=== PATIENT | female | born 1940 | race Caucasian/White ===

== ENCOUNTER → 2017-11-18 10:16 | Outpatient (CLI) | payer MEDICARE, SELFPAY | PROVIDERS: Family Provider Internal Medicine; PCP Internal Medicine; Visit Provider Internal Medicine | DX: M25.552 Pain in left hip (principal) | CPT/HCPCS: 73502 ==

== ENCOUNTER → 2017-11-27 09:12 | Outpatient (CLI) | payer MEDICARE, SELFPAY | PROVIDERS: Family Provider Internal Medicine; PCP Internal Medicine; Visit Provider Internal Medicine | DX: R92.8 Other abnormal and inconclusive findings on diagnostic imaging of breast (principal); N63.24 Unspecified lump in the left breast, lower inner quadrant | CPT/HCPCS: 76642; 77062; 77066; G0279 ==

== ENCOUNTER 2017-12-06 08:30 | Outpatient (RCR) | payer MEDICARE, SELFPAY ==
--- NOTE | 2017-11-22 10:04 | HP.PTEVAL_ITS ---
Patient's Visit Information MOLLY BOURGEOIS is a 77 year old F referred to Physical Therapy by Sandra Narvaez with a diagnosis of L ITB itis , L hip pain. Date of Evaluation: 11/22/17 Physical Therapist: LIVAN ColindresT, OC - Visit Plan Frequency: Every Other Week Duration: 4-6 Weeks Plan: Pt cannot affor d frequent therapy so decided on HEP stretching for 2 weeks while anti inflammatory kicks in then teach strength hip stabs.. Consider STM, ITB stretch and US in therapy if patient agreeable and improvements not noted. - Subjective Subjective: 3 years ago fell on the ice int he winter and landed on hip, was OK at the time but now hip is gradually getting worse. Has 1/8 mile trip to [employer] and it hurts. stopped walking to the mailbox last year. In fact she stopped doing alot according to daughter. L hip pain is OK at rest, worse with crossing legs. Walking any distance is worse adn standing to do dishes hurts.( 10 minutes is hard to stand). Pain is lateral at L hip. Denies numbness and tingling but does sometimes go down lateral leg toward knee. Below knee is numb laterally froma previous accident. LB has OA but is OK and no wrse than normal. Sleep is OK. Not employed. Not doing any housework or dishes due to hip, daughter helps her. Wants to hollis and garden but hasn't been able to. Squatting and getting up from gorund are not happening, can't get up out of tub. Uses cane for balance, needs to use R leg on steps. - Pain L lateral hip Pain Intensity (Out of 10): 0 Pain Intensity Range: 0, 8 - Objective Walks with cane mod I, trasnfers I, mild evidence of pain. Max tender over L GT bursa area and down into ITB. - hip scour. Hip AROM WFL and symmetrical, no pain at end range. Strength in hips 4-/5 ext adn abd, 4/5 flexion and 4- rotations with slight pain with IR and flexion. reflexes 2/3 patella and achilles B. Sensation WNL to gross ligth touch. ITB mod tight B. HS 90/90 test -40 B. hip flexors tight to neutral B. - Goals Goal 1:: Patient feel 75% better and pain no greater tahn 1/10 Goal Time Frame: 2-4 Weeks Goal 2:: Walk to mailbox and back without pain Goal Time Frame: 2-4 Weeks Goal 3:: I approp HEP to minimize future problems. Goal Time Frame: 4-6 Weeks - Rehabilitation Potential Physical Therapy Diagnosis: L ITB syndrome. Rehabilitation Potential: Fair - Anticipated Interventions Patient/Client Instruction: Educate patient on: Condition, Plan of Care For the Purpose of:: To decrease pain, To increase ROM, To improve nutrient delivery to tissue Therapeutic Exercise to Include: Strength training, Flexibilty training For the Purpose of:: To decrease pain Thank you for the opportunity to evaluate your patient. For Medicare and Medicare HMO plans, please review the plan of care and approve it. It will need to be FAXED BACK to us at [phone] for Medicare purposes. Please let me know if there are questions or concerns regarding this plan of care. Physician Signature: Date:
--- NOTE | 2018-02-25 11:51 | HP.PTDCSUM ---
HP - PT D/C Summary It has been my pleasure to treat MOLLY BOURGEOIS under orders from Sandra Narvaez, for the diagnosis of L ITB itis , L hip pain for a total of 2 visit(s). Discharge Date: 12/06/17 Please see the following information for a summary of their discharge status. - Subjective Subjective: 90% better. Ex really helps. Saw doctor and will see again 12/24/17. Wants to be done with PT. 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 - Pain L lateral hip Pain Intensity (Out of 10): 0 - Overall Improvement % Improvement: 90 - Objective Objective/Function: Walking very well without pain today. No cane needed but she is using it. - Goals Goal 1:: Patient feel 75% better and pain no greater tahn 04/10 Goal Progress: Goal Met Goal 2:: Walk to mailbox and back without pain Goal Progress: Progressing Goal 3:: I approp HEP to minimize future problems. Goal Progress: Goal Met - Plan Plan: D/C patients request. - D/C Information Discharge Comments: Patient wants to continue ex at home vs continued PT and should be able to do so. Will see doctor end of month. If there are questions or concerns regarding this patient's physical therapy, please feel free to call me at [phone]. Thank you for the referral of this patient. Sincerely, Duy Bedoya, DPT, OC
== END 2017-12-06 19:00 | disposition home or self-care (01) ==
LOC: PT 08:30
PROVIDERS: Family Provider Internal Medicine; PCP Internal Medicine; Visit Provider Internal Medicine
DX: M25.552 Pain in left hip (principal); M76.32 Iliotibial band syndrome, left leg
CPT/HCPCS: 97110; 97164

== ENCOUNTER → 2019-12-25 06:35 | Outpatient (CLI) | payer MEDICARE, SELFPAY ==
--- NOTE | 2019-12-25 06:40 | ECHOD_ITS ---
Reason For Study: Abn EKG Procedure This was a 2D Doppler, Color Flow transthoracic echocardiogram. Exam performed in department. Left Ventricle Normal LV size. The estimated ejection fraction is 55 %. No evidence for diastolic dysfunction. No regional wall motion abnormalities noted. Right Ventricle Normal RV size. Normal systolic function. Atria Normal left atrium. Normal right atrium. No doppler evidence for ASD. Mitral Valve There is no mitral valve stenosis. Trivial mitral valve insufficiency. Tricuspid Valve There is no tricuspid stenosis. Unable to estimate RV systolic pressure due to inadequate jet, pulmonary artery pressure probably normal. Aortic Valve There is no aortic stenosis. Trivial aortic valve insufficiency. Pulmonic Valve There is no pulmonic valvular stenosis. No pulmonic valve insufficiency. Great Vessels Normal aortic root. Pericardium/Pleural Thickened pericardium. MMode/2D Measurements & Calculations LVIDd: 3.1 cm IVSd: 1.3 cm Ao root diam: 3.9 cm LVIDs: 2.2 cm LVPWd: 1.1 cm RVDd: 3.0 cm FS: 29.8 % LAV(MOD-bp): 25.3 ml LVAd ap4: 22.2 cm2 SV(MOD-sp4): 26.5 ml LAV(MOD-bp) Indexed: 12.7 ml/m2 EDV(MOD-sp4): 53.2 ml LAV(MOD-sp2): 32.8 ml EDV(sp4-el): 53.2 ml LAV(MOD-sp4): 19.7 ml LVAs ap4: 14.0 cm2 ESV(MOD-sp4): 26.7 ml ESV(sp4-el): 24.6 ml EF(MOD-sp4): 49.8 % EF(sp4-el): 53.8 % SV(sp4-el): 28.6 ml LA A4 area: 9.8 cm2 LA dimension(2D): 2.7 cm RA A4 area: 8.7 cm2 Doppler Measurements & Calculations Ao V2 max: 132.1 cm/sec LV V1 max: 87.1 cm/sec PA V2 max: 108.9 cm/sec Ao max P.0 mmHg LV V1 max P.0 mmHg Ao V2 mean: 94.0 cm/sec Ao mean P.9 mmHg Ao V2 VTI: 23.5 cm Interpretation Summary The estimated ejection fraction is 55 %. No evidence for diastolic dysfunction. Trivial mitral valve insufficiency. Trivial aortic valve insufficiency. Ordering Physician: Sandra Narvaez Referring Physician: Sandra Narvaez Performed By: Neha Claros, BRE, RVT
--- NOTE | 2019-12-30 17:24 | STRESSREP ---
Stress Test Report Date: 12/25/2019 Procedure: Pharmacologic stress nuclear imaging study Indications: Abnormal EKG Consent: Per the patient Procedure: The patient underwent pharmacologic (Regadenoson) evaluation with a peak heart rate of 117 beats per minute (82%predicted maximal heart rate) and a peak blood pressure of 172/88 mmHg. The baseline ECG demonstrated normal sinus rhythm, nonspecific intraventricular conduction delay, nonspecific ST-T changes. EKG during lexiscan infusion revealed no significant ST T changes. EKG post infusion revealed no significant ischemic changes [There were no cardiac dysrhythmias pretest, during pharmacologic infusion, or recovery]. [There was no complaint of chest discomfort during pharmacologic infusion or recovery]. The examination was discontinued secondary to completion of protocol. Impression: 1. Lexiscan stress test test is negative for Lexiscan infusion induced EKG changes of ischemia. 2. Lexiscan stress test test is negative for Lexiscan infusion induced chest pain. 3. Results of the nuclear portion of the test is as below Myocardial perfusion imaging study: Technique: The patient was injected with 11 millicuries of technetium 99m Cardiolite and subsequently rest SPECT Cardiolite nuclear imaging was obtained in the horizontal long, vertical long, and short axis views. The patient underwent pharmacologic (Regadenoson) evaluation. Please see above for details. The patient was injected with 33.3 millicuries of technetium 99m Cardiolite and subsequently stress SPECT Cardiolite nuclear imaging was obtained in the horizontal long, vertical long, and short axis views. A gated Cardiolite study at peak stress was obtained. Interpretation: Rest and stress SPECT Cardiolite nuclear imaging status post realignment, normalization, and attenuation correction demonstrate overall normal myocardial radioisotope uptake. Gated images reveal no significant regional wall motion abnormalities. The reported LVEF is 66%. Impression: 1. There is no evidence of significant ischemia or infarction. 2. Estimated ejection fraction is 66%. This note was generated with [employer] software. It may contain incorrect words, spelling, and punctuation that were not noted in checking the note before signing.
== END ==
PROVIDERS: PCP Internal Medicine; Referring Provider Internal Medicine; Visit Provider Internal Medicine
DX: R94.31 Abnormal electrocardiogram [ECG] [EKG] (principal); R55 Syncope and collapse; I44.7 Left bundle-branch block, unspecified; R11.0 Nausea; Z79.4 Long term (current) use of insulin; Z79.82 Long term (current) use of aspirin; Z79.899 Other long term (current) drug therapy
CPT/HCPCS: 71045; 78452; 80048; 81001; 84484; 85025; 87086; 87088; 93005; 93017; 93306; 99284; A9500; A4216; J2785

== ENCOUNTER 2019-12-25 10:17 | Emergency (ER) | payer MEDICARE, SELFPAY ==
[2019-12-25 10:18] VITALS: BP 169/94; PULSE 99; RESP 17; TEMP 36.2; O2SAT 99; BMI 30.7
--- NOTE | 2019-12-25 10:30 | EKG12_ITS ---
Test Reason : DIZZINESS Blood Pressure : / mmHG Vent. Rate : 092 BPM Atrial Rate : 092 BPM P-R Int : 200 ms QRS Dur : 128 ms QT Int : 392 ms P-R-T Axes : 048 -33 129 degrees QTc Int : 484 ms Normal sinus rhythm Left axis deviation Left bundle branch block Abnormal ECG Confirmed by JUAN LUIS WILSON, IGOR ([id number]), newspaper or periodical editor FABIAN GOEL ([id number]) on 12/30/2019 8:44:33 AM Referred By: MESSI Confirmed By:IGOR MCKNIGHT MD
--- NOTE | 2019-12-25 10:36 | ED.VIS.GEN ---
History of Present Illness Informant: Patient, Family Onset: Today Context: Sudden Onset Timing: Intermittent, Lasts - About a minute Quality: Lightheaded, near syncope Location: Head Current Severity: Mild Maximum Severity: Severe Worsened by: Standing and walking Relieved by: Rest Associated Symptoms: Nausea Narrative: 79-year-old female presents to the emergency department with lightheadedness and near syncope. The patient was in the hospital getting an outpatient stress test and echocardiogram. She had completed the test and was returning to the car with her daughter when she started to feel nauseated and felt lightheaded and near syncopal so she sat down on the ground. She did not lose consciousness. She did not have chest pain or shortness of breath. She was not diaphoretic or pale. She currently feels well at this time. She thinks it is because she has not eaten since yesterday at 1800 because she had to be n.p.o. for her testing today. She was getting these tests done because she had appointment with her new primary care physician Dr. Narvaez and had an abnormal EKG Prior similar symptoms: No Recent Illness/Hospitalization: No <Aris Alves - Last Filed: 12/25/19 13:17> <Marcelino Reed - Last Filed: 12/25/19 13:26> Chief Complaint: Dizziness Past Medical History Prior records reviewed: Yes Past Medical History: None Surgical History: no surgical history Lives: With Family Smoking Status: Never smoker Alcohol: None Drugs: None <Aris Alves - Last Filed: 12/25/19 13:17> <Marcelino Reed - Last Filed: 12/25/19 13:26> - Allergies and Home Meds Allergies/Adverse Reactions: Allergies No Known Allergies Allergy (Unverified 12/25/19 10:17) Primary Care Physician: Sandra Narvaez DO [Primary Care Provider] - Review of Systems All systems negative except as indicated General: Denies: Chills, Fever, Malaise, Subjective, Sweats Eyes: Denies: Visual changes - bilaterally, Diplopia ENT: Denies: Rhinorrhea, Sore throat Cardiovascular: Denies: Chest pain, Palpitations Respiratory: Denies: Dyspnea, Cough, Dyspnea on exertion Gastrointestinal: Reports: Nausea. Denies: Abdominal pain, Vomiting, Diarrhea, Constipation, Melena, Hematochezia Genitourinary: Denies: Dysuria, Hematuria, Frequency Musculoskeletal: Denies: Back pain, Swelling, Extremity Pain Skin: Denies: Rash, Abscess, Abrasions, Wounds Neurological: Denies: Headache, Weakness, Numbness <Aris Alves - Last Filed: 12/25/19 13:17> Physical Exam Vital Signs/Narrative: Vital Signs Temp Pulse Resp BP Pulse Ox 12/25/19 10:18 97.1 F L 99 17 169/94 H 99 Inital Vital Signs reviewed: Yes General: Well nourished, Well developed, No Acute Distress Head: Normocephalic, Atraumatic Eyes: Perrl, EOMI ENT: Moist mucous membranes, No rhinorrhea Neck: Supple, Nontender Cardiovascular: Regular rate, Regular rhythm, No murmurs Respiratory: No distress, CTA bilaterally, Chest nontender Abdomen: Soft, Nontender, Nondistended, Normal bowel sounds Back: Nontender, Normal Inspection Extremities: Nontender, No edema Skin: Normal color, No rash Neurological: Alert, Oriented x3, Cranial nerves II-XII grossly intact, Normal Strength, Normal Sensation Psychological: Normal affect, Normal Mood <Aris Alves - Last Filed: 12/25/19 13:17> Vital Signs/Narrative: Vital Signs Temp Pulse Resp BP Pulse Ox 12/25/19 12:17 95 18 160/101 H 97 12/25/19 10:18 97.1 F L 99 17 169/94 H 99 <Marcelino Reed - Last Filed: 12/25/19 13:26> Diagnostic/Tx/Re-eval Chest X-Ray - ED: 1 View, Read by ED Physician, Read by Radiologist, No Acute Disease - Rhythm Strip Rhythm Strip: Sinus Rhythm Rate: 92 Ectopy: None - EKG Initial EKG Interpretation: Sinus Rhythm, LBBB Prior: Unchanged - Medical Decision Making EKG on arrival was sinus rhythm with a left bundle branch block which is unchanged from her previous EKG done at her primary care physician's office, last week. CBC BMP and troponin unremarkable. Urinalysis shows 5-10 white blood cells but no nitrites. She is not having urinary symptoms. Her chest x-ray is unremarkable as well. Repeat exam patient feels well. She ambulates without difficulty. Vital signs stable. At this time feel the patient likely was lightheaded from her being n.p.o. since last evening. She will be discharged home with her daughter who is agreeable with plan and they will follow-up with her primary as scheduled. <Aris Alves - Last Filed: 12/25/19 13:17> - Medical Decision Making I supervised the PA and have performed my own pertinent history and physical. Results and treatment plan were discussed. HPI: Patient reports that she had just had a stress test as she has been having weakness for quite some time now. She was in the elevator leaving this will be she became nauseated and lightheaded. She denies any vertigo. No numbness or weakness. She denies any chest pain or palpitations. She denies abdominal pain. No vomiting or diarrhea. PE: Vitals: Stable. Afebrile. General: Well-nourished and well-developed. Head: Normocephalic atraumatic. Neck: Supple, no lymphadenopathy. No JVD. Nontender. Cardiovascular: Regular rate and rhythm. No murmurs. Respiratory: No respiratory distress. Clear to auscultation bilaterally. Abdominal: Soft, nontender, nondistended, normal bowel sounds. No guarding, rebound, or peritoneal signs. Back: Nontender. Extremities: Nontender, no edema. Skin: Normal color, no rash. Neurologic: Alert and oriented ?3. Cranial nerves II through XII are intact. Normal strength and sensation. Psych: Normal affect. Emergency Department course: EKG and labs are unremarkable. Urinalysis is sent for culture, but does not appear to be the source of her symptoms today. Treatment Plan: Patient feels well and would like to go home. She will be discharged instructed to follow-up her primary care physician in 3 to 5 days for another exam. Return to the emergency department for any worsening symptoms. This note was generated with [employer] dictation software. It may contain incorrect words, spelling, and punctuation that were not noted in review of the chart prior to signing. <Marcelino Reed - Last Filed: 12/25/19 13:26> ED Disposition <Aris Alves - Last Filed: 12/25/19 13:17> <Marcelino Reed - Last Filed: 12/25/19 13:26> - Plan for ED Patient: Disposition: Home or Assisted Living Diagnosis: Near syncope, LBBB (left bundle branch block) Instructions: ED Near Syncope Vasovagal Referrals: Sandra Narvaez DO [Primary Care Provider] -
--- NOTE | 2019-12-25 10:45 | RAD_ITS ---
STUDY: X-RAY CHEST REASON FOR EXAM: Female, 79 years old. CHEMICAL STRESS TODAY- BECAME DIZZY AFTERWARDS AND LOWERED HERSELF TO THE FLOOR- NO LOC -- PT IS DIABETIC TECHNIQUE: Single AP portable view of the chest. COMPARISON: None. FINDINGS: The lungs are clear and expanded. There is no demonstrated pleural abnormality. Normal size heart. Normal mediastinum and joseph. Normal visualized pulmonary arteries. There is atherosclerotic calcification of the aortic arch with tortuosity. There are diffuse degenerative changes of the visualized thoracic spine. Dextroscoliosis. There is degenerative osteoarthritis of the bilateral shoulders. There is no demonstrated abnormality of the visualized soft tissue structures of the upper abdomen. RAD/Chest 1 View (Portable) IMPRESSION: No acute abnormality is seen. Electronically Signed: Jairo Cortes, at 11:01 EDT , Service support ,
[2019-12-25 11:09] LABS: Absolute Lymphocyte Count 1.11 X10^3/uL (0.83-4.51); Absolute Neutrophil Count 7.4 X10^3/uL (2.0-7.7); Basophil# 0.03 X10^3/uL; Basophil% 0.3 % (0-1); Eosinophil# 0.01 X10^3/uL; Eosinophils% 0.1 % (0-5); Hematocrit 40.8 % (37-47); Hemoglobin 13.6 g/dL (12.0-15.0); Lymphocyte # 1.11 X10^3/ul (4.0); Lymphocyte % 12.4 % (19-41); Mean Corp Hgb Conc 33.3 g/dL (32-36); Mean Platelet Vol. 10.8 fl (6.2-12.0); Monocyte# 0.39 X10^3/uL; Monocyte% 4.4 % (0-10); NRBC Flagged by Analyzer 0 % (0-5); Neutrophil # 7.35 X10^3/uL (2.7-7.7); Neutrophil % 82.1 % (47-70); Platelet Count 264 K/mm3 (150-450); RBC Distribution Width CV 12.9 % (11.6-14.6); Red Blood Count 4.25 M/mm3 (4.2-5.4)
[2019-12-25 11:26] LABS: Anion Gap 8 (5-15); BUN 21 mg/dL (7-18); BUN/Creat Ratio 14.2 RATIO (10-20); Calcium,Total 9.4 mg/dL (8.5-10.1); Chloride 103 mmol/L (98-107); Creatinine, Serum 1.48 mg/dL (0.55-1.02); EST Glomerular Filtration Rate 36 mL/min (>60); Est Glom Filt Rate - Afr Amer 44 mL/min (>60); Estimated Creatinine Clearance 28.85 ml/min; Glucose 175 mg/dL (74-106); Potassium 4.1 mmol/L (3.5-5.1); Sodium Level 135 mmol/L (136-145)
[2019-12-25 12:17] VITALS: BP 160/101; PULSE 95; RESP 18; O2SAT 97
[2019-12-25 12:35] LABS: Bacteria 0 SEEN /hpf (None Seen); Mucous, Urine 0 SEEN /hpf (<or=2+); Red Blood Cells-Urine 0 SEEN /hpf (0-5)
[2019-12-25 12:47] LABS: Color, Urine Yellow (Yellow); Glucose, Dipstick Normal (Normal); Ketone-Dipstick Negative (Negative); Leukocyte Esterase-Dipstick 500 /ul (Negative); Nitrite-Dipstick Negative (Negative); Occult Blood-Urine Negative /ul (Negative); Protein-Dipstick 30 mg/dl (Negative); Specific Gravity, Urine 1.015 (1.002-1.030); Urine Bilirubin Dipstick Negative (Negative); Urine Clarity Sl. Cloudy (Clear); Urine Urobilinogen Normal (Normal)
[2019-12-25 13:00] LABS: Squamous Epithelial Cells - UA 0-5 SEEN /hpf (5-10); White Blood Cells 5-10 SEEN /hpf (0-5)
[2019-12-25 13:33] VITALS: BP 146/86; PULSE 71; O2SAT 98
== END 2019-12-25 13:34 | disposition home or self-care (01) ==
PROVIDERS: Emergency Provider Physician Assistant Medical; PCP Internal Medicine
DX: R55 Syncope and collapse (principal); I44.7 Left bundle-branch block, unspecified; R11.0 Nausea; Z79.84 Long term (current) use of oral hypoglycemic drugs; Z79.82 Long term (current) use of aspirin; Z79.899 Other long term (current) drug therapy
CPT/HCPCS: 71045; 80048; 81001; 84484; 85025; 87086; 87088; 93005; 99284; A4216

== ENCOUNTER → 2020-03-16 09:55 | Outpatient (CLI) | payer MEDICARE, SELFPAY ==
--- NOTE | 2020-03-16 09:57 | BI_ITS ---
MAMMOGRAPHY - BILATERAL SCREENING REASON FOR EXAM: Female, 79 years old. Routine annual screening examination. PERTINENT HISTORY: Non-contributory. TECHNIQUE: Digital bilateral breast harper (3D mammographic acquisition) in the CC and MLO projections. 2-D mediolateral oblique (MLO) and craniocaudad (CC) views of both breasts were obtained. CAD: Full Field Digital Mammography with Computer Added Detection was performed. COMPARISON: Comparison is made with prior study dated 11/27/2017. FINDINGS: Breast Composition: The breasts are almost entirely fatty. There are no dominant masses or suspicious calcifications. Stable scattered bilateral calcifications. No other significant abnormalities are identified. There has been no significant change since the prior study. BI/SCREEN MAMM (CAD) W/HARPER BILAT IMPRESSION: Stable bilateral screening mammogram. Yearly follow-up mammogram recommended. (A) ASSESSMENT CATEGORY: BIRADS Category 2: Benign. A letter regarding these results will be sent to the patient by the facility within 30 days. Approximately 10% of breast cancers are not detected by mammography. A normal mammogram should not delay biopsy of a clinically suspicious abnormality. [id number] Electronically Signed: Jairo Cortes, at 12:23 EST , Service support ,
--- NOTE | 2020-03-16 10:09 | BD_ITS ---
STUDY: DUAL ENERGY X-RAY ABSORPTIOMETRY / DXA REASON FOR EXAM: Female, 79 years old. 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 COMPARISON: None. FINDINGS: Lumbar Spine (L1-L4): g/cm2 (1.140) / T-score (-0.3) / Z-score (1.5) Findings are suggestive of normal bone density with a low fracture risk. Left Femur Total: g/cm2 (0.943) / T-score (-0.5) / Z-score (1.5) Left Femoral Neck: g/cm2 (0.953) / T-score (-0.6) / Z-score (1.5) Right Femur Total: g/cm2 (0.952) / T-score (-0.4) / Z-score (1.5) Right Femoral Neck: g/cm2 (0.954) / T-score (-0.6) / Z-score (1.5) BD/Dexa Bone Density Study IMPRESSION: The patient is considered normal as outlined below according to World Stevenson Organization (WHO) criteria with a low fracture risk. Reference Information: The T-score is the number of standard deviations above or below the standard which is normal for young adults at their peak bone mineral density. The World Health Organization (WHO) interprets the T-scores as follows: Above -1 Normal bone density Between -1 and -2.5 Osteopenia Equal to / or below -2.5 Osteoporosis As a practical clinical guideline, osteopenia may be graded as follows: Mild -1 through -1.5 Moderate -1.6 through -2.0 Severe -2.1 through -2.4 The Z-score is the number of standard deviations above or below age-matched controls. A Z-score of less than -1.5 would be considered abnormal. References: 1. NIH Osteoporosis and Related Bone Diseases www osteo.org 2. International Society for Clinical Densitometry www iscd.org 3. National Osteoporosis Foundation www nof.org Electronically Signed: Jairo Cortes, at 15:17 EST , Service support ,
== END ==
PROVIDERS: PCP Internal Medicine; Referring Provider Internal Medicine; Visit Provider Internal Medicine
DX: Z12.31 Encounter for screening mammogram for malignant neoplasm of breast (principal); Z78.0 Asymptomatic menopausal state
CPT/HCPCS: 77063; 77067; 77080

== ENCOUNTER 2020-04-12 19:19 | Observation (INO) | payer MEDICARE, SELFPAY ==
[2020-04-12] VITALS (11 sets, daily range): BP systolic 148–180; BP diastolic 78–103; PULSE 97–111; RESP 12–20; TEMP 36–37.2; O2SAT 97–100; BMI 28.1; BMI 29.2; BMI 29.3
--- NOTE | 2020-04-12 19:35 | EKG12_ITS ---
Test Reason : DYSRHYTHMIA Blood Pressure : / mmHG Vent. Rate : 099 BPM Atrial Rate : 099 BPM P-R Int : 194 ms QRS Dur : 126 ms QT Int : 382 ms P-R-T Axes : 052 -37 126 degrees QTc Int : 490 ms Normal sinus rhythm Left axis deviation Left bundle branch block Abnormal ECG Confirmed by KIRK WILSON, CHASITY ([id number]), content editor ESTEE AKERS ([id number]) on 04/18/2020 10:54:44 AM Referred By: REGLA Confirmed By:JIMI BRADLEY MD
--- NOTE | 2020-04-12 19:39 | ED.DCSUM_ITS ---
History of Present Illness Chief Complaint: Numb/Ting Informant: Patient, Family Onset: Today - At 1600 Context: Sudden Onset Quality and Location: Slurred Speech Onset: 1599 on April 12 Current Severity: Mild Maximum Severity: Mild Worsened by: Nothing Relieved by: Nothing Associated Symptoms: Negative for: Headache, Nausea, Vomiting, Chest Pain Narrative: Patient elderly woman who presents because of concern for stroke. She had a mini stroke in the past. She is on aspirin a day. She also has history of diabetes. She did not have symptoms of hypoglycemia. She denies headache. She denies double vision, blurred vision loss of vision. She states her speech is slurred. She also complains of numbness in her right long and ring finger. She denies neck pain. She denies headache. She denies nausea or vomiting. She has trouble with balance. She denies weakness in her arms or legs. She denies chest pain or back pain. She denies shortness of breath. Prior similar symptoms: Yes Recent Illness/Hospitalization: No - Past Medical History (1) History of type 2 diabetes mellitus Status: Acute (2) History of TIA (transient ischemic attack) Status: Acute (3) History of gout Status: Acute (4) History of hypertension Status: Acute Past Medical History - Allergies and Home Meds Allergies/Adverse Reactions: Allergies No Known Allergies Allergy (Unverified 04/12/20 19:23) Primary Care Physician: Sandra Narvaez DO [Primary Care Provider] - Prior records reviewed: Yes Surgical History: noncontributory, - - Thyroid, tonsils Lives: With Family Smoking Status: Never smoker Alcohol: None Drugs: None Review of Systems General: Denies: Chills, Fever, Malaise, Subjective, Sweats Eyes: Denies: Visual changes - bilaterally, Blurred Vision - bilaterally ENT: Denies: Rhinorrhea, Sore throat Cardiovascular: Denies: Chest pain, Palpitations Respiratory: Denies: Dyspnea, Cough, Dyspnea on exertion Gastrointestinal: Denies: Abdominal pain, Nausea, Vomiting, Diarrhea, Melena, Hematochezia Genitourinary: Denies: Dysuria, Hematuria, Frequency Musculoskeletal: Denies: Myalgias, Arthralgias, Swelling, Extremity Pain Skin: Denies: Rash, Wounds Neurological: Reports: Parasthesia, Numbness. Denies: Headache, Weakness Psych: Denies: Depression Hematologic: Denies: Easy bruising, Easy bleeding Allergy: Denies: Uticaria STROKE Vital Signs/Narrative: Vital Signs Temp Pulse Resp BP Pulse Ox 04/12/20 19:20 96.8 F L 111 H 17 163/96 H 100 Inital Vital Signs reviewed: Yes - NIHSS Initial 1a Level of Consciousness: 1 1b LOC Questions (Score 2 if aphasic/stupor): 0 1c LOC Commands (Only score 1st attempt): 0 2 Best Gaze (If aphasic, use reflexive mvmts.): 0 3 Visual: 0 4 Facial Palsy: 0 5 Motor Arm Right (UN = amputation/fusion): 0 5 Motor Arm Left: 0 6 Motor Leg Right: 0 6 Motor Leg Left: 0 7 Limb ataxia (Only + if out of proportion): 0 8 Sensory (Aphasia/stupor=0 or 1, coma=2): 0 9 Best Language: 1 10 Dysarthria (mute, coma=2, intubated=UN): 1 11 Extinction and Inattention (only scored if +): 0 Total Score: 3 General: Well nourished, Well developed Head: Normocephalic, Atraumatic Eyes: Perrl, EOMI ENT: Moist mucous membranes, No rhinorrhea Neck: Supple, Nontender, No lymphadenopathy, No JVD Cardiovascular: Regular rate, Regular rhythm, No murmurs, Normal S1, Normal S2 Respiratory: No distress, CTA bilaterally, Chest nontender Abdomen: Soft, Nontender, Nondistended, Normal bowel sounds Rectal: Deferred Back: Nontender, Normal Inspection Extremities: Nontender, No edema Skin: Normal color, No rash Neurological: Alert, Cranial nerves II-XII grossly intact, Normal Strength, Normal Sensation, Normal DTR, Normal Gait - Not tested. Negative for: Oriented x3 Psychological: - - Affect is flat Diagnostic/Tx/Re-eval Impressions Brain CT 04/12/20 19:40 IMPRESSION: No acute intracranial abnormality. Chronic ischemic and atrophic changes. N.B. : The above information has been verbally conveyed by Cleve Guan MD to [facility] on 04/12/2020 19:52:42 (ET). Electronically Signed: Cleve Guan MD at 19:53 EST Tel , Service support , ADDENDUM: 04/12/201999 IMPRESSION: No acute intracranial abnormality. Chronic ischemic and atrophic changes. N.B. : The above information has been verbally conveyed by Cleve Guan MD to Yunior Dorsey on 04/12/2020 19:52:42 (ET). Electronically Signed: Cleve Guan MD at 19:53 EST Tel , Service support , Head/Neck CTA 04/12/20 19:49 IMPRESSION: Mild atherosclerotic disease. No evidence for significant stenosis or occlusion within the head or the neck Electronically Signed: Jorge Jensen MD at 20:07 EST , Service support , ADDENDUM: 04/12/202016 IMPRESSION: Mild atherosclerotic disease. No evidence for significant stenosis or occlusion within the head or the neck N.B. : The above information has been verbally conveyed by Jorge Jensen MD to dr luly MD, on 04/12/2020 20:10:57 (ET). Electronically Signed: Jorge Jensen MD at 20:07 EST , Service support , 04/12/20 19:35 Chest 1 View [RAD] Stat 04/12/20 19:40 STROKE Brain/Head without Cont [CT] Stat 04/12/20 19:49 CTA Head AND Neck W/ Contrast [CT] Stat Laboratory Results 04/12/20 19:34 POC Glucose 193 H Patient's case was discussed with the radiologist and the neurologist at [facility], Dr. Toure patient's speech is no longer slurred. She still has slight problem with fluency. Suspect there is also chronic memory impairment which may be reason for her not knowing her age. After lengthy discussion with patient and daughter it was decided that there was greater risk of harm versus benefit with the administration of TPA. She is to be admitted to this facility. - Medical Decision Making Stroke Team Activated: Yes Reviewed Inclusion/Exclusion criteria: Yes Was Patient considered for Endovascular Intervention?: No IV Alteplase (t-PA) Administered: No No contraindications for IV Alteplase (t-PA) administration.: Yes Alteplase (t-PA) risks, benefits, alternative discussed: Yes ED Disposition - Plan for ED Patient: Disposition: [facility] Care [facility] Diagnosis: CVA (cerebral vascular accident) Referrals: Sandra Narvaez DO [Primary Care Provider] -
--- NOTE | 2020-04-12 19:40 | CT_ITS ---
STUDY: CT BRAIN WITHOUT CONTRAST REASON FOR EXAM: Female, 79 years old. Altered mental status. Stroke alert. RADIATION DOSAGE (If Supplied By Facility): CTDIvol = ( 45 ) mGy, DLP = ( 762 ) mGycm TECHNIQUE: Transaxial CT imaging of the brain was performed without administration of intravenous contrast material. Individualized dose optimization techniques were used for this CT. COMPARISON: None. FINDINGS: There is no acute bleed or infarct. There are chronic ischemic and atrophic changes. The ventricles are normal in configuration. There is no hydrocephalus. The visualized paranasal sinuses are clear. The mastoid air cells are well aerated. There is no skull fracture. CT/STROKE Brain/Head without Cont IMPRESSION: No acute intracranial abnormality. Chronic ischemic and atrophic changes. N.B. : The above information has been verbally conveyed by Cleve Guan MD to [facility] on 04/12/2020 19:52:42 (ET). Electronically Signed: Cleve Guan MD at 19:53 EST Tel , Service support ,
[2020-04-12 19:46] LABS: Bedside Glucose 193 mg/dL (70-110)
--- NOTE | 2020-04-12 19:49 | CT_ITS ---
We are attempting to reach an attending provider to discuss findings. An addendum with communication details will be sent when the communication is complete. STUDY: CTA HEAD AND NECK WITH CONTRAST REASON FOR EXAM: Female, 79 years old. SLURRED SPEECH. STOKE RADIATION DOSAGE (If Supplied By Facility): CTDIvol = ( 18.13 ) mGy, DLP = ( 759.69 ) mGycm TECHNIQUE: CT angiography was performed with a multi-detector CT scanner. Data acquisition was obtained from the skull base through the vertex following intravenous administration of IV 100mL [id number]-370. MIP images were reconstructed from the axial data set. Post-processing of the angiographic images was performed, with multiplanar reformation and 3D reconstruction. Individualized dose optimization techniques were used for this CT. COMPARISON: No relevant priors. FINDINGS: Normal bilateral petrous carotid arteries. Mild calcific plaquing of the right cavernous carotid artery with a normal supraclinoid bifurcation. Mild calcific plaquing of the left cavernous carotid artery with a normal supraclinoid bifurcation. Normal right A1 segments of the anterior cerebral artery. Normal left A1 segments of the anterior cerebral artery. Anterior communicating artery not visualized consistent with normal variant.). Normal bilateral A2 segments of the anterior cerebral arteries. Normal right M1 and M2 segments of the middle cerebral arteries, with a normal M1 bifurcation. Normal left M1 and M2 segments of the middle cerebral arteries, with a normal M1 bifurcation. Posterior communicating arteries are not visualized consistent with normal variant Normal bilateral vertebral arteries. Normal basilar artery with a normal basilar bifurcation. The visualized bilateral superior cerebellar (SCA) arteries are normal. Normal bilateral P1, P2 and visualized P3 segments of the posterior cerebral arteries. There is no demonstrated aneurysm of the [place] of [place]. There is no demonstrated abnormality of the visualized brain. AORTIC ARCH: Normal visualized aortic arch. Normal origins of the brachiocephalic, left common carotid, and left subclavian arteries. RIGHT CAROTID ARTERIES: Normal right common carotid artery (CCA). Normal right common carotid bulb. Normal origin of the right internal carotid (ICA) artery without a hemodynamically significant stenosis. Normal visualized cervical portion of the right internal carotid artery. Normal origin of the right external carotid artery (ECA). LEFT CAROTID ARTERIES: Normal left common carotid artery (CCA). Normal left common carotid bulb. Normal origin of the left internal carotid (ICA) artery without a hemodynamically significant stenosis. Normal visualized cervical portion of the left internal carotid artery. Normal origin of the left external carotid artery (ECA). VERTEBRAL ARTERIES: Normal bilateral vertebral arteries. CT/CTA Head AND Neck W/ Contrast IMPRESSION: Mild atherosclerotic disease. No evidence for significant stenosis or occlusion within the head or the neck Electronically Signed: Jorge Jensen MD at 20:07 EST , Service support ,
--- NOTE | 2020-04-12 20:20 | RAD_ITS ---
STUDY: X-RAY CHEST REASON FOR EXAM: Female, 79 years old. Altered mental status TECHNIQUE: Frontal view of the chest COMPARISON: 12/25/19 FINDINGS: The lungs are clear. There are no pleural effusions. There is no pneumothorax. The heart is normal in size. The visualized osseous structures are within normal limits. RAD/Chest 1 View IMPRESSION: No acute thoracic pathology. Electronically Signed: Cleve Guan MD at 20:40 EST Tel , Service support ,
[2020-04-12 20:21] LABS: Absolute Lymphocyte Count 1.23 X10^3/uL (0.83-4.51); Absolute Neutrophil Count 6.4 X10^3/uL (2.0-7.7); Basophil# 0.04 X10^3/uL; Basophil% 0.5 % (0-1); Eosinophil# 0.03 X10^3/uL; Eosinophils% 0.4 % (0-5); Hematocrit 36.4 % (37-47); Hemoglobin 12.1 g/dL (12.0-15.0); Lymphocyte # 1.23 X10^3/ul (4.0); Lymphocyte % 14.9 % (19-41); Mean Corp Hgb Conc 33.2 g/dL (32-36); Mean Corpuscular Hgb 31.3 pg (27.0-32.0); Mean Corpuscular Volume 94.3 fL (81-99); Mean Platelet Vol. 10.8 fl (6.2-12.0); Monocyte# 0.52 X10^3/uL; Monocyte% 6.3 % (0-10); NRBC Flagged by Analyzer 0 % (0-5); Neutrophil % 77.5 % (47-70); Platelet Count 258 K/mm3 (150-450); RBC Distribution Width CV 13.1 % (11.6-14.6); RBC Distribution Width SD 45.1 fl (35.1-43.9); Red Blood Count 3.86 M/mm3 (4.2-5.4); White Blood Count 8.3 K/mm3 (4.4-11.0)
[2020-04-12 20:42] LABS: Anion Gap 6 (5-15); BUN 14 mg/dL (7-18); BUN/Creat Ratio 10.8 RATIO (10-20); Calcium,Total 8.6 mg/dL (8.5-10.1); Chloride 99 mmol/L (98-107); EST Glomerular Filtration Rate 42 mL/min (>60); Est Glom Filt Rate - Afr Amer 51 mL/min (>60); Estimated Creatinine Clearance 34.12 ml/min; Glucose 166 mg/dL (74-106); International Normalized Ratio 0.9; Potassium 3.9 mmol/L (3.5-5.1); Prothrombin Time (Protime)PT. 12.1 SECONDS (11.7-14.9); Sodium Level 131 mmol/L (136-145)
[2020-04-12 20:44] LABS: Partial Thromboplast Time 28.8 Seconds (24.1-36.2)
[2020-04-12] MEDS: Acetaminophen 325 MG Tablet 650 MG PO (21:13)
--- NOTE | 2020-04-12 21:13 | HP.PCM_ITS ---
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 Associated with his for symptoms as numbness of 2 fingers of her right hand and apraxia. Her symptoms started about 1/2-hour prior to presentation. While at the emergency department she complained of headache. Emergency department doctor discussed his case with telemetry neurologist who stated gerhard because patient symptoms has considerably improved patient was not a candidate for tpa. Past Medical History Past Medical History (Chronic Problems): Chronic Problems (Last Reviewed 02/06/18 @ 09:08 by Jackie Mathias) History of gout (Chronic) History of hypertension (Chronic) Mastalgia in female (Chronic) Medical History: Medical History (Last Reviewed 04/13/20 @ 02:[address] Shiv Booker MD) Mastalgia in female (Chronic) N64.4 Diabetes E11.9 Gout M10.9 Left breast lump N63.20 Hypertension I10 Allergies No Known Allergies Allergy (Unverified 04/12/20 19:23) Home Medications: Ambulatory Orders Medication Instructions Recorded allopurinol 100 mg tablet 100 mg PO DAILY 02/06/18 amlodipine 2.5 mg tablet 2.5 mg PO DAILY 02/06/18 Aspirin E.C. [Ecotrin] 325 mg PO DAILY@1700 04/12/20 Cyanocobalamin (Vitamin B-12) 1,000 mcg PO DAILY 04/12/20 [Vitamin B-12] Levothyroxine Sodium [Synthroid] 50 mcg PO DAILY 04/12/20 Losartan Potassium 100 mg PO DAILY 04/12/20 Pravastatin Sodium 80 mg PO DAILY 04/12/20 Semaglutide [Ozempic] 1 mg SQ TU 04/12/20 Surgical History: Surgical History (Last Updated 02/06/18 @ 09:09 by Jackie Mathias) History of thyroid surgery Z98.890 History of tonsillectomy Z90.89 History of tubal ligation Z98.51 history right eye surgery Surgical History: noncontributory, - - Thyroid surgery, tonsils surgery Lives: With Family Smoking Status: Never smoker Alcohol: None Drugs: None - *Family History Maternal Family History: Family History (Last Reviewed 04/13/20 @ 02:[address] Shiv Booker MD) Mother Diabetes Father Heart disease Brother Heart disease Review of Systems Constitutional: Denies: Chills, Fever, Weight Change HEENT: Denies: Head Aches, Sinus Congestion, Sinus Drainage Cardiovascular: Denies: Chest Pain, Palpitations Respiratory: Denies: Cough, Shortness of breath at rest, Sputum production Gastrointestinal: Denies: Abdominal Pain, Nausea, Vomiting Genitourinary: Denies: Dysuria Musculoskeletal: Denies: Joint Pain, Joint Tenderness Skin: Denies: Rash, Wounds Neurological: Reports: Change in Speech, Numbness, Tingling. Denies: Focal weakness Psychiatric: Denies: Anxiety, Depression, Homicidal Ideations, Suicidal Ideations Hematologic/ Lymphatic: Denies: Easy Bruising, Easy Bleeding VTE Information - Inpt Only VTE Present on Admission: No VTE Mechan Device Prophylaxis: None VTE Pharm Prophylaxis ordered?: Yes Patient Problems: Active and Suspected Problems (Last Reviewed 02/06/18 @ 09:08 by Jackie Mathias) History of type 2 diabetes mellitus (Acute) History of TIA (transient ischemic attack) (Acute) CVA (cerebral vascular accident) (Acute) Stroke-like symptoms (Acute) - Physical Exam Vitals/I&O's: Vital Signs Temp Pulse Resp BP Pulse Ox 97.3 F L 104 H 18 161/92 H 98 04/12/20 20:38 04/12/20 21:00 04/12/20 21:00 04/12/20 21:00 04/12/20 21:00 Oxygen Delivery Method Room Air Weight: 84.6 kg Body Mass Index (BMI) 29.2 Finger Stick Blood Glucose 193 General: Alert, Oriented x3, Cooperative HEENT: Atraumatic, PERRLA, EOMI, Normocephalic Neck: Supple, No JVD, Negative Carotid Bruits Lungs: Clear to auscultation, Normal air movement Cardiovascular: Regular rate, No murmurs Abdomen: Bowel Sounds Present, Soft, Non Tender Extremities: No edema, Capillary Refill Less than 3 Seconds Skin: No rashes, No breakdown Musculoskeletal: No Tenderness to Palpation of Joints or Extremities Neurological: Cranial nerves II-XII grossly intact, Motor Exam 5/5 strength throughout, - - Hyperreflexia of right knee reflex (chronic) Psych/Mental Status: Normal Affect, Appropriate Laboratory Results 04/12/20 19:34: POC Glucose 193 H 04/12/20 20:00: WBC 8.3, RBC 3.86 L, Hgb 12.1, Hct 36.4 L, MCV 94.3, MCH 31.3, MCHC 33.2, RDW Std Deviation 45.1 H, RDW Coeff of Shalom 13.1, Plt Count 258, MPV 10.8, Immature Gran % (Auto) 0.400, Neut % (Auto) 77.5 H, Lymph % (Auto) 14.9 L, [place] % (Auto) 6.3, Eos % (Auto) 0.4, Baso % (Auto) 0.5, Absolute Neuts (auto) 6.4, Absolute Lymphs (auto) 1.23, Nucleated RBC % 0 04/12/20 20:00: PT 12.1, INR 0.9, APTT 28.8 04/12/20 20:00: Sodium 131 L, Potassium 3.9, Chloride 99, Carbon Dioxide 26.0, Anion Gap 6, BUN 14, Creatinine 1.30 H, Estim Creat Clear Calc 34.12, Est GFR (MDRD) Af Amer 51 L, Est GFR (MDRD) Non-Af 42 L, BUN/Creatinine Ratio 10.8, Glucose 166 H, Calcium 8.6, Troponin I < 0.015 Current Medications Allopurinol (Allopurinol 100 Mg Tablet) 100 mg PO DAILY [facility] Aspirin (Aspirin E.C. 325 Mg Tablet) 325 mg PO DAILY@1700 [facility] Labetalol HCl (Labetalol (Prefilled) 20 Mg/4 Ml) 20 mg IV X1 PRN PRN Reason: BLOOD PRESSURE Levothyroxine Sodium (Levothyroxine 50 Mcg Tablet) 50 mcg PO DAILY [facility] Non-Formulary Medication (Cyanocobalamin (Vitamin B-12) [Vitamin B-12]) 1,000 mcg PO DAILY [facility] Pravastatin Sodium (Pravastatin 80 Mg Tablet) 80 mg PO DAILY [facility] Assessment/Plan All Active Problems (Last Reviewed 02/06/18 @ 09:08 by Jackie Mathias) History of type 2 diabetes mellitus (Acute) History of TIA (transient ischemic attack) (Acute) CVA (cerebral vascular accident) (Acute) Stroke-like symptoms (Acute) The patient is a 79 year old F with a significant history of hypertension diabetes who presents to the emergency department with aphasia; numbness and tingling as well as apraxia. Strokelike symptoms Serial NINDS NIH Head/neck CTA showed mild atherosclerotic disease without any evidence of signif icant stenosis or occlusion within the head or the neck. -Check Hba1c, Lipid level Physical therapy, occupational therapy and speech therapy to work with patient. N.p.o. until bedside swallow eval. Continue home full dose aspirin and pravastatin. Lipid profile and A1c ordered. Permissive hypertension. Control blood pressure with labetalol for systolic blood pressure of more than 220 or diastolic blood pressure of more than 120. MRI brain ordered. Tylenol for headaches Last echocardiogram on file was 12/25/2019. Echocardiogram showed ejection fraction 55% with no evidence of diastolic dysfunction. There were trivial valvular abnormalities. Hypertension Hold home blood pressure medication for permissive hypertension. Labetalol and hydralazine as needed ordered. History of gout Allopurinol continued Hypothyroidism Synthroid continued Vitamin B12 deficiency Vitamin B12 p.o. continued. Diabetes mellitus Patient with hyperglycemia presentation On home semaglutide once weekly. Hold home antidiabetic medication. Accu-Chek with correction scale insulin ordered. DVT prophylaxis Subcutaneous Lovenox ordered OBSV E&M: [id number] Initial observation care L2
--- NOTE | 2020-04-12 23:00 | PCS.PANDOC ---
PANDEMIC DOCUMENTATION INITIATED: Date: 04/12/20 Time: 21:25
[2020-04-12 23:01] LABS: Bedside Glucose 156 mg/dL (70-110)
[2020-04-13] VITALS (11 sets, daily range): BP systolic 114–132; BP diastolic 61–77; PULSE 88–106; RESP 16–88; TEMP 36.8–37.1; O2SAT 93–98
[2020-04-13 06:41] LABS: Cholesterol 149 mg/dL (200); High Density Lipoprotein 45 mg/dL; Triglycerides 202 mg/dL; Very Low Density Lipoprotein 40 mg/dL (5-40)
[2020-04-13 06:50] LABS: Bedside Glucose 114 mg/dL (70-110)
[2020-04-13] MEDS: LORazepam 2 MG/ML Syringe 1 MG IV (08:09)
[2020-04-13] MEDS: 0.9% Saline Lock 10 ML Syringe IV (08:09)
--- NOTE | 2020-04-13 08:29 | PN_ITS ---
Patient Problems: Active and Suspected Problems (Last Reviewed 04/13/20 @ 02:[address] Shiv Booker MD) History of type 2 diabetes mellitus (Acute) History of TIA (transient ischemic attack) (Acute) CVA (cerebral vascular accident) (Acute) Stroke-like symptoms (Acute) Vitals/I&O's: Vital Signs Temp Pulse Resp BP Pulse Ox 98.3 F 93 18 114/67 98 04/13/20 06:00 04/13/20 07:00 04/13/20 06:00 04/13/20 06:00 04/13/20 06:00 Oxygen Delivery Method Room Air Weight: 181 lb 7.047 oz Body Mass Index (BMI) 29.2 Finger Stick Blood Glucose 193 Intake and Output for Last 24 Hours 04/11/20 04/12/20 04/13/20 23:59 23:59 23:59 Intake Total 480 / 480 240 / 240 Output Total 450 / 450 500 / 500 Balance 30 / 30 -260 / -260 Laboratory Results 04/12/20 19:34: POC Glucose 193 H 04/12/20 20:00: WBC 8.3, RBC 3.86 L, Hgb 12.1, Hct 36.4 L, MCV 94.3, MCH 31.3, MCHC 33.2, RDW Std Deviation 45.1 H, RDW Coeff of Shalom 13.1, Plt Count 258, MPV 10.8, Immature Gran % (Auto) 0.400, Neut % (Auto) 77.5 H, Lymph % (Auto) 14.9 L, [place] % (Auto) 6.3, Eos % (Auto) 0.4, Baso % (Auto) 0.5, Absolute Neuts (auto) 6.4, Absolute Lymphs (auto) 1.23, Nucleated RBC % 0 04/12/20 20:00: PT 12.1, INR 0.9, APTT 28.8 04/12/20 20:00: Sodium 131 L, Potassium 3.9, Chloride 99, Carbon Dioxide 26.0, Anion Gap 6, BUN 14, Creatinine 1.30 H, Estim Creat Clear Calc 34.12, Est GFR (MDRD) Af Amer 51 L, Est GFR (MDRD) Non-Af 42 L, BUN/Creatinine Ratio 10.8, Glucose 166 H, Calcium 8.6, Troponin I < 0.015 04/12/20 22:31: POC Glucose 156 H 04/13/20 05:22: Hemoglobin A1c Pending 04/13/20 05:22: Triglycerides 202 H, Cholesterol 149, LDL Cholesterol 64, VLDL Cholesterol 40, HDL Cholesterol 45 04/13/20 06:41: POC Glucose 114 H Current Medications Acetaminophen (Acetaminophen 325 Mg Tablet) 650 mg PO Q6H PRN PRN PRN Reason: Pain Score 1-10/Temp > 100.7 F Allopurinol (Allopurinol 100 Mg Tablet) 100 mg PO DAILY@1700 REPLACED BY [facility] Aspirin (Aspirin E.C. 325 Mg Tablet) 325 mg PO DAILY@1700 REPLACED BY [facility] Cyanocobalamin (Cyanocobalamin 500 Mcg Tablet) 1,000 mcg PO DAILY@1700 REPLACED BY [facility] Dextrose (Dextrose 50%-Water 25 Gm/50 Ml Disp.Syrin) 0 gm IV X1 PRN; Protocol PRN Reason: Hypoglycemia Enoxaparin Sodium (Enoxaparin 40 Mg/0.4 Ml Syringe) 40 mg SC DAILY REPLACED BY [facility] Glucagon (Glucagon 1 Mg/Ml Syringe) 1 mg IM .X1 PRN PRN Reason: Hypoglycemia Hydralazine HCl (Hydralazine 20 Mg/Ml Vial) 5 mg IV Q30M PRN PRN Reason: to maintain BP goals Insulin Human Lispro (Insulin Lispro 100 Unit/Ml Insuln.Pen) 0 unit SC [facility]; Protocol Last Admin: 04/13/20 06:42 Dose: Not Given Documented by: Labetalol HCl (Labetalol (Prefilled) 20 Mg/4 Ml) 10 - 20 mg IV Q10M PRN PRN PRN Reason: to Maintain BP Goals Levothyroxine Sodium (Levothyroxine 50 Mcg Tablet) 50 mcg PO DAILY@1700 REPLACED BY [facility] Melatonin (Melatonin 3 Mg Tablet) 3 mg PO QHS PRN PRN PRN Reason: INSOMNIA Ondansetron HCl (Ondansetron 4 Mg/2 Ml Vial) 4 mg IV Q8H PRN PRN PRN Reason: NAUSEA/VOMITING Pravastatin Sodium (Pravastatin 80 Mg Tablet) 80 mg PO DAILY@1700 REPLACED BY [facility] Senna/Docusate Sodium (Senna/Docusate Sodium 1 Tablet) 2 tablet PO BID PRN PRN PRN Reason: Constipation Sodium Chloride (0.9% Saline Lock 10 Ml Syringe) 10 - 40 ml IV UD PRN PRN Reason: SALINE FLUSH Last Admin: 04/13/20 08:09 Dose: 10 ml Documented by: STROKE Vital Signs/Narrative: Vital Signs Temp Pulse Resp BP Pulse Ox 04/13/20 07:00 93 04/13/20 06:00 98.3 F 101 H 18 114/67 98 Medical Necessity - Tobacco Use Smoking Status: Never smoker Tobacco Use: Non-smoker Assessment/Plan All Active Problems (Last Reviewed 04/13/20 @ 02:[address] Shiv Booker MD) History of type 2 diabetes mellitus (Acute) History of TIA (transient ischemic attack) (Acute) CVA (cerebral vascular accident) (Acute) Stroke-like symptoms (Acute) he patient is a 79 year old F with a significant history of hypertension diabetes who presents to the emergency department with aphasia; numbness and tingling as well as apraxia. Strokelike symptoms Serial NINDS NIH Head/neck CTA showed mild atherosclerotic disease without any evidence of significant stenosis or occlusion within the head or the neck. -Check Hba1c, Lipid level Physical therapy, occupational therapy and speech therapy to work with patient. N.p.o. until bedside swallow eval. Continue home full dose aspirin and pravastatin. Lipid profile and A1c ordered. Permissive hypertension. Control blood pressure with labetalol for systolic blood pressure of more than 220 or diastolic blood pressure of more than 120. MRI brain ordered. Tylenol for headaches Last echocardiogram on file was 12/25/2019. Echocardiogram showed ejection fraction 55% with no evidence of diastolic dysfunction. There were trivial valvular abnormalities. Hypertension Hold home blood pressure medication for permissive hypertension. Labetalol and hydralazine as needed ordered. History of gout Allopurinol continued Hypothyroidism Synthroid continued Vitamin B12 deficiency Vitamin B12 p.o. continued. Diabetes mellitus Patient with hyperglycemia presentation On home semaglutide once weekly. Hold home antidiabetic medication. Accu-Chek with correction scale insulin ordered. DVT prophylaxis Subcutaneous Lovenox ordered
--- NOTE | 2020-04-13 08:30 | MRI_ITS ---
STUDY: MRI BRAIN WITHOUT CONTRAST REASON FOR EXAM: Female, 79 years old. cva, speech changes, n/t right hand, h/a TECHNIQUE: Standardized multiplanar fat and water weighted pulse sequences were obtained. COMPARISON: CT 04/12/2020 FINDINGS: There is moderate cerebral atrophy with widening of the extra-axial spaces and ventricular dilatation. There are multiple white matter hyperintensities, distributed throughout the deep white matter tracts of the cerebral hemispheres, consistent with moderate chronic white matter ischemic changes. There is no evidence for recent intracranial ischemia or other cause of cytotoxic edema on diffusion weighted imaging (DWI). Normal T2* images of the brain without demonstrated susceptibility artifact. There is no demonstrated hemosiderin stain. Normal bilateral basal ganglia. Normal thalami. There is no extra-axial fluid accumulation. Normal flow voids within the major intracranial circulation suggesting patency by spin echo criteria. Normal sella turcica, pituitary gland, infundibular stalk, optic chiasm and hypothalamus. Normal tectal plate and pineal gland. Normal midbrain, leo and medulla. Normal cerebellum. Normal basal cisterns. Normal bilateral temporal bones. Normal bilateral internal auditory canals. No demonstrated orbital abnormality, within the constraints of a routine brain study. Normal visualized paranasal sinuses. Normal calvarium and skull base. Normal visualized soft tissue structures. Unusual appearance to the craniocervical junction with retrolisthesis of C1 on C2 with the cervical medullary kinking. MRI/Brain without Contrast IMPRESSION: 1. Involutional changes of the brain, as described above. 2. 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 Electronically Signed: Isaiah Dewitt MD at 11:24 EST Tel , Service support ,
[2020-04-13 09:03] LABS: Hemoglobin A1c 6.3 % (3.8-5.6)
[2020-04-13 09:35] LABS: Thyroid Stim Hormone (TSH) 2.62 uIU/mL (0.358-3.74)
--- NOTE | 2020-04-13 10:13 | CASEMGMT ---
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 SW will let her know this information. Zena ANDREW MSW
[2020-04-13] MEDS: Enoxaparin 40 MG/0.4 ML Syringe SC (10:19)
--- NOTE | 2020-04-13 10:47 | DCINST_ITS ---
- Discharge Diagnoses Current Active Problems: Current Active and Chronic Problems (Last Reviewed 04/13/20 @ 02:[address] Shiv Booker MD) History of type 2 diabetes mellitus (Acute) History of TIA (transient ischemic attack) (Acute) History of gout (Chronic) History of hypertension (Chronic) CVA (cerebral vascular accident) (Acute) Stroke-like symptoms (Acute) Mastalgia in female (Chronic) You will use the following diet at home:: Cardiac Your food should be the consistency of: Regular Your liquids should be the consistency of: Regular/Thin Discharge Activity: May Not Drive Weight Bearing Status: Weight bearing as tolerated Call your doctor if you observe: Fever of 101 or Higher, Coldness, Increased Pain, Numbness or Tingling, Change in Color, Inability to urinate, Inability to have a bowel movement, Shortness of breath, Dizziness, Fainting spells, Swelling in the ankles, Chest pain, Prolonged hiccoughing, Increased palpitations (irregular heartbeat), Calf discomfort, Uncontrolled pain Allergies/Adverse Reactions: Allergies No Known Allergies Allergy (Unverified 04/12/20 19:23) Medications to take at Discharge allopurinol 100 mg tablet 100 mg PO DAILY 02/06/18 amlodipine 2.5 mg tablet 2.5 mg PO DAILY 02/06/18 Aspirin E.C. [Ecotrin] 325 mg PO DAILY@1700 04/12/20 Cyanocobalamin (Vitamin B-12) [Vitamin B-12] 1,000 mcg PO DAILY 04/12/20 Levothyroxine Sodium [Synthroid] 50 mcg PO DAILY 04/12/20 Losartan Potassium 100 mg PO DAILY 04/12/20 Pravastatin Sodium 80 mg PO DAILY 04/12/20 Semaglutide [Ozempic] 1 mg SQ TU 04/12/20 Primary Care Physician: Sandra Narvaez DO [Primary Care Provider] - Please follow up with your Primary Care Physician in: In 2 weeks Test Results: Test results from this visit will be discussed in further detail at your follow- up appointment, if applicable. Please Follow Up With: Sotero Su MD When: for TIA in 2 week Please Follow Up With: Mendel Rodas DO When: in 3-4 weeks
--- NOTE | 2020-04-13 10:47 | PCM.DC.SUM ---
Discharge Date and Diagnosis - Problem List Patient Problems: Active and Suspected Problems (Last Reviewed 04/13/20 @ 02:[address] Shiv Booker MD) History of type 2 diabetes mellitus (Acute) History of TIA (transient ischemic attack) (Acute) CVA (cerebral vascular accident) (Acute) Stroke-like symptoms (Acute) Date of Admission: 04/12/20 Date of Discharge: 04/13/20 - Primary Discharge Diagnosis Acute Problems: Active Problems (Last Reviewed 04/13/20 @ 02:[address] Shiv Booker MD) History of type 2 diabetes mellitus (Acute) History of TIA (transient ischemic attack) (Acute) TIA, resolved - Secondary Discharge Diagnosis Chronic Problems: Chronic Problems (Last Reviewed 04/13/20 @ 02:[address] 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 She had mild frontal headache. In ED, [facility] teleneurology was consulted and started patient not candidate for TPA as symptoms improved considerably. Patient was further admitted in PCU. MRI brain does not show any acute infarct but reported as mild retrolisthesis of C1 on C2 with cervicomedullary kinking. This was further discussed with the Tele[facility] neurologist and the spine surgeon Dr. Rodas. It seems it was incidental finding and chronic arthritis. Patient does not have neck pain or occipital headache. She does not have cervical neuropathy and no muscle weakness of upper extremity. She denies any limitation of range of motion of neck. CT head and neck reported mild atherosclerotic disease but no evidence of significant stenosis or occlusion. Patient recently had 2D echo reported EF 55% and no ASD in December 2019. EKG normal sinus rhythm. child monitor shows normal sinus rhythm. I talked to the patient's daughter in the room. I relayed my discussion of [facility] neurologist and spine surgeon Dr. Rodas and advised to follow-up in the office in 2 to 4 weeks. Overall it seems that she might have TIA but she is on optimal dose of aspirin 325 mg daily and pravastatin 80 mg daily. Fasting profile shows LDL 64, A1c 6.3, TSH normal. Troponin negative. Neurologist advised to keep the dose of aspirin. She has other comorbidities including hypertension, hypothyroidism, chronic vitamin D deficiency, diabetes mellitus type 2 and gout. Home medications continued. She does not have any acute exacerbation of gout. Discharge medication reconciliation done. Discharge follow-up instructions completed. Discharge process discussed with the patient and all questions were answered to patient's satisfaction. Total time spent, exact 35 minutes on discharge meds reconciliation, examination, coordination of care with nurses and ancillary staff, review of imaging and blood test and discussion with the patient on follow-up instructions Patient Problems: Active and Suspected Problems (Last Reviewed 04/13/20 @ 02:[address] Shiv Booker MD) History of type 2 diabetes mellitus (Acute) History of TIA (transient ischemic attack) (Acute) CVA (cerebral vascular accident) (Acute) Stroke-like symptoms (Acute) Objective: Patient was admitted with mild language deficit. She has difficulty in reading some words, mild dysphagia. No dysarthria. Patient occasionally gets mild headache, frontal headache. She denies any posterior headache or neck pain. She has history of gout arthritis but not rheumatoid arthritis. Physical exam general: Alert, Oriented x3, Cooperative HEENT: Atraumatic, PERRLA, EOMI, Normocephalic Oral: No Gingival or Mucosal Lesions/ Ulcerations Neck: Supple, No JVD, Negative Carotid Bruits Lungs: Air entry equal in bilateral lung bases. No crepitation/rhonchi Cardiovascular: Regular rate, Regular Rhythm, Normal S1, Normal S2, No murmurs Abdomen: Bowel Sounds Present, Soft, Non Tender, Non-Distended : No renal angle tenderness. No suprapubic tenderness. Extremities: No edema, Capillary Refill Less than 3 Seconds Skin: No rashes, No breakdown Musculoskeletal: No Tenderness to Palpation of Joints or Extremities. Muscular strength 5/5 at major joints. Spine: No C-spine tenderness. Full range of motion equal. Neurological: Cranial nerves II-XII grossly intact, Deep Tendon Reflexes 2+/4 and Symmetrical, Neuro grossly intact, NIH stroke scale 1, and language deficit Psych/Mental Status: Normal Affect, Appropriate. - Physical Exam Vitals/I&O's: Vital Signs Temp Pulse Resp BP Pulse Ox 98.3 F 99 18 120/77 98 04/13/20 10:00 04/13/20 10:00 04/13/20 10:00 04/13/20 10:00 04/13/20 10:00 Oxygen Delivery Method Room Air Weight: 181 lb 7.047 oz Body Mass Index (BMI) 29.2 Finger Stick Blood Glucose 193 Intake and Output for Last 24 Hours 04/11/20 04/12/20 04/13/20 23:59 23:59 23:59 Intake Total 480 / 480 240 / 240 Output Total 450 / 450 500 / 500 Balance -260 / -260 Laboratory Results 04/12/20 19:34: POC Glucose 193 H 04/12/20 20:00: WBC 8.3, RBC 3.86 L, Hgb 12.1, Hct 36.4 L, MCV 94.3, MCH 31.3, MCHC 33.2, RDW Std Deviation 45.1 H, RDW Coeff of Shalom 13.1, Plt Count 258, MPV 10.8, Immature Gran % (Auto) 0.400, Neut % (Auto) 77.5 H, Lymph % (Auto) 14.9 L, Clark % (Auto) 6.3, Eos % (Auto) 0.4, Baso % (Auto) 0.5, Absolute Neuts (auto) 6.4, Absolute Lymphs (auto) 1.23, Nucleated RBC % 0 04/12/20 20:00: PT 12.1, INR 0.9, APTT 28.8 04/12/20 20:00: Sodium 131 L, Potassium 3.9, Chloride 99, Carbon Dioxide 26.0, Anion Gap 6, BUN 14, Creatinine 1.30 H, Estim Creat Clear Calc 34.12, Est GFR (MDRD) Af Amer 51 L, Est GFR (MDRD) Non-Af 42 L, BUN/Creatinine Ratio 10.8, Glucose 166 H, Calcium 8.6, Troponin I < 0.015 04/12/20 22:31: POC Glucose 156 H 04/13/20 05:22: Hemoglobin A1c 6.3 H 04/13/20 05:22: Triglycerides 202 H, Cholesterol 149, LDL Cholesterol 64, VLDL Cholesterol 40, HDL Cholesterol 45 04/13/20 05:22: TSH 2.62 04/13/20 06:41: POC Glucose 114 H Current Medications Acetaminophen (Acetaminophen 325 Mg Tablet) 650 mg PO Q6H PRN PRN PRN Reason: Pain Score 1-10/Temp > 100.7 F Allopurinol (Allopurinol 100 Mg Tablet) 100 mg PO DAILY@1700 [facility] Aspirin (Aspirin E.C. 325 Mg Tablet) 325 mg PO DAILY@1700 [facility] Cyanocobalamin (Cyanocobalamin 500 Mcg Tablet) 1,000 mcg PO DAILY@1700 [facility] Dextrose (Dextrose 50%-Water 25 Gm/50 Ml Disp.Syrin) 0 gm IV X1 PRN; Protocol PRN Reason: Hypoglycemia Enoxaparin Sodium (Enoxaparin 40 Mg/0.4 Ml Syringe) 40 mg SC DAILY [facility] Last Admin: 04/13/20 10:19 Dose: 40 mg Documented by: Glucagon (Glucagon 1 Mg/Ml Syringe) 1 mg IM .X1 PRN PRN Reason: Hypoglycemia Hydralazine HCl (Hydralazine 20 Mg/Ml Vial) 5 mg IV Q30M PRN PRN Reason: to maintain BP goals Insulin Human Lispro (Insulin Lispro 100 Unit/Ml Insuln.Pen) 0 unit SC [facility]; Protocol Last Admin: 04/13/20 06:42 Dose: Not Given Documented by: Labetalol HCl (Labetalol (Prefilled) 20 Mg/4 Ml) 10 - 20 mg IV Q10M PRN PRN PRN Reason: to Maintain BP Goals Levothyroxine Sodium (Levothyroxine 50 Mcg Tablet) 50 mcg PO DAILY@1700 [facility] Melatonin (Melatonin 3 Mg Tablet) 3 mg PO QHS PRN PRN PRN Reason: INSOMNIA Ondansetron HCl (Ondansetron 4 Mg/2 Ml Vial) 4 mg IV Q8H PRN PRN PRN Reason: NAUSEA/VOMITING Pravastatin Sodium (Pravastatin 80 Mg Tablet) 80 mg PO DAILY@1700 [facility] Senna/Docusate Sodium (Senna/Docusate Sodium 1 Tablet) 2 tablet PO BID PRN PRN PRN Reason: Constipation Sodium Chloride (0.9% Saline Lock 10 Ml Syringe) 10 - 40 ml IV UD PRN PRN Reason: SALINE FLUSH Last Admin: 04/13/20 08:09 Dose: 10 ml Documented by: Home Medications: Medications to take at Discharge allopurinol 100 mg tablet 100 mg PO DAILY 02/06/18 amlodipine 2.5 mg tablet 2.5 mg PO DAILY 02/06/18 Aspirin E.C. [Ecotrin] 325 mg PO DAILY@1700 04/12/20 Cyanocobalamin (Vitamin B-12) [Vitamin B-12] 1,000 mcg PO DAILY 04/12/20 Levothyroxine Sodium [Synthroid] 50 mcg PO DAILY 04/12/20 Losartan Potassium 100 mg PO DAILY 04/12/20 Pravastatin Sodium 80 mg PO DAILY 04/12/20 Semaglutide [Ozempic] 1 mg SQ TU 04/12/20 Primary Care Physician: Sandra Narvaez DO [Primary Care Provider] - Medical Necessity - Tobacco Use Smoking Status: Never smoker Tobacco Use: Non-smoker Meaningful Use Info Meaningful Use Diagnoses (Choose all that apply): None applicable OBSV E&M: 33681 Observation care discharge
[2020-04-13 11:31] LABS: Bedside Glucose 118 mg/dL (70-110)
--- NOTE | 2020-04-13 12:53 | TELEMED_ITS ---
[facility] Telemed has confirmed receipt of a request for visit. This document confirms receipt of the order initiating the consult. To find the results of the consultation, please view the patient's reports for the scanned Telemed Consult.
--- NOTE | 2020-04-13 14:35 | PHA.DC.MR ---
Pharmacy Service has performed discharge medication reconciliation for this patient. The patient's discharge medication list was reviewed for discrepancies and discrepancies were resolved. Home Medications allopurinol 100 mg tablet 100 mg PO DAILY 02/06/18 amlodipine 2.5 mg tablet 2.5 mg PO DAILY 02/06/18 Aspirin E.C. [Ecotrin] 325 mg PO DAILY@1700 04/12/20 Cyanocobalamin (Vitamin B-12) [Vitamin B-12] 1,000 mcg PO DAILY 04/12/20 Levothyroxine Sodium [Synthroid] 50 mcg PO DAILY 04/12/20 Losartan Potassium 100 mg PO DAILY 04/12/20 Pravastatin Sodium 80 mg PO DAILY 04/12/20 Semaglutide [Ozempic] 1 mg SQ TU 04/12/20
--- NOTE | 2020-04-13 15:01 | CASEMGMT ---
SW completed a PHQ 9 as per SOC consult patient had a TIA. She scored a 3 which indicates minimal depression. She denied need for counseling resources. Zena ANDREW MSW
== END 2020-04-13 10:46 | disposition home or self-care (01) ==
LOC: ED 20:22 → PCU 20:39
PROVIDERS: Admitting Provider Hospitalist; Emergency Provider Emergency Medicine; PCP Internal Medicine; Visit Provider Internal Medicine
DX: G45.9 Transient cerebral ischemic attack, unspecified (principal); I10 Essential (primary) hypertension; R47.01 Aphasia; R20.0 Anesthesia of skin; M10.9 Gout, unspecified; R48.2 Apraxia; E53.8 Deficiency of other specified B group vitamins; E03.9 Hypothyroidism, unspecified; E11.65 Type 2 diabetes mellitus with hyperglycemia; Z79.899 Other long term (current) drug therapy; Z79.82 Long term (current) use of aspirin
CPT/HCPCS: 36415; 70450; 70496; 70498; 70551; 71045; 80048; 80061; 82962; 83036; 84443; 84484; 85025; 85610; 85730; 92523; 93005; 94762; 96372; 96374; 97161; 97166; 99218; 99285; Q9967; A4216; G0378

== ENCOUNTER → 2020-05-13 10:09 | Outpatient (CLI) | payer MEDICARE, SELFPAY ==
[2020-05-02 09:09] VITALS: BMI 27.7
--- NOTE | 2020-05-13 10:11 | MRI_ITS ---
STUDY: MRI CERVICAL SPINE WITHOUT CONTRAST REASON FOR EXAM: Female, 79 years old. Radiculopathy TECHNIQUE: Standardized fat and water weighted pulse sequences were obtained in the sagittal and axial planes. COMPARISON: CTA neck 04/12/2020. No prior MRI or CT cervical spine for comparison. FINDINGS: Normal foramen magnum and brainstem-cervical cord junction. Normal craniovertebral junction. Pronounced narrowing of the predental space. Prominent soft tissue density behind the odontoid process and lesser prominent soft tissue density in front of the odontoid process. This may be secondary to seronegative inflammatory arthropathy. This is unchanged. Normal odontoid process. Straightening of the C-spine curve is unchanged. Normal vertebral bodies and posterior osseous elements. C2-3: Normal endplates. Normal disc height and morphology. Normal central canal and intervertebral neural foramina. C3-4: Old central compression fracture deformity in the C3 inferior endplate causing increased central disc space height. Degenerative narrowing in the remainder of the disc space. Small posterior marginal spurs. Normal central canal and right intervertebral neural foramen. Mild stenosis of the left intervertebral neural foramen. C4-5: Normal endplates. Pronounced disc space height narrowing. Normal central canal. Moderate stenosis of the intervertebral neural foramina due to osteophytes arising from the uncovertebral joints. C5-6: Pronounced disc space height narrowing. Normal endplates. Normal central canal. Moderate stenosis of the intervertebral neural foramina. C6-7: Normal endplates. Moderate disc space height narrowing. Normal central canal and left intervertebral neural foramen. Mild stenosis of the right intervertebral neural foramen. C7-T1: Normal endplates. Mild disc space height narrowing. Normal central canal and intervertebral neural foramina. T1-T2: Pronounced disc space height narrowing. Normal central canal and intervertebral neural foramina. T2-T3: (Sagittal only). Pronounced disc space height narrowing. Mild degenerative anterolisthesis of T2 on T3. Normal central canal and intervertebral neural foramina. T3-T4: (Sagittal only). Normal endplates. Moderate disc space height narrowing. Normal central canal and intervertebral neural foramina. T4-T5: (Sagittal only). Normal endplates. Moderate disc space height narrowing. Normal central canal and intervertebral neural foramina. T4-T5: (Sagittal only). Normal endplates. Small posterior bulging disc. Normal central canal and intervertebral neural foramina. Normal cervical cord. Normal upper thoracic spinal cord. Multiple solid nodules in the left thyroid lobe more than the right thyroid lobe. Solid nodule in the thyroid isthmus. MRI/Spine Cervical (Routine) IMPRESSION: 1. No MRI evidence of cervical extruded disc fragment. 2. Old central compression fracture of the C3 inferior endplate. 3. Pronounced C4-C5 disc space height narrowing and moderate stenosis of the bilateral intervertebral neural foramina. 4. Pronounced C5-C6 disc space height narrowing and moderate stenosis of the bilateral intervertebral neural foramina. 5. Moderate C6-C7 disc space height narrowing and mild stenosis of the right intervertebral neural foramen. 6. Pronounced T2-T3 disc space height narrowing and mild degenerative anterolisthesis of T2 on T3. 7. Small T4-T5 posterior bulging disc. 8. Normal cervical spinal cord and upper thoracic spinal cord. 9. Multiple small solid nodules in both thyroid lobes, left more than right and small solid nodule in the thyroid isthmus. Electronically Signed: Ji Rashid MD at 16:46 EST , Service support ,
== END ==
PROVIDERS: PCP Internal Medicine; Referring Provider Orthopaedic Surgery; Visit Provider Orthopaedic Surgery
DX: G54.0 Brachial plexus disorders (principal); M54.2 Cervicalgia
CPT/HCPCS: 72141

== ENCOUNTER 2020-05-25 21:34 | Emergency (ER) | payer MEDICARE, SELFPAY ==
[2020-05-25 21:35] VITALS: BP 123/76; PULSE 71; RESP 15; TEMP 35.8; O2SAT 98; BMI 29.8
[2020-05-25 22:03] VITALS: BP 123/76; PULSE 71; RESP 15; TEMP 35.8; O2SAT 98
--- NOTE | 2020-05-25 22:13 | ED.VIS.GEN ---
History of Present Illness Chief Complaint: [place] C/O Informant: Patient Onset: Yesterday Context: Gradual Onset Timing: Continuous Current Severity: Mild Maximum Severity: Mild Narrative: The patient is a 79-year-old female that presents for evaluation of her suprapubic catheter. Patient had catheter placed earlier this month. They have been monitoring her urine output and its been fine. Over the past 2 days, her daughter who helps takes care of it has noticed some skin breakdown around the edges of the catheter. She was worried that there may been purulence. The patient denies fevers or chills. She does admit to some pain when her bladder empties. She is otherwise been in her normal state of health. Prior similar symptoms: Yes Recent Illness/Hospitalization: No Past Medical History - Allergies and Home Meds Allergies/Adverse Reactions: Allergies No Known Allergies Allergy (Verified 05/02/20 09:09) Primary Care Physician: Sandra Narvaez DO [Primary Care Provider] - Prior records reviewed: Yes Past Medical History: - - Hypertension, urinary incontinence Surgical History: noncontributory, - - Thyroid surgery, tonsils surgery Smoking Status: Never smoker Review of Systems General: Denies: Chills, Fever, Sweats Eyes: Denies: Visual changes - bilaterally, Diplopia ENT: Denies: Rhinorrhea, Sore throat Cardiovascular: Denies: Chest pain, Palpitations Respiratory: Denies: Dyspnea, Cough, Dyspnea on exertion Gastrointestinal: Denies: Abdominal pain, Nausea, Vomiting, Diarrhea, Melena, Hematochezia Genitourinary: Reports: Dysuria. Denies: Hematuria, Frequency Musculoskeletal: Denies: Back pain, Extremity Pain Skin: Denies: Rash, Wounds Neurological: Denies: Headache, Weakness, Numbness Physical Exam Vital Signs/Narrative: Vital Signs Temp Pulse Resp BP Pulse Ox 05/25/20 22:03 96.4 F L 71 15 123/76 H 98 05/25/20 21:35 96.4 F L 71 15 123/76 H 98 Inital Vital Signs reviewed: Yes General: Well nourished, Well developed, No Acute Distress Head: Normocephalic, Atraumatic Eyes: Perrl, EOMI ENT: Moist mucous membranes, No rhinorrhea Neck: Supple, Nontender Cardiovascular: Regular rate, Regular rhythm, No murmurs Respiratory: No distress, CTA bilaterally, Chest nontender Abdomen: Soft, Nontender, Nondistended, Normal bowel sounds, - - The suprapubic site is clean, dry, intact. There is minimal erythema the wound edge. There are some fibrous tissue around the wound edges, but no purulence. No evidence of abscess. Back: Nontender, Normal Inspection Extremities: Nontender, No edema Skin: Normal color, No rash Neurological: Alert, Oriented x3, Cranial nerves II-XII grossly intact, Normal Strength, Normal Sensation Psychological: Normal affect, Normal Mood Diagnostic/Tx/Re-eval Abnormal Lab Results 05/25/20 22:25 Urine Color Straw Urine Clarity Cloudy Urine pH 7.0 Ur Specific [place] 1.005 Urine Protein 15 H Urine Glucose (UA) Normal Urine Ketones Negative Urine Occult Blood 25 H Urine Nitrite Negative Urine Bilirubin Negative Urine Urobilinogen Normal Ur Leukocyte Esterase 500 H - Medical Decision Making The patient suprapubic site looks well. It does seem consistent most with postoperative healing. She was complaining of some pain with urination. Urine was obtained and it does show evidence of infection. Culture was added. The patient will be treated with Cipro. She is had no flank pain, fever, chills, other systemic symptoms. At this point, I do for that she is safe outpatient therapy. Impression 1. Catheter associated urinary tract infection ED Disposition - Plan for ED Patient: Instructions: Caring for Your Suprapubic Catheter Prescriptions: Ciprofloxacin [Cipro] 500 mg PO BID #14 tab Prescription Printed Referrals: Sandra Narvaez DO [Primary Care Provider] -
[2020-05-25 22:34] LABS: Mucous, Urine 0 SEEN /hpf (<or=2+); Squamous Epithelial Cells - UA 0 SEEN /hpf (5-10)
[2020-05-25 22:37] LABS: Color, Urine Straw (Yellow); Glucose, Dipstick Normal (Normal); Ketone-Dipstick Negative (Negative); Leukocyte Esterase-Dipstick 500 /ul (Negative); Nitrite-Dipstick Negative (Negative); Occult Blood-Urine 25 /ul (Negative); Protein-Dipstick 15 mg/dl (Negative); Specific Gravity, Urine 1.005 (1.002-1.030); Urine Bilirubin Dipstick Negative (Negative); Urine Clarity Cloudy (Clear); Urine Urobilinogen Normal (Normal)
[2020-05-25 22:45] LABS: White Blood Cells >100 SEEN /hpf (0-5)
[2020-05-25 22:46] LABS: Red Blood Cells-Urine 0-5 SEEN /hpf (0-5)
[2020-05-25 22:48] LABS: Bacteria RARE /hpf (None Seen)
[2020-05-25] MEDS: Ciprofloxacin 500 MG Tablet PO (23:14)
[2020-05-25 23:33] VITALS: BP 130/72; PULSE 88; RESP 18; O2SAT 100
== END 2020-05-25 23:34 | disposition home or self-care (01) ==
LOC: ED 23:01
PROVIDERS: Emergency Provider Emergency Medicine; PCP Internal Medicine
DX: T83.518A Infection and inflammatory reaction due to other urinary catheter, initial encounter (principal); Y84.6 Urinary catheterization as the cause of abnormal reaction of the patient, or of later complication, without mention of misadventure at the time of the procedure; Y92.9 Unspecified place or not applicable; I10 Essential (primary) hypertension; R32 Unspecified urinary incontinence; Z79.82 Long term (current) use of aspirin; Z79.890 Hormone replacement therapy; Z79.899 Other long term (current) drug therapy
CPT/HCPCS: 81001; 87077; 87086; 87088; 87186; 99283

== ENCOUNTER 2020-05-30 10:27 | Outpatient (RCR) | payer MEDICARE, SELFPAY ==
--- NOTE | 2020-05-30 11:28 | HP.PTEVAL ---
Patient's Visit Information MOLLY BOURGEOIS is a 79 year old F referred to Physical Therapy by Dr. Mendel Rodas, DO with a diagnosis of RIGHT THORACIC OUTLET SYNDROME RIDE SIDE. Date of Evaluation: 05/30/20 Physical Therapist: Blayne Criag, PT, Cert MDT, OCS - Visit Plan Frequency: 2x /Week Duration: 4 Weeks Plan: PT INTERVENTIONS POSTURAL EX'S,CERVICAL ROM,STRENGTHENING AND MODALTIES - Subjective This 79 y/o feamle presents to physical therapy with right thoracic outlet.Patient has had symptoms for about 1 year. Patient c/o parathesia right hand.Seen DR Rodas did x-rays cervical and MRI thought symtoms from thoracic outlet. Aggraveting factors lifting arms overhead. Alleviating factors rest. C/O parathesia/tingling right hand. Denies [place]/dizziness/tinnutus. Patient able to sleep at night . Patient symptoms affects ADLS and houseworks. Patient syptoms affects QOL. SOCIAL: lives with daughter - Pain Right Back Pain Intensity (Out of 10): 2 Pain Intensity Range: 10 Comment: thoracic upper back worst is 8/10 - Objective POSTURE: mild foward posture. NEURO: c/o parathesia/tingling right fingers reflexes C5-6-7 1/3. PALAPTION: mild tenderness paraspinals /UT. AROM SHOULDER: WFL. CERVICAL ROM: flexion min loss,extension mod loss,lateral flexion /rotation mod loss. MMT: 4/5 except shoulders 4-/5. SPECIAL TESTS: DAVINA -,ADD-SONS - - Special Tests C/S Radiculapathy - Left Upper limb tension test: Negative C/S Radiculapathy - Right Upper limb tension test: Negative C/S Radiculapathy - Left Spurlings: Negative C/S Radiculapathy - Left Cervical distraction: Negative C/S Radiculapathy - Right Cervical distraction: Negative Sharp Esperanza: Negative Vertebral Artery Test: Negative Alar Ligament Test: Negative - Goals Goal 1:: Patient to be I with HEP Goal Time Frame: 4-6 Weeks Goal 2:: Patient to decrease symptoms in neck and right upper arm by 50% or > to improve function Goal Time Frame: 4-6 Weeks Goal 3:: Patient to cervical owestry score by 5 points or> to improve function Goal Time Frame: 4-6 Weeks Goal 4:: Patient be able to perform ADLS and light housewotk tasks with min limitations Goal Time Frame: 4-6 Weeks - Rehabilitation Potential Physical Therapy Diagnosis: This patient has right upper extremity symptoms with pain/parathesia with symptoms consist of thoracic outless and MRI and x-ray was negative along with decreas posture thus will benifit from skilled PT Rehabilitation Potential: Good - Anticipated Interventions Patient/Client Instruction: Educate patient on: Condition, Plan of Care For the Purpose of:: To decrease pain, To increase ROM, To improve muscle performance and motor function, To improve ability to perform ADL's, To increase tolerance to activity/condition/position, To improve ability of physical actions for home/community/work/leisure, To improve health of tissue, To decrease soft tissue restriction, To increase flexibility/ROM, To improve ability to perform tasks related to life management Therapeutic Exercise to Include: Strength training, Postural training, Flexibilty training, Scapular Strength/Stabilization TENS: Yes IF ES: Yes Cryotherapy (ice pack, ice massage): Yes Thermo therapy (hot pack): Yes Ultrasound (thermal/non thermal): Yes For the Purpose of:: To decrease pain, To increase ROM, To improve nutrient delivery to tissue, To increase oxygenation perfusion, To improve muscle performance and motor function, To improve health of tissue, To decrease soft tissue restriction Thank you for the opportunity to evaluate your patient. For Medicare and Medicare HMO plans, please review the plan of care and approve it. It will need to be FAXED BACK to us at [phone] for Medicare purposes. For Medicare only, by signing this I certify the plan of care. Please let me know if there are questions or concerns regarding this plan of care. Physician Signature: Date:
== END 2020-05-30 19:00 | disposition home or self-care (01) ==
LOC: PT 10:27
PROVIDERS: PCP Internal Medicine; Referring Provider Orthopaedic Surgery; Visit Provider Orthopaedic Surgery
DX: G54.0 Brachial plexus disorders (principal)
CPT/HCPCS: 97110; 97162

== ENCOUNTER 2021-11-13 18:27 | Inpatient (IN) | payer MEDICARE, SELFPAY ==
[2021-11-13] VITALS (8 sets, daily range): BP systolic 131–143; BP diastolic 75–101; PULSE 92–126; RESP 17–20; TEMP 36.1–36.6; O2SAT 96–98; BMI 26.6; BMI 26.2; BMI 26.3
--- NOTE | 2021-11-13 19:12 | CT_ITS ---
We are attempting to reach an attending provider to discuss findings. An addendum with communication details will be sent when the communication is complete. EXAM: CT HEAD WITHOUT INTRAVENOUS CONTRAST CLINICAL INDICATION: Neuro deficit, acute, stroke suspected TECHNIQUE: Multiple axial images were obtained of the head without intravenous contrast. This CT exam was performed using one or more of the following dose reduction techniques: automated exposure control, adjustment of the mA and/or kV according to patient size, and/or use of iterative reconstruction technique. This report was created using [employer] report [employer] technology. COMPARISON: MRI 04.13.20 FINDINGS: BRAIN AND EXTRA-AXIAL SPACES: Chronic involutional changes of the brain. No intra- or extra-axial hemorrhage. No evidence of acute infarct. No intracranial mass or mass effect. There is preservation of the rodrigues/white matter interface. Posterior fossa structures are unremarkable. Ventricles are appropriate for age. No hydrocephalus. Basal cisterns are patent. BONES/JOINTS: Unremarkable. No discrete lytic or blastic abnormalities. VASCULATURE: There are calcifications around the cavernous carotid arteries. This is consistent for atherosclerotic disease. SINUSES: There is sinus disease. MASTOID AIR CELLS: Unremarkable. Clear. ORBITS: Visualized globes, extraocular muscles, optic nerves and retrobulbar fat appear unremarkable. OTHER FINDINGS: Critical finding called and case discussed. Aspects 10. CT/STROKE Brain/Head without Cont IMPRESSION: Chronic involutional changes of the brain. Electronically Signed: Lance Lacey MD at 19:36 EDT ,
--- NOTE | 2021-11-13 19:12 | EKG12_ITS ---
Test Reason : NEURO Blood Pressure : / mmHG Vent. Rate : 098 BPM Atrial Rate : 098 BPM P-R Int : 186 ms QRS Dur : 128 ms QT Int : 378 ms P-R-T Axes : 038 -23 141 degrees QTc Int : 482 ms Sinus rhythm with Premature atrial complexes Left bundle branch block Abnormal ECG Confirmed by MITCHELL WILSON, PHILLIP ([id number]), editorial director FABIAN GOEL ([id number]) on 11/15/2021 9:45:32 AM Referred By: CORDELL Confirmed By:PHILLIP MEDRANO MD
--- NOTE | 2021-11-13 19:13 | CT_ITS ---
We are attempting to reach an attending provider to discuss findings. An addendum with communication details will be sent when the communication is complete. EXAM: CT ANGIOGRAPHY HEAD AND NECK WITH INTRAVENOUS CONTRAST CLINICAL INDICATION: Neuro deficit, acute, stroke suspected TECHNIQUE: [place]/head and neck CT angiography protocol performed with intravenous contrast. This CT exam was performed using one or more of the following dose reduction techniques: automated exposure control, adjustment of the mA and/or kV according to patient size, and/or use of iterative reconstruction technique. This report was created using [employer] report generation technology. MIP reconstructed images were created and reviewed. CONTRAST: IV 100mL Isovue-370 RADIATION DOSE: CTDIvol = 21.86 mGy, DLP = 673.81 mGy-cm COMPARISON: 04.12.20. FINDINGS: HEAD: RIGHT ANTERIOR CEREBRAL ARTERY: Unremarkable. No significant stenosis at the visualized segments. Anterior communicating artery is present. No aneurysm. RIGHT MIDDLE CEREBRAL ARTERY: Unremarkable. No significant stenosis at the visualized segments. No aneurysm. RIGHT POSTERIOR CEREBRAL ARTERY: Unremarkable. No occlusion or significant stenosis. No aneurysm. RIGHT INTRACRANIAL INTERNAL CAROTID ARTERY: Unremarkable. No significant stenosis. No dissection or occlusion. RIGHT INTRACRANIAL VERTEBRAL ARTERY: Unremarkable. No significant stenosis. No dissection or occlusion. LEFT ANTERIOR CEREBRAL ARTERY: Unremarkable. No significant stenosis at the visualized segments. No aneurysm. LEFT MIDDLE CEREBRAL ARTERY: Unremarkable. No significant stenosis at the visualized segments. No aneurysm. LEFT POSTERIOR CEREBRAL ARTERY: Unremarkable. No occlusion or significant stenosis. No aneurysm. LEFT INTRACRANIAL INTERNAL CAROTID ARTERY: See below. LEFT INTRACRANIAL VERTEBRAL ARTERY: Unremarkable. No significant stenosis. No dissection or occlusion. BASILAR ARTERY: Unremarkable. No significant stenosis. No aneurysm. OTHER VASCULATURE: There is mild atherosclerotic plaque formation of the origin of the left internal carotid artery with less than 50% cross sectional diameter stenosis. ALL ABOVE CRITERIA BY NASCET. There is calcified plaque formation of the right cavernous carotid artery, with a mild stenosis (less than 50%). ALL ABOVE CRITERIA BY NASCET. NECK: RIGHT COMMON CAROTID ARTERY: Unremarkable. No significant stenosis. No dissection or occlusion. RIGHT EXTRACRANIAL INTERNAL CAROTID ARTERY: Unremarkable. No significant stenosis. No dissection or occlusion. RIGHT EXTERNAL CAROTID ARTERY: Unremarkable. No occlusion. RIGHT EXTRACRANIAL VERTEBRAL ARTERY: Unremarkable. No significant stenosis. No dissection or occlusion. LEFT COMMON CAROTID ARTERY: Unremarkable. No significant stenosis. No dissection or occlusion. LEFT EXTRACRANIAL INTERNAL CAROTID ARTERY: See above. LEFT EXTERNAL CAROTID ARTERY: Unremarkable. No occlusion. LEFT EXTRACRANIAL VERTEBRAL ARTERY: Unremarkable. No significant stenosis. No dissection or occlusion. GREAT VESSELS OF AORTIC ARCH: There is calcified plaque formation of the left cavernous carotid artery, with a mild stenosis (less than 50%). ALL ABOVE CRITERIA BY NASCET. LUNG APICES: Unremarkable as visualized. HEAD and NECK: BONES/JOINTS: There are degenerative findings of the cervical spine. No discrete lytic or blastic abnormalities. SOFT TISSUES: Unremarkable. CAROTID STENOSIS REFERENCE USING NASCET CRITERIA: % ICA stenosis = (1 - narrowest ICA diameter/diameter of distal cervical ICA) x 100. Mild - <50% stenosis. Moderate - 50-69% stenosis. Severe - 70-94% stenosis. Near occlusion - 95-99% stenosis. Occluded - 100% stenosis. CT/STROKE CTA Head AND Neck W/Con IMPRESSION: 1. There is mild atherosclerotic plaque formation of the origin of the left internal carotid artery with less than 50% cross sectional diameter stenosis. ALL ABOVE CRITERIA BY NASCET. 2. There is calcified plaque formation of the right cavernous carotid artery, with a mild stenosis (less than 50%). ALL ABOVE CRITERIA BY NASCET. 3. There is calcified plaque formation of the left cavernous carotid artery, with a mild stenosis (less than 50%). ALL ABOVE CRITERIA BY NASCET. Electronically Signed: Lance Lacey MD at 19:48 EDT ,
--- NOTE | 2021-11-13 19:15 | ED.VIS.STROK ---
HPI History of Present Illness Chief Complaint: Neuro S/Sx Informant: patient and family Onset/Context/Timing Onset: Today Narrative Narrative: Patient presents with paresthesias and weakness to the left upper extremity. She states she was sitting and watching television at 1 PM this afternoon when she felt her left upper extremity go numb and tingly. She tried to get up at 2:00 and realized that her arm was weak and she could not move it or control it. She states that strength seems to be improving at this time but is certainly not back to baseline. She denies any lower extremity weakness today. She does report a cramp in her right calf that was present when she got up this morning. 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 She takes a full size aspirin secondary to this. [facility] Medical History Diabetes Gout H/O TIA Hypertension Left breast lump Mastalgia in female Home Medications allopurinol 100 mg tablet 100 mg PO DAILY gout 02/06/18 [History Last Taken 04/12/20 17:00] amlodipine 2.5 mg tablet 2.5 mg PO DAILY bp 02/06/18 [History Last Taken 04/12/20 17:00] aspirin 325 mg tablet,delayed release 325 mg PO DAILY@1700 [facility] 04/12/20 [History Last Taken 04/12/20 17:00] cyanocobalamin (vitamin B-12) 1,000 mcg tablet 1,000 mcg PO DAILY supplement 04/12/20 [History Last Taken 04/12/20] levothyroxine 50 mcg tablet 50 mcg PO DAILY thyroid 04/12/20 [History Last Taken 04/12/20 17:00] losartan 100 mg tablet 100 mg PO DAILY bp 04/12/20 [History Last Taken 04/12/20 17:00] pravastatin 80 mg tablet 80 mg PO DAILY cholesterol 04/12/20 [History Last Taken 04/12/20 17:00] semaglutide 1 mg/dose (2 mg/1.5 mL) subcutaneous pen injector 1 mg SQ TU dm 04/12/20 [History Last Taken 04/12/20 08:00] Allergy/AdvReac Type Severity Reaction Status Date / Time No Known Allergies Allergy Verified 11/13/21 18:46 Family History Mother Diabetes Father Heart disease Brother Heart disease Surgical History History of thyroid surgery History of tonsillectomy History of tubal ligation history right eye surgery Social History household members: other details: Vahid Sanchez Sr., Vahid Lizarraga Jr. housing: house Smoking Status: Never smoker alcohol intake: never substance use type: does not use what type of physical activity do you participate in: none do you feel safe at home: Yes ROS ROS ED Constitutional Constitutional ED: Denies chills or fever(s) Eyes Eyes: Denies change in vision or discharge from eye(s) ENT ENT ED: Denies discharge from eye(s), rhinorrhea or sore throat Cardiovascular Cardiovascular: Denies chest pain or palpitations Respiratory/Chest Respiratory/Chest: Denies cough or dyspnea Gastrointestinal Gastrointestinal: Denies abdominal pain, diarrhea, nausea or vomiting Genitourinary Genitourinary ED: Denies difficulty urinating or dysuria Musculoskeletal Musculoskeletal: Denies back pain or extremity pain Integumentary Denies Abrasions or rash Neurologic Neurologic: Reports paresthesias and weakness; Denies headache(s) Psychiatric Psychiatric: Denies anxiety or depression Allergic/Immunologic Allergic/Immunologic ED: Denies lip swelling or urticaria EXAM Physical Exam Const Vital Signs: 11/13/21 18:28 11/13/21 18:42 11/13/21 18:49 Temperature 97.2 F L 97.0 F L Temperature Source Temporal Temporal Pulse Rate 126 H 102 H Respiratory Rate 18 17 Blood Pressure 133/101 H 131/87 H Blood Pressure Mean 111 101 Pulse Ox 97 96 96 Oxygen Delivery Method Room Air Room Air Room Air 11/13/21 19:50 11/13/21 19:51 Temperature Temperature Source Pulse Rate 103 H Respiratory Rate 20 H Blood Pressure 143/83 H Blood Pressure Mean 103 Pulse Ox 98 98 Oxygen Delivery Method Room Air Room Air Positive well nourished and well developed General Appearance ED: well developed HEENT Reports normocephalic and head/scalp atraumatic Eyes PERRL and EOMs intact bilaterally Neck supple Chest Wall inspection of chest normal and palpation of chest normal Resp normal respiratory effort and clear to auscultation bilaterally Cardio regular rate and regular rhythm GI normal to inspection, nondistended, normoactive bowel sounds Palpation: soft Extremity normal to inspection Neuro oriented x3 and No no sensory deficits noted Neuro Narrative: See NIH stroke score Sensorium / Orientation: alert Motor Exam: Negative for strength 5/5 throughout Psych mental status grossly normal Skin no rashes or lesions noted STROKE Vital Signs/Narrative: Vital Signs Temp Pulse Resp BP Pulse Ox O2 Del Method 11/13/21 19:51 103 H 20 H 143/83 H 98 Room Air 11/13/21 19:50 98 Room Air 11/13/21 18:49 96 Room Air 11/13/21 18:42 97.0 F L 102 H 17 131/87 H 96 Room Air 11/13/21 18:28 97.2 F L 126 H 18 133/101 H 97 Room Air NIHSS Initial: 1a Level of Consciousness: 0 1b LOC Questions (Score 2 if aphasic/stupor): 0 1c LOC Commands (Only score 1st attempt): 0 2 Best Gaze (If aphasic, use reflexive mvmts.): 0 3 Visual: 0 4 Facial Palsy: 0 5 Motor Arm Right (UN = amputation/fusion): 0 5 Motor Arm Left: 1 6 Motor Leg Right: 0 6 Motor Leg Left: 0 7 Limb ataxia (Only + if out of proportion): 0 8 Sensory (Aphasia/stupor=0 or 1, coma=2): 1 9 Best Language: 0 10 Dysarthria (mute, coma=2, intubated=UN): 0 11 Extinction and Inattention (only scored if +): 0 Total Score: 2 MDM MDM MDM Narrative Medical decision making narrative: Patient sent for CT and CTA head and neck. Lab work obtained along with EKG. Lab Data Attestation: I reviewed the patient's lab results. Labs: Laboratory Results - last 24 hr 11/13/21 11/13/21 11/13/21 19:10 19:10 19:10 WBC 8.3 RBC 4.38 Hgb 14.2 Hct 41.8 MCV 95.4 MCH 32.4 H MCHC 34.0 RDW Std Deviation 45.0 H RDW Coeff of Shalom 12.9 Plt Count TNP MPV 11.8 Immature Gran % (Auto) 0.400 Neut % (Auto) 78.8 H Lymph % (Auto) 14.9 L [place] % (Auto) 5.3 Eos % (Auto) 0.2 Baso % (Auto) 0.4 Absolute Neuts (auto) 6.5 Absolute Lymphs (auto) 1.23 Nucleated RBC % 0 Platelet Estimate ADEQUATE RBC Morphology N CHROM Anisocytosis RARE Macrocytosis RARE PT 12.3 INR 0.9 APTT 22.1 L Sodium 135 L Potassium 4.2 Chloride 103 Carbon Dioxide 25.0 Anion Gap 7 BUN 19 H Creatinine 1.50 H Estim Creat Clear Calc 28.60 Est GFR (MDRD) Af Amer 43 L Est GFR (MDRD) Non-Af 35 L BUN/Creatinine Ratio 12.7 Glucose 235 H Calcium 9.3 Troponin I High Sens 235 H* POC Glucose 11/13/21 19:17 WBC RBC Hgb Hct MCV MCH MCHC RDW Std Deviation RDW Coeff of Shalom Plt Count MPV Immature Gran % (Auto) Neut % (Auto) Lymph % (Auto) [place] % (Auto) Eos % (Auto) Baso % (Auto) Absolute Neuts (auto) Absolute Lymphs (auto) Nucleated RBC % Platelet Estimate RBC Morphology Anisocytosis Macrocytosis PT INR APTT Sodium Potassium Chloride Carbon Dioxide Anion Gap BUN Creatinine Estim Creat Clear Calc Est GFR (MDRD) Af Amer Est GFR (MDRD) Non-Af BUN/Creatinine Ratio Glucose Calcium Troponin I High Sens POC Glucose 217 H Radiography Diagnostic Testing: Clinical Impression(s) from Imaging Studies Brain CT 11/13/21 19:12 IMPRESSION: Chronic involutional changes of the brain. Electronically Signed: Lance Lacey MD at 19:36 EDT , ADDENDUM: 11/13/211946 IMPRESSION: Chronic involutional changes of the brain. N.B. : The above Results were Read Back by Lance Lacey MD to Pushpa Parker MD, and understanding confirmed on 11/13/2021 19:40:27 (ET). Electronically Signed: Lance Lacey MD at 19:36 EDT , Head/Neck CTA 11/13/21 19:13 IMPRESSION: 1. There is mild atherosclerotic plaque formation of the origin of the left internal carotid artery with less than 50% cross sectional diameter stenosis. ALL ABOVE CRITERIA BY NASCET. 2. There is calcified plaque formation of the right cavernous carotid artery, with a mild stenosis (less than 50%). ALL ABOVE CRITERIA BY NASCET. 3. There is calcified plaque formation of the left cavernous carotid artery, with a mild stenosis (less than 50%). ALL ABOVE CRITERIA BY NASCET. Electronically Signed: Lance Lacey MD at 19:48 EDT , ADDENDUM: 11/13/212002 IMPRESSION: 1. There is mild atherosclerotic plaque formation of the origin of the left internal carotid artery with less than 50% cross sectional diameter stenosis. ALL ABOVE CRITERIA BY NASCET. 2. There is calcified plaque formation of the right cavernous carotid artery, with a mild stenosis (less than 50%). ALL ABOVE CRITERIA BY NASCET. 3. There is calcified plaque formation of the left cavernous carotid artery, with a mild stenosis (less than 50%). ALL ABOVE CRITERIA BY NASCET. N.B. : The above Results were Read Back by Lance Lacey MD to Pushpa Solorzano MD, and understanding confirmed on 11/13/2021 19:56:26 (ET). Electronically Signed: Lance Lacey MD at 19:48 EDT , Chest X-Ray 11/13/21 20:00 IMPRESSION: There are no acute findings. Electronically Signed: Lance Lacey MD at 20:15 EDT , EKG Initial EKG: Attestation: I personally reviewed and interpreted this EKG as follows: Interpretation: Sinus Rhythm (Sinus at 98 with left bundle branch block. She does have some lateral T inversions that are new when compared to prior study of December 25, 2019. Left bundle branch block was present on the previous EKG as well.) Treatment and Re-Evaluation Narrative: On repeat evaluation patient is resting comfortably. She feels that she has now gotten full strength back in her left arm. I spoke with the stroke neurologist on the phone as well as radiologist. No evidence of acute stroke on her CT or CTA. Stroke neurologist did recommend 300 mg of p.o. Plavix patient's lab work is reviewed. CBC unremarkable. Chemistry studies reveal BUN of 19 and creatinine 1.5. Troponin is elevated at 235. Coags are unremarkable. On repeat evaluation patient denies any chest pain. She denies having any chest or arm pain today. Troponin will need to be cycled as this may be secondary to a neurological event. She will be admitted for MRI and further stroke work-up. Discharge Plan Triage Chief Complaint: Neuro S/Sx ED Provider: Pushpa Solorzano Dx/Rx/DC Orders Clinical Impression: Stroke-like symptoms, Elevated troponin Prescriptions: No Action amlodipine 2.5 mg tablet 2.5 mg PO DAILY allopurinol 100 mg tablet 100 mg PO DAILY cyanocobalamin (vitamin B-12) 1,000 MCG tablet 1,000 mcg PO DAILY pravastatin 80 MG tablet 80 mg PO DAILY aspirin 325 MG tablet 325 mg PO DAILY@1700 levothyroxine 50 MCG tablet 50 mcg PO DAILY losartan 100 MG tablet 100 mg PO DAILY semaglutide 1 MG/0.75 ML pen injector 1 mg SQ Label Comments: INJECT 1 MG SUBCUTANEOUSLY ONCE A WEEK on Tuesdays. Primary Care Provider: Sandra Narvaez Referrals: Sandra Narvaez DO [Primary Care Provider] - Disposition Disposition: Acute Care Hospital [facility]
[2021-11-13 19:36] LABS: Bedside Glucose 217 mg/dL (74-106)
[2021-11-13 19:44] LABS: Absolute Lymphocyte Count 1.23 X10^3/uL (0.83-4.51); Absolute Neutrophil Count 6.5 X10^3/uL (2.0-7.7); Basophil# 0.03 X10^3/uL; Basophil% 0.4 % (0-1); Eosinophil# 0.02 X10^3/uL; Eosinophils% 0.2 % (0-5); Hematocrit 41.8 % (37-47); Hemoglobin 14.2 g/dL (12.0-15.0); Lymphocyte # 1.23 X10^3/ul (0.83-4.51); Lymphocyte % 14.9 % (19-41); Mean Corpuscular Hgb 32.4 pg (27.0-32.0); Mean Corpuscular Volume 95.4 fL (81-99); Mean Platelet Vol. 11.8 fl (6.2-12.0); Monocyte# 0.44 X10^3/uL; Monocyte% 5.3 % (0-10); NRBC Flagged by Analyzer 0 % (0-5); Neutrophil # 6.53 X10^3/uL (2.7-7.7); Neutrophil % 78.8 % (47-70); POSITIVE COUNT YES; RBC Distribution Width CV 12.9 % (11.6-14.6); Red Blood Count 4.38 M/mm3 (4.2-5.4); White Blood Count 8.3 K/mm3 (4.4-11.0)
[2021-11-13 19:55] LABS: International Normalized Ratio 0.9; Prothrombin Time (Protime)PT. 12.3 SECONDS (11.7-14.9)
[2021-11-13 19:56] LABS: Partial Thromboplast Time 22.1 Seconds (24.1-36.2)
--- NOTE | 2021-11-13 20:00 | RAD_ITS ---
STUDY: XR Chest 1 View 11/13/2021 7:58 PM REASON FOR EXAM: Female, 81 years old. CHEST PAIN Neuro deficit, acute, stroke suspected COMPARISON: None TECHNIQUE: XR Chest 1 View FINDINGS: There is no demonstrated pleural abnormality. Normal heart size. Normal mediastinum. Normal joseph. Prominent appearing increased interstitial lung markings. Normal visualized pulmonary arteries. There is atherosclerotic calcification of the aortic arch with tortuosity. There are diffuse degenerative changes of the visualized thoracic spine. There is degenerative osteoarthritis of the bilateral shoulders. There is no demonstrated abnormality of the visualized soft tissue structures of the upper abdomen. RAD/Chest 1 View IMPRESSION: There are no acute findings. Electronically Signed: Lance Lacey MD at 20:15 EDT ,
[2021-11-13 20:12] LABS: Differential Indicated SCAN CRITERIA MET
[2021-11-13 20:14] LABS: Anion Gap 7 (5-15); Anisocytosis RARE; BUN 19 mg/dL (7-18); BUN/Creat Ratio 12.7 RATIO (10-20); Calcium,Total 9.3 mg/dL (8.5-10.1); Chloride 103 mmol/L (98-107); EST Glomerular Filtration Rate 35 mL/min (>60); Est Glom Filt Rate - Afr Amer 43 mL/min (>60); Glucose 235 mg/dL (74-106); Macrocytosis RARE; Platelet Estimate ADEQUATE (ADEQ); Potassium 4.2 mmol/L (3.5-5.1); Red Cell Morphology N CHROM NORMAL (NORM C&C); Sodium Level 135 mmol/L (136-145)
[2021-11-13 20:16] LABS: Troponin-I HS 235 pg/mL (3.0-54.0)
[2021-11-13] MEDS: Clopidogrel Bisulfate 300 MG Tablet PO (20:42)
--- NOTE | 2021-11-13 20:44 | PCM.HP.STD ---
HPI - General General Date of Admission: 11/13/21 Date of Service: 11/13/21 Chief Complaint: Strokelike symptoms HPI Narrative MOLLY BOURGEOIS, is a 81 F with a significant history of TIAs x2; hypothyroidism; hypertension and diabetes mellitus who presents to the emergency department with strokelike symptoms that started about 6 hours before presentation. Reported patient was watching TV when she developed left arm numbness and tingling. About 1 hour time was her left became weak. At the emergency department her left arm was weak but all her symptoms later resolved. She denies any speech or vision changes. She has increased frequency of urination that she attributes to her medication [facility] Medical History Chronic indwelling Costa catheter Diabetes Gout H/O TIA Hypertension Left breast lump Mastalgia in female Non-smoker Home Medications allopurinol 100 mg tablet 100 mg PO DAILY gout 02/06/18 [History Last Taken 04/12/20 17:00] amlodipine 2.5 mg tablet 2.5 mg PO DAILY bp 02/06/18 [History Last Taken 04/12/20 17:00] aspirin 325 mg tablet,delayed release 325 mg PO DAILY@1700 [facility] 04/12/20 [History Last Taken 04/12/20 17:00] cyanocobalamin (vitamin B-12) 1,000 mcg tablet 1,000 mcg PO DAILY supplement 04/12/20 [History Last Taken 04/12/20] levothyroxine 50 mcg tablet 50 mcg PO DAILY thyroid 04/12/20 [History Last Taken 04/12/20 17:00] losartan 100 mg tablet 100 mg PO DAILY bp 04/12/20 [History Last Taken 04/12/20 17:00] pravastatin 80 mg tablet 80 mg PO DAILY cholesterol 04/12/20 [History Last Taken 04/12/20 17:00] semaglutide 1 mg/dose (2 mg/1.5 mL) subcutaneous pen injector 1 mg SQ TU dm 04/12/20 [History Last Taken 04/12/20 08:00] Allergy/AdvReac Type Severity Reaction Status Date / Time No Known Allergies Allergy Verified 11/13/21 18:46 Family History Mother Diabetes Father Heart disease Brother Heart disease Surgical History History of thyroid surgery History of tonsillectomy History of tubal ligation history right eye surgery Social History household members: other details: Petra Lizarraga, Vahid Lizarraga Sr., Vahid Lizarraga Jr. housing: house Smoking Status: Never smoker alcohol intake: never substance use type: does not use what type of physical activity do you participate in: none do you feel safe at home: Yes ROS ROS Narrative Pertinent positives and pertinent negatives as noted in HPI. All other systems were reviewed and are negative. Vital Signs Vital Signs Vital Signs: 11/13/21 18:28 11/13/21 18:42 11/13/21 18:49 Temperature 97.2 F L 97.0 F L Temperature Source Temporal Temporal Pulse Rate 126 H 102 H Respiratory Rate 18 17 Blood Pressure 133/101 H 131/87 H Blood Pressure Mean 111 101 Pulse Ox 97 96 96 Oxygen Delivery Method Room Air Room Air Room Air 11/13/21 19:50 11/13/21 19:51 Temperature Temperature Source Pulse Rate 103 H Respiratory Rate 20 H Blood Pressure 143/83 H Blood Pressure Mean 103 Pulse Ox 98 98 Oxygen Delivery Method Room Air Room Air Weight Weight: 75.9 kg Body Mass Index (BMI) 26.2 Physical Exam Narrative Physical exam: General: Well-nourished, well-developed. Head: Normocephalic, atraumatic, no tenderness Eyes: Vision is grossly intact. EOMI ENT, no trauma, moist mucous membranes, no rhinorrhea Neck: Nontender, full range of motion, no spinal tenderness, deformities, step-off CVS: Regular rate and rhythm. S1-S2 present. No murmur, gallop or rub. Respiratory : clear to auscultation bilaterally, chest wall nontender, no wheezing Abdomen: Soft, nontender, nondistended, normal bowel sounds, no masses : Deferred Back: Nontender, no CVA tenderness, no midline spinal tenderness, deformities, step-offs Extremities: Nontender full range of motion, no trauma Skin: Normal color, no trauma, abrasions Neuro: Alert, oriented, cranial nerves II through XII grossly intact. Strength in left upper and left lower extremity 4 out of 5. Strength in right upper and right lower extremity 5 out of 5. No dysmetria. Refuse DTR checks on left knee secondary to chronic scar which causes irritability. Deep tendon reflexes in right elbow; left elbow and left knee not hyperreflexia. Psychiatry: Normal mood. Normal affect. Not depressed. Not anxious. Results Lab / Micro Data Result Diagrams: 11/13/21 19:10 11/13/21 19:10 Labs: Laboratory Results - last 24 hr 11/13/21 19:10: WBC 8.3, RBC 4.38, Hgb 14.2, Hct 41.8, MCV 95.4, MCH 32.4 H, MCHC 34.0, RDW Std Deviation 45.0 H, RDW Coeff of Shalom 12.9, Plt Count TNP, MPV 11.8, Immature Gran % (Auto) 0.400, Neut % (Auto) 78.8 H, Lymph % (Auto) 14.9 L, Leake % (Auto) 5.3, Eos % (Auto) 0.2, Baso % (Auto) 0.4, Absolute Neuts (auto) 6.5, Absolute Lymphs (auto) 1.23, Nucleated RBC % 0, Platelet Estimate ADEQUATE, RBC Morphology N CHROM, Anisocytosis RARE, Macrocytosis RARE 11/13/21 19:10: PT 12.3, INR 0.9, APTT 22.1 L 11/13/21 19:10: Sodium 135 L, Potassium 4.2, Chloride 103, Carbon Dioxide 25.0, Anion Gap 7, BUN 19 H, Creatinine 1.50 H, Estim Creat Clear Calc 28.60, Est GFR (MDRD) Af Amer 43 L, Est GFR (MDRD) Non-Af 35 L, BUN/Creatinine Ratio 12.7, Glucose 235 H, Calcium 9.3, Troponin I High Sens 235 H* 11/13/21 19:17: POC Glucose 217 H Radiology Impression Brain CT 11/13/21 19:12 IMPRESSION: Chronic involutional changes of the brain. Electronically Signed: Lance Lacey MD at 19:36 EDT , ADDENDUM: 11/13/211946 IMPRESSION: Chronic involutional changes of the brain. N.B. : The above Results were Read Back by Lance Lacey MD to Pushpa Parker MD, and understanding confirmed on 11/13/2021 19:40:27 (ET). Electronically Signed: Lance Lacey MD at 19:36 EDT , Head/Neck CTA 11/13/21 19:13 IMPRESSION: 1. There is mild atherosclerotic plaque formation of the origin of the left internal carotid artery with less than 50% cross sectional diameter stenosis. ALL ABOVE CRITERIA BY NASCET. 2. There is calcified plaque formation of the right cavernous carotid artery, with a mild stenosis (less than 50%). ALL ABOVE CRITERIA BY NASCET. 3. There is calcified plaque formation of the left cavernous carotid artery, with a mild stenosis (less than 50%). ALL ABOVE CRITERIA BY NASCET. Electronically Signed: Lance Lacey MD at 19:48 EDT , ADDENDUM: 11/13/212002 IMPRESSION: 1. There is mild atherosclerotic plaque formation of the origin of the left internal carotid artery with less than 50% cross sectional diameter stenosis. ALL ABOVE CRITERIA BY NASCET. 2. There is calcified plaque formation of the right cavernous carotid artery, with a mild stenosis (less than 50%). ALL ABOVE CRITERIA BY NASCET. 3. There is calcified plaque formation of the left cavernous carotid artery, with a mild stenosis (less than 50%). ALL ABOVE CRITERIA BY NASCET. N.B. : The above Results were Read Back by Lance Lacey MD to Pushpa Solorzano MD, and understanding confirmed on 11/13/2021 19:56:26 (ET). Electronically Signed: Lance Lacey MD at 19:48 EDT , Chest X-Ray 11/13/21 20:00 IMPRESSION: There are no acute findings. Electronically Signed: Lance Lacey MD at 20:15 EDT Reading Location ID and State: [facility] / [place] , Service support , Assessment & Plan Assessment/Plan (1) History of TIA (transient ischemic attack): PLAN: Insert (2) History of type 2 diabetes mellitus: (3) History of hypertension: (4) Elevated troponin: PLAN: Plan Strokelike symptoms Initial NIH scale reportedly 2 on presentation. Serial NINDS NIH Scale ordered Head/neck CTA; and brain CTA was visualized and independently interpreted: With no acute bleed or hemodynamically significant stenosis. I agree with radiologist interpretation. Lipid profile and A1c ordered. Physical therapy, occupational therapy and speech therapy to work with patient. N.p.o. until bedside swallow eval. Daily aspirin. Home pravastatin continue Permissive hypertension. Control blood pressure with labetalol for systolic blood pressure of more than 220 or diastolic blood pressure of more than 120. MRI of head; brain; and neck. Echocardiogram ordered. Elevated troponin Likely Demand vs elevated troponin from stroke. Initial troponin 235. Increase of 592. EKG showed left bundle branch block same as previous. However there was a T wave inversion which is new. Denies chest pain at this time. Aspirin and Plavix as above. We will avoid therapeutic anticoagulation to prevent hemorrhagic conversion of a possible ischemic stroke. Trend. Diabetes mellitus Patient with hyperglycemia on presentation On semaglutide at home. Accu-chek with correction scale insulin ordered. Hypertension Blood pressure is not within goal In the setting of stroke hold home blood pressure medication for permissive hypertension. Trend. Trend blood pressure and adjust blood pressure medications. DVT Prophylaxis SCD ordered Advance care planning: Discussed with patient and family advanced directives as well as CODE STATUS. Explained various CODE STATUS: FULL CODE, DNR CCA, DNR CCA with no intubation, and DNR CC- and what each meant. Patient elected to be a full code with CPR and intubation if warranted but for only one attempt at resuscitation. That is after a first resuscitation no CPR or intubation should be done for a second episode of code. Power of plasma table operator is daughter, ASHLEE Stone. Power of plasma table operator was present during discussion. Time spent on discussion 16 minutes. Charges/Coding Visit Charges OBSV E&M: 02282 Initial observation care L3 Procedures Hospitalists Procedures: 25814 Advncd Care Plan 30 Min
--- NOTE | 2021-11-13 21:09 | ECHOCS_ITS ---
Reason For Study: TIA/CVA Procedure This was a 2D Doppler, Color Flow transthoracic echocardiogram. The study was technically difficult. Contrast injection was performed. Exam performed portable in patient room. Left Ventricle Normal LV size. Segmental dysfunction with preserved ejection fraction (see wall motion). The estimated ejection fraction is 55 %. Septal motion consistent with IVCD. Diastolic function is indeterminate. Infero-Basal: Hypokinetic. Basal inferoseptal: Hypokinetic. Basal anteroseptal: Hypokinetic. Mid-Posterior: Hypokinetic. Mid-Inferior: Akinetic. Mid-inferoseptal : Hypokinetic. Mid-anteroseptal : Hypokinetic. Inferior Grayling : Hypokinetic. Right Ventricle Normal RV size. Normal systolic function. Atria Normal left atrium. Normal right atrium. No doppler evidence for ASD. Mitral Valve There is moderate mitral annular calcification. Extension of the mitral annular calcification on the base of the posterior mitral valve leaflet. Mild focal mitral valve calcification of the anterior leaflet. Moderate (2+) mitral valve insufficiency. Tricuspid Valve Normal tricuspid valve. Trivial tricuspid valve insufficiency. Right ventricular systolic pressure estimated to be 22 mmHg. Aortic Valve Trisinus/trileaflet aortic valve. Mild diffuse aortic valve calcification. Pulmonic Valve The pulmonic valve is not well visualized. Great Vessels The aortic root is not well visualized. Pericardium/Pleural No pericardial effusion. Medication Diluted definity 1.5ml given slow IV push to enhance endocardial definition. Performed a rapid injection of agitated mix of 9 cc saline and 1cc air to assess for atrial septal defect. MMode/2D Measurements & Calculations LVIDd: 4.3 cm IVSd: 0.89 cm LA dimension: 2.9 cm LVIDs: 3.3 cm LVPWd: 0.71 cm RVDd: 2.5 cm FS: 23.4 % LAV(MOD-bp): 24.2 ml LA A4 area: 8.8 cm2 RA A4 area: 8.9 cm2 LAV(MOD-bp) Indexed: 12.8 ml/m2 LAV(MOD-sp2): 32.9 ml LAV(MOD-sp4): 15.9 ml Time Measurements MV dec time: 0.10 sec Doppler Measurements & Calculations MV E max chris: 76.8 cm/sec Lat Peak E' Chris: 5.3 cm/sec Med Peak E' Chris: 4.9 cm/sec MV A max chris: 148.6 cm/sec E/E' lat: 14.6 E/E' med: 15.7 MV E/A: 0.52 Ao V2 max: 113.3 cm/sec AI max chris: 302.0 cm/sec LV V1 max: 68.0 cm/sec Ao max P.1 mmHg AI max P.7 mmHg LV V1 max P.8 mmHg Ao V2 mean: 75.4 cm/sec AI dec slope: 151.8 cm/sec2 Ao mean P.7 mmHg AI P1/2t: 582.8 msec Ao V2 VTI: 22.6 cm MR max chris: 553.5 cm/sec PA V2 max: 83.5 cm/sec TR max chris: 217.4 cm/sec MR max P.5 mmHg TR max P.9 mmHg MR mean chris: 398.0 cm/sec MR mean P.8 mmHg MR VTI: 189.8 cm ECHO/Echo Complete W/ Contrast Interpretation Summary The study was technically difficult. Contrast injection was performed. Segmental dysfunction with preserved ejection fraction (see wall motion). The estimated ejection fraction is 55 %. Septal motion consistent with IVCD. There is moderate mitral annular calcification. Extension of the mitral annular calcification on the base of the posterior mitr al valve leaflet. Mild focal mitral valve calcification of the anterior leaflet. Moderate (2+) mitral valve insufficiency. Trivial tricuspid valve insufficiency. Mild diffuse aortic valve calcification. Right ventricular systolic pressure estimated to be 22 mmHg. Diastolic function is indeterminate. Ordering Physician: Shiv Booker Referring Physician: Sandra Narvaez M.D. Performed By: Migel Vivas RCS
[2021-11-13] MEDS: Pravastatin 80 MG Tablet PO (23:05)
[2021-11-13 23:20] LABS: Bedside Glucose 101 mg/dL (74-106)
[2021-11-14] VITALS (20 sets, daily range): BP systolic 106–143; BP diastolic 55–106; PULSE 78–101; RESP 14–23; TEMP 36.3–37.1; O2SAT 94–100; BMI 26.3
[2021-11-14 00:19] LABS: Troponin-I HS 592 pg/mL (3.0-54.0)
[2021-11-14 01:56] LABS: Troponin-I HS 1082 pg/mL (3.0-54.0)
[2021-11-14] MEDS: Enoxaparin 30 MG/0.3 ML Syringe SC (03:23)
[2021-11-14 05:44] LABS: Absolute Lymphocyte Count 1.62 X10^3/uL (0.83-4.51); Absolute Neutrophil Count 4.2 X10^3/uL (2.0-7.7); Basophil# 0.04 X10^3/uL; Basophil% 0.6 % (0-1); Eosinophil# 0.03 X10^3/uL; Eosinophils% 0.5 % (0-5); Hematocrit 39.4 % (37-47); Hemoglobin 13.4 g/dL (12.0-15.0); Lymphocyte # 1.62 X10^3/ul (0.83-4.51); Lymphocyte % 25.4 % (19-41); Mean Corpuscular Hgb 32.6 pg (27.0-32.0); Mean Corpuscular Volume 95.9 fL (81-99); Mean Platelet Vol. 10.9 fl (6.2-12.0); Monocyte# 0.49 X10^3/uL; Monocyte% 7.7 % (0-10); NRBC Flagged by Analyzer 0 % (0-5); Neutrophil # 4.19 X10^3/uL (2.7-7.7); Neutrophil % 65.5 % (47-70); Platelet Count 226 K/mm3 (150-450); RBC Distribution Width SD 45.5 fl (35.1-43.9); Red Blood Count 4.11 M/mm3 (4.2-5.4); White Blood Count 6.4 K/mm3 (4.4-11.0)
[2021-11-14] MEDS: Levothyroxine 50 MCG Tablet PO (05:47)
[2021-11-14 06:11] LABS: Anion Gap 9 (5-15); BUN 17 mg/dL (7-18); BUN/Creat Ratio 13.9 RATIO (10-20); Calcium,Total 8.6 mg/dL (8.5-10.1); Chloride 105 mmol/L (98-107); Cholesterol 149 mg/dL (200); Creatinine, Serum 1.22 mg/dL (0.55-1.02); EST Glomerular Filtration Rate 45 mL/min (>60); Est Glom Filt Rate - Afr Amer 54 mL/min (>60); Estimated Creatinine Clearance 35.17 ml/min; Glucose 98 mg/dL (74-106); High Density Lipoprotein 53 mg/dL; Potassium 4.1 mmol/L (3.5-5.1); Sodium Level 139 mmol/L (136-145); Triglycerides 118 mg/dL; Very Low Density Lipoprotein 24 mg/dL (5-40)
[2021-11-14 06:26] LABS: Troponin-I HS 2861 pg/mL (3.0-54.0)
[2021-11-14 06:55] LABS: Bedside Glucose 109 mg/dL (74-106)
[2021-11-14 07:50] LABS: Hemoglobin A1c 5.8 % (3.8-5.6)
--- NOTE | 2021-11-14 10:22 | CASEMGMT ---
Patient has a General Power of Multiple Cut Off Saw Operator on file at [facility] which includes medical. Patient's daughter Petra Gibson is her Power of Multiple Cut Off Saw Operator. Patient does not have a Healthcare Living Will. Zena ANDREW
--- NOTE | 2021-11-14 10:34 | PN.HOSP_ITS ---
Documented by User: Marilu Hernandez NP-C 11/14/21 10:45 Subjective Subjective Patient seen and examined. Patient lying in bed no distress noted. Patient states that her left arm weakness has resolved. Objective Data Objective Data Vital Signs: Vital Signs Temp Pulse Resp BP Pulse Ox O2 Del Method 97.6 F L 101 H 16 116/70 99 Room Air 11/14/21 08:37 11/14/21 09:48 11/14/21 08:37 11/14/21 08:37 11/14/21 08:37 11/14/21 08:37 Oxygen Delivery Method Room Air Weight: 168 lb 3.403 oz Body Mass Index (BMI) 26.3 Lab / Micro Data Result Diagrams: 11/14/21 05:30 11/14/21 05:30 Labs: Laboratory Results - last 24 hr 11/13/21 19:10: WBC 8.3, RBC 4.38, Hgb 14.2, Hct 41.8, MCV 95.4, MCH 32.4 H, MCHC 34.0, RDW Std Deviation 45.0 H, RDW Coeff of Shalom 12.9, Plt Count TNP, MPV 11.8, Immature Gran % (Auto) 0.400, Neut % (Auto) 78.8 H, Lymph % (Auto) 14.9 L, Walker % (Auto) 5.3, Eos % (Auto) 0.2, Baso % (Auto) 0.4, Absolute Neuts (auto) 6.5, Absolute Lymphs (auto) 1.23, Nucleated RBC % 0, Platelet Estimate ADEQUATE, RBC Morphology N CHROM, Anisocytosis RARE, Macrocytosis RARE 11/13/21 19:10: PT 12.3, INR 0.9, APTT 22.1 L 11/13/21 19:10: Sodium 135 L, Potassium 4.2, Chloride 103, Carbon Dioxide 25.0, Anion Gap 7, BUN 19 H, Creatinine 1.50 H, Estim Creat Clear Calc 28.60, Est GFR (MDRD) Af Amer 43 L, Est GFR (MDRD) Non-Af 35 L, BUN/Creatinine Ratio 12.7, Glucose 235 H, Calcium 9.3, Troponin I High Sens 235 H* 11/13/21 19:17: POC Glucose 217 H 11/13/21 22:30: Troponin I High Sens 592 H* 08/15/22 22:39: POC Glucose 101 11/14/21 01:05: Troponin I High Sens 1082 H* 11/14/21 05:30: WBC 6.4, RBC 4.11 L, Hgb 13.4, Hct 39.4, MCV 95.9, MCH 32.6 H, MCHC 34.0, RDW Std Deviation 45.5 H, RDW Coeff of Shalom 13.0, Plt Count 226, MPV 10.9, Immature Gran % (Auto) 0.300, Neut % (Auto) 65.5, Lymph % (Auto) 25.4, Walker % (Auto) 7.7, Eos % (Auto) 0.5, Baso % (Auto) 0.6, Absolute Neuts (auto) 4.2, Absolute Lymphs (auto) 1.62, Nucleated RBC % 0 11/14/21 05:30: Sodium 139, Potassium 4.1, Chloride 105, Carbon Dioxide 25.0, Anion Gap 9, BUN 17, Creatinine 1.22 H, Estim Creat Clear Calc 35.17, Est GFR (MDRD) Af Amer 54 L, Est GFR (MDRD) Non-Af 45 L, BUN/Creatinine Ratio 13.9, Glucose 98, Calcium 8.6, Triglycerides 118, Cholesterol 149, LDL Cholesterol 72, VLDL Cholesterol 24, HDL Cholesterol 53 11/14/21 05:30: Hemoglobin A1c 5.8 H 11/14/21 05:30: Troponin I High Sens 2861 H* 11/14/21 06:35: POC Glucose 109 H Radiography Diagnostic Testing: Radiology Impression Brain CT 11/13/21 19:12 IMPRESSION: Chronic involutional changes of the brain. Electronically Signed: Lance Lacey MD at 19:36 EDT , ADDENDUM: 11/13/211946 IMPRESSION: Chronic involutional changes of the brain. N.B. : The above Results were Read Back by Lance Lacey MD to Pushpa Parker MD, and understanding confirmed on 11/13/2021 19:40:27 (ET). Electronically Signed: Lance Lcaey MD at 19:36 EDT , Head/Neck CTA 11/13/21 19:13 IMPRESSION: 1. There is mild atherosclerotic plaque formation of the origin of the left internal carotid artery with less than 50% cross sectional diameter stenosis. ALL ABOVE CRITERIA BY NASCET. 2. There is calcified plaque formation of the right cavernous carotid artery, with a mild stenosis (less than 50%). ALL ABOVE CRITERIA BY NASCET. 3. There is calcified plaque formation of the left cavernous carotid artery, with a mild stenosis (less than 50%). ALL ABOVE CRITERIA BY NASCET. Electronically Signed: Lance Lacey MD at 19:48 EDT , ADDENDUM: 11/13/212002 IMPRESSION: 1. There is mild atherosclerotic plaque formation of the origin of the left internal carotid artery with less than 50% cross sectional diameter stenosis. ALL ABOVE CRITERIA BY NASCET. 2. There is calcified plaque formation of the right cavernous carotid artery, with a mild stenosis (less than 50%). ALL ABOVE CRITERIA BY NASCET. 3. There is calcified plaque formation of the left cavernous carotid artery, with a mild stenosis (less than 50%). ALL ABOVE CRITERIA BY NASCET. N.B. : The above Results were Read Back by Lance Lacey MD to Psuhpa Solorzano MD, and understanding confirmed on 11/13/2021 19:56:26 (ET). Electronically Signed: Lance Lacey MD at 19:48 EDT , Chest X-Ray 11/13/21 20:00 IMPRESSION: There are no acute findings. Electronically Signed: Lance Lacey MD at 20:15 EDT Reading Location ID and State: [facility] / [place] , Service support , Physical Exam Const alert, oriented x3 and no apparent distress HEENT head/scalp atraumatic and moist oral mucous membranes Head and Scalp: normocephalic Eyes conjunctivae normal and no scleral icterus Neck no lymphadenopathy and supple Resp normal respiratory effort and normal air movement Effort and Inspection: able to speak in complete sentences and symmetric chest movement Auscultation: diminished lung sounds Cardio regular rate, regular rhythm, S1 normal heart sound and S2 normal heart sound Rate: tachycardic GI normal to inspection, nondistended, normoactive bowel sounds, soft to palpation and non-tender Extremity normal to inspection and full ROM Neuro oriented x3, moves all extremities, no focal motor deficits and no sensory defic its noted Sensorium / Orientation: awake and alert Psych affect normal Assessment & Plan Assessment/Plan (1) NSTEMI (non-ST elevated myocardial infarction): PLAN: Plan 1. NSTEMI -Cardiology following, patient will undergo cardiac catheterization 11/14/2021 -Troponins elevated, 2861 -Chest x-ray negative -Echocardiogram ordered 2. Strokelike symptoms -resolved -Head and neck CTA shows left internal carotid with less than 50% stenosis, right and left cavernous carotid artery mild stenosis less than 50%. -Brain CT negative for acute findings -MRI pending 3. Hypertension -vital signs per protocol, currently stable -Restart amlodipine, losartan, will hold per stroke protocol -As needed hydralazine and labetalol ordered 4. Hyperlipidemia -Continue pravastatin 5. Hypothyroidism -Continue levothyroxine 6. Diabetes mellitus type 2 - semaglutide on hold -ACH S blood sugars with sliding scale insulin -Hemoglobin A1c 5.8 DVT prophylaxis-subcu Lovenox This patient was seen by EDUARDO PearsonC under the supervision of Dr. Leavitt. 13 minutes spent in clinical coordination of patient's plan of care. Documented by User: Dr. Duy Leavitt DO 11/14/21 15:35 Objective Data Lab / Micro Data Result Diagrams: 11/14/21 05:30 11/14/21 05:30 Assessment & Plan Assessment/Plan (1) NSTEMI (non-ST elevated myocardial infarction): Charges/Coding Addendum Addendum: Patient seen and examined independently. Data and vitals reviewed. I agree with the above note by the nurse practitioner. Patient stated that she initially had left arm and jaw and neck numbness. Carla ent seen postcatheterization and the symptoms are resolved. Patient had no left leg weakness. Physical exam: Patient is no acute distress and afebrile. She heart rate regular rate and rhythm plus S1-S2 with any murmurs gallops or rubs. Lungs are clear to auscultation bilaterally. Abdomen soft nontender nondistended normal bowel sounds. Assessment and plan 1. Non-STEMI Troponins peaked at 2861 Patient underwent a PCI to the proximal RCA On aspirin, clopidogrel add statin 2. Left arm paresthesia Secondary to non-STEMI. Not a stroke. No additional work-up from stroke perspective. Greater than 20minutes which is was discussing patient, examining patient, reviewing data and documentation. Visit Charges Inpatient E&M: 83028 Subs Hosp L2
[2021-11-14] MEDS: Clopidogrel Bisulfate 75 MG Tablet PO (11:41)
[2021-11-14] MEDS: Aspirin E.C. 325 MG Tablet PO (11:45)
--- NOTE | 2021-11-14 12:04 | CASEMGMT ---
This RN CM to room to complete CM assessment and pt is heading out of dept for heart cath. CM will attempt again later. SStaten RN CM
[2021-11-14 12:10] LABS: Bedside Glucose 104 mg/dL (74-106)
--- NOTE | 2021-11-14 12:53 | CL.D_ITS ---
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 RECOMMENDATIONS Referred for immediate PCI DESCRIPTION OF PROCEDURE The patient arrived to the procedure lab. The risks and benefits of the procedure as well as a full d escription of our services here and current unavailability of surgical backup were fully explained to the patient and/or their significant other prior to the catheterization. The Timeout was completed, verifying the correct patient and procedure. The patient's procedural site was prepped and draped in the usual fashion. Local anesthetic was given subcutaneously to right radial region with Lidocaine 2% . Using a modified Seldinger technique, Right Coronary Artery selective angiography was then perfor med in multiple views using a 5 Fr. 4.0 [place] catheter. Left Coronary Artery selective angiography wa s performed in multiple views using a 5 Fr. 4.0 [place] catheter. CORONARY ANGIOGRAPHY DOMINANCE: Right Dominant LEFT HEART ASSESSMENT Left Ventricular Ejection Fraction: by LV Gram 50 % Inferior Mid Hypokinesis - Moderate Depressed Left Ventricular systolic function LEFT MAIN: Angiographically normal LEFT ANTERIOR DESCENDING ARTERY: Smallish vessel with 50% mid LAD stenosis CIRCUMFLEX ARTERY: No significant disease noted RIGHT CORONARY ARTERY: Large dominant vessel with proximal 99% stenosis with thrombus noted therein a nd the rest of the vessel unremarkable. COMPLICATIONS PROCEDURE MEDICATIONS Fentanyl 50 mcg IV Versed 1 mg IV Oxygen: 2 L/min via nasal cannula Heparin given IA 11/14/2021 12:30:50 Verapamil 2.5mg, Ntg 100mcgs, 3000 units of Heparin given IA 11/14/2021 12:30:50 SUMMARY OF HEMODYNAMIC DATA Time AIR REST ECG 12:07:34 Art 140/61 (88) 12:25:12 AO 105/59 (81) SA 12:31:29 LV 110/5, 7 12:37:45 LV 109/4, 7 12:37:50 LV 102/7, 10 12:38:33 LVp 100/6, 9 12:38:39 AOp 101/55 (74) 12:38:44 Signed By Arben Nettles MD On 11/14/2021 12:52:34 Arben Nettles MD
--- NOTE | 2021-11-14 12:55 | CON.PCM.CA_ITS ---
Assessment & Plan Assessment/Plan (1) NSTEMI (non-ST elevated myocardial infarction): PLAN: She does present with numbness and tingling sensation and is noted to have a non-ST elevation myocardial infarction. After discussion with the patient it was felt that this was more than likely a cardiac event. She was consented for and underwent a cardiac catheterization the results of which are noted below. Normal left main coronary artery. Left anterior descending artery with 50% mid segment stenosis. Left circumflex artery with no high-grade stenosis. Large dominant right coronary artery with 99% proximal stenosis with a thrombus noted. Mild left ventricular systolic dysfunction. Based on the above angiographic findings I would recommend that the patient undergo PCI of the right coronary artery. She will continue her aspirin and high intensity statin. (2) History of hypertension: PLAN: She will continue to be managed for the elevated blood pressure with her current medications. I would also recommend the addition of low-dose beta-kamari with Toprol-XL 25 mg a day. Thank you for allowing me to participate in the care of your patient. Please don't hesitate to call if any issues arise. HPI Consult Data Date of Consult: 11/14/21 HPI Narrative HPI Narrative: MOLLY BOURGEOIS, is a 81 F who presents with left arm numbness and tingling sensation. She has also complained of some back discomfort. She presented to the emergency room was evaluated and thought to be having a transient ischemic attack and had a series of neurological evaluations. Cardiac enzymes were noted to be abnormal. Her EKG did demonstrate T wave inversions in the inferior leads. Cardiology was called to see her on the basis of the abnormal troponins. When I evaluated her she denied any chest pain but she complained of back discomfort. She has not had any dizziness or diaphoresis no near syncope or syncope. [facility] Medical History Chronic indwelling Costa catheter Diabetes Gout H/O TIA Hypertension Left breast lump Mastalgia in female Non-smoker Home Medications allopurinol 100 mg tablet 100 mg PO DAILY gout 02/06/18 [History Last Taken 04/12/20 17:00] amlodipine 2.5 mg tablet 2.5 mg PO DAILY bp 02/06/18 [History Last Taken 04/12/20 17:00] aspirin 325 mg tablet,delayed release 325 mg PO DAILY@1700 [facility] 04/12/20 [History Last Taken 04/12/20 17:00] cyanocobalamin (vitamin B-12) 1,000 mcg tablet 1,000 mcg PO DAILY supplement 04/12/20 [History Last Taken 04/12/20] levothyroxine 50 mcg tablet 50 mcg PO DAILY thyroid 04/12/20 [History Last Taken 04/12/20 17:00] losartan 100 mg tablet 100 mg PO DAILY bp 04/12/20 [History Last Taken 04/12/20 17:00] pravastatin 80 mg tablet 80 mg PO DAILY cholesterol 04/12/20 [History Last Taken 04/12/20 17:00] semaglutide 1 mg/dose (2 mg/1.5 mL) subcutaneous pen injector 1 mg SQ TU dm 04/12/20 [History Last Taken 04/12/20 08:00] Allergy/AdvReac Type Severity Reaction Status Date / Time No Known Allergies Allergy Verified 11/13/21 18:46 Family History Mother Diabetes Father Heart disease Brother Heart disease Surgical History History of thyroid surgery History of tonsillectomy History of tubal ligation history right eye surgery Social History household members: other details: Vahid Sanchez Sr., Vahid Lizarraga Jr. housing: house Smoking Status: Never smoker alcohol intake: never substance use type: does not use what type of physical activity do you participate in: none do you feel safe at home: Yes Physical Exam Const alert, oriented x3 and no apparent distress HEENT head/scalp atraumatic and moist oral mucous membranes Head and Scalp: normocephalic Eyes conjunctivae normal and no scleral icterus Neck no lymphadenopathy and supple Resp normal respiratory effort and normal air movement Effort and Inspection: able to speak in complete sentences and symmetric chest movement Auscultation: diminished lung sounds Cardio regular rate, regular rhythm, S1 normal heart sound and S2 normal heart sound Rate: tachycardic GI normal to inspection, nondistended, normoactive bowel sounds, soft to palpation and non-tender Extremity normal to inspection and full ROM Neuro oriented x3, moves all extremities, no focal motor deficits and no sensory deficits noted Sensorium / Orientation: awake and alert Psych affect normal Risk Stratification Risk Stratification Applicable: Yes Age >/= 65: Yes >/= 3 CAD Risk Factors (HTN, HLD, DM, family hx of CAD, or current smoker): Yes Aspirin Use in the Past 7 Days: Yes Severe Angina (>/= episodes in 24 hours): No EKG ST Changes >/= 0.5mm: No Positive Cardiac Marker: Yes DEEPAK Risk Stratification Score: 4 DEEPAK % Risk: 20% Risk Objective Data Vital Signs: Vital Signs Temp Pulse Resp BP Pulse Ox O2 Del Method 98.3 F 87 16 118/72 99 Room Air 11/14/21 10:38 11/14/21 10:38 11/14/21 10:38 11/14/21 10:38 11/14/21 08:37 11/14/21 10:38 Oxygen Delivery Method Room Air Weight: 168 lb 3.403 oz Body Mass Index (BMI) 26.3 Lab / Micro Data Result Diagrams: 11/14/21 05:30 11/14/21 05:30 Labs: Laboratory Results - last 24 hr 11/13/21 19:10: WBC 8.3, RBC 4.38, Hgb 14.2, Hct 41.8, MCV 95.4, MCH 32.4 H, MCHC 34.0, RDW Std Deviation 45.0 H, RDW Coeff of Shalom 12.9, Plt Count TNP, MPV 11.8, Immature Gran % (Auto) 0.400, Neut % (Auto) 78.8 H, Lymph % (Auto) 14.9 L, Yell % (Auto) 5.3, Eos % (Auto) 0.2, Baso % (Auto) 0.4, Absolute Neuts (auto) 6.5, Absolute Lymphs (auto) 1.23, Nucleated RBC % 0, Platelet Estimate ADEQUATE, RBC Morphology N CHROM, Anisocytosis RARE, Macrocytosis RARE 11/13/21 19:10: PT 12.3, INR 0.9, APTT 22.1 L 11/13/21 19:10: Sodium 135 L, Potassium 4.2, Chloride 103, Carbon Dioxide 25.0, Anion Gap 7, BUN 19 H, Creatinine 1.50 H, Estim Creat Clear Calc 28.60, Est GFR (MDRD) Af Amer 43 L, Est GFR (MDRD) Non-Af 35 L, BUN/Creatinine Ratio 12.7, Glucose 235 H, Calcium 9.3, Troponin I High Sens 235 H* 11/13/21 19:17: POC Glucose 217 H 11/13/21 22:30: Troponin I High Sens 592 H* 11/13/21 22:39: POC Glucose 101 11/14/21 01:05: Troponin I High Sens 1082 H* 11/14/21 05:30: WBC 6.4, RBC 4.11 L, Hgb 13.4, Hct 39.4, MCV 95.9, MCH 32.6 H, MCHC 34.0, RDW Std Deviation 45.5 H, RDW Coeff of Shalom 13.0, Plt Count 226, MPV 10.9, Immature Gran % (Auto) 0.300, Neut % (Auto) 65.5, Lymph % (Auto) 25.4, Yell % (Auto) 7.7, Eos % (Auto) 0.5, Baso % (Auto) 0.6, Absolute Neuts (auto) 4.2, Absolute Lymphs (auto) 1.62, Nucleated RBC % 0 11/14/21 05:30: Sodium 139, Potassium 4.1, Chloride 105, Carbon Dioxide 25.0, Anion Gap 9, BUN 17, Creatinine 1.22 H, Estim Creat Clear Calc 35.17, Est GFR (MDRD) Af Amer 54 L, Est GFR (MDRD) Non-Af 45 L, BUN/Creatinine Ratio 13.9, Glucose 98, Calcium 8.6, Triglycerides 118, Cholesterol 149, LDL Cholesterol 72, VLDL Cholesterol 24, HDL Cholesterol 53 11/14/21 05:30: Hemoglobin A1c 5.8 H 11/14/21 05:30: Troponin I High Sens 2861 H* 11/14/21 06:35: POC Glucose 109 H 11/14/21 11:33: POC Glucose 104 Cardiology Labs/Tests 11/13/21 19:10: WBC 8.3, RBC 4.38, Hgb 14.2, Hct 41.8, MCV 95.4, MCH 32.4 H, MCHC 34.0, Plt Count TNP, MPV 11.8, Immature Gran % (Auto) 0.400, Neut % (Auto) 78.8 H, Lymph % (Auto) 14.9 L, Yell % (Auto) 5.3, Eos % (Auto) 0.2, Baso % (Auto) 0.4, Absolute Neuts (auto) 6.5, Nucleated RBC % 0 11/13/21 19:10: PT 12.3, INR 0.9, APTT 22.1 L 11/13/21 19:10: Sodium 135 L, Potassium 4.2, Chloride 103, Carbon Dioxide 25.0, Anion Gap 7, BUN 19 H, Creatinine 1.50 H, Est GFR (MDRD) Af Amer 43 L, Est GFR (MDRD) Non-Af 35 L, BUN/Creatinine Ratio 12.7, Glucose 235 H, Calcium 9.3 11/14/21 05:30: WBC 6.4, RBC 4.11 L, Hgb 13.4, Hct 39.4, MCV 95.9, MCH 32.6 H, MCHC 34.0, Plt Count 226, MPV 10.9, Immature Gran % (Auto) 0.300, Neut % (Auto) 65.5, Lymph % (Auto) 25.4, Yell % (Auto) 7.7, Eos % (Auto) 0.5, Baso % (Auto) 0.6, Absolute Neuts (auto) 4.2, Nucleated RBC % 0 11/14/21 05:30: Sodium 139, Potassium 4.1, Chloride 105, Carbon Dioxide 25.0, Anion Gap 9, BUN 17, Creatinine 1.22 H, Est GFR (MDRD) Af Amer 54 L, Est GFR (MDRD) Non-Af 45 L, BUN/Creatinine Ratio 13.9, Glucose 98, Calcium 8.6, Triglycerides 118, Cholesterol 149, LDL Cholesterol 72, VLDL Cholesterol 24, HDL Cholesterol 53 11/14/21 05:30: Hemoglobin A1c 5.8 H Rhythm: EKG: ECHO: Stress Test: Cardiac Cath: PCI: CT Surgery: Holter monitor: EPS: PPM: CXR: Chest CT Scan: Radiography Diagnostic Testing: Radiology Impression Brain CT 11/13/21 19:12 IMPRESSION: Chronic involutional changes of the brain. Electronically Signed: Lance Lacey MD at 19:36 EDT Reading Location ID and State: [facility] / [place] , Service support , ADDENDUM: 11/13/211946 IMPRESSION: Chronic involutional changes of the brain. N.B. : The above Results were Read Back by Lance Lacey MD to Pushpa Parker MD, and understanding confirmed on 11/13/2021 19:40:27 (ET). Electronically Signed: Lance Lacey MD at 19:36 EDT , Head/Neck CTA 11/13/21 19:13 IMPRESSION: 1. There is mild atherosclerotic plaque formation of the origin of the left internal carotid artery with less than 50% cross sectional diameter stenosis. ALL ABOVE CRITERIA BY NASCET. 2. There is calcified plaque formation of the right cavernous carotid artery, with a mild stenosis (less than 50%). ALL ABOVE CRITERIA BY NASCET. 3. There is calcified plaque formation of the left cavernous carotid artery, with a mild stenosis (less than 50%). ALL ABOVE CRITERIA BY NASCET. Electronically Signed: Lance Lacey MD at 19:48 EDT , ADDENDUM: 11/13/212002 IMPRESSION: 1. There is mild atherosclerotic plaque formation of the origin of the left internal carotid artery with less than 50% cross sectional diameter stenosis. ALL ABOVE CRITERIA BY NASCET. 2. There is calcified plaque formation of the right cavernous carotid artery, with a mild stenosis (less than 50%). ALL ABOVE CRITERIA BY NASCET. 3. There is calcified plaque formation of the left cavernous carotid artery, with a mild stenosis (less than 50%). ALL ABOVE CRITERIA BY NASCET. N.B. : The above Results were Read Back by Lance Lacey MD to Pushpa Solorzano MD, and understanding confirmed on 11/13/2021 19:56:26 (ET). Electronically Signed: Lance Lacey MD at 19:48 EDT , Chest X-Ray 11/13/21 20:00 IMPRESSION: There are no acute findings. Electronically Signed: Lance Lacey MD at 20:15 EDT ,
--- NOTE | 2021-11-14 13:22 | PCI.CARDCATH ---
PCI Cardiac Cath Report PCI Report: PCI report; 1. Successful PCI of proximal RCA, with a large thrombus, large vessel with primary stenting reduction of the stenosis from 99% to 0% and maintenance of DEEPAK-3 flow Patient has a large dominant RCA with proximal 99% stenosis with large thrombus. Maintenance. Post DEEPAK-3 flow reduction for stenosis to 0% with placement of drug-eluting stent 3.5 x 22 mm ,RUSTAM/[employer] [place] Postdilated with 3.5 x 15 mm NC balloon mid WA. 2. Placement of TR band to close the right radial artery arteriotomy site. Consent; Risk and benefits of the procedure explained in detail patient elected to proceed informed consent obtained. Preprocedure diagnosis; This patient presented to the Facility Administrator and a assistant case manager Dr. 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 Mid hypokinesia which is mild. The finding of cholangiography diagonal coronary artery is normal angiographically bifurcating into LAD and left circumflex Left anterior descending artery small vessel with 50% mid LAD stenosis Circumflex of the LAD no significant atherosclerosis RCA is a large dominant with a proximal 99% stenosis no thrombus noted. Within the proximal portion of the RCA. Mid and distal RCA had no significant atherosclerosis The patient a plan and equipment; 1. 6 Japanese JR4 guide 2. 0.014 run-through extra floppy 180 cm straight wire 3. Drug-eluting stent 3.5 x 22 mm [employer] [place] Number four 3.5 x 15 mm NC Emerge MR balloon Medications given in the Facility Administrator; 1. Patient was given a total of 9000 heparin initially. 3000 heparin through the right radial sheath and a total of 6000 IV heparin 2. Insert signature. Conclusion and recommendation; Successful PCI of the proximal RCA which is a culprit with a large thrombus. 2. Patient to follow-up with the primary assistant case manager Dr. Nettles for continuation of cardiac care Patient is scheduled for cardiac rehab program here at [facility] Patient to continue on DAPT Plavix aspirin for 1 year No immediate complication in the Facility Administrator Martina Juarez MD,[facility]
--- NOTE | 2021-11-14 13:31 | PCI.CARDCATH ---
PCI Cardiac Cath Report PCI Report: 1, successful PCI of proximal large RCA double-balloon with 99% stenosis and large thrombus With primary stenting using 3.5 x 22 mm drug-eluting stent/[employer] [place], followed by postdilatation using 3.5 x 50 mm NC Emerge balloon. Reduction of stenosis from 99% to 0% and maintenance of DEEPAK-3 flow 2. Placement of TR band to the right radial artery arteriotomy site Consent; Risk and benefit of the procedure explained in detail to the patient and she elected to proceed informed Cannulated the RCA ostium without difficulty Did not follow-up with guidewire run-through across the lesion and then we performed primary stenting followed by postdilatation to the good result Conclusion and recommendation; 1. Patient to continue on DAPT for 1 year 2. Patient to continue rest of the cardiac medication. Followed by primary chair frame builder obtained. Preprocedure diagnosis: 81-year-old patient, she had numbness and tingling sensation in the left arm and diagnosed with numbness elevation MA Patient underwent cardiac catheterization by primary chair frame builder Dr. Nettles Angiographic films reviewed, left main normal A bifurcating into LAD and left circumflex Continue present treatment Mid segment stenosis Left circumflex artery has no significant atherosclerosis Large dominant RCA with 99% proximal stenosis with a thrombus thrombus Mild LV systolic dysfunction with ejection fraction around 50 Patient with a history of hypertension Interventional equipment and plan; 1. 6 [place] JR4 guide 2. 0.014 run-through extra floppy 180 cm guidewire Three 3.5 x 22 mm drug-eluting stent 4. 3.5 x 15 mm NC Emerge balloon Medication given in the Fleet Dispatch Manager; Heparin IV Cross the lesion proximally and followed by placement of through the right radial sheath ACT level acceptable Patient had been loaded with Plavix yesterday and this morning she was given Plavix and aspirin Procedure in detail; Under fluoroscopic guidance will proceed with this explained to her for cardiac events and cannulated the RCA ostium without difficulty this is followed by placement of Run-through guidewire and across the lesion followed by primary stenting and postdilated with NC balloon With reduction of stenosis from 99% to 0% maintenance of DEEPAK-3 flow There is no immediate complication in the Fleet Dispatch Manager Conclusion recommendation; Successful PCI of the culprit lesion large proximal RCA with severe stenosis and large thrombus with primary stenting Patient to continue on DAPT with Plavix 75 mg in addition to low-dose aspirin for 1 year Patient is scheduled for phase 1 cardiac rehab program Patient to follow-up with primary chair frame builder Dr. Nettles No complication in the Fleet Dispatch Manager Martina Juarez MD,[facility]
--- NOTE | 2021-11-14 13:47 | CASEMGMT ---
RONNA LOMAS assessment: Face to Face with patient for initial transition planning/care coordination assessment. RONNA LOMAS introduced self and role at [facility], pt voices understanding and consents to assessment. Pt is lying in bed in no distress on room air. Pt's daughters are at bedside during assessment. Pt is A/Ox4 and answers all questions appropriately.? Care providers, pharmacy,?and demographics verified. ? Presentation: Pt c/o left neck/arm numbness since 1400 Admitting dx: NSTEMI, CVA-like sx's PCP: [facility] Specialists: None Preferred Pharmacy: [facility]: [facility] Living Will/HPOA: Pt has general POA on file that includes HPOA and lists daughter, Petra Gibson, is HPOA. LW explained and questions answered. Pt does not have LW and declines further AD info. LNOK: Petra Gibson, daughter/HPOA Living Arrangements: Pt lives with daughter in 1 story home and states no concerns at home. Pt is independent with ADL'. Transportation: Pt states family drives most of time and states no transportation concerns. DME/HHC: Pt has the following DME: cane, crutches, rollator, walker, and shower benches. Pt states no need for any further DME. Pt states has had HHC in the past but has not been to SNF. Pt states no concerns with going home at time of discharge. Pt is retired. Pt states does not smoke cigarettes or drink ETOH. Pt voices no further concerns/needs. CM to follow for any further discharge planning/needs. Advised pt to ask for CM if any further questions/concerns/needs arise, voices understanding. Pt Goal: Home ? Plan[place] RONNA LOMAS
--- NOTE | 2021-11-14 14:14 | CRPHASE1 ---
Patient Communication PHII Cardiac Rehab Discussed with Patient:: Yes Guide to Cardiac Rehab Given to Patient:: Yes Cardiac Rehab Facility Choice List Given to Patient:: Yes Choice Program [facility] PHII:: Communication Given to CR Bag Checker:: Martina Juarez Phase II Cardiac Rehab:: Yes Sessions:: 36 sessions - 3 days/wk, 12 weeks Cardiac Rehabilitation Info Cardiac Rehabilitation Program Information: Cardiac Rehabilitation is important for patients like you who are recovering from a heart problem. Cardiac rehabilitation programs are recognized as integral to the continued care of the patient with coronary heart disease. The cardiac rehabilitation program is designed to optimize a patient's physical, psychological, and social functioning. Health respiratory care assistant work in cardiac rehabilitation programs and assist you with getting the treatments you need to get stronger and healthier - like exercise, healthy eating habits, and medications. Cardiac rehabilitation has been show to help people with heart problems live longer and have better life enjoyment than people who do not go to cardiac rehabilitation. Please contact the Cardiac Rehabilitation Program at [facility] at in two weeks if you have not heard from them.
--- NOTE | 2021-11-14 14:14 | CRPH1.INSTRU ---
General Education CAD and cardiac anatomy and function:: Patient communicates acknowledgment, Family communicates acknowledgment Explanation of diagnoses and procedures:: Patient communicates acknowledgment, Family communicates acknowledgment Sign/Symptoms of ND:: Patient communicates acknowledgment, Family communicates acknowledgment Antiplatelet therapy: Patient communicates acknowledgment, Family communicates acknowledgment Proper use of NTG-SL: Patient communicates acknowledgment, Family communicates acknowledgment Emergency procedures and activation of EMS: Patient communicates acknowledgment, Family communicates acknowledgment Compliance of all prescribed medications: Patient communicates acknowledgment, Family communicates acknowledgment Smoking Patient Nicotine/Smoking Risk Factors Are:: Non-smoker Dyslipidemia Patient Dyslipidemia Risk Factors Are:: Total Cholesterol, Triglycerides, HDL, LDL Recommendations Include:: Lipid profile not available Dyslipidemia Response Code:: Patient communicates acknowledgment, Family communicates acknowledgment Overweight/Obesity Patient Overweight/Obesity Risk Factors Are:: BMI Normal [24-29 & > 65 years old] Recommendations Include:: Weight loss of 5-10%, Reduced calorie diet, Exercise 5-7 times/week Overweight/Obesity:: Patient communicates acknowledgment, Family communicates acknowledgment Hypertension Recommendations Include:: BP <130/80 if diabetic, Decrease/maintain normal body weight Hypertension:: Patient communicates acknowledgment Diabetes Patient Diabetes Risk Factors Are:: Elevated blood sugars Recommendations Include:: Maintain fasting blood sugars 70-110 md/dL, Maintain HgbA1c of 6% or less, Monitor blood sugar as prescribed, Decrease/maintain body weight Diabetes:: Patient communicates acknowledgment Sedentary Patient Sedentary Risk Factors Are:: Lack of regular exercise Recommendations Include:: Aerobic exercise 5-7 times/week for 20-30 minutes continuously, Benefits of regular exercise, Discussed home walking program, Monitored Outpatient Cardiac Rehab Sedentary Response Code:: Patient communicates acknowledgment
--- NOTE | 2021-11-14 14:35 | EKG12_ITS ---
Test Reason : post pci Blood Pressure : / mmHG Vent. Rate : 081 BPM Atrial Rate : 081 BPM P-R Int : 190 ms QRS Dur : 118 ms QT Int : 440 ms P-R-T Axes : 021 -43 216 degrees QTc Int : 511 ms Normal sinus rhythm Left axis deviation Incomplete left bundle branch block ST & T wave abnormality, consider inferolateral ischemia Prolonged QT Abnormal ECG Confirmed by MITCHELL WILSON, PHILLIP ([id number]), assignment desk editor FABIAN GOEL ([id number]) on 11/15/2021 12:53:51 PM Referred By: Confirmed By:PHILLIP MEDRANO MD
--- NOTE | 2021-11-14 15:15 | MRI_ITS ---
STUDY: MRI BRAIN WITHOUT CONTRAST REASON FOR EXAM: Female, 81 years old. cva TECHNIQUE: Standardized multiplanar fat and water weighted pulse sequences were obtained. COMPARISON: CT of the brain 11/13/2021 and MRI of the brain 04/13/2020 FINDINGS: Mild to moderate atrophy and periventricular white matter ischemic changes without mass effect or restricted diffusion.. Tiny old lacunar infarct in left basal ganglia. Normal thalami. There is no extra-axial fluid accumulation. Normal flow voids within the major intracranial circulation suggesting patency by spin echo criteria. Normal sella turcica, pituitary gland, infundibular stalk, optic chiasm and hypothalamus. Normal tectal plate and pineal gland. Normal midbrain, leo and medulla. Minor chronic ischemic changes in left cerebellar hemisphere. Normal basal cisterns. Normal bilateral temporal bones. Normal bilateral internal auditory canals. Postsurgical changes of right orbit.. Mild mucosal thickening of left maxillary sinus and minor mucosal thickening of the ethmoid air cells. Normal calvarium and skull base. Normal visualized soft tissue structures. Normal visualized upper cervical spine. 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
[2021-11-14] MEDS: Allopurinol 100 MG Tablet PO (16:27)
[2021-11-14] MEDS: 0.9% Normal Saline 1,000 ML 75 ML IV (16:29)
[2021-11-14] MEDS: Insulin Lispro 100 UNIT/ML INSULN.PEN SC (16:41)
[2021-11-14 16:56] LABS: Bedside Glucose 189 mg/dL (74-106)
[2021-11-14] MEDS: Pravastatin 80 MG Tablet PO (21:19)
[2021-11-14 22:20] LABS: Bedside Glucose 129 mg/dL (74-106)
[2021-11-15 03:00] VITALS: PULSE 95
[2021-11-15 03:18] VITALS: BP 143/82; PULSE 89; RESP 18; TEMP 36.7; O2SAT 98
[2021-11-15] MEDS: Levothyroxine 50 MCG Tablet PO (05:10)
[2021-11-15 06:25] LABS: Absolute Lymphocyte Count 1.44 X10^3/uL (0.83-4.51); Absolute Neutrophil Count 3.8 X10^3/uL (2.0-7.7); Basophil# 0.05 X10^3/uL; Basophil% 0.9 % (0-1); Eosinophil# 0.04 X10^3/uL; Eosinophils% 0.7 % (0-5); Hematocrit 36.5 % (37-47); Hemoglobin 12.5 g/dL (12.0-15.0); Lymphocyte # 1.44 X10^3/ul (0.83-4.51); Mean Corp Hgb Conc 34.2 g/dL (32-36); Mean Corpuscular Hgb 33.2 pg (27.0-32.0); Mean Corpuscular Volume 96.8 fL (81-99); Mean Platelet Vol. 10.7 fl (6.2-12.0); Monocyte# 0.39 X10^3/uL; Monocyte% 6.8 % (0-10); NRBC Flagged by Analyzer 0 % (0-5); Neutrophil # 3.81 X10^3/uL (2.7-7.7); Neutrophil % 66.3 % (47-70); Platelet Count 205 K/mm3 (150-450); RBC Distribution Width CV 12.9 % (11.6-14.6); RBC Distribution Width SD 45.8 fl (35.1-43.9); Red Blood Count 3.77 M/mm3 (4.2-5.4); White Blood Count 5.8 K/mm3 (4.4-11.0)
[2021-11-15 07:00] VITALS: PULSE 86
[2021-11-15 07:11] LABS: ALB/GLOB Ratio 0.9 RATIO (0.9-2.4); AST(SGOT) 27 U/L (15-37); Alanine Aminotransfer ALT/SGPT 15 U/L (13-56); Alkaline Phosphatase 83 U/L (45-117); Anion Gap 6 (5-15); BUN 21 mg/dL (7-18); BUN/Creat Ratio 16.7 RATIO (10-20); Calcium,Total 8.3 mg/dL (8.5-10.1); Chloride 107 mmol/L (98-107); Creatinine, Serum 1.26 mg/dL (0.55-1.02); EST Glomerular Filtration Rate 43 mL/min (>60); Est Glom Filt Rate - Afr Amer 52 mL/min (>60); Estimated Creatinine Clearance 34.05 ml/min; Globulin 3.4 g/dL (2.2-4.2); Glucose 102 mg/dL (74-106); Protein, Total 6.4 g/dL (6.4-8.2); Sodium Level 137 mmol/L (136-145)
[2021-11-15 07:15] LABS: Bedside Glucose 100 mg/dL (74-106)
[2021-11-15 07:26] VITALS: O2SAT 97
[2021-11-15] MEDS: Aspirin E.C. 81 MG Tablet PO (08:47)
[2021-11-15 09:15] VITALS: BP 120/63; PULSE 89; RESP 16; TEMP 36.7; O2SAT 100
[2021-11-15 09:27] VITALS: PULSE 89
[2021-11-15] MEDS: Losartan Potassium 100 MG Tablet PO (09:27)
[2021-11-15] MEDS: Clopidogrel Bisulfate 75 MG Tablet PO (09:27)
[2021-11-15] MEDS: Metoprolol Tartrate 25 MG Tablet PO (09:27)
[2021-11-15] MEDS: Enoxaparin 30 MG/0.3 ML Syringe SC (09:27)
--- NOTE | 2021-11-15 10:00 | EKG12_ITS ---
Test Reason : AM/CP Blood Pressure : / mmHG Vent. Rate : 085 BPM Atrial Rate : 085 BPM P-R Int : 192 ms QRS Dur : 118 ms QT Int : 426 ms P-R-T Axes : 033 -39 231 degrees QTc Int : 506 ms Normal sinus rhythm Left axis deviation Incomplete left bundle branch block ST & T wave abnormality, consider inferior ischemia ST & T wave abnormality, consider anterolateral ischemia Abnormal ECG Confirmed by MITCHELL WILSON, PHILLIP ([id number]), editorial clerk FABIAN GOEL ([id number]) on 11/15/2021 12:51:13 PM Referred By: Confirmed By:PHILLIP MEDRANO MD
[2021-11-15] MEDS: Allopurinol 100 MG Tablet PO (10:09)
--- NOTE | 2021-11-15 10:12 | CASEMGMT ---
SW did not complete a PHQ9 with patient as per physician patient did not have a Stroke or TIA. Zena ANDREW
--- NOTE | 2021-11-15 10:33 | DCINST_ITS ---
Discharge Instructions Diet Discharge Diet: Low fat / Low cholesterol Activity May shower in (days): 1 Dressing / Incision Call your doctor if your incision/area has: Continuous Slow Oozing, Sudden Increased Bleeding, Increased Pain/ Swelling, Increased Redness, Foul Smelling Discharge and Swelling at the incision site Call your doctor if you observe: Shortness of breath, Dizziness, Chest pain and Increased palpitations (irregular heartbeat) Follow Up Care Test Results: Test results from this visit will be discussed in further detail at your follow- up appointment, if applicable. Discharge Plan Admission Admit Date/Time: 11/14/21 10:25 Primary Reason for Your Visit: NSTEMI Attending Provider: Duy Leavitt Primary Care Provider: Sandra Narvaez Consulting Providers: Shiv Booker ; Arben Nettles Discharge Orders/Prescriptions Prescriptions: New aspirin 81 mg Tablet,Delayed Release (Dr/Ec) 81 mg PO DAILY@0800 30 Days Qty: 30 1RF clopidogrel 75 mg Tablet 75 mg PO DAILY 30 Days Qty: 30 1RF metoprolol tartrate 25 mg Tablet 25 mg PO BID 30 Days Qty: 60 1RF Continued allopurinol 100 mg tablet 100 mg PO DAILY cyanocobalamin (vitamin B-12) 1,000 MCG tablet 1,000 mcg PO DAILY pravastatin 80 MG tablet 80 mg PO DAILY levothyroxine 50 MCG tablet 50 mcg PO DAILY losartan 100 MG tablet 100 mg PO DAILY semaglutide 1 MG/0.75 ML pen injector 1 mg SQ TU Label Comments: INJECT 1 MG SUBCUTANEOUSLY ONCE A WEEK on Tuesdays. Discontinued amlodipine 2.5 mg tablet 2.5 mg PO DAILY aspirin 325 MG tablet 325 mg PO DAILY@1700 Referrals / Follow Up: Arben Nettles MD [Med Staff - Active Staff] - Within 2 Weeks Sandra Narvaez DO [Primary Care Provider] - Within 1 Month Disposition Disposition (needs filled in before D/C Order can be placed): Home, Self Care
--- NOTE | 2021-11-15 10:44 | PCM.DC.SUM ---
Documented by User: JOSUE Pearson 11/15/21 10:51 Providers Date of Admission: 11/14/21 Date of Discharge: 11/15/21 Primary Care Physician: Dr. Sandra Narvaez, Consultations 11/14/21 06:27 Consult: Cardiology Routine Consulting Provider: Arben Nettles Reason for Consult: NSTEMI EMERGENT Consult: No MD Notified: Yes Date Notified: 11/14/21 Time Notified: 06:27 Method of Notification: ED Physician Initiated Method of Consult:: In-Person Reason For Visit: STROKE-LIKE SYMPTOMS Diagnosis Discharge Diagnosis (1) NSTEMI (non-ST elevated myocardial infarction): Status: Acute Code(s): I21.4 - Non-ST elevation (NSTEMI) myocardial infarction Plan 1. NSTEMI -Cardiology following, patient will undergo cardiac catheterization 11/14/2021 -Troponins elevated, 2861 -Chest x-ray negative -Echocardiogram ordered 2. Strokelike symptoms -resolved -Head and neck CTA shows left internal carotid with less than 50% stenosis, right and left cavernous carotid artery mild stenosis less than 50%. -Brain CT negative for acute findings -MRI pending 3. Hypertension -vital signs per protocol, currently stable -Restart amlodipine, losartan, will hold per stroke protocol -As needed hydralazine and labetalol ordered 4. Hyperlipidemia -Continue pravastatin 5. Hypothyroidism -Continue levothyroxine 6. Diabetes mellitus type 2 - semaglutide on hold -ACH S blood sugars with sliding scale insulin -Hemoglobin A1c 5.8 DVT prophylaxis-subcu Lovenox This patient was seen by JOSUE Pearson under the supervision of Dr. Leavitt. 13 minutes spent in clinical coordination of patient's plan of care. Medications at Discharge Home Medications allopurinol 100 mg tablet 100 mg PO DAILY gout 02/06/18 cyanocobalamin (vitamin B-12) 1,000 mcg tablet 1,000 mcg PO DAILY supplement 04/12/20 levothyroxine 50 mcg tablet 50 mcg PO DAILY thyroid 04/12/20 losartan 100 mg tablet 100 mg PO DAILY bp 04/12/20 pravastatin 80 mg tablet 80 mg PO DAILY cholesterol 04/12/20 semaglutide 1 mg/dose (2 mg/1.5 mL) subcutaneous pen injector 1 mg SQ TU dm 04/12/20 aspirin 81 mg tablet,delayed release 81 mg PO DAILY@0800 30 days #30 tabs 11/15/21 clopidogrel 75 mg tablet 75 mg PO DAILY 30 days #30 tabs 11/15/21 metoprolol tartrate 25 mg tablet 25 mg PO BID 30 days #60 tabs 11/15/21 Hospital Course Operations None Procedures 2-D Echocardiogram and Cardiac catheterization Summary of Care Provided Minutes Spent on Discharge: 35 Hospital Course: Patient is an 81-year-old female who initially presented with strokelike symptoms including left arm weakness and numbness. Patient has a history of TIAs, hypothyroidism, hypertension, diabetes mellitus type 2. Patient underwent brain CT, CTA of head and neck and brain MRI which were negative for acute stroke. Patient had elevated troponins and was subsequently evaluated by cardiology who proceeded with cardiac catheterization. Patient underwent successful PCI of proximal RCA stenosed with presence of a large thrombus. Patient also underwent echocardiogram which demonstrates 55% EF. Patient was referred for cardiac rehab status post PCI. Patient will be discharged home with aspirin and Plavix and will need to follow-up with her primary care physician as well as Dr. Nettles for continued cardiology oversight. Physical Exam Const alert, oriented x3 and no apparent distress HEENT head/scalp atraumatic and moist oral mucous membranes Eyes conjunctivae normal and no scleral icterus Neck no lymphadenopathy and supple Resp normal respiratory effort and normal air movement Effort and Inspection: able to speak in complete sentences and symmetric chest movement Auscultation: diminished lung sounds Cardio regular rate, regular rhythm, S1 normal heart sound and S2 normal heart sound Rate: tachycardic GI normal to inspection, nondistended, normoactive bowel sounds, soft to palpation and non-tender Extremity normal to inspection and full ROM Neuro oriented x3, moves all extremities, no focal motor deficits and no sensory deficits noted Sensorium / Orientation: awake and alert Psych affect normal Weight / BMI Weight Weight: 168 lb 3.403 oz Body Mass Index (BMI) 26.3 ABG / Lab / Microbiology Data Result Diagrams: 11/15/21 05:56 11/15/21 05:56 Laboratory: Laboratory Results - last 24 hr 11/14/21 11:33: POC Glucose 104 11/14/21 16:24: POC Glucose 189 H 11/14/21 21:23: POC Glucose 129 H 11/15/21 05:56: WBC 5.8, RBC 3.77 L, Hgb 12.5, Hct 36.5 L, MCV 96.8, MCH 33.2 H, MCHC 34.2, RDW Std Deviation 45.8 H, RDW Coeff of Shalom 12.9, Plt Count 205, MPV 10.7, Immature Gran % (Auto) 0.300, Neut % (Auto) 66.3, Lymph % (Auto) 25.0, Menard % (Auto) 6.8, Eos % (Auto) 0.7, Baso % (Auto) 0.9, Absolute Neuts (auto) 3.8, Absolute Lymphs (auto) 1.44, Nucleated RBC % 0 11/15/21 05:56: Sodium 137, Potassium 4.0, Chloride 107, Carbon Dioxide 24.0, Anion Gap 6, BUN 21 H, Creatinine 1.26 H, Estim Creat Clear Calc 34.05, Est GFR (MDRD) Af Amer 52 L, Est GFR (MDRD) Non-Af 43 L, BUN/Creatinine Ratio 16.7, Glucose 102, Calcium 8.3 L, Total Bilirubin 0.50, AST 27, ALT 15, Alkaline Phosphatase 83, Total Protein 6.4, Albumin 3.0 L, Globulin 3.4, Albumin/Globulin Ratio 0.9 11/15/21 06:50: POC Glucose 100 Radiography Diagnostic Testing: Radiology Impression Echocardiogram 11/13/21 21:09 Interpretation Summary The study was technically difficult. Contrast injection was performed. Segmental dysfunction with preserved ejection fraction (see wall motion). The estimated ejection fraction is 55 %. Septal motion consistent with IVCD. There is moderate mitral annular calcification. Extension of the mitral annular calcification on the base of the posterior mitral valve leaflet. Mild focal mitral valve calcification of the anterior leaflet. Moderate (2+) mitral valve insufficiency. Trivial tricuspid valve insufficiency. Mild diffuse aortic valve calcification. Right ventricular systolic pressure estimated to be 22 mmHg. Diastolic function is indeterminate. Ordering Physician: Shiv Booker Referring Physician: Sandra Narvaez M.D. 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 and minor chronic ischemic changes of the left cerebellar hemisphere Electronically Signed: Jorge Jensen MD at 16:31 EDT Reading Location ID and State: [address] [place] [address] , Service support , D/C Instructions Discharge Diet: Low fat / Low cholesterol May shower in (days): 1 Call your doctor if your incision/area has: Continuous Slow Oozing, Sudden Increased Bleeding, Increased Pain/ Swelling, Increased Redness, Foul Smelling Discharge and Swelling at the incision site Call your doctor if you observe: Shortness of breath, Dizziness, Chest pain and Increased palpitations (irregular heartbeat) Meaningful Use Info Meaningful Use Diagnoses (Choose all that apply): AMI AMI/Post PCI/Angioplasty Aspirin given w/in 24hrs of arrival?: Yes ASA at discharge?: Yes Antiplatelet Therapy at Discharge:: Yes Statins at discharge?: Yes Medhat/ARB at discharge?: Yes Beta Emilee at discharge?: Yes Done w/ Acute [place] measure.: Yes Documented LVEF (%): 55 Discharge Plan Admission Admit Date/Time: 11/14/21 10:25 Primary Reason for Your Visit: NSTEMI Attending Provider: Duy Leavitt Primary Care Provider: Sandra Narvaez Consulting Providers: Shiv Booker ; Arben Nettles Instructions Patient Instructions: Cardiac Catheterization Dc Discharge Orders/Prescriptions Prescriptions: New aspirin 81 mg Tablet,Delayed Release (Dr/Ec) 81 mg PO DAILY@0800 30 Days Qty: 30 1RF clopidogrel 75 mg Tablet 75 mg PO DAILY 30 Days Qty: 30 1RF metoprolol tartrate 25 mg Tablet 25 mg PO BID 30 Days Qty: 60 1RF Continued allopurinol 100 mg tablet 100 mg PO DAILY cyanocobalamin (vitamin B-12) 1,000 MCG tablet 1,000 mcg PO DAILY pravastatin 80 MG tablet 80 mg PO DAILY levothyroxine 50 MCG tablet 50 mcg PO DAILY losartan 100 MG tablet 100 mg PO DAILY semaglutide 1 MG/0.75 ML pen injector 1 mg SQ Label Comments: INJECT 1 MG SUBCUTANEOUSLY ONCE A WEEK on Tuesdays. Discontinued amlodipine 2.5 mg tablet 2.5 mg PO DAILY aspirin 325 MG tablet 325 mg PO DAILY@1700 Referrals / Follow Up: Arben Nettles MD [Med Staff - Active Staff] - Within 2 Weeks Sandra Narvaez DO [Primary Care Provider] - Within 1 Month Disposition Disposition (needs filled in before D/C Order can be placed): Home, Self Care Documented by User: Dr. Duy Leavitt DO 11/15/21 13:32 Providers Date of Admission: 11/14/21 Reason For Visit: STROKE-LIKE SYMPTOMS Diagnosis Discharge Diagnosis (1) NSTEMI (non-ST elevated myocardial infarction): Status: Acute Code(s): I21.4 - Non-ST elevation (NSTEMI) myocardial infarction Medications at Discharge Home Medications allopurinol 100 mg tablet 100 mg PO DAILY gout 02/06/18 cyanocobalamin (vitamin B-12) 1,000 mcg tablet 1,000 mcg PO DAILY supplement 04/12/20 levothyroxine 50 mcg tablet 50 mcg PO DAILY thyroid 04/12/20 losartan 100 mg tablet 100 mg PO DAILY bp 04/12/20 pravastatin 80 mg tablet 80 mg PO DAILY cholesterol 04/12/20 semaglutide 1 mg/dose (2 mg/1.5 mL) subcutaneous pen injector 1 mg SQ dm 04/12/20 aspirin 81 mg tablet,delayed release 81 mg PO DAILY@0800 30 days #30 tabs 11/15/21 clopidogrel 75 mg tablet 75 mg PO DAILY 30 days #30 tabs 11/15/21 metoprolol tartrate 25 mg tablet 25 mg PO BID 30 days #60 tabs 11/15/21 ABG / Lab / Microbiology Data Result Diagrams: 11/15/21 05:56 11/15/21 05:56 Discharge Plan Admission Admit Date/Time: 11/14/21 10:25 Primary Reason for Your Visit: NSTEMI Attending Provider: Duy Leavitt Primary Care Provider: Sandra Narvaez Consulting Providers: Shiv Booker ; Arben Nettles Instructions Patient Instructions: Cardiac Catheterization Dc Discharge Orders/Prescriptions Prescriptions: New aspirin 81 mg Tablet,Delayed Release (Dr/Ec) 81 mg PO DAILY@0800 30 Days Qty: 30 1RF clopidogrel 75 mg Tablet 75 mg PO DAILY 30 Days Qty: 30 1RF metoprolol tartrate 25 mg Tablet 25 mg PO BID 30 Days Qty: 60 1RF Continued allopurinol 100 mg tablet 100 mg PO DAILY cyanocobalamin (vitamin B-12) 1,000 MCG tablet 1,000 mcg PO DAILY pravastatin 80 MG tablet 80 mg PO DAILY levothyroxine 50 MCG tablet 50 mcg PO DAILY losartan 100 MG tablet 100 mg PO DAILY semaglutide 1 MG/0.75 ML pen injector 1 mg SQ Label Comments: INJECT 1 MG SUBCUTANEOUSLY ONCE A WEEK on Tuesdays. Discontinued amlodipine 2.5 mg tablet 2.5 mg PO DAILY aspirin 325 MG tablet 325 mg PO DAILY@1700 Referrals / Follow Up: Arben Nettles MD [Med Staff - Active Staff] - Within 2 Weeks Sandra Narvaez DO [Primary Care Provider] - Within 1 Month Disposition Disposition (needs filled in before D/C Order can be placed): Home, Self Care Charges/Coding Addendum Addendum: Patient seen and examined independently. Data and vitals reviewed. I agree with the above note by the nurse practitioner. 81-year old female presents with left arm numbness. Patient was found have a non-STEMI. Troponins peaked at 2861. Patient was seen in consultation by cardiology who performed a left heart catheterization that showed a 99% stenosis of the RCA. PCI was performed. Patient did well. Patient observed overnight and had no complications. Patient will be discharged home in stable condition. Patient will be discharged today and follow-up with cardiology as outpatient. Physical exam: No acute stress and afebrile. Heart rate regular rate rhythm plus S1-S2 with a murmurs Rubs. Lungs Are Clear to Auscultation Bilaterally. Greater than 20 minutes of which was spent discussed with the patient, reviewing data and documentation. Visit Charges Inpatient E&M: 29117 Disch Hosp
[2021-11-15 11:11] VITALS: BMI 26.3
[2021-11-15 11:40] LABS: Bedside Glucose 165 mg/dL (74-106)
[2021-11-15 13:02] VITALS: BMI 26.3
--- NOTE | 2021-11-15 14:01 | PHA.DC.MC ---
Pharmacy Service has performed discharge medication reconciliation and counseling for this patient. 1. CLOPIDOGREL 75MG PO DAILY 2. METOPROLOL TARTRATE 25MG PO BID The patient's discharge medication list was reviewed for discrepancies and discrepancies were resolved. Home Medications allopurinol 100 mg tablet 100 mg PO DAILY gout 02/06/18 cyanocobalamin (vitamin B-12) 1,000 mcg tablet 1,000 mcg PO DAILY supplement 04/12/20 levothyroxine 50 mcg tablet 50 mcg PO DAILY thyroid 04/12/20 losartan 100 mg tablet 100 mg PO DAILY bp 04/12/20 pravastatin 80 mg tablet 80 mg PO DAILY cholesterol 04/12/20 semaglutide 1 mg/dose (2 mg/1.5 mL) subcutaneous pen injector 1 mg SQ TU dm 04/12/20 aspirin 81 mg tablet,delayed release 81 mg PO DAILY@0800 30 days #30 tabs 11/15/21 clopidogrel 75 mg tablet 75 mg PO DAILY 30 days #30 tabs 11/15/21 metoprolol tartrate 25 mg tablet 25 mg PO BID 30 days #60 tabs 11/15/21 The patient was counseled on the following discharge medications and changes in medications for homegoing were reviewed. The Reason for Use, instructions for use, and potential side effects were reviewed for all new medications. The patient's questions regarding all of their medications were answered. The patient was able to verbally demonstrate an understanding of their discharge medications. Patient counseled by student success counselorKeanu.
== END 2021-11-15 12:28 | disposition home or self-care (01) | DRG 247 ==
LOC: ED 20:48 → PCU 21:01
PROVIDERS: Nurse Practitioner Family; Admitting Provider Hospitalist; Emergency Provider Emergency Medicine; PCP Internal Medicine
DX: I21.4 Non-ST elevation (NSTEMI) myocardial infarction (principal); I25.10 Atherosclerotic heart disease of native coronary artery without angina pectoris; E11.65 Type 2 diabetes mellitus with hyperglycemia; I10 Essential (primary) hypertension; E78.5 Hyperlipidemia, unspecified; E03.9 Hypothyroidism, unspecified; M10.9 Gout, unspecified; I65.23 Occlusion and stenosis of bilateral carotid arteries; R29.898 Other symptoms and signs involving the musculoskeletal system; Z79.82 Long term (current) use of aspirin; Z79.02 Long term (current) use of antithrombotics/antiplatelets; Z79.890 Hormone replacement therapy; Z79.899 Other long term (current) drug therapy; Z86.73 Personal history of transient ischemic attack (TIA), and cerebral infarction without residual deficits
CPT/HCPCS: 36415; 70450; 70496; 70498; 70551; 71045; 80048; 80053; 80061; 82962; 83036; 84484; 85025; 85027; 85610; 85730; 92928; 93005; 93306; 93458; 94762; 99152; 99153; 99285; C1874; J7030; J7040; Q9957; Q9967; A4216; C1725; C1769; C1887; C1894; C8929; C9600

== ENCOUNTER 2021-12-05 13:49 | Emergency (ER) | payer MEDICARE, SELFPAY ==
[2021-12-05 13:50] VITALS: BP 174/91; PULSE 83; RESP 18; TEMP 37; O2SAT 95; BMI 28.8
--- NOTE | 2021-12-05 14:00 | EKG12_ITS ---
Test Reason : CP Blood Pressure : / mmHG Vent. Rate : 085 BPM Atrial Rate : 085 BPM P-R Int : 206 ms QRS Dur : 124 ms QT Int : 398 ms P-R-T Axes : 061 -42 191 degrees QTc Int : 473 ms Normal sinus rhythm Left axis deviation Left bundle branch block Abnormal ECG Confirmed by JUAN LUIS WILSON, IGOR ([id number]), telegraph editor CRUZ GARNER ([id number]) on 12/06/2021 9:32:21 AM Referred By: TYSHAWN Confirmed By:IGOR MCKNIGHT MD
--- NOTE | 2021-12-05 14:00 | RAD_ITS ---
STUDY: X-RAY CHEST REASON FOR EXAM: Female, 81 years old. chest pain TECHNIQUE: Single AP portable view of the chest. COMPARISON: None. FINDINGS: The lungs are clear and expanded. There is no demonstrated pleural abnormality. Normal size heart. Normal mediastinum and joseph. Normal visualized pulmonary arteries. Normal visualized aortic arch and descending thoracic aorta. There is a dextroscoliosis of the thoracic spine. There is degenerative osteoarthritis of the bilateral shoulders. There is no demonstrated abnormality of the visualized soft tissue structures of the upper abdomen. RAD/Chest 1 View (Portable) IMPRESSION: Degenerative changes, as described above. No demonstrated acute cardiopulmonary process. Electronically Signed: Owen Ambriz MD at 14:46 EDT ,
--- NOTE | 2021-12-05 14:07 | ED.VIS.CHEST ---
HPI History of Present Illness Chief Complaint: Chest Pain Informant: patient and family Narrative Narrative: Patient presents with episodes of chest pain that is going on for about 2 and half hours. It is currently not there at all. She feels perfectly fine now. She states she has been getting small areas of pressure all in the front of her chest. On her way in it felt like somebody was sitting on her chest. But she denies shortness of breath, nausea, vomiting, diaphoresis at any time. Again, she is asymptomatic now. She does have history of blood pressure cholesterol some diabetes. She just had a stent of her RCA in mid October. She has filled and is taking her Plavix and aspirin. She has not been having any symptoms since the stent until today. She can think of nothing that makes it better or worse. She was sitting on the couch watching TV when it first started. PFSH PFSH Medical History Atherosclerosis of coronary artery without angina pectoris Chronic indwelling Costa catheter Essential hypertension Gout History of gout History of TIA (transient ischemic attack) (04/2020) History of type 2 diabetes mellitus Hypothyroidism Left breast lump Mastalgia in female Non-smoker Home Medications allopurinol 100 mg tablet 100 mg PO DAILY gout 02/06/18 [History Last Taken 12/05/21] aspirin 81 mg tablet,delayed release 81 mg PO DAILY@0800 BLOOD THINNER 12/05/21 [History Last Taken 12/05/21] bethanechol chloride 10 mg tablet 20 mg PO DAILY BLADDER 12/05/21 [History Last Taken 12/05/21] cholecalciferol (vitamin D3) 50 mcg (2,000 unit) capsule 50 mcg PO DAILY SUPPLEMENT 12/05/21 [History Last Taken 12/05/21] clopidogrel 75 mg tablet 75 mg PO DAILY BLOOD THINNER. 12/05/21 [History Last Taken 12/05/21] cyanocobalamin (vitamin B-12) 2,500 mcg tablet 2,500 mcg PO QHS SUPPLEMENT 12/05/21 [History Last Taken 12/04/21] levothyroxine 75 mcg tablet (Euthyrox) 75 mcg PO DAILY THYROID 12/05/21 [History Last Taken 12/05/21] losartan 50 mg tablet 50 mg PO BID BP 12/05/21 [History Last Taken 12/05/21] metoprolol tartrate 25 mg tablet 25 mg PO BID HEART 12/05/21 [History Last Taken 12/05/21] pravastatin 40 mg tablet 80 mg PO QHS CHOLESTEROL 12/05/21 [History Last Taken 12/04/21] semaglutide 1 mg/dose (4 mg/3 mL) subcutaneous pen injector (Ozempic) 1 mg subcut TU DM 12/05/21 [History Last Taken 12/05/21] Allergy/AdvReac Type Severity Reaction Status Date / Time No Known Allergies Allergy Verified 12/05/21 13:50 Family History Mother Diabetes Father Heart disease Brother Heart disease Surgical History History of coronary artery stent placement (11/14/21) History of eye surgery History of thyroid surgery History of tonsillectomy History of tubal ligation Social History household members: other details: Vahid Sanchez Sr., Vahid Lizarraga Jr. housing: house Smoking Status: Never smoker alcohol intake: never substance use type: does not use what type of physical activity do you participate in: none do you feel safe at home: Yes ROS ROS ED Constitutional Constitutional ED: Denies chills or fever(s) Eyes Eyes: Denies blurry vision ENT ENT ED: Denies rhinorrhea or sore throat Cardiovascular Cardiovascular: Reports as per HPI Respiratory/Chest Respiratory/Chest: Denies cough or dyspnea Gastrointestinal Gastrointestinal: Denies nausea or vomiting Musculoskeletal Musculoskeletal: Denies arthralgias, back pain, myalgias or neck pain Integumentary Denies rash Neurologic Neurologic: Denies headache(s) Endocrine Endocrinology: Denies polydipsia or polyuria Hematologic/Lymphatic Hematologic/Lymphatic: Denies lymphadenopathy Allergic/Immunologic Allergic/Immunologic ED: Denies urticaria EXAM Physical Exam Const Vital Signs: 12/05/21 13:50 12/05/21 13:55 12/05/21 14:18 Temperature 98.6 F Temperature Source Temporal Pulse Rate 83 Respiratory Rate 18 Respiratory Effort Normal Non-Labored Blood Pressure 174/91 H Blood Pressure Mean 118 Pulse Ox 95 Oxygen Delivery Method Room Air Room Air 12/05/21 15:00 12/05/21 16:17 12/05/21 17:00 Temperature Temperature Source Pulse Rate 76 76 75 Respiratory Rate 14 12 12 Respiratory Effort Blood Pressure 141/97 H 140/85 H 136/76 H Blood Pressure Mean 111 103 96 Pulse Ox 100 99 98 Oxygen Delivery Method Room Air Nasal Cannula Room Air Positive well nourished General Appearance ED: ADILENE GARCIA Reports moist mucous membranes normocephalic and atraumatic Eyes General Eye ED: Negative for scleral icterus Chest Wall inspection of chest normal and palpation of chest normal Chest: Negative for tenderness Resp normal respiratory effort and clear to auscultation bilaterally Auscultation: Negative for rales, rhonchi or wheezes Cardio regular rate and regular rhythm GI normal to inspection, nondistended, normoactive bowel sounds, soft to palpation and non-tender Back/Spine no CVA tenderness Extremity normal to inspection Extremity Narrative: She does have a small amount of swelling over the distal right radial artery where the cath was done. But she states this has been there since immediately after the procedure and is lessening. No sign of issues with blood flow to the hand and there is excellent pulse. Festus's and reverse Festus seem normal. General Extremety ED: Negative for edema or pulses abnormal General Extremity: Negative for edema or pulses abnormal Neuro Sensorium / Orientation: awake and alert Psych mental status grossly normal Skin no rashes or lesions noted MDM MDM MDM Narrative Medical decision making narrative: Patient's blood work including CBC and troponin are normal. Creatinine is minimally elevated. Chest x-ray shows no acute process. I went and rechecked the patient. She is doing well. While were talking she got the pain again. She states every time it is in a different spot. She can point to one finger where it occurred this time. This time it was in the right lower chest wall. It lasted for 1 to 2 seconds and was a pressure like somebody pushing with their finger. She states that this is what the episodes are like. She thinks it is my nerves. She still gets no symptoms such as nausea vomiting shortness of breath or diaphoresis or feeling of illness or weakness. This is not a typical story for pain. Although it is anterior chest pressure she did describes it now as if somebody pushing with 1 finger. 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 Nettles. As long as her troponins are not significantly rising we will get her home for follow-up. Repeat troponin only went up by 1. I think it safe for patient to go home and follow-up. She is comfortable with this plan. We discussed reasons to prompt return Lab Data Labs: Laboratory Results - last 24 hr 12/05/21 12/05/21 12/05/21 13:50 13:50 17:01 WBC 6.5 RBC 4.30 Hgb 14.0 Hct 41.7 MCV 97.0 MCH 32.6 H MCHC 33.6 RDW Std Deviation 45.6 H RDW Coeff of Shalom 12.9 Plt Count 224 MPV 10.8 Immature Gran % (Auto) 0.500 Neut % (Auto) 68.7 Lymph % (Auto) 22.6 Hughes % (Auto) 6.8 Eos % (Auto) 0.6 Baso % (Auto) 0.8 Absolute Neuts (auto) 4.5 Absolute Lymphs (auto) 1.46 Nucleated RBC % 0 Sodium 138 Potassium 3.8 Chloride 102 Carbon Dioxide 26.0 Anion Gap 10 BUN 15 Creatinine 1.30 H Estim Creat Clear Calc 33.00 Est GFR (MDRD) Af Amer 51 L Est GFR (MDRD) Non-Af 42 L BUN/Creatinine Ratio 11.5 Glucose 105 Calcium 9.2 Troponin I High Sens 10 11 Radiography Diagnostic Testing: Clinical Impression(s) from Imaging Studies Chest X-Ray 12/05/21 14:00 IMPRESSION: Degenerative changes, as described above. No demonstrated acute cardiopulmonary process. Electronically Signed: Owen Ambriz MD at 14:46 EDT Reading Location ID and State: [facility] / [place] Tel , Service support , EKG Initial EKG: Comments: EKG done for chest pain read by me shows normal sinus rhythm with overall rate of 85. No ventricular ectopy seen. There is a left bundle branch block but this is not new. There is nonspecific changes likely related to the left bundle branch block. Sgarbosa negative. IL interval is long showing a slight first-degree block. QRS duration and QTc are a bit long also. Discharge Plan Triage Chief Complaint: Chest Pain ED Provider: Max Celeste Dx/Rx/DC Orders Clinical Impression: Chest pain, History of coronary artery stent placement Instructions: ED Chest Pain, Uncertain Cause Prescriptions: No Action allopurinol 100 mg tablet 100 mg PO DAILY losartan 50 mg tablet 50 mg PO BID pravastatin 40 mg tablet 80 mg PO QHS Label Comments: TAKE 2 TABLETS BY MOUTH EVERY DAY AT BEDTIME bethanechol chloride 10 mg tablet 20 mg PO DAILY levothyroxine [Euthyrox] 75 mcg tablet 75 mcg PO DAILY Label Comments: TAKE 1 TABLET BY MOUTH ONCE DAILY cholecalciferol (vitamin D3) 50 mcg (2,000 unit) Capsule 50 mcg PO DAILY cyanocobalamin (vitamin B-12) 2,500 mcg Tablet 2,500 mcg PO QHS Ozempic 1 mg/dose (4 mg/3 mL) pen injector 1 mg SUBCUT TU clopidogrel 75 mg tablet 75 mg PO DAILY aspirin 81 mg tablet,delayed release (DR/EC) 81 mg PO DAILY@0800 metoprolol tartrate 25 mg tablet 25 mg PO BID Primary Care Provider: Sandra Narvaez Referrals: Arben Nettles MD [Med Staff - Active Staff] - 3-5 Days Sandra Narvaez DO [Primary Care Provider] - Disposition Disposition: Home, Self Care
[2021-12-05 14:20] LABS: Absolute Lymphocyte Count 1.46 X10^3/uL (0.83-4.51); Absolute Neutrophil Count 4.5 X10^3/uL (2.0-7.7); Basophil# 0.05 X10^3/uL; Basophil% 0.8 % (0-1); Eosinophil# 0.04 X10^3/uL; Eosinophils% 0.6 % (0-5); Hematocrit 41.7 % (37-47); Lymphocyte # 1.46 X10^3/ul (0.83-4.51); Lymphocyte % 22.6 % (19-41); Mean Corp Hgb Conc 33.6 g/dL (32-36); Mean Corpuscular Hgb 32.6 pg (27.0-32.0); Mean Platelet Vol. 10.8 fl (6.2-12.0); Monocyte# 0.44 X10^3/uL; Monocyte% 6.8 % (0-10); NRBC Flagged by Analyzer 0 % (0-5); Neutrophil # 4.45 X10^3/uL (2.7-7.7); Neutrophil % 68.7 % (47-70); Platelet Count 224 K/mm3 (150-450); RBC Distribution Width CV 12.9 % (11.6-14.6); RBC Distribution Width SD 45.6 fl (35.1-43.9); White Blood Count 6.5 K/mm3 (4.4-11.0)
[2021-12-05 14:39] LABS: Anion Gap 10 (5-15); BUN 15 mg/dL (7-18); BUN/Creat Ratio 11.5 RATIO (10-20); Calcium,Total 9.2 mg/dL (8.5-10.1); Chloride 102 mmol/L (98-107); EST Glomerular Filtration Rate 42 mL/min (>60); Est Glom Filt Rate - Afr Amer 51 mL/min (>60); Glucose 105 mg/dL (74-106); Potassium 3.8 mmol/L (3.5-5.1); Sodium Level 138 mmol/L (136-145); Troponin-I HS (w/2H Reflex) 10 pg/mL (3.0-54.0)
[2021-12-05 15:00] VITALS: BP 141/97; PULSE 76; RESP 14; O2SAT 100
[2021-12-05 16:17] VITALS: BP 140/85; PULSE 76; RESP 12; O2SAT 99
[2021-12-05 16:19] LABS: Reflex Troponin-HS? (from REC) Y
[2021-12-05 17:00] VITALS: BP 136/76; PULSE 75; RESP 12; O2SAT 98
[2021-12-05 17:34] LABS: Troponin-I HS 11 pg/mL (3.0-54.0)
[2021-12-05 18:04] VITALS: BP 138/86; PULSE 73; RESP 14; O2SAT 98
== END 2021-12-05 18:17 | disposition home or self-care (01) ==
PROVIDERS: Emergency Provider Emergency Medicine; PCP Internal Medicine; Visit Provider Emergency Medicine
DX: R07.89 Other chest pain (principal); E11.9 Type 2 diabetes mellitus without complications; I25.10 Atherosclerotic heart disease of native coronary artery without angina pectoris; I10 Essential (primary) hypertension; E78.00 Pure hypercholesterolemia, unspecified; Z79.82 Long term (current) use of aspirin; Z79.02 Long term (current) use of antithrombotics/antiplatelets; Z79.890 Hormone replacement therapy; Z79.899 Other long term (current) drug therapy; Z95.5 Presence of coronary angioplasty implant and graft; Z86.73 Personal history of transient ischemic attack (TIA), and cerebral infarction without residual deficits
CPT/HCPCS: 71045; 80048; 84484; 85025; 93005; 99284; A4216

== ENCOUNTER → 2021-12-25 | Outpatient (CLI) | payer MEDICARE, SELFPAY ==
--- NOTE | 2021-12-25 08:12 | PCM.CR.HP2 ---
CR - History & Physical - General Arrival date:: 12/25/21 Arrival time:: 08:00 Date of Referral:: 11/16/21 Date of CR Evaluation:: 12/25/21 Referring Physician: Dr. Arben Nettles Primary Diagnosis: [id number] Myocardial Infarction, PCI w/stent - History of Present Cardiac Event Onset Date: Enter Onset Date of cardiac illnesses in Comment field below Current stable Angina Pectoris:: No Acute Myocardial Infarction within 12 months:: Yes - NSTEMI 11/13/2021 w/stroke like symptoms Coronary Artery Bypass Graft:: No Heart valve replacement or repair:: No PTCA or coronary stenting:: Yes - PCI w RUSTAM 11/13/2021 Vessel: Large proximal RCA Heart or Heart-Lung Transplant:: No Type of Symptoms:: Stroke like symptoms, left arm weakness unable to raise her arm, only had feeling in her elbow area. - Sleep Disorder Evaluation Hx of Sleep Apnea: No Do you snore loudly (louder than talking or can be heard through closed doors)?: No Do you often feel tired/ fatigued/ sleepy during daytime?: Yes - frequently will fall asleep watching TV Has anyone observed you stop breathing during sleep?: No History of Hypertension (for STOP score): Yes STOP Results: Positive - Medications Home Medications: Ambulatory Orders Medication Instructions Recorded allopurinol 100 mg tablet 100 mg PO DAILY gout 02/06/18 aspirin 81 mg tablet,delayed 81 mg PO DAILY@0800 BLOOD THINNER 12/05/21 release bethanechol chloride 10 mg tablet 20 mg PO DAILY BLADDER 12/05/21 cholecalciferol (vitamin D3) 50 50 mcg PO DAILY SUPPLEMENT 12/05/21 mcg (2,000 unit) capsule clopidogrel 75 mg tablet 75 mg PO DAILY BLOOD THINNER. 12/05/21 cyanocobalamin (vitamin B-12) 2,500 mcg PO QHS SUPPLEMENT 12/05/21 2,500 mcg tablet levothyroxine 75 mcg tablet 75 mcg PO DAILY THYROID 12/05/21 (Euthyrox) losartan 50 mg tablet 50 mg PO BID BP 12/05/21 metoprolol tartrate 25 mg tablet 25 mg PO BID HEART 12/05/21 pravastatin 40 mg tablet 80 mg PO QHS CHOLESTEROL 12/05/21 semaglutide 1 mg/dose (4 mg/3 mL) 1 mg subcut TU DM 12/05/21 subcutaneous pen injector (Ozempic) - Allergies Allergies/Adverse Reactions: Allergies No Known Allergies Allergy (Verified 12/08/21 11:23) Advanced Directives - Advanced Directives Power of Twist Packer: Yes Living Will: Yes - unsure if she has a DNR she wants CPR but not life support Advance Directives Information Provided: No Advance Directives on File: Yes DNR Order?:: No - MOLST See MOLST form: No Past Medical History - Covid-19 Screening Fever: No Unexplained muscle aches: No Current respiratory symptoms: No Upper respiratory infections symptoms: No Gastro-intestinal symptoms: No Gjh-[id number]-Gljchn symptoms: No Has tested positive for COVID-19 in last 30 days: No Date of testin12/25/21 - Two vaccines and one Booster Had contact w/person w/symptoms or Covid-19 (+) last 14 days: No Has High Risk Exposures ID'd by Health dept/Inf Control team: No 65 years or older:: Yes Lives in Assisted Living facility:: No Has a chronic lung disease or moderate to severe asthma:: No Has a serious heart condition:: No Immunocompromised:: No Severely obese (Body Mass Index of 40 or higher):: No Diabetic:: Yes Has chronic kidney disease undergoing dialysis:: No Has liver disease:: No - Past Medical Illness Medical History: Past Medical History (Last Reviewed 12/08/21 @ 11:26 by Katrin Butler [employer], [employer]) Atherosclerosis of coronary artery without angina pectoris I25.10 Chronic indwelling Fishman catheter Z97.8 pt had a fishman for 6 months because she was unable to pee on her own- in on Mar and removed June of 2021- per patient- Patient has to pee every 1-2 hours Essential hypertension I10 Gout M10.9 History of gout Z87.39 History of TIA (transient ischemic attack) Onset Date: 04/2020 Z86.73 History of type 2 diabetes mellitus Z86.39 Hypothyroidism E03.9 Left breast lump N63.20 Mastalgia in female N64.4 Non-smoker Z78.9 - Past Surgical History Surgical History: Past Surgical History (Last Reviewed 12/08/21 @ 11:26 by Katrin Butler NP, [employer]) History of coronary artery stent placement Onset Date: 11/14/21 Z95.5 [id number] RCA w/ 3.5 x 22 mm [facility] Stent 11/14/2021 History of eye surgery Z98.890 History of thyroid surgery Z98.890 History of tonsillectomy Z90.89 History of tubal ligation Z98.51 Surgical History: noncontributory, - - Thyroid surgery, tonsils surgery - Family History Summary Family History: Family History (Last Reviewed 12/08/21 @ 11:26 by Katrin Butler NP, [employer]) Mother Diabetes Father Heart disease Brother Heart disease Social History - Smoking History Smoking Status: Never smoker Hx Smoking Exposure: Yes - Alcohol Use Alcohol Usage: No - Substance Abuse Hx Substance Use: No - 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, 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 - Hobbies, Recreation, Social Activities Hobbies: Sewing - crocheting and sewing, Other - Word puzzles, [employer] Recreational Activities: I can hardly do any recreational activities Social Environment - Status Marital Status: - Current Living Arrangements Living Environment:: Alone - Children How many children do you have?: 2 Do any of your children live nearby?: Yes - lives with one daughter - Safety Do you feel safe in your surroundings?: Yes - Assistance Do you need any assistance at home?: visual safety while showering as precaution Review of Systems - Review of Systems Hints: Right click = Denies ([place]ash). Left click = Reports ([place]) Review of Present Symptoms: Reports: Shortness of Breath with Exertion - walking out to the mailbox frequently has had to stop and breath before walking back to the house, Angina - still has some pain in the top part of her chest at night when she goas to bed., Fatigue, Appetite - Normal, Sleep - Normal. Denies: Shortness of Breath at Rest, Dizziness/Lightheadedness, Heart Arrhythmia/Irregularities, Appetite - Special Diet, Sexual Changes - Pain Is Patient Pain Free?: Yes Pain Location: none, lower extremity - knees are bad, lower back degenerative disc disease Pain Level: 0/10 Risk Factor Assessment - Chief Complaint Chief Complaint: Patient is a [address] Nettles who presents to CR today following recent NSTEMI and subsequent PCI w/ballooning and stent to the large proximal RCA. - Vital Signs Temperature: 98.3 F Respiratory Rate: 16 Pulse Ox: 98 Blood Pressure: 118/72 - Pulse Pulse Rate: 87 Pulse Rhythm: Regular - Hypertension How long have you been treated?: a long time, unsure of how long. On medication(s)?: yes Blood Pressure Sitting - Left Arm: 118/72 - Stress Stress: Recent - Blood Cholesterol/Lipids Total Cholesterol (mg/dL) Goal = less than 200 mg/dL: 149 HDL Cholesterol (mg/dL) Goal = less than 40 mg/dL: 53 LDL Cholesterol (mg/dL) Goal = less than 70 mg/dL: 72 Triglycerides (mg/dL) Goal = less than 150 mg/dL: 118 - Diabetes Diabetic History: Type II Nutrition Referral for Diabetes: Yes - Obesity Height: 5 ft 7 in Weight:: 168 lb Weight in Pounds: 168.0 lbs Weight Source: Estimated by Patient Body Mass Index (BMI): 26.3 Nutritional Referral for Obesity: No - Physical Inactivity Physical Inactivity: None - Risk Stratification Risk Guidelines: Lowest Risk: Risk Factor for Smoking, Risk Factor for Dyslipidemia, Risk Factor for Diabetes - Glucose 102, HbA1c 5.8%, Risk Factor for Obesity, Risk Factor for Hypertension - 118/72, Risk Factor for Depression, Moderate Risk: Risk Factor for Sedentary Lifestyle - very little activity, Highest Risk: Risk Factor for Sedentary Lifestyle - Family History Family History: Family History (Last Reviewed 12/08/21 @ 11:26 by Katrin Butler NP, [employer]) Mother Diabetes Father Heart disease Brother Heart disease Motivation - Motivation to Participate On a scale of 1 to 10, how prepared are you to commit to attending program?: 5 What do you see as barriers to successfully being able to complete the program?: knees, lower back What do you see as the benefits of succesfully completing the program? In other words, what do you hope to get out of participating in the program?: improving strength and endurance Are there issues you are dealing with that will interfere with completing the program?: no Do you have a spouse or signficant other, family or friends who will help support you to complete the program?: yes
--- NOTE | 2021-12-25 08:13 | CR.ITP_ITS ---
Diagnosis - General Information Admitting Diagnosis: Non-ST Elevated Myocardial Infarction (NSTEMI), PCI w/coronary stent Secondary Diagnosis: Stroke like symptoms, Hypertension, Hyperlipidemia, Hypothyroidism, Diabetes Mellitus Type II Personal Learning Style:: Audio/Visual, Written Barriers to Learning: Low Literacy - unable to read, Vision Impairment Stage of change r/t lifestyle modifications:: Contemplation Gave educational material for:: Treating Heart Disease, Emotions & Heart Disease, Stress Management & Relaxation, Sleep Disorders & Heart Disease, How The Heart Works, What it means to have Heart Disease, How Coronary Artery Disease is Diagnosed, Heart Procedures, What Heart Medications Do, Risk Factors & Modifications, Living an Active Life, Nutrition - Education/Goals Individual Counseling: Initial Assessment: Abnormal Cholesterol Levels, High Blood Pressure, Diabetes Cardiac Rehabilitation Goals: 1. Maintain the individual as the primary focus of care. 2. To improve the patient's quality of life. 3. Identification of cardiac risk factors and provide cardiac risk factor management. 4. Enhance the psychosocial status of the patient. 5. Reconditioning enough to allow the patient to resume customary activities. 6. Control symptoms of cardiac disease Personal Goals: Initial Assessment: Improve knowledge of cardiac disease, Improve muscle strength and endurance, Control risk factors (learn risk factor modification) Scale for measuring improvement of personal goals: Enter appropriate number in Comments. 2 = Unchanged. 3 = Slightly Better. 4 = Moderate Improvement. 5 = Met my Goal - Diagnosis & Disease Process Outcomes/Goals: Pt IDs own risk factors & lifestyle modifications by Session 10, Verbalizes symptoms of angina & response by session 3., Pt independently manages Plan/Interventions: Assist Pt to ID & engage in lifestyle modification to reduce CVD risk, Instruct on individual risk factors, Review symptoms of angina & emergency actions, Review secondary diagnosis & identify educational needs. - Safety Referral to Physical Therapy: No Referral to [facility] Case Management: No Fall Risk Assessed:: Yes Assistive Devices:: Cane Exercise - Initial Assessment - Visit Date of Eval: 12/25/21 Session #:: 0 - Pre-Cardiac Rehab Evaluation Mets: Pre-: >5 METS for 30 minutes by discharge - Physician Prescribed Exercise Modalities: Treadmill, NuStep, SciFit, Lateral Electrical Timing Device Calibrator Frequency: 3x/week for 12 weeks [36 sessions] Intensity: 60-80% of age predicted maximum heart rate reserve Duration: 30 - 45 minutes Current METSs:: 3.0 Target Heart Rate:: 83-111 Resting Blood Pressure: 118/72 EKG Type: Normal Sinus Rhythm - Outcomes & Goals Goals:: Verbalizes understanding of THR, RPE & goal METS by session 6, Documents in home exercise log/reports 30 min aerobic 5 day/wk by DC, Demonstrates accurate pulse taking by DC - Intervention & Plan Exercise Program Goals: Instruct on personal THR & RPE, Instruct on MET level & personal MET goal, Show patient to take own pulse /validate performance until accurate, Instruct on home exercise - Physical Activity Home Exercise Physical Activity - Home Exercise: Safe Exercise, Warm-up, Self-monitoring, Cool-Down, Home Exercise > 30 min Daily, Sitting Time <3 hours/daily - Outcomes & Goals Outcomes/Goals: Demonstrates correct Warm-up/exercise Cool-Down (S3) if = 2.5 METs, Verbalizes symptoms of exercise intolerance by Session 3 (S3), Demonstrate safe equipment use (S3) & follows exercise prescrition (6) - Intervention & Plan Plan/Intervention: Instruct warm-up & cool-down if exercising at > 2 METs, Instruct on symptoms of exercise intolerance & actions to take, Instruct & monitor on saf, Assess intial functional capacity & safety risk Nutrition - Initial Assessment - Program Goals Nutrition Program Goals: LDL <100 optimal. 100 - 129 Near optimal. 130 - 159 Borderline High. 160 - 189 High. Total Cholesterol <200 desirable. 200 - 239 Borderline High. >/= 240 High. HDL < 40 Low >/=60 High. Triglycerides <150 desirable. <199 optimal. VlDL 5 - 40. HgbA1C <7%. BMI <25 Patient has diagnosis of Hyperlipidemia (ICD E78)?: Yes - Visit Date of Assessment:: 12/25/21 Session #:: 0 - Pre-Cardiac Rehab Evaluation - Cholesterol/Lipids (Other Core Measures) Triglycerides (mg/dL): 118 Total Cholesterol (mg/dL): 149 LDL Cholesterol (mg/dL): 72 HDL Cholesterol (mg/dL): 53 Determine presence & major risk factors that modify LDL goal: Hypertension or hypertensive medication, Age men > 45 years; women >/= 55 years Outcomes/Goals: Pt IDs own risk factors & lifestyle modifications by Session 10, Verbalizes symptoms of angina & response by session 3., Pt independently manages Intervention/Plan: Instruct on personal lipid levels & lipid goals/NCEP guidelines, Instruct on cholesterol Referral to dietitian:: Yes - Medical Nutrition Therapy - Diabetes (Other Core Measures) Diabetes Type: Diagnosis Type II ICD-10 E11 Fasting blood glucose:: 102 Hgb A1C (4.2 - 6.3): 5.8 Insulin dependent injection/pump?: Yes - Semaglutide Q/week Do you monitor your blood sugar at home?: No Referral to Diabetic Clinic:: Yes - Diabetic Education Outcomes/Goals:: Able to state symptoms of, Able to state Intervention/Plan:: Instruct on, Instruct on - Weight Mgt (Other Care) Not Applicable: Yes Height: 5 ft 7 in Weight:: 168 lb BMI: 26.3 Diagnosis Overweight/Obesity BMI> 30% ICD-10 E66: No Diagnosis High BMI/Morbid Obesity BMI> 35% ICD-10 Z68: No Outcomes/Goals: Pt sets, maintains & shows weight loss goal & trend during rehab Intervention/Plan: Instruct on ideal BMI & set weight loss goal w/patient - Healthy Eating Habits Will attend diet classes:: Yes Outcomes/Goals:: Consume diet rich in vegs,fruits,whole grain/high fiber,fis h,lean meat, Limit sat/trans fats,cholesterol & added salts & sugars Intervention/Plan:: Assess current eating habits - Education Gave educational materials for:: Signs & symptoms of hypoglycemia, Signs & symptoms of hyperglycemia, Relate diabetes to coronary artery disease, Healthy eating Nutrition - 30-Day Assessment Nutrition - 60-Day Assessment Nutrition - 90-Day Assessment Nutrition - Final Assessment Core - Initial Assessment - Visit Date of Eval: 12/25/21 Session #:: 0 - Pre-Cardiac Rehab Evaluation - Medication Compliance Preventative Medication(s):: Aspirin, Clopidogrel/P2Y12 inhibit, Statin/lipid, Beta kamari H/O mental health issues: depression, anxiety, or addiction?: No Doesn?t believe in the benefits of treatment?: No Believes medications are unnecessary or harmful?: No Has a concern about medication side effects?: No Expresses concern over the cost of medications?: No Outcomes/Goals: Verbalizes medications,desired effect & common side effects @ DC, Pt self-reports following medication regimen, Keeps card in wallet w/medications listed by DC Interventions/plans: Instruct on medication effects & side effects, Review medication list w/patient every two weeks, Instruct importance of taking meds as ordered & assist problem solving - Tobacco Use Tobacco Use: Non-smoker - Hypertension Hypertension Diagnosis:: Hypertension ICD-10 I10 Resting Blood Pressure:: 118/72 [place] [employer] Hypertension Guidelines: [place] [employer] Hypertension Guidelines. Normal BP Less than 120/80. Elevated BP 120/80. Hypertension Stage 1: BP 130-139/80-89. Hypertesnion Stage 2: BP 140 or higher/90 or higher. Hypertension Crisis: BP higher than 180/120 Outcomes/Goals: Able to verbalize/achieve optimal blood pressure <130/80, Incorp orates diet changes & exercise for blood pressure control by DC Interventions/plan: Instruct on optimal blood pressure, hypertension & medications, Instruct on effects of sodium, alcohol, stress, exercise &hypertension - Tobacco Cessation Referral Smoking Cessation Referral:: No Individual Education/Counseling:: No Education Schedule Given:: Yes Core - 30-Day Assessment Core - 60-Day Assessment Core - 90 Day Assessment Core - Final Assessment Psychosocial - Initial Assess - VIsit Date of Eval: 12/25/21 Session #:: 0 - Pre-Cardiac Rehab Evaluation Not Applicable: Yes History of previous Mental disease:: No History of Emotional Disorders: None - Psychosocial Test Tool Used:: Leonid Gentis QOL Cardiac, PHQ-9 Questionnaire phq-9 Severity: Severity. 1-4 Minimal Depression. 5-9 Mild Depression. 10-14 Moderate Depression. 15-19 Moderately Sever Depression. 20-27 Severe Depression. Rule: - Referral to Behavioral Health PS - Interventions: Yes Attend Stress Management Classes, No Referral to Behavioral Health if PHQ-9 score >9:, No Referral to [facility], No Referral to Physician if PHQ-9 if score is 5-9: - Outcomes/Goals: See list Psychosocial Outcomes/Goals:: ID's personal stressors & 2 strategies to manage stress by discharge - Intervention/Plan: See List Interventions/Plan:: Assess stressors,coping strategies & signs of derpression on admission, Instruct/assist pt to develop coping & personal stress Mgt strategies, Instruct patient to recognize signs & symptoms of depression, Instruct patient to recog Psychosocial - 30-Day Assess Psychosocial - 60-Day Assess Psychosocial - 90-Day Assess Psychosocial - Final Assessmen Patient Health Questionnaire Initial Assessment 1. Little interest or pleasure in doing things: Not at all 2. Feeling down, depressed, or hopeless: Not at all 3. Trouble falling or staying asleep, or sleeping too much: Nearly every day 4. Feeling tired or having little energy: Not at all 5. Poor appetite or overeating: Not at all 6. Feeling bad about yourself -- or that you are a failure or have let yourself or your family down: Several days 7. Trouble concentrating on things, such as reading the newspaper or watching television: Several days 8. Moving or speaking so slowly that other people could have noticed. Or the opposite - being so fidgety or restless that you have been moving around a lot more than usual: Several days 9. Thoughts that you would be better off , or of hurting yourself in some way: Not at all How difficult have these problems made it for you to do your work, take care of things at home, or get along with other people?: Not difficult at all Total Score: 6 JACKLYN-Q SV Test - Statements CAD is a disease of the arteries in the heart: I Don't Know Examples of risk factors for heart disease: I Don't Know Angina is chest pain or discomfort: I Don't Know The benefits of resistance training include: I Don't Know Eating more meat and dairy products: I Don't Know Anti-platelet medications such as aspirin are important: True The only effective way to manage stress: I Don't Know An exercise warm-up slowly increases heart rate: I Don't Know Prepared, processed foods usually have high sodium: I Don't Know Depression is common after a heart attack: I Don't Know The statin medications lower cholesterol: I Don't Know To control blood pressure, lower the amount of sodium: I Don't Know If someone gets chest discomfort during walking: False Transfats are partially hydrogenated vegetable oils: I Don't Know Sleep apnea that is not treated increases the risk: False To control cholesterol, one should become a vegetarian: False Someone knows if he/she is exercising at the right level: I Don't Know Diabetes cannot be prevented with exercise & health eating: True Stress is a large risk for heart attack: I Don't Know A diet that can help lower blood pressure is rich in: True - Total Score Total Correct Responses: 5 Self-Efficacy Initial Assessment We would like to know how confident you are in doing certain activities. Please select your confidence level for:: Select your confidence level for the following using the scale 1-10 where 1 is not at all confident and 10 is totally confident. Your score is the average of all 6 responses. Fatigue: How confident are you that you can keep the fatigue caused by your disease from interfering with the things you want to do? Select Number: 3 Physical Discomfort or Pain: How confident are you that you can keep the physical discomfort or pain of your disease from interfering with the things you want to do? Select Number: 3 Emotional Distress: How confident are you that you can keep the emotional distress caused by your disease from interfering with the things you want to do? Select Number: 3 Other Symptoms or Health Problems: How confident are you that you can keep other symptoms or health problems from interfering with the things you want to do? Select Number: 3 Different Tasks and Activities: How confident are you that you can do the different tasks and activities needed to manage your health condition so as to reduce your need to see a doctor? Select Number: 3 Medication: How confident are you that you can do things other than just taking medication to reduce how much your illness affects your everyday life? Select Number: 3 Total Score:: 3 Nutrition Survey - Nutrition Survey Initial Have you lost >10 lbs over the past 2 months without trying?: No Are you following a special diet at home for diabetes, low fat, or low salt?: No Are you interested in meeting with a dietitian for help understanding your diet?: No Do you eat less than 3 meals a day?: Yes Do you eat fatty meats (márquez, sausage, ribs, etc), fried foods, desserts, large amounts of salad dressings, margarine, butter, or cheese most days?: No Do you have food allergies? [Enter types in comment field]: No Do you eat in restaurants more than 3 times a week?: No Do you season food with salt, seasoning salt, or garlic salt?: No Do you used canned, boxed, frozen meals, or soups, seasoning packets?: Yes Total Score:: 2
[2021-12-25 08:48] VITALS: BP 118/72; PULSE 87; RESP 16; TEMP 36.8; O2SAT 98; BMI 26.3
[2021-12-25 09:08] VITALS: BP 118/72; BMI 26.3
== END | disposition home or self-care (01) ==
LOC: CR 08:03
PROVIDERS: PCP Internal Medicine; Referring Provider Internal Medicine Cardiovascular Disease; Visit Provider Internal Medicine Cardiovascular Disease
DX: I21.4 Non-ST elevation (NSTEMI) myocardial infarction (principal); Z95.5 Presence of coronary angioplasty implant and graft

== ENCOUNTER 2022-01-29 09:30 | Outpatient (RCR) | payer MEDICARE, SELFPAY ==
[2021-12-25 09:08] VITALS: BMI 26.3
== END 2022-01-29 23:59 ==
LOC: CR 09:30
PROVIDERS: PCP Internal Medicine; Referring Provider Internal Medicine Cardiovascular Disease; Visit Provider Internal Medicine Cardiovascular Disease
DX: I21.4 Non-ST elevation (NSTEMI) myocardial infarction (principal); I25.10 Atherosclerotic heart disease of native coronary artery without angina pectoris; Z95.5 Presence of coronary angioplasty implant and graft; I10 Essential (primary) hypertension
CPT/HCPCS: 93798

== ENCOUNTER 2022-02-21 19:15 | Emergency (ER) | payer MEDICARE, SELFPAY ==
[2022-01-31 09:53] VITALS: BMI 26.6
[2022-02-21 19:16] VITALS: BP 201/110; PULSE 88; RESP 14; TEMP 35.8; O2SAT 97; BMI 26.9
[2022-02-21 19:38] VITALS: PULSE 82; RESP 16; O2SAT 96
--- NOTE | 2022-02-21 19:55 | EKG12_ITS ---
Test Reason : cp Blood Pressure : / mmHG Vent. Rate : 082 BPM Atrial Rate : 082 BPM P-R Int : 218 ms QRS Dur : 120 ms QT Int : 414 ms P-R-T Axes : 048 -30 156 degrees QTc Int : 483 ms Sinus rhythm with 1st degree A-V block Left axis deviation Minimal voltage criteria for LVH, may be normal variant ( Yoshi product ) Abnormal ECG Confirmed by JUAN LUIS WILSON, IGOR ([id number]), newspaper copy editor FABIAN GOEL ([id number]) on 02/26/2022 11:46:20 AM Referred By: Confirmed By:IGOR MCKNIGHT MD
--- NOTE | 2022-02-21 19:57 | ED.VIS.CHEST ---
HPI <GERTRUDE Elizabeth - Last Filed: 02/21/22 21:46> History of Present Illness Chief Complaint: Chest Pain Narrative Narrative: Patient presents today with her daughter. She states that earlier this evening she began to have a sharp pain in the back of her neck that then moved to her upper back. The pain then moved from the upper back to the left side of her chest and then shortly after, moved to the right side of her chest. The pain then went away for several minutes and reappeared again in her back. Currently, she states she is feeling the pain on the right side of her chest. Patient states her daughter wanted her to come get checked out due to having stents placed in October 2021 after an MN. She denies shortness of breath, difficulty breathing, left arm pain, nausea, vomiting, and diarrhea. PFSH <GERTRUDE Elizabeth - Last Filed: 02/21/22 21:46> PFSH Medical History Atherosclerosis of coronary artery without angina pectoris Chronic indwelling Costa catheter Essential hypertension Gout History of gout History of TIA (transient ischemic attack) (04/2020) History of type 2 diabetes mellitus Hypothyroidism Left breast lump Mastalgia in female Non-smoker Home Medications allopurinol 100 mg tablet 100 mg PO DAILY gout 02/06/18 [History Last Taken 12/05/21] aspirin 81 mg tablet,delayed release 81 mg PO DAILY@0800 BLOOD THINNER 12/05/21 [History Last Taken 12/05/21] bethanechol chloride 10 mg tablet 20 mg PO DAILY BLADDER 12/05/21 [History Last Taken 12/05/21] cholecalciferol (vitamin D3) 50 mcg (2,000 unit) capsule 50 mcg PO DAILY SUPPLEMENT 12/05/21 [History Last Taken 12/05/21] clopidogrel 75 mg tablet 75 mg PO DAILY BLOOD THINNER. 12/05/21 [History Last Taken 12/05/21] cyanocobalamin (vitamin B-12) 2,500 mcg tablet 2,500 mcg PO QHS SUPPLEMENT 12/05/21 [History Last Taken 12/04/21] levothyroxine 75 mcg tablet (Euthyrox) 75 mcg PO DAILY THYROID 12/05/21 [History Last Taken 12/05/21] losartan 50 mg tablet 50 mg PO BID BP 12/05/21 [History Last Taken 12/05/21] metoprolol tartrate 25 mg tablet 25 mg PO BID HEART 12/05/21 [History Last Taken 12/05/21] pravastatin 40 mg tablet 80 mg PO QHS CHOLESTEROL 12/05/21 [History Last Taken 12/04/21] semaglutide 1 mg/dose (4 mg/3 mL) subcutaneous pen injector (Ozempic) 1 mg subcut TU DM 12/05/21 [History Last Taken 12/05/21] Allergy/AdvReac Type Severity Reaction Status Date / Time No Known Allergies Allergy Verified 02/21/22 19:16 Family History Mother Diabetes Father Heart disease Brother Heart disease Surgical History History of coronary artery stent placement (11/14/21) History of eye surgery History of thyroid surgery History of tonsillectomy History of tubal ligation Social History household members: other details: Petra Lizarraga, Vahid Lizarraga Sr., Vahid Lizarraga Jr. housing: house Smoking Status: Never smoker alcohol intake: never substance use type: does not use what type of physical activity do you participate in: none do you feel safe at home: Yes ROS <GERTRUDE Elizabeth - Last Filed: 02/21/22 21:46> ROS ED Constitutional Constitutional ED: Denies chills, fever(s) or sweats Eyes Eyes: Denies blurry vision or change in vision ENT ENT ED: Denies rhinorrhea or sore throat Cardiovascular Cardiovascular: Reports chest pain; Denies palpitations or racing heartbeat Respiratory/Chest Respiratory/Chest: Denies cough, dyspnea, dyspnea on exertion, shortness of breath at rest or shortness of breath with exertion Gastrointestinal Gastrointestinal: Denies abdominal pain, diarrhea, nausea or vomiting Genitourinary Genitourinary ED: Denies dysuria or hematuria Musculoskeletal Musculoskeletal: Reports back pain, myalgias and neck pain Integumentary Denies abscess, Abrasions or rash Neurologic Neurologic: Denies headache(s), paresthesias or weakness Hematologic/Lymphatic Hematologic/Lymphatic: Reports easy bruising EXAM <GERTRUDE Elizabeth - Last Filed: 02/21/22 21:46> Physical Exam Const Vital Signs: 02/21/22 19:16 02/21/22 19:38 02/21/22 19:41 Temperature 96.5 F L Temperature Source Temporal Pulse Rate 88 82 Respiratory Rate 14 16 Respiratory Effort Normal Non-Labored Blood Pressure 201/110 H Blood Pressure Mean 140 Pulse Ox 97 96 Oxygen Delivery Method Room Air Room Air 02/21/22 20:20 02/21/22 21:28 Temperature Temperature Source Pulse Rate 74 Respiratory Rate 15 Respiratory Effort Blood Pressure 149/75 H 136/74 H Blood Pressure Mean 99 Pulse Ox 94 Oxygen Delivery Method Blood pressure repeated and is 156/80 and 149/75. Positive well nourished HEENT Reports moist mucous membranes normocephalic and atraumatic; Negative for tenderness Eyes PERRL and EOMs intact bilaterally Neck supple Neck Narrative: Patient admits to some tenderness to palpation of the back of the neck. General: tenderness Chest Wall Chest Narrative: Right-sided chest tenderness to palpation Chest: tenderness Resp normal respiratory effort and clear to auscultation bilaterally Cardio regular rate, regular rhythm and no murmurs GI soft to palpation, non-tender, non-distended and no masses Back/Spine no thoracic nor lumbar tenderness Extremity normal to inspection General Extremety ED: Negative for edema General Extremity: Negative for edema Neuro oriented x3, CN's II-XII intact bilaterally, no sensory deficits noted and gait normal Sensorium / Orientation: awake and alert Motor Exam: strength 5/5 throughout Psych mental status grossly normal Skin no rashes or lesions noted and no wounds <Dr. Yunior Dorsey MD - Last Filed: 02/21/22 22:16> Physical Exam Const Vital Signs: 02/21/22 19:16 02/21/22 19:38 02/21/22 19:41 Temperature 96.5 F L Temperature Source Temporal Pulse Rate 88 82 Respiratory Rate 14 16 Respiratory Effort Normal Non-Labored Blood Pressure 201/110 H Blood Pressure Mean 140 Pulse Ox 97 96 Oxygen Delivery Method Room Air Room Air 02/21/22 20:20 02/21/22 21:28 Temperature Temperature Source Pulse Rate 74 Respiratory Rate 15 Respiratory Effort Blood Pressure 149/75 H 136/74 H Blood Pressure Mean 99 Pulse Ox 94 Oxygen Delivery Method MDM <GERTRUDE Elizabeth - Last Filed: 02/21/22 21:46> [facility] Narrative Medical decision making narrative: Patient is stable, comfortable, and appears in no acute distress. I do not think her pain is cardiac in nature but rather musculoskeletal. Patient has no left-sided chest discomfort here in the ED. Her vital signs are stable. She has no difficulty breathing and is not short of breath. Patient's EKG shows no ST elevation and no acute changes compared to a previous EKG. I am comfortable with patient discharging home. I have given her return instructions and discussed the plan with her. Patient is comfortable with plan. EKG Initial EKG: Attestation: I personally reviewed and interpreted this EKG as follows: Interpretation: Sinus Rhythm Comments: Rate [address] elevation. EKG is consistent with previous EKG. This EKG has also been reviewed by attending ED physician. <Dr. Yunior Dorsey MD - Last Filed: 02/21/22 22:16> [facility] Narrative Medical decision making narrative: Patient is stable, comfortable, and appears in no acute distress. I do not think her pain is cardiac in nature but rather musculoskeletal. Patient has no left-sided chest discomfort here in the ED. Her vital signs are stable. She has no difficulty breathing and is not short of breath. Patient's EKG shows no ST elevation and no acute changes compared to a previous EKG. I am comfortable with patient discharging home. I have given her return instructions and discussed the plan with her. Patient is comfortable with plan. I have personally performed a face to face assessment of the patient and have reviewed the FRED Note. I performed a substantive portion of the visit including all aspects of the following. My fay findings include: History is remarkable for initially right scapular pain that radiated/migrated to the left anterior chest then to the right anterior chest. Patient had recent cardiac event 1 month ago. She denies diaphoresis, dyspnea, nausea or vomiting. This is not similar to the pain she had when she had her cardiac event. She denies exertional dyspnea or exertional chest discomfort. She denies history of VTE. She denies leg pain, swelling discoloration. She denies black or maroon-colored stool. Exam is unremarkable. HEENT exam is unremarkable. Lungs are clear to auscultation. There is no reproducible chest pain on the left side. There is reproducible chest pain on the right side. There is no pain ovation of the scapula. Breath sounds noted bilaterally and symmetric. Heart is regular. There is no murmur, gallop or rub. Patient is initial blood pressure was 201/110. With observation and no treatment repeat blood pressure is 136/74. Medical Decision Making patient with atypical chest pain daughter is concerned this represents cardiac chest pain. EKG was obtained and is unchanged from prior. Other additions or changes: Atypical backslash chest pain with muscular component Discharge Plan Triage Chief Complaint: Chest Pain ED Midlevel Provider: Polina Goodwin ED Provider: Yunior Dorsey Dx/Rx/DC Orders Clinical Impression: Atypical chest pain, Atypical back pain Instructions: ED Pain, Acute, Uncertain Cause Prescriptions: No Action allopurinol 100 mg tablet 100 mg PO DAILY losartan 50 mg tablet 50 mg PO BID pravastatin 40 mg tablet 80 mg PO QHS Label Comments: TAKE 2 TABLETS BY MOUTH EVERY DAY AT BEDTIME bethanechol chloride 10 mg tablet 20 mg PO DAILY levothyroxine [Euthyrox] 75 mcg tablet 75 mcg PO DAILY Label Comments: TAKE 1 TABLET BY MOUTH ONCE DAILY cholecalciferol (vitamin D3) 50 mcg (2,000 unit) Capsule 50 mcg PO DAILY cyanocobalamin (vitamin B-12) 2,500 mcg Tablet 2,500 mcg PO QHS Ozempic 1 mg/dose (4 mg/3 mL) pen injector 1 mg SUBCUT TU clopidogrel 75 mg tablet 75 mg PO DAILY aspirin 81 mg tablet,delayed release (DR/EC) 81 mg PO DAILY@0800 metoprolol tartrate 25 mg tablet 25 mg PO BID Primary Care Provider: Sandra Narvaez Referrals: Sandra Narvaez DO [Primary Care Provider] - 3-5 Days if not improving Activity Restrictions/Additional Instructions: Please return if you notice worsening of symptoms or chest pain that does not resolve. Disposition Disposition: Home, Self Care Discharge Date/Time: 02/21/22 21:30
[2022-02-21 20:20] VITALS: BP 149/75
[2022-02-21 21:28] VITALS: BP 136/74; PULSE 74; RESP 15; O2SAT 94
== END 2022-02-21 21:30 | disposition home or self-care (01) ==
PROVIDERS: Emergency Provider Emergency Medicine; PCP Internal Medicine; Visit Provider Emergency Medicine
DX: R07.89 Other chest pain (principal); M54.9 Dorsalgia, unspecified; I25.10 Atherosclerotic heart disease of native coronary artery without angina pectoris; I10 Essential (primary) hypertension; I25.2 Old myocardial infarction; Z95.5 Presence of coronary angioplasty implant and graft; Z86.73 Personal history of transient ischemic attack (TIA), and cerebral infarction without residual deficits; Z79.82 Long term (current) use of aspirin; Z79.899 Other long term (current) drug therapy; Z79.01 Long term (current) use of anticoagulants
CPT/HCPCS: 93005; 93798; 99284

== ENCOUNTER 2022-02-28 09:30 | Outpatient (RCR) | payer MEDICARE, SELFPAY ==
[2021-12-25 09:08] VITALS: BMI 26.3
--- NOTE | 2022-01-31 09:43 | PCM.CR.ITP ---
Diagnosis Exercise - 30-day Assessment - Visit Date of Eval: 01/31/22 Session #:: 14 - Physician Prescribed Exercise Modalities: Treadmill, NuStep, SciFit Frequency: 3x/week for 12 weeks [36 sessions] Intensity: 60-80% of age predicted maximum heart rate reserve Duration: 30 - 45 minutes Current METSs:: 4.0 Target Heart Rate:: 83-111 Current RPE:: 13 Maximum Excercise HR:: 106 Resting Blood Pressure: 150/80 Maximum Exercise Blood Pressure: 162/82 EKG Type: NSR to sinus tach w/BBB T wave inversion rare PACs PVCs - Outcomes & Goals Goals:: Verbalizes understanding of THR, RPE & goal METS by session 6, Documents in home exercise log/reports 30 min aerobic 5 day/wk by DC, Demonstrates accurate pulse taking by DC - Intervention & Plan Exercise Program Goals: Instruct on personal THR & RPE, Instruct on MET level & personal MET goal, Show patient to take own pulse /validate performance until accurate, Instruct on home exercise - 30-day Reassessments 30 day Reassessments:: Met - Physical Activity Home Exercise Physical Activity - Home Exercise: Safe Exercise, Warm-up, Self-monitoring, Cool-Down, Home Exercise > 30 min Daily, Sitting Time <3 hours/daily - Outcomes & Goals Outcomes/Goals: Demonstrates correct Warm-up/exercise Cool-Down (S3) if = 2.5 METs, Verbalizes symptoms of exercise intolerance by Session 3 (S3), Demonstrate safe equipment use (S3) & follows exercise prescrition (6) - Intervention & Plan Plan/Intervention: Instruct warm-up & cool-down if exercising at > 2 METs, Instruct on symptoms of exercise intolerance & actions to take, Instruct & monitor on saf, Assess intial functional capacity & safety risk - 30-day Reassessments 30 day Reassessments:: Met Nutrition - Initial Assessment Nutrition - 30-Day Assessment - Program Goals Nutrition Program Goals: LDL <100 optimal. 100 - 129 Near optimal. 130 - 159 Borderline High. 160 - 189 High. Total Cholesterol <200 desirable. 200 - 239 Borderline High. >/= 240 High. HDL < 40 Low >/=60 High. Triglycerides <150 desirable. <199 optimal. VlDL 5 - 40. HgbA1C <7%. BMI <25 Patient has diagnosis of Hyperlipidemia (ICD E78)?: Yes - Visit Date of Assessment:: 01/31/22 Session #:: 14 - Cholesterol/Lipids (Other Core Measures) Triglycerides (mg/dL): 118 Total Cholesterol (mg/dL): 149 LDL Cholesterol (mg/dL): 72 HDL Cholesterol (mg/dL): 53 Determine presence & major risk factors that modify LDL goal: Hypertension or hypertensive medication, Family history of premature CHD in Male < 55 years: female <65 yearsFa, Age men > 45 years; women >/= 55 years Outcomes/Goals: Pt IDs own risk factors & lifestyle modifications by Session 10, Verbalizes symptoms of angina & response by session 3., Pt independently manages Intervention/Plan: Instruct on personal lipid levels & lipid goals/NCEP guidelines, Instruct on cholesterol Referral to dietitian:: Yes - Try contacting her daughter at [phone] transports patient to CR 30-day Reassessments:: Progressing - Diabetes (Other Core Measures) Diabetes Type: Diagnosis Type II ICD-10 E11 - Borderline DM Type II Insulin dependent injection/pump?: No Non-Insulin Dependent?: Yes Do you monitor your blood sugar at home?: No Referral to Diabetic Clinic:: No Intervention/Plan:: Instruct on - Diabetic Diet - Weight Mgt (Other Care) Not Applicable: Yes Height: 5 ft 7 in Weight:: 170 lb 8 oz BMI: 26.6 Diagnosis Overweight/Obesity BMI> 30% ICD-10 E66: No Diagnosis High BMI/Morbid Obesity BMI> 35% ICD-10 Z68: No Outcomes/Goals: Pt sets, maintains & shows weight loss goal & trend during rehab Intervention/Plan: Instruct on ideal BMI & set weight loss goal w/patient 30 day Reassessments:: Met - Healthy Eating Habits Will attend diet classes:: Yes Outcomes/Goals:: Consume diet rich in vegs,fruits,whole grain/high fiber,fish,lean meat, Limit sat/trans fats,cholesterol & added salts & sugars Intervention/Plan:: Assess current eating habits 30-day Reassessments:: Progressing - Education Gave educational materials for:: Healthy eating Nutrition - 60-Day Assessment Nutrition - 90-Day Assessment Nutrition - Final Assessment Core - Initial Assessment Core - 30-Day Assessment - Visit Date of Eval: 01/31/22 Session #:: 14 - Medication Compliance Preventative Medication(s):: Clopidogrel/P2Y12 inhibit, Statin/lipid, Beta kamari H/O mental health issues: depression, anxiety, or addiction?: No Doesn?t believe in the benefits of treatment?: No Believes medications are unnecessary or harmful?: No Has a concern about medication side effects?: No Expresses concern over the cost of medications?: No Outcomes/Goals: Verbalizes medications,desired effect & common side effects @ DC, Pt self-reports following medication regimen, Keeps card in wallet w/medications listed by DC Interventions/plans: Instruct on medication effects & side effects, Review medication list w/patient every two weeks, Instruct importance of taking meds as ordered & assist problem solving 30-day Reassessments:: Progressing - Tobacco Use Tobacco Use: Non-smoker - Hypertension Hypertension Diagnosis:: Hypertension ICD-10 I10 Resting Blood Pressure:: 150/80 [place] [employer] Hypertension Guidelines: [place] [employer] Hypertension Guidelines. Normal BP Less than 120/80. Elevated BP 120/80. Hypertension Stage 1: BP 130-139/80-89. Hypertesnion Stage 2: BP 140 or higher/90 or higher. Hypertension Crisis: BP higher than 180/120 Peak Exercise Blood Pressure:: 162/82 Outcomes/Goals: Able to verbalize/achieve optimal blood pressure <130/80, Incorporates diet changes & exercise for blood pressure control by DC Interventions/plan: Instruct on optimal blood pressure, hypertension & medications, Instruct on effects of sodium, alcohol, stress, exercise &hypertension 30 day Reassessments:: Progressing - Tobacco Cessation Referral Smoking Cessation Referral:: No Individual Education/Counseling:: No Education Schedule Given:: Yes Core - 60-Day Assessment Core - 90 Day Assessment Core - Final Assessment Psychosocial - Initial Assess Psychosocial - 30-Day Assess - VIsit Date of Eval: 01/31/22 Session #:: 14 Not Applicable: Yes History of previous Mental disease:: No - Psychosocial Test Tool Used:: PHQ-9 Questionnaire phq-9 Severity: Severity. 1-4 Minimal Depression. 5-9 Mild Depression. 10-14 Moderate Depression. 15-19 Moderately Sever Depression. 20-27 Severe Depression. Rule: - Referral to Behavioral Health PS - Interventions: Yes Attend Stress Management Classes, No Referral to Behavioral Health if PHQ-9 score >9:, No Referral to [facility], No Referral to Physician if PHQ-9 if score is 5-9: - Outcomes/Goals: See list Psychosocial Outcomes/Goals:: ID's personal stressors & 2 strategies to manage stress by discharge - Intervention/Plan: See List Interventions/Plan:: Assess stressors,coping strategies & signs of derpression on admission, Instruct/assist pt to develop coping & personal stress Mgt strategies, Instruct patient to recognize signs & symptoms of depression, Instruct patient to recog - 30-day Reassessments: 30 day Reassessments:: Progressing Psychosocial - 60-Day Assess Psychosocial - 90-Day Assess Psychosocial - Final Assessmen Patient Health Questionnaire 30-Day Re-eval Assessment 1. Little interest or pleasure in doing things: Not at all 2. Feeling down, depressed, or hopeless: Not at all 3. Trouble falling or staying asleep, or sleeping too much: More than half the days 4. Feeling tired or having little energy: Not at all 5. Poor appetite or overeating: Not at all 6. Feeling bad about yourself -- or that you are a failure or have let yourself or your family down: Several days 7. Trouble concentrating on things, such as reading the newspaper or watching television: Several days 8. Moving or speaking so slowly that other people could have noticed. Or the opposite - being so fidgety or restless that you have been moving around a lot more than usual: Several days 9. Thoughts that you would be better off , or of hurting yourself in some way: Not at all How difficult have these problems made it for you to do your work, take care of things at home, or get along with other people?: Not difficult at all Total Score: 5 Self-Efficacy 30-Day Re-eval Assessment We would like to know how confident you are in doing certain activities. Please select your confidence level for:: Select your confidence level for the following using the scale 1-10 where 1 is not at all confident and 10 is totally confident. Your score is the average of all 6 responses. Fatigue: How confident are you that you can keep the fatigue caused by your disease from interfering with the things you want to do? Select Number: 5 Physical Discomfort or Pain: How confident are you that you can keep the physical discomfort or pain of your disease from interfering with the things you want to do? Select Number: 5 Emotional Distress: How confident are you that you can keep the emotional distress caused by your disease from interfering with the things you want to do? Select Number: 5 Other Symptoms or Health Problems: How confident are you that you can keep other symptoms or health problems from interfering with the things you want to do? Select Number: 5 Different Tasks and Activities: How confident are you that you can do the different tasks and activities needed to manage your health condition so as to reduce your need to see a doctor? Select Number: 5 Medication: How confident are you that you can do things other than just taking medication to reduce how much your illness affects your everyday life? Select Number: 5 Total Score:: 5 Nutrition Survey
[2022-01-31 09:53] VITALS: BP 150/80; BP 162/82; BMI 26.6
== END 2022-02-28 23:59 ==
LOC: CR 09:30
PROVIDERS: PCP Internal Medicine; Referring Provider Internal Medicine Cardiovascular Disease; Visit Provider Internal Medicine Cardiovascular Disease
DX: I21.4 Non-ST elevation (NSTEMI) myocardial infarction (principal); I25.10 Atherosclerotic heart disease of native coronary artery without angina pectoris; Z95.5 Presence of coronary angioplasty implant and graft; I10 Essential (primary) hypertension; M10.9 Gout, unspecified; E11.9 Type 2 diabetes mellitus without complications
CPT/HCPCS: 93798

== ENCOUNTER 2022-03-28 09:30 | Outpatient (RCR) | payer MEDICARE, SELFPAY ==
[2022-01-31 09:53] VITALS: BMI 26.6
[2022-03-01 00:11] VITALS: BP 150/80; BP 162/82
--- NOTE | 2022-03-05 08:27 | CR.ITP_ITS ---
Diagnosis Exercise - 60-day Assessment - Visit Date of Eval: 03/05/22 Session #:: 26 - Physician Prescribed Exercise Modalities: Treadmill, NuStep, SciFit Frequency: 3x/week for 12 weeks [36 sessions] Intensity: 60-80% of age predicted maximum heart rate reserve Current METSs:: 4 Target Heart Rate:: 83-111 Current RPE:: 13 Maximum Excercise HR:: 108 Resting Blood Pressure: 126/76 Maximum Exercise Blood Pressure: 168/74 - Outcomes & Goals Goals:: Verbalizes understanding of THR, RPE & goal METS by session 6, Documents in home exercise log/reports 30 min aerobic 5 day/wk by DC, Demonstrates accurate pulse taking by DC, Other additional outcome/goals: see below - Intervention & Plan Exercise Program Goals: Instruct on personal THR & RPE, Instruct on MET level & personal MET goal, Show patient to take own pulse /validate performance until accurate, Instruct on home exercise, Other additional plan/int - 30-day Reassessments 30 day Reassessments:: Progressing - THR explained - Physical Activity Home Exercise Physical Activity - Home Exercise: Safe Exercise, Warm-up, Self-monitoring, Cool-Down, Home Exercise > 30 min Daily, Sitting Time <3 hours/daily - Outcomes & Goals Outcomes/Goals: Demonstrates correct Warm-up/exercise Cool-Down (S3) if = 2.5 METs, Verbalizes symptoms of exercise intolerance by Session 3 (S3), Demonstrate safe equipment use (S3) & follows exercise prescrition (6), Other: See below - 30-day Reassessments 30 day Reassessments:: Progressing - warm up encouraged Nutrition - Initial Assessment Nutrition - 30-Day Assessment Nutrition - 60-Day Assessment - Program Goals Nutrition Program Goals: LDL <100 optimal. 100 - 129 Near optimal. 130 - 159 Borderline High. 160 - 189 High. Total Cholesterol <200 desirable. 200 - 239 Borderline High. >/= 240 High. HDL < 40 Low >/=60 High. Triglycerides <150 desirable. <199 optimal. VlDL 5 - 40. HgbA1C <7%. BMI <25 Patient has diagnosis of Hyperlipidemia (ICD E78)?: Yes - Visit Date of Assessment:: 03/05/22 Session #:: 26 - Cholesterol/Lipids (Other Core Measures) Determine presence & major risk factors that modify LDL goal: Hypertension or hypertensive medication, Low HDL cholesterol <40 mg/dL*, Family history of premature CHD in Male < 55 years: female <65 yearsFa, Age men > 45 years; women >/= 55 years Outcomes/Goals: Pt IDs own risk factors & lifestyle modifications by Session 10, Verbalizes symptoms of angina & response by session 3., Pt independently manages, Other Additional Outcomes/Goals: Intervention/Plan: Advocate for lipid panel cholesterol medication if applicable, Instruct on personal lipid levels & lipid goals/NCEP guidelines, Instruct on cholesterol, Other additional plan/int 30-day Reassessments:: Progressing - encouraged bloodwork - Diabetes (Other Core Measures) Diabetes Type: Diagnosis Type II ICD-10 E11 - borderline Insulin dependent injection/pump?: No Non-Insulin Dependent?: Yes Do you monitor your blood sugar at home?: No Referral to Diabetic Clinic:: No Outcomes/Goals:: Able to state symptoms of, Able to state, Able to state, Other additional Intervention/Plan:: Instruct on, Refer to, Instruct on, Other 30-day Reassessments:: Progressing - encouraged to check sugars - Weight Mgt (Other Care) Height: 5 ft 7 in Weight:: 78.698 kg BMI: 27.1 Diagnosis Overweight/Obesity BMI> 30% ICD-10 E66: No Diagnosis High BMI/Morbid Obesity BMI> 35% ICD-10 Z68: No Outcomes/Goals: Pt sets, maintains & shows weight loss goal & trend during rehab, Other additional outcomes/goals Intervention/Plan: Instruct on ideal BMI & set weight loss goal w/patient, Assist pt to ID & incorporate diet changes for weight loss by S9, Refer to Structured Weight Loss program as appropriate, Encourage goal of using 250- 300dcal per session for weight loss, Other additional plan/interventions 30 day Reassessments:: Progressing - will attend nutrition class - Healthy Eating Habits Will attend diet classes:: Yes Outcomes/Goals:: Consume diet rich in vegs,fruits,whole grain/high fiber,fish,lean meat, Limit sat/trans fats,cholesterol & added salts & sugars, Other additional outcome/goals: Intervention/Plan:: Assess current eating habits, Other Additional plan/interventions 30-day Reassessments:: Progressing - will attend nutrition class - Education Gave educational materials for:: Signs & symptoms of hypoglycemia, Signs & symptoms of hyperglycemia, Relate diabetes to coronary artery disease, Healthy eating Nutrition - 90-Day Assessment Nutrition - Final Assessment Core - Initial Assessment Core - 30-Day Assessment Core - 60-Day Assessment - Visit Date of Eval: 03/05/22 Session #:: 26 - Medication Compliance Preventative Medication(s):: Clopidogrel/P2Y12 inhibit, Statin/lipid, Beta kamari H/O mental health issues: depression, anxiety, or addiction?: No Doesn?t believe in the benefits of treatment?: No Believes medications are unnecessary or harmful?: No Has a concern about medication side effects?: No Expresses concern over the cost of medications?: No Outcomes/Goals: Verbalizes medications,desired effect & common side effects @ DC, Pt self-reports following medication regimen, Keeps card in wallet w/medications listed by DC, Other additional outcome/goals: Interventions/plans: Instruct on medication effects & side effects, Review medication list w/patient every two weeks, Instruct importance of taking meds as ordered & assist problem solving, Other additional 30-day Reassessments:: Progressing - encouraged to take meds - Tobacco Use Tobacco Use: Non-smoker - Hypertension Hypertension Diagnosis:: Hypertension ICD-10 I10 Resting Blood Pressure:: 126/76 [place] [employer] Hypertension Guidelines: [place] [employer] Hypertension Guidelines. Normal BP Less than 120/80. Elevated BP 120/80. Hypertension Stage 1: BP 130-139/80-89. Hypertesnion Stage 2: BP 140 or higher/90 or higher. Hypertension Crisis: BP higher than 180/120 Peak Exercise Blood Pressure:: 168/74 Outcomes/Goals: Able to verbalize/achieve optimal blood pressure <130/80, Incorporates diet changes & exercise for blood pressure control by DC, Other additional outcomes/goals Interventions/plan: Instruct on optimal blood pressure, hypertension & medications, Instruct on effects of sodium, alcohol, stress, exercise &hyperte nsion, Other additional plan/interventions 30 day Reassessments:: Progressing - encouraged to take meds - Tobacco Cessation Referral Smoking Cessation Referral:: No Individual Education/Counseling:: No Education Schedule Given:: Yes Core - 90 Day Assessment Core - Final Assessment Psychosocial - Initial Assess Psychosocial - 30-Day Assess Psychosocial - 60-Day Assess - VIsit Date of Eval: 03/05/22 Session #:: 26 History of previous Mental disease:: No Psychosocial - 90-Day Assess Psychosocial - Final Assessmen Patient Health Questionnaire 60-Day Re-eval Assessment 1. Little interest or pleasure in doing things: Not at all 2. Feeling down, depressed, or hopeless: Not at all 3. Trouble falling or staying asleep, or sleeping too much: More than half the days 4. Feeling tired or having little energy: Not at all 5. Poor appetite or overeating: Not at all 6. Feeling bad about yourself -- or that you are a failure or have let yourself or your family down: Several days 7. Trouble concentrating on things, such as reading the newspaper or watching television: Several days 8. Moving or speaking so slowly that other people could have noticed. Or the opposite - being so fidgety or restless that you have been moving around a lot more than usual: Several days How difficult have these problems made it for you to do your work, take care of things at home, or get along with other people?: Not difficult at all Total Score: 5 Self-Efficacy 60-Day Re-eval Assessment We would like to know how confident you are in doing certain activities. Please select your confidence level for:: Select your confidence level for the following using the scale 1-10 where 1 is not at all confident and 10 is totally confident. Your score is the average of all 6 responses. Fatigue: How confident are you that you can keep the fatigue caused by your disease from interfering with the things you want to do? Select Number: 5 Physical Discomfort or Pain: How confident are you that you can keep the physical discomfort or pain of your disease from interfering with the things you want to do? Select Number: 5 Emotional Distress: How confident are you that you can keep the emotional distress caused by your disease from interfering with the things you want to do? Select Number: 5 Other Symptoms or Health Problems: How confident are you that you can keep other symptoms or health problems from interfering with the things you want to do? Select Number: 5 Different Tasks and Activities: How confident are you that you can do the different tasks and activities needed to manage your health condition so as to reduce your need to see a doctor? Select Number: 5 Medication: How confident are you that you can do things other than just taking medication to reduce how much your illness affects your everyday life? Select Number: 5 Total Score:: 5 Nutrition Survey
[2022-03-05 08:35] VITALS: BP 126/76; BP 168/74; BMI 27.1
== END 2022-03-31 23:59 ==
LOC: CR 09:30
PROVIDERS: PCP Internal Medicine; Referring Provider Internal Medicine Cardiovascular Disease; Visit Provider Internal Medicine Cardiovascular Disease
DX: I10 Essential (primary) hypertension (principal); I21.4 Non-ST elevation (NSTEMI) myocardial infarction; I25.10 Atherosclerotic heart disease of native coronary artery without angina pectoris; Z95.5 Presence of coronary angioplasty implant and graft
CPT/HCPCS: 93798

== ENCOUNTER 2022-06-01 02:12 | Emergency (ER) | payer MEDICARE, SELFPAY ==
[2022-03-05 08:35] VITALS: BMI 27.1
[2022-06-01 02:15] VITALS: BP 159/97; PULSE 110; RESP 23; TEMP 36.8; O2SAT 97; BMI 28.0
--- NOTE | 2022-06-01 02:27 | RAD_ITS ---
INDICATION: chest pain EXAMINATION/TECHNIQUE: X-RAY - XR Chest 2 Views COMPARISON: None. FINDINGS: LINES/DEVICES: None. LUNGS: No consolidation, edema or effusion. No pneumothorax. MEDIASTINUM AND CARDIOVASCULAR STRUCTURES: Cardiac silhouette not enlarged. Central airways and mediastinal contour are unremarkable. BONES AND SOFT TISSUES: Dextroscoliosis of the thoracic spine. RAD/Chest PA and Lateral IMPRESSION: No radiographic evidence of acute cardiopulmonary disease. Electronically Signed: Owen Ambriz MD at 2:47 EST ,
[2022-06-01] MEDS: Aspirin 325 MG Tablet PO (02:42)
[2022-06-01 02:46] LABS: Absolute Neutrophil Count 9.2 X10^3/uL (2.0-7.7); Basophil# 0.04 X10^3/uL; Basophil% 0.4 % (0-1); Eosinophil# 0.07 X10^3/uL; Eosinophils% 0.7 % (0-5); Hematocrit 45.4 % (37-47); Hemoglobin 15.3 g/dL (12.0-15.0); Lymphocyte % 9.3 % (19-41); Mean Corp Hgb Conc 33.7 g/dL (32-36); Mean Corpuscular Hgb 32.6 pg (27.0-32.0); Mean Corpuscular Volume 96.6 fL (81-99); Mean Platelet Vol. 10.8 fl (6.2-12.0); Monocyte# 0.39 X10^3/uL; Monocyte% 3.6 % (0-10); NRBC Flagged by Analyzer 0 % (0-5); Neutrophil # 9.17 X10^3/uL (2.7-7.7); Neutrophil % 85.4 % (47-70); Platelet Count 281 K/mm3 (150-450); RBC Distribution Width CV 12.8 % (11.6-14.6); White Blood Count 10.7 K/mm3 (4.4-11.0)
--- NOTE | 2022-06-01 02:49 | EKG12_ITS ---
Test Reason : CP Blood Pressure : / mmHG Vent. Rate : 107 BPM Atrial Rate : 107 BPM P-R Int : 184 ms QRS Dur : 116 ms QT Int : 352 ms P-R-T Axes : 050 -32 132 degrees QTc Int : 469 ms Sinus tachycardia Left axis deviation Incomplete left bundle branch block Abnormal ECG Confirmed by MITCHELL WILSON, PHILLIP ([id number]), staff editor FABIAN GOEL ([id number]) on 06/04/2022 11:21:54 AM Referred By: CHELSY Confirmed By:PHILLIP MEDRANO MD
[2022-06-01 03:05] LABS: Anion Gap 9 (5-15); BUN 19 mg/dL (7-18); BUN/Creat Ratio 13.4 RATIO (10-20); Chloride 101 mmol/L (98-107); Creatinine, Serum 1.42 mg/dL (0.55-1.02); EST Glomerular Filtration Rate 38 mL/min (>60); Est Glom Filt Rate - Afr Amer 46 mL/min (>60); Estimated Creatinine Clearance 30.22 ml/min; Glucose 224 mg/dL (74-106); Potassium 3.9 mmol/L (3.5-5.1); Sodium Level 137 mmol/L (136-145); Troponin-I HS 7 pg/mL (3.0-54.0)
[2022-06-01 03:38] VITALS: BP 141/83
[2022-06-01 04:43] LABS: Troponin-I HS 8 pg/mL (3.0-54.0)
--- NOTE | 2022-06-01 04:48 | EDS_ITS ---
HPI History of Present Illness Chief Complaint: Chest Pain Narrative Narrative: Patient is an 81-year-old female with past medical history of hypertension and previous NM requiring stent placement in October 2021. She states she has been doing well but that this evening she had 3 separate occasions where she had sharp midsternal chest pain lasting for only a few seconds that resolved with a deep breath. She states that there was no associated nausea vomiting diaphoresis or shortness of breath associated with this symptom. She denies any recent trauma or excessive activity. She denies any recent travel surgery or history of DVT/PE. However as she had this happen on 3 separate occasions and does have a history of NM was concerned this could be cardiac in nature and therefore comes to the hospital for evaluation [facility] Medical History Atherosclerosis of coronary artery without angina pectoris Chronic indwelling Costa catheter Essential hypertension Gout History of gout History of TIA (transient ischemic attack) (04/2020) History of type 2 diabetes mellitus Hypothyroidism Left breast lump Mastalgia in female Non-smoker Home Medications allopurinol 100 mg tablet 100 mg PO DAILY gout 02/06/18 [History Last Taken 12/05/21] aspirin 81 mg tablet,delayed release 81 mg PO DAILY@0800 BLOOD THINNER 12/05/21 [History Last Taken 12/05/21] bethanechol chloride 10 mg tablet 20 mg PO DAILY BLADDER 12/05/21 [History Last Taken 12/05/21] cholecalciferol (vitamin D3) 50 mcg (2,000 unit) capsule 50 mcg PO DAILY SUPPLEMENT 12/05/21 [History Last Taken 12/05/21] clopidogrel 75 mg tablet 75 mg PO DAILY BLOOD THINNER. 12/05/21 [History Last Taken 12/05/21] cyanocobalamin (vitamin B-12) 2,500 mcg tablet 2,500 mcg PO QHS SUPPLEMENT 12/05/21 [History Last Taken 12/04/21] levothyroxine 75 mcg tablet (Euthyrox) 75 mcg PO DAILY THYROID 12/05/21 [History Last Taken 12/05/21] metoprolol tartrate 25 mg tablet 25 mg PO BID HEART 12/05/21 [History Last Taken 12/05/21] pravastatin 40 mg tablet 80 mg PO QHS CHOLESTEROL 12/05/21 [History Last Taken 12/04/21] semaglutide 1 mg/dose (4 mg/3 mL) subcutaneous pen injector (Ozempic) 2 mg subcut TU DM 12/05/21 [History Last Taken 12/05/21] amlodipine 2.5 mg tablet (Norvasc) 2.5 mg PO DAILY #90 tabs 03/02/22 [Rx Last Taken Unknown] losartan 50 mg tablet 100 mg PO DAILY BP 03/02/22 [History Last Taken Unknown] Allergy/AdvReac Type Severity Reaction Status Date / Time No Known Allergies Allergy Verified 06/01/22 02:20 Family History Mother Diabetes Father Heart disease Brother Heart disease Surgical History History of coronary artery stent placement (11/14/21) History of eye surgery History of thyroid surgery History of tonsillectomy History of tubal ligation Social History household members: other details: Vahid Sanchez Sr., Vahid Lizarraga Jr. housing: house Smoking Status: Never smoker alcohol intake: never substance use type: does not use what type of physical activity do you participate in: none do you feel safe at home: Yes ROS ROS ED Constitutional Constitutional ED: Denies chills or fever(s) ENT ENT ED: Denies sore throat Cardiovascular Cardiovascular: Reports chest pain; Denies palpitations or racing heartbeat Respiratory/Chest Respiratory/Chest: Denies cough or dyspnea Gastrointestinal Gastrointestinal: Denies abdominal pain, diarrhea, nausea or vomiting Genitourinary Genitourinary ED: Denies dysuria Musculoskeletal Musculoskeletal: Denies back pain, myalgias or neck pain Integumentary Denies rash Neurologic Neurologic: Denies headache(s) Hematologic/Lymphatic Hematologic/Lymphatic: Reports easy bleeding and easy bruising EXAM Physical Exam Const Vital Signs: 06/01/22 02:15 06/01/22 02:22 06/01/22 03:38 Temperature 98.3 F Temperature Source Oral Pulse Rate 110 H Respiratory Rate 23 H Respiratory Effort Normal Non-Labored Blood Pressure 159/97 H 141/83 H Blood Pressure Mean 117 102 Pulse Ox 97 Oxygen Delivery Method Room Air Positive well nourished and well developed General Appearance ED: well developed HEENT Reports moist mucous membranes Eyes PERRL and EOMs intact bilaterally Neck supple and no JVD Chest Wall palpation of chest normal Chest Narrative: No bony deformity or crepitance noted Resp normal respiratory effort and clear to auscultation bilaterally Cardio regular rate and regular rhythm Rate: other Other Details: Radial pulses are plus 2 out of 4 bilaterally are equal and symmetric Carotid pulses equal and symmetric as well GI normal to inspection, nondistended, normoactive bowel sounds, non-tender, non- distended and no masses GI Narrative: No voluntary guarding or rigidity no pulsatile mass or fluid wave Auscultation: normoactive bowel sounds Palpation: soft Extremity normal to inspection Extremity Narrative: No asymmetric edema no pitting edema negative Homans' sign bilateral Neuro oriented x3 and CN's II-XII intact bilaterally Sensorium / Orientation: alert Psych mental status grossly normal Skin no rashes or lesions noted MDM MDM MDM Narrative Medical decision making narrative: Patient presented to the ER hypertensive but has a past medical history of this and otherwise had stable vital. Her complaint of sharp midsternal chest pain that resolved with a deep inspiration is not classic cardiac pain but because she has a known history of CAD this is possible. It is also possible she has some type of acute lung pathology such as a pneumothorax or pneumonia or even had an esophageal spasm or intercostal muscle spasm as a cause of her pain. Basic blood work was obtained which showed no clinically significant finding. Her initial troponin was normal and her 2-hour delta changed by one-point to a value of 8 which is not clinically significant. Chest x-ray also showed no acute lung pathology. Patient was pain-free upon arrival and remained pain-free for her entire ER stay. Therefore at this time as work-up reveals no signs of active cardiac damage and she has no signs of endorgan damage from hypertension and pain has been resolved since arrival she is otherwise safe for discharge History & Record Review Discussion w/independent historian: Patient Lab Data Attestation: I reviewed the patient's lab results. Labs: Laboratory Results - last 24 hr 06/01/22 06/01/22 06/01/22 02:20 02:20 04:22 WBC 10.7 RBC 4.70 Hgb 15.3 H Hct 45.4 MCV 96.6 MCH 32.6 H MCHC 33.7 RDW Std Deviation 45.0 H RDW Coeff of Shalom 12.8 Plt Count 281 MPV 10.8 Immature Gran % (Auto) 0.600 Neut % (Auto) 85.4 H Lymph % (Auto) 9.3 L [place] % (Auto) 3.6 Eos % (Auto) 0.7 Baso % (Auto) 0.4 Absolute Neuts (auto) 9.2 H Absolute Lymphs (auto) 1.00 Nucleated RBC % 0 Sodium 137 Potassium 3.9 Chloride 101 Carbon Dioxide 27.0 Anion Gap 9 BUN 19 H Creatinine 1.42 H Estim Creat Clear Calc 30.22 Est GFR (MDRD) Af Amer 46 L Est GFR (MDRD) Non-Af 38 L BUN/Creatinine Ratio 13.4 Glucose 224 H Calcium 9.0 Magnesium 2.0 Troponin I High Sens 7 8 Radiography Diagnostic Testing: Clinical Impression(s) from Imaging Studies Chest X-Ray 06/01/22 02:27 IMPRESSION: No radiographic evidence of acute cardiopulmonary disease. Electronically Signed: Owen Ambriz MD at 2:47 EST , Chest x-ray as interpreted by the emergency medicine physician reveals no acute infiltrate pneumothorax or pleural effusion Discharge Plan Triage Chief Complaint: Chest Pain ED Provider: Awais Avilez Dx/Rx/DC Orders Clinical Impression: Nonspecific chest pain, History of coronary artery stent placement, Essential hypertension Instructions: ED Chest Pain, Uncertain Cause Prescriptions: No Action allopurinol 100 mg tablet 100 mg PO DAILY amlodipine [Norvasc] 2.5 mg tablet 2.5 mg PO DAILY Qty: 90 3RF pravastatin 40 mg tablet 80 mg PO QHS Label Comments: TAKE 2 TABLETS BY MOUTH EVERY DAY AT BEDTIME bethanechol chloride 10 mg tablet 20 mg PO DAILY levothyroxine [Euthyrox] 75 mcg tablet 75 mcg PO DAILY Label Comments: TAKE 1 TABLET BY MOUTH ONCE DAILY cholecalciferol (vitamin D3) 50 mcg (2,000 unit) Capsule 50 mcg PO DAILY cyanocobalamin (vitamin B-12) 2,500 mcg Tablet 2,500 mcg PO QHS Ozempic 1 mg/dose (4 mg/3 mL) pen injector 2 mg SUBCUT TU clopidogrel 75 mg tablet 75 mg PO DAILY aspirin 81 mg tablet,delayed release (DR/EC) 81 mg PO DAILY@0800 metoprolol tartrate 25 mg tablet 25 mg PO BID losartan 50 mg tablet 100 mg PO DAILY Primary Care Provider: Sandra Narvaez Referrals: Sandra Narvaez DO [Primary Care Provider] - Activity Restrictions/Additional Instructions: Your work-up today did not show any signs of heart damage. Continue your medications as directed by your doctor and return to the ER should you have any further concerns Disposition Disposition: Home, Self Care
[2022-06-01 04:57] VITALS: BP 130/92; PULSE 99; RESP 16; O2SAT 94
== END 2022-06-01 04:58 | disposition home or self-care (01) ==
PROVIDERS: Emergency Provider Emergency Medicine; PCP Internal Medicine; Visit Provider Emergency Medicine
DX: R07.9 Chest pain, unspecified (principal); E11.9 Type 2 diabetes mellitus without complications; I10 Essential (primary) hypertension; Z95.5 Presence of coronary angioplasty implant and graft; I25.10 Atherosclerotic heart disease of native coronary artery without angina pectoris
CPT/HCPCS: 71046; 80048; 83735; 84484; 85025; 93005; 99285; A4216

== ENCOUNTER → 2023-01-23 | Outpatient (CLI) | payer MEDICARE, SELFPAY ==
[2022-03-05 08:35] VITALS: BMI 27.1
--- NOTE | 2023-01-23 14:45 | STRESSREP_ITS ---
Stress Test Report Pharmacologic myocardial perfusion stress test. 82-year-old lady with a history of coronary artery disease Resting EKG demonstrates sinus rhythm with a left bundle branch block with a rate of 81 bpm. Resting blood pressure is 136/88 mmHg. 0.4 mg of regadenoson was infused per usual protocol followed by rapid intravenous saline flush injec tion. Continuous EKG monitoring was performed. The maximum heart rate was 101 bpm which was 73% of max impacted heart rate the maximum workload was 1 metabolic equivalent. At rest there were no ST or T wave changes noted to suggest ischemia and at peak infusion nonspecific ST changes were noted which did not meet the criteria for ischemia. No clinical angina is noted. The final blood pressure was 114/62 mmHg. Myocardial perfusion protocol. 13.0 mCi of technetium 99m sestamibi was injected at rest. 0.4 mg of regadenoson was infused per usual protocol. At peak infusion 43.2 mCi of tech netium 99m sestamibi was injected stress images were obtained stress and rest images were reconstructed and compared in the short axis vertical long and horizontal long axis. Gated images were also obtained. Perfusion SPECT analysis: Review of the stress images demonstrate normal uptake of tracer noted in all areas of the myocardium. The resting images similar demonstrated normal uptake of tracer noted in all areas of the myocardium. No areas of reversibility are noted to suggest ischemia and no previous infarct is noted. Gated SPECT analysis: The gated ejection fraction is 63%. Conclusion: Normal pharmacologic myocardial perfusion stress test. Preserved ejection fraction.
[2023-01-23 15:33] LABS: Bedside Glucose 143 mg/dL (74-106)
== END | disposition home or self-care (01) ==
LOC: CVS 06:29
PROVIDERS: PCP Internal Medicine; Referring Provider Internal Medicine Cardiovascular Disease; Visit Provider Internal Medicine Cardiovascular Disease
DX: I25.10 Atherosclerotic heart disease of native coronary artery without angina pectoris (principal)
CPT/HCPCS: 78452; 82962; 93017; A9500; A4216; J2785

== ENCOUNTER → 2023-04-03 | Outpatient (CLI) | payer MEDICARE, SELFPAY ==
[2022-03-05 08:35] VITALS: BMI 27.1
--- NOTE | 2023-04-03 09:08 | RAD_ITS ---
STUDY: X-RAY - RIGHT SHOULDER REASON FOR EXAM: Female, 82 years old. Fall 3 months ago. Pain. TECHNIQUE: 4 view(s) of the shoulder. COMPARISON: July 12, 2022 FINDINGS: Osteopenia. Moderate to marked arthrosis of the glenohumeral joint with subchondral sclerosis and osteophyte formation. Stable mild arthrosis of the AC joint. Minimal sclerosis of the greater tuberosity of the humeral head. Normal soft tissues. Normal visualized pulmonary apex. RAD/Shoulder min 2 Views IMPRESSION: Stable moderate to marked arthrosis of the glenohumeral joint and mild arthrosis of the AC joint. No acute osseous abnormality. Electronically Signed: Naresh Barragan MD at 9:28 EST ,
== END | disposition home or self-care (01) ==
PROVIDERS: PCP Internal Medicine; Referring Provider Physician Assistant Surgical; Visit Provider Physician Assistant Surgical
DX: S46.911A Strain of unspecified muscle, fascia and tendon at shoulder and upper arm level, right arm, initial encounter (principal); W19.XXXA Unspecified fall, initial encounter
CPT/HCPCS: 73030

== ENCOUNTER → 2023-04-22 | Outpatient (CLI) | payer MEDICARE, SELFPAY ==
[2022-03-05 08:35] VITALS: BMI 27.1
--- NOTE | 2023-04-22 17:36 | CT_ITS ---
STUDY: CT RIGHT SHOULDER REASON FOR EXAM: Female, [address] scan right shoulder for surgical planning. RADIATION DOSAGE (If Supplied By Facility): CTDIvol = ( 22.13 ) mGy, DLP = ( 550.21 ) mGycm TECHNIQUE: The patient was scanned in a multi detector CT scanner. High resolution transaxial imaging was performed without the administration of intravenous contrast material. Sagittal and coronal images were reconstructed. Individualized dose optimization techniques were used for this CT. COMPARISON: Right shoulder radiographs dated 04/03/2023. FINDINGS: There is severe glenohumeral arthrosis with joint space narrowing, marginal osteophyte formation, and subchondral sclerosis/cyst formation. There is a 9 mm calcified loose body in the subscapularis recess (axial series 2 image 59; sagittal reformat series 602 images 42-44). There is a 3 mm calcified loose body at the anterior margin of the glenohumeral joint (axial series 2 image 56; coronal reformat series 601 image 18). Intact glenoid rim, neck and visualized scapula. Intact humeral head, neck and tuberosities. There is no demonstrated acute fracture. Normal coracoid process. Normal visualized lateral clavicle. There is mild acromioclavicular arthrosis. There is a Type II morphology (curved), with a neutral orientation. Normal visualized muscles and soft tissue structures. CT/Extremity Upper without Contra IMPRESSION: Severe glenohumeral arthrosis, as detailed above. Small subcentimeter calcified loose bodies in the subscapularis recess and anterior margin of the glenohumeral joint. Mild acromioclavicular arthrosis. Electronically Signed: Ej Ortiz MD at 11:39 EST ,
--- OUTSIDE RECORDS SUMMARY | 2023-04-22 17:47 | XMS RPT_ITS | CCD ---
Author Name Unknown Address [address] [place] [address] Organization [facility] Care Team Providers Care Burring Wheel Operator Name Role Phone Mac Go Unavailable Unavailable Go Watts Unavailable Unavailable Brice Sandra Unavailable [facility] Unavailable Ortiz De Santiago Unavailable Liz Lawson Unavailable Unavailable Unavailable Unavailable Saida House Unavailable Unavailable Slarb, Bety Unavailable Unavailable LYDIA AL Attending Unavailable SELF, SELF Referring Unavailable Katrin Olea Unavailable Unavailable Brice DO Sandra Unavailable [facility], [facility] Unavailable Ortiz De Santiago MD Unavailable Saida House CMA Unavailable Unavailable Liz Lawson LPN Unavailable Unavailable Unavailable Unavailable Go Watts Unavailable Maged Wright Unavailable Shannan Diamond LPN Unavailable Unavailable Peewee Courtney Unavailable Unavailable Brice DO, Sandra Unavailable Ajit Linares LPN Unavailable Unavailable Sandra Kebede DO Primary Care Provider TANA COOPER Attending Unavailable SANDRA KEBEDE Referring Unavailab SANDRA Reeves Primary Care Unavailab TANA Machado Attending Unavailable SANDRA KEBEDE Referring Unavailab SANDRA Reeves Primary Care Unavailab Blanca Bell Michael Unavailable Burton VETERINARY RADIOLOGIST, Kayela Unavailable Unavailable Unavailable Unavailable Adelaide VETERINARY RADIOLOGIST, Frances Unavailable Unavailable Elsa Hilario MA Unavailable Unavailable Brice DOSandra Attending Unavailable Brice DOSandra Referring Unavailable Brice DO, Sandra Consulting Unavailable Irene CHILD HEALTH ASSOCIATE, Daniel Unavailable Unavailable Brice DO, Sandra Unavailable [phone] [facility], He [facility] Unavailable Blanca Granados Unavailable Ortiz De Santiago MD Unavailable Adelaide VETERINARY RADIOLOGIST, Frances Unavailable Unavailable Amelie INTERIANO, Kayela Unavailable Unavailable Cross CHILD HEALTH ASSOCIATE, Liz Unavailable Unavailable Dara CHILD HEALTH ASSOCIATE, Shannan Unavailable Unavailable Unavailable Unavailable Allergies Allergy Classification Reported Allergen(s) Allergy Type Date of Onset Reaction(s) Facility (3 sources) Lisinopril Drug Allergy [facility] Work Phone: Medications Current Medications Medication Drug Class(es) Dates Sig (Normalized) Sig (Original) dapagliflozin 5 mg oral tablet (6 sources) Sodium-Glucose Cotransporter 2 Inhibitor Start: 01-29-2023 Completed/Discontinued Medications Medication Drug Class(es) Dates Sig (Normalized) Sig (Original) Accu-Chek Noemi Plus test strp (2 sources) Start: 08-06-2022 Problems Active Problems Problem Classification Problem Date Documented Date Episodic/Chronic Acute cerebrovascular disease (20 sources) Cerebrovascular accident; Translations: [CVA (cerebral vascular accident)] Resolved: 12-25-2021 01-04-2022 Chronic Past or Other Problems Problem Classification Problem Date Documented Date Episodic/Chronic Miscellaneous mental health disorders (11 sources) Confusional state; Translations: [Confusion] Resolved: 06-13-2020 04-15-2020 Chronic Nonmalignant breast conditions (20 sources) Mastodynia of left breast; Translations: [Breast pain, left] 12-03-2019 Osteoarthritis (3 sources) Osteoarthritis of left hip joint; Translations: [Osteoarthritis of left hip] Other connective tissue disease (20 sources) Tendinitis of right supraspinatus tendon; Translations: [Supraspinatus tendonitis, right] 12-11-2019 Unclassified (20 sources) Encounter for screening mammogram for breast cancer (Renamed from Encounter for screening mammogram for malignant neoplasm of breast); Translations: [Patient encounter status] 12-03-2019 Results Test Name Value Interpretation Reference Range Facil ity Vital Signs Date Time Vital Sign Value Performing Clinician Russell kirkpatrick 10-25-2022 09:38-0400 Body height 170.18 cm Sandra Brice DO Work Phone: [facility] Work Phone: Encounters Encounter Date Encounter Type Care Provider Facility Start: 11-14-2022 End: 11-14-2022 Office outpatient visit 5 minutes Sandra Brice DO Work Phone: [facility] Start: 10-25-2022 End: 10-25-2022 Patient encounter procedure Sandra Brice DO Work Phone: [facility] Start: 10-12-2022 End: 10-12-2022 Office outpatient visit 25 minutes Sandra Brice DO Work Phone: [facility] Start: 07-18-2022 End: 07-18-2022 Office outpatient visit 10 minutes Sandra Brice DO Work Phone: [facility] Start: 07-17-2022 Review Sandra Fearo n DO Work Phone: [facility] Start: 07-17-2022 ambulatory Sandra Brice DO [facility] Start: 07-12-2022 End: 07-12-2022 Office outpatient visit 40 minutes Sandra Brice DO Work Phone: [facility] Start: 07-12-2022 Review Sandra Fearo n DO Work Phone: [facility] Start: 07-10-2022 Review Sandra Fearo n DO Work Phone: [facility] Start: 04-23-2022 End: 04-23-2022 Phone Encounter Sandra Brice DO Work Phone: [facility] Start: 04-23-2022 End: 04-23-2022 Sandra Kebede DO Work Phone: [facility] Start: 04-04-2022 End: 04-04-2022 Office outpatient visit 25 minutes Sandra Kebede DO Work Phone: [facility] Start: 04-04-2022 Review Sandra garcia DO Work Phone: [facility] Start: 03-08-2022 End: 03-08-2022 ambulatory TANA COOPER Facility:[facility] Start: 03-08-2022 End: 03-08-2022 Patient encounter procedure Tana Cooper T RAIL TURNER.SOFTWARE PRODUCT MANAGER Work Phone: Urology Procedures Date Procedure Procedure Detail Performing Clinician Start: 01-23-2023 End: 01-23-2023 Procedure Note: See Note; NOTES: [facility] [address] [place] [id number] MR#: [id number] Acct: [id number] Name: MOLLY BOURGEOIS Rep #: [id number] : 1940 82 From: Arben Nettles MD Primary Care: Dr. Sandra Kebede, DO Status: REG CLI Referring Dr: Arben Nettles MD Sex: F C Stress Test Report Pharmacologic myocardial perfusion stress test. 82-year-old lady with a history of coronary artery disease Resting EKG demonstrates sinus rhythm with a left bundle branch block with a rate of 81 bpm. Resting blood pressure is 136/88 mmHg. 0.4 mg of regadenoson was infused per usual protocol followed by rapid intravenous saline flush injection. Continuous EKG monitoring was performed. The maximum heart rate was 101 bpm which was 73% of max impacted heart rate the maximum workload was 1 metabolic equivalent. At rest there were no ST or T wave changes noted to suggest ischemia and at peak infusion nonspecific ST changes were noted which did not meet the criteria for ischemia. No clinical angina is noted. The final blood pressure was 114/62 mmHg. Myocardial perfusion protocol. 13.0 mCi of technetium 99m sestamibi was injected at rest. 0.4 mg of regadenoson was infused per usual protocol. At peak infusion 43.2 mCi of technetium 99m sestamibi was injected stress images were obtained stress and rest images were reconstructed and compared in the short axis vertical long and horizontal long axis. Gated images were also obtained. Perfusion SPECT analysis: Review of the stress images demonstrate normal uptake of tracer noted in all areas of the myocardium. The resting images similar demonstrated normal uptake of tracer noted in all areas of the myocardium. No areas of reversibility are noted to suggest ischemia and no previous infarct is noted. Gated SPECT analysis: The gated ejection fraction is 63%. Conclusion: Normal pharmacologic myocardial perfusion stress test. Preserved ejection fraction. 01/23/231446 <Electronically signed by Arben Nettles MD> Date Arben Nettles MD CC: Dr. Arben Nettles MD; Dr. Sandra Kebede DO Date Dictated: 01/23/231444 Date Transcribed: 01/23/231444 Maple Sugar Maker: [place] Signed Sandra Kebede DO Work Phone: Start: 01-08-2023 End: 01-08-2023 Procedure Note: See Note; NOTES: [facility] [address] [place] [address]. [address] [place], [place] [id number] OFFICE VISIT Date of Service: 01/08/23 MR#: [id number] Acct: [id number] Name: MOLLY BOURGEOIS Rep #: [id number] : 1940 Provider: Dr. Arben Nettles MD Age/Sex: 82/F Location: [facility] Status: Signed [facility] History of Present Illness Details: MOLLY BOURGEOIS, is a 82 F who presented to the emergency room in October of 2021 with left arm numbness and tingling sensation.??? She had also complained of some back discomfort.???In the emergency room it was thought she was having a transient ischemic attack and had a series of neurological evaluations.??? Cardiac enzymes were noted to be abnormal.??? Her EKG did demonstrate T wave inversions in the inferior leads.??? Cardiology was called to see her on the basis of the abnormal troponins.???She underwent a cardiac catheterization on 11/14/2021 which demonstrated severe single-vessel disease involving the proximal right coronary artery and moderate nonobstructive disease noted in the left anterior descending artery. She underwent a RUSTAM to her proximal RCA. Her echocardiogram from 11/13/2021 demonstrated segmental dysfunction with preserved ejection fraction, an estimated ejection fraction of 55%. From the cardiac standpoint she appears to be doing quite well otherwise. She has not had any recent neck arm or jaw discomfort suggest angina no dizziness or diaphoresis no near syncope or syncope. Intake Vital Signs 03/02/22 14:36 06/14/22 10:30 01/08/23 09:58 Height 5 ft 7 in 5 ft 7 in 5 ft 7 in Weight: 180 lb 7 oz BMI 28.2 BP 120/80 121/76 H Blood Pressure Location Lt brachial Position Sitting Respiration 16 Pulse 79 Pulse Source Monitor Intake Visit Reasons: 9 M FU Leadership Program Associate Required: No Accompanied by: Daughter Is patient in pain?: No Allergies No Known Allergies Allergy (Verified 01/08/23 09:58) Medications allopurinol 100 mg tablet 100 mg PO DAILY gout 02/06/18 [History Confirmed 01/08/23] aspirin 81 mg tablet,delayed release 81 mg PO DAILY@0800 BLOOD THINNER 12/05/21 [History Confirmed 01/08/23] bethanechol chloride 10 mg tablet 20 mg PO DAILY BLADDER 12/05/21 [History Confirmed 01/08/23] clopidogrel 75 mg tablet 75 mg PO DAILY BLOOD THINNER. 12/05/21 [History Confirmed 01/08/23] cyanocobalamin (vitamin B-12) 2,500 mcg tablet 2,500 mcg PO QHS SUPPLEMENT 12/05/21 [History Confirmed 01/08/23] levothyroxine 75 mcg tablet (Euthyrox) 75 mcg PO DAILY THYROID 12/05/21 [History Confirmed 01/08/23] metoprolol tartrate 25 mg tablet 25 mg PO BID HEART 12/05/21 [History Confirmed 01/08/23] pravastatin 40 mg tablet 80 mg PO QHS CHOLESTEROL 12/05/21 [History Confirmed 01/08/23] semaglutide 1 mg/dose (4 mg/3 mL) subcutaneous pen injector (Ozempic) 2 mg subcut TU DM 12/05/21 [History Confirmed 01/08/23] amlodipine 2.5 mg tablet (Norvasc) 2.5 mg PO DAILY #90 tabs 03/02/22 [Rx Confirmed 01/08/23] cholecalciferol (vitamin D3) 50 mcg (2,000 unit) capsule 50 mcg PO BID SUPPLEMENT 01/08/23 [History Confirmed 01/08/23] dapagliflozin propanediol 5 mg tablet (Farxiga) 5 mg PO DAILY 01/08/23 [History Confirmed 01/08/23] losartan 100 mg tablet 100 mg PO DAILY 01/08/23 [History Confirmed 01/08/23] Ejection fraction %: 55 to [facility] Medical History Atherosclerosis of coronary artery without angina pectoris Chronic indwelling Costa catheter Essential hypertension Gout History of gout History of TIA (transient ischemic attack) (04/2020) History of type 2 diabetes mellitus Hypothyroidism Left breast lump Mastalgia in female Non-smoker Surgical History History of coronary artery stent placement (11/14/21) History of eye surgery History of thyroid surgery History of tonsillectomy History of tubal ligation Family History Mother Diabetes Father Heart disease Brother Heart disease Social History household members: other details: Vahid Sanchez Sr., Vahid Lizarraga Jr. housing: house Smoking Status: Never smoker alcohol intake: never substance use type: does not use what type of physical activity do you participate in: none do you feel safe at home: Yes ROS Const Const: Negative for fatigue, weakness, headache(s), daytime sleepiness or difficulty sleeping Eyes Eyes: Negative for change in vision ENT ENT: Negative for headache(s), dizziness or Nosebleed/epistaxis Cardio Chest Pain: No Palpitations: No Edema: None Resp Respiratory: Negative for SOB with activity, SOB at rest, SOB orthopnea SOB lying down or Cough GI GI: Negative nausea, vomiting or heartburn Neuro Neuro: Negative for dizziness, lightheadedness, near syncope, headache(s) or weakness Endo Endo: Negative for fatigue Cardiology Exam Const Appearance: cooperative and no acute distress Orientation: alert and oriented x3 Head Head: normal to inspection Ears: hearing grossly normal bilaterally Nose: external nose normal Face and Sinus: face symmetric Eyes General: appearance normal, both eyes and all related structures Eyelids: eyelids normal Conjunctivae: conjunctivae normal Pupils: PERRL and pupil size EOM: EOM intact bilaterally Neck Neck: normal visual inspection Carotids: Negative bruit Chest Chest inspection: normal inspection of the chest and normal respiratory effort Auscultation: Bilateral: Clear to Auscultation Cardio Palpation: normal PMI Rate: regular rate Rhythm: regular rhythm Heart sounds: S1 normal and S2 normal; Negative rub, gallop or murmur GI GI: normal to inspection and soft; Negative no hepatosplenomegaly Neuro General: patient alert, patient oriented x3 and CN's II-XI intact bilaterally Skin Skin: no rashes or lesions noted Extremities Pulses: Normal: Right Posterior Tibial Pulse, Left Posterior Tibial Pulse, Right Radial Pulse and Left Radial Pulse Lower Extremity Edema: None: Bilateral Psych Psychological: normal affect Supplemental Info Supplemental Information Echocardiogram 11/13/2021: Interpretation Summary The study was technically difficult. Contrast injection was performed. Segmental dysfunction with preserved ejection fraction (see wall motion). The estimated ejection fraction is 55 %. Septal motion consistent with IVCD. There is moderate mitral annular calcification. Extension of the mitral annular calcification on the base of the posterior mitral valve leaflet. Mild focal mitral valve calcification of the anterior leaflet. Moderate (2+) mitral valve insufficiency. Trivial tricuspid valve insufficiency. Mild diffuse aortic valve calcification. Right ventricular systolic pressure estimated to be 22 mmHg. Diastolic function is indeterminate. Cardiac catheterization 11/14/2021: PROCEDURE(S) PERFORMED DC01-(64485)LHC/COR/LV IC12-(95286/C9600)RUSTAM W/WO PTCA, SINGLE CORONARY ARTERY CLINICAL PROFILE AND INDICATIONS Indications: ACS <= 24 hrs Heart Failure: None Stress/Imaging Stress/Image Study Performed: No CONCLUSIONS Severe single-vessel disease involving the proximal right coronary artery and moderate nonobstructive disease noted in the left anterior descending artery. RECOMMENDATIONS Referred for immediate PCI CORONARY ANGIOGRAPHY DOMINANCE: Right Dominant LEFT HEART ASSESSMENT Left Ventricular Ejection Fraction: by LV Gram 50 % Inferior Mid Hypokinesis - Moderate Depressed Left Ventricular systolic function LEFT MAIN: Angiographically normal LEFT ANTERIOR DESCENDING ARTERY: Smallish vessel with 50% mid LAD stenosis CIRCUMFLEX ARTERY: No significant disease noted RIGHT CORONARY ARTERY: Large dominant vessel with proximal 99% stenosis with thrombus noted therein and the rest of the vessel unremarkable. Labs: No Data to Display Diagnostics: Electrocardiogram Chest X-Ray Pulmonary: No Data to Display Past Visits: Cardiology Visit 01/08/23 Assessment and Plan Assessment and Plan (1) Atherosclerosis of coronary artery without angina pectoris: Status: Chronic Plan: Patient has a history of coronary artery disease. Patient does continue with atypical chest discomfort. She will continue with her aspirin, clopidogrel, metoprolol and losartan in addition to her pravastatin. (2) History of coronary artery stent placement: Status: Chronic Comment: [id number] RCA w/ 3.5 x 22 mm [facility] Stent 11/14/2021 Plan: Patient has a history of coronary artery disease with recent stent placement to her proximal RCA on 11/14/2021. She appears stable at this time, and denies any recent symptoms or events. She will continue with her current medical therapy, along with aggressive risk factor and lifestyle modifications. (3) Essential hypertension: Status: Chronic Plan: Patient has a history of hypertension. Initially elevated upon recheck it is better controlled. Will not make any adjustments. (4) Hyperlipidemia: Status: Acute Plan: Patient will continue with high intensity statin. This is managed by her primary care doctor. Orders: Orders Nuclear Stress Test - Treadmil Today I25.10 - Atherosclerotic heart disease of [place] coronary artery without angina pectoris Plan Details Additional Comments: Thank you for allowing me to participate in the care of your patient. Please don't hesitate to call if any issues arise. This note was generated using a voice recognition system and there may be incorrect words, spelling, or punctuation that were not noted when reviewing the office note prior to saving. Portions of this documentation were copied and pasted from previous office visit notes to provide a cohesive continuity of the history. The note has been reviewed, edited, and updated, as necessary. Follow Up: 1 Year (mmm) Coding Level of Care Code Off vis,est,level 3 Diagnoses Atherosclerosis of coronary artery without angina pectoris I25.10 History of coronary artery stent placement Z95.5 Essential hypertension I10 Hyperlipidemia E78.5 Coding Level of Care Code Off vis,est,level 3 Diagnoses Atherosclerosis of coronary artery without angina pectoris I25.10 History of coronary artery stent placement Z95.5 Essential hypertension I10 Hyperlipidemia E78.5 01/08/23 1114 <Electronically signed by Arben Nettles MD> Date Arben Nettles MD Cosigner Signature: Date (if applicable) CC: DO Sandra Harvey DO Work Phone: Start: 07-12-2022 End: 07-12-2022 Shoulder min 2 Views Procedure Note: See Note; NOTES: [facility] Radiology [address] [place] [address] Shoulder min 2 Views MR#: [id number] Acct: [id number] Name: MOLLY BOURGEOIS Rep #: [id number] : 1940 F 81 From: Barry Barroso MD PCP: Dr. Sandra Kebede DO Status: DEP AMB Study: Shoulder min 2 Views Date of Exam: 07/12/22 Exam# [id number] Ordering Dr: Sandra Kebede DO STUDY: X-RAY - RIGHT SHOULDER REASON FOR EXAM: Female, 81 years old. Pain, decreased range of motion TECHNIQUE: 4 view(s) of the shoulder. COMPARISON: None. FINDINGS: There is moderate degenerative arthrosis of the glenohumeral articulation. There is degenerative arthrosis of the acromioclavicular joint without inferior osseous spur formation. Normal acromion. Normal humeral head and visualized proximal humerus. The soft tissue structures are unremarkable. Normal visualized pulmonary apex. RAD/Shoulder min 2 Views IMPRESSION: Degenerative arthrosis Electronically Signed: Orlando Barroso MD at 12:46 EDT Reading Location ID and State: [address] [place] [address] , Service support , CC: Dr. Sandra Kebede DO Maple Sugar Maker: Signed Sandra Kebede DO Work Phone: Start: 06-14-2022 End: 06-14-2022 Cardiology Visit Report Procedure Note: See Note; NOTES: [facility] [address] [place] [address] OFFICE VISIT Date of Service: 06/14/22 MR#: [id number] Acct: [id number] Name: MOLLY BOURGEOIS Rep #: [id number] : 1940 Provider: GERTRUDE Aleman Age/Sex: 81/F Location: [facility] Status: Signed HPI HPI History of Present Illness Details: MOLLY BOURGEOIS, is a 81 F who presented to the emergency room in October of 2021 with left arm numbness and tingling sensation.??? She had also complained of some back discomfort.???In the emergency room it was thought she was having a transient ischemic attack and had a series of neurological evaluations.??? Cardiac enzymes were noted to be abnormal.??? Her EKG did demonstrate T wave inversions in the inferior leads.??? Cardiology was called to see her on the basis of the abnormal troponins.???She underwent a cardiac catheterization on 11/14/2021 which demonstrated severe single-vessel disease involving the proximal right coronary artery and moderate nonobstructive disease noted in the left anterior descending artery. She underwent a RUSTAM to her proximal RCA. Her echocardiogram from 11/13/2021 demonstrated segmental dysfunction with preserved ejection fraction, an estimated ejection fraction of 55%. Pt is still having some atypical does have chest pain at night it lasts for a few seconds and goes away at rest and after a deep breath. She did complete cardiac rehab. She does not have any worsening SOB. She does not have any palpitations. She does not have any lightheadedness. She does not have any edema. Intake Vital Signs 03/02/22 14:36 06/01/22 02:15 06/14/22 10:29 06/14/22 10:30 Height 5 ft 7 in 5 ft 7 in 5 ft 7 in 5 ft 7 in Weight: 179 lb 0.246 oz 177 lb BMI 28.0 27.7 BP 159/97 H 151/96 H 120/80 Blood Pressure Location Lt brachial Position Sitting Respiration 23 H 18 Pulse 110 H 90 Pulse Source Monitor Temp 98.3 F Pulse Oximetry (%) 97 95 Intake Visit Reasons: 3 M FU Leadership Program Associate Required: No Is patient in pain?: No Allergies No Known Allergies Allergy (Verified 06/14/22 10:32) Medications allopurinol 100 mg tablet 100 mg PO DAILY gout 02/06/18 [History Confirmed 06/01/22] aspirin 81 mg tablet,delayed release 81 mg PO DAILY@0800 BLOOD THINNER 12/05/21 [History Confirmed 06/14/22] bethanechol chloride 10 mg tablet 20 mg PO DAILY BLADDER 12/05/21 [History Confirmed 06/01/22] cholecalciferol (vitamin D3) 50 mcg (2,000 unit) capsule 50 mcg PO DAILY SUPPLEMENT 12/05/21 [History Confirmed 06/01/22] clopidogrel 75 mg tablet 75 mg PO DAILY BLOOD THINNER. 12/05/21 [History Confirmed 06/14/22] cyanocobalamin (vitamin B-12) 2,500 mcg tablet 2,500 mcg PO QHS SUPPLEMENT 12/05/21 [History Confirmed 06/01/22] levothyroxine 75 mcg tablet (Euthyrox) 75 mcg PO DAILY THYROID 12/05/21 [History Confirmed 06/01/22] metoprolol tartrate 25 mg tablet 25 mg PO BID HEART 12/05/21 [History Confirmed 06/14/22] pravastatin 40 mg tablet 80 mg PO QHS CHOLESTEROL 12/05/21 [History Confirmed 06/14/22] semaglutide 1 mg/dose (4 mg/3 mL) subcutaneous pen injector (Ozempic) 2 mg subcut TU DM 12/05/21 [History Confirmed 06/01/22] amlodipine 2.5 mg tablet (Norvasc) 2.5 mg PO DAILY #90 tabs 03/02/22 [Rx Confirmed 06/14/22] losartan 100 mg tablet mg PO 06/14/22 [History Confirmed 06/14/22] Nurse's Note: Per patient, no changes in medications PFSH Medical History Atherosclerosis of coronary artery without angina pectoris Chronic indwelling Costa catheter Essential hypertension Gout History of gout History of TIA (transient ischemic attack) (04/2020) History of type 2 diabetes mellitus Hypothyroidism Left breast lump Mastalgia in female Non-smoker Surgical History History of coronary artery stent placement (11/14/21) History of eye surgery History of thyroid surgery History of tonsillectomy History of tubal ligation Family History Mother Diabetes Father Heart disease Brother Heart disease Social History household members: other details: Petra Lizarraga, Vahid Lizarraga Sr., Vahid Lizarraga Jr. housing: house Smoking Status: Never smoker alcohol intake: never substance use type: does not use what type of physical activity do you participate in: none do you feel safe at home: Yes ROS Const Const: Negative for fatigue, weakness, headache(s), frequent falls, excessive sweating, weight gain or weight loss Eyes Eyes: Negative for blind spots, loss of peripheral vision, transient loss of vision, blurry vision, change in vision or double vision ENT ENT: Negative for headache(s), dizziness, tinnitus, Nosebleed/epistaxis or balance problems Cardio Chest Pain: Yes Palpitations: No Edema: None Muscle aches with walking: None Resp Respiratory: Negative for SOB with activity, SOB at rest, SOB orthopnea SOB lying down or Cough GI GI: Negative nausea, vomiting, heartburn, bloating, vomiting blood/hematemesis, bright, red blood in stools or black,tarry stools : Negative for hematuria Musc Musc: Negative for muscle aches/ myalgia, muscle weakness, joint pain or balance problems Skin Skin: Negative rash or wounds Neuro Neuro: Negative for dizziness, lightheadedness, near syncope, syncope, orthostatic symptoms, frequent falls, headache(s), weakness, confusion, memory loss, restless legs, blurry vision or double vision Hayden Hematologic/Lymphatic: Negative for easy bleeding or easy bruising Endo Endo: Negative for fatigue, cold intolerance, heat intolerance or excessive sweating Psych Psych: Negative for anxiety or depression Allergy Allergy/Immunology: Negative for rash Cardiology Exam Const Appearance: cooperative and no acute distress Orientation: alert and oriented x3 Head Head: normal to inspection Ears: hearing grossly normal bilaterally Nose: external nose normal Face and Sinus: face symmetric Eyes General: appearance normal, both eyes and all related structures Eyelids: eyelids normal Conjunctivae: conjunctivae normal Pupils: PERRL and pupil size EOM: EOM intact bilaterally Neck Neck: normal visual inspection Carotids: Negative bruit Chest Chest inspection: normal inspection of the chest and normal respiratory effort Auscultation: Bilateral: Clear to Auscultation Cardio Palpation: normal PMI Rate: regular rate Rhythm: regular rhythm Heart sounds: S1 normal and S2 normal; Negative rub, gallop or murmur GI GI: normal to inspection and soft; Negative no hepatosplenomegaly Neuro General: patient alert, patient oriented x3 and CN's II-XI intact bilaterally Skin Skin: no rashes or lesions noted Extremities Pulses: Normal: Right Posterior Tibial Pulse, Left Posterior Tibial Pulse, Right Radial Pulse and Left Radial Pulse Lower Extremity Edema: None: Bilateral Psych Psychological: normal affect Supplemental Info Supplemental Information Echocardiogram 11/13/2021: Interpretation Summary The study was technically difficult. Contrast injection was performed. Segmental dysfunction with preserved ejection fraction (see wall motion). The estimated ejection fraction is 55 %. Septal motion consistent with IVCD. There is moderate mitral annular calcification. Extension of the mitral annular calcification on the base of the posterior mitral valve leaflet. Mild focal mitral valve calcification of the anterior leaflet. Moderate (2+) mitral valve insufficiency. Trivial tricuspid valve insufficiency. Mild diffuse aortic valve calcification. Right ventricular systolic pressure estimated to be 22 mmHg. Diastolic function is indeterminate. Cardiac catheterization 11/14/2021: PROCEDURE(S) PERFORMED DC01-(75232)LHC/COR/LV IC12-(33069/C9600)RUSTAM W/WO PTCA, SINGLE CORONARY ARTERY CLINICAL PROFILE AND INDICATIONS Indications: ACS <= 24 hrs Heart Failure: None Stress/Imaging Stress/Image Study Performed: No CONCLUSIONS Severe single-vessel disease involving the proximal right coronary artery and moderate nonobstructive disease noted in the left anterior descending artery. RECOMMENDATIONS Referred for immediate PCI DESCRIPTION OF PROCEDURE The patient arrived to the procedure lab. The risks and benefits of the procedure as well as a full description of our services here and current unavailability of surgical backup were fully explained to the patient and/or their significant other prior to the catheterization. The Timeout was completed, verifying the correct patient and procedure. The patient's procedural site was prepped and draped in the usual fashion. Local anesthetic was given subcutaneously to right radial region with Lidocaine 2%. Using a modified Seldinger technique, Right Coronary Artery selective angiography was then performed in multiple views using a 5 Fr. 4.0 [place] catheter. Left Coronary Artery selective angiography was performed in multiple views using a 5 Fr. 4.0 [place] catheter. CORONARY ANGIOGRAPHY DOMINANCE: Right Dominant LEFT HEART ASSESSMENT Left Ventricular Ejection Fraction: by LV Gram 50 % Inferior Mid Hypokinesis - Moderate Depressed Left Ventricular systolic function LEFT MAIN: Angiographically normal LEFT ANTERIOR DESCENDING ARTERY: Smallish vessel with 50% mid LAD stenosis CIRCUMFLEX ARTERY: No significant disease noted RIGHT CORONARY ARTERY: Large dominant vessel with proximal 99% stenosis with thrombus noted therein and the rest of the vessel unremarkable. Labs: No Data to Display Diagnostics: Electrocardiogram Chest X-Ray Pulmonary: No Data to Display Past Visits: No Data to Display Assessment and Plan Assessment and Plan (1) Atherosclerosis of coronary artery without angina pectoris: Status: Chronic Plan: Patient has a history of coronary artery disease. Patient does continue with atypical chest discomfort. She will continue with her aspirin, clopidogrel, metoprolol and losartan in addition to her pravastatin. (2) History of coronary artery stent placement: Status: Chronic Comment: CTZ-[id number]-Xrsz RCA w/ 3.5 x 22 mm [facility] Stent 11/14/2021 Plan: Patient has a history of coronary artery disease with recent stent placement to her proximal RCA on 11/14/2021. She appears stable at this time, and denies any recent symptoms or events. She will continue with her current medical therapy, along with aggressive risk factor and lifestyle modifications. (3) Essential hypertension: Status: Chronic Plan: Patient has a history of hypertension. Initially elevated upon recheck it is better controlled. Will not make any adjustments. (4) Hyperlipidemia: Status: Acute Plan: Patient will continue with high intensity statin. This is managed by her primary care doctor. Plan Details Additional Comments: Thank you for allowing me to participate in the care of your patient. Please don't hesitate to call if any issues arise. This note was generated using a voice recognition system and there may be incorrect words, spelling, or punctuation that were not noted when reviewing the office note prior to saving. Portions of this documentation were copied and pasted from previous office visit notes to provide a cohesive continuity of the history. The note has been reviewed, edited, and updated, as necessary. Follow Up: 06/14/22 (keep as is) Coding Level of Care Code Off vis,est,level 3 Diagnoses Atherosclerosis of coronary artery without angina pectoris I25.10 History of coronary artery stent placement Z95.5 Essential hypertension I10 Hyperlipidemia E78.5 Coding Level of Care Code Off vis,est,level 3 Diagnoses Atherosclerosis of coronary artery without angina pectoris I25.10 History of coronary artery stent placement Z95.5 Essential hypertension I10 Hyperlipidemia E78.5 06/14/22 1104 <Electronically signed by Nicole Su> Date Nicole LOREDO Cosigner Signature: Date (if applicable) CC: DO Sandra Harvey DO Work Phone: Start: 06-01-2022 End: 06-01-2022 Emergency Department Summary Procedure Note: See Note; NOTES: [facility] Medical Records Department [address] [place] [address] Emergency Department Summary 06/01/22 MR#: [id number] Acct: [id number] Name: MOLLY BOURGEOIS Rep #: [id number] : 1940 81 From: Awais Avilez DO PCP: Dr. Sandra Kebede DO Status:[facility] ER Location: ED HPI History of Present Illness Chief Complaint: Chest Pain Narrative Narrative: Patient is an 81-year-old female with past medical history of hypertension and previous KS requiring stent placement in October 2021. She states she has been doing well but that this evening she had 3 separate occasions where she had sharp midsternal chest pain lasting for only a few seconds that resolved with a deep breath. She states that there was no associated nausea vomiting diaphoresis or shortness of breath associated with this symptom. She denies any recent trauma or excessive activity. She denies any recent travel surgery or history of DVT/PE. However as she had this happen on 3 separate occasions and does have a history of KS was concerned this could be cardiac in nature and therefore comes to the hospital for evaluation [facility] Medical History Atherosclerosis of coronary artery without angina pectoris Chronic indwelling Costa catheter Essential hypertension Gout History of gout History of TIA (transient ischemic attack) (04/2020) History of type 2 diabetes mellitus Hypothyroidism Left breast lump Mastalgia in female Non-smoker Home Medications allopurinol 100 mg tablet 100 mg PO DAILY gout 02/06/18 [History Last Taken 12/05/21] aspirin 81 mg tablet,delayed release 81 mg PO DAILY@0800 BLOOD THINNER 12/05/21 [History Last Taken 12/05/21] bethanechol chloride 10 mg tablet 20 mg PO DAILY BLADDER 12/05/21 [History Last Taken 12/05/21] cholecalciferol (vitamin D3) 50 mcg (2,000 unit) capsule 50 mcg PO DAILY SUPPLEMENT 12/05/21 [History Last Taken 12/05/21] clopidogrel 75 mg tablet 75 mg PO DAILY BLOOD THINNER. 12/05/21 [History Last Taken 12/05/21] cyanocobalamin (vitamin B-12) 2,500 mcg tablet 2,500 mcg PO QHS SUPPLEMENT 12/05/21 [History Last Taken 12/04/21] levothyroxine 75 mcg tablet (Euthyrox) 75 mcg PO DAILY THYROID 12/05/21 [History Last Taken 12/05/21] metoprolol tartrate 25 mg tablet 25 mg PO BID HEART 12/05/21 [History Last Taken 12/05/21] pravastatin 40 mg tablet 80 mg PO QHS CHOLESTEROL 12/05/21 [History Last Taken 12/04/21] semaglutide 1 mg/dose (4 mg/3 mL) subcutaneous pen injector (Ozempic) 2 mg subcut TU DM 12/05/21 [History Last Taken 12/05/21] amlodipine 2.5 mg tablet (Norvasc) 2.5 mg PO DAILY #90 tabs 03/02/22 [Rx Last Taken Unknown] losartan 50 mg tablet 100 mg PO DAILY BP 03/02/22 [History Last Taken Unknown] Allergy/AdvReac Type Severity Reaction Status Date / Time No Known Allergies Allergy Verified 06/01/22 02:20 Family History Mother Diabetes Father Heart disease Brother Heart disease Surgical History History of coronary artery stent placement (11/14/21) History of eye surgery History of thyroid surgery History of tonsillectomy History of tubal ligation Social History household members: other details: Vahid Sanchez Sr., Vahid Lizarraga Jr. housing: house Smoking Status: Never smoker alcohol intake: never substance use type: does not use what type of physical activity do you participate in: none do you feel safe at home: Yes ROS ROS ED Constitutional Constitutional ED: Denies chills or fever(s) ENT ENT ED: Denies sore throat Cardiovascular Cardiovascular: Reports chest pain; Denies palpitations or racing heartbeat Respiratory/Chest Respiratory/Chest: Denies cough or dyspnea Gastrointestinal Gastrointestinal: Denies abdominal pain, diarrhea, nausea or vomiting Genitourinary Genitourinary ED: Denies dysuria Musculoskeletal Musculoskeletal: Denies back pain, myalgias or neck pain Integumentary Denies rash Neurologic Neurologic: Denies headache(s) Hematologic/Lymphatic Hematologic/Lymphatic: Reports easy bleeding and easy bruising EXAM Physical Exam Const Vital Signs: 06/01/22 02:15 06/01/22 02:22 06/01/22 03:38 Temperature 98.3 F Temperature Source Oral Pulse Rate 110 H Respiratory Rate 23 H Respiratory Effort Normal Non-Labored Blood Pressure 159/97 H 141/83 H Blood Pressure Mean 117 102 Pulse Ox 97 Oxygen Delivery Method Room Air Positive well nourished and well developed General Appearance ED: well developed HEENT Reports moist mucous membranes Eyes PERRL and EOMs intact bilaterally Neck supple and no JVD Chest Wall palpation of chest normal Chest Narrative: No bony deformity or crepitance noted Resp normal respiratory effort and clear to auscultation bilaterally Cardio regular rate and regular rhythm Rate: other Other Details: Radial pulses are plus 2 out of 4 bilaterally are equal and symmetric Carotid pulses equal and symmetric as well GI normal to inspection, nondistended, normoactive bowel sounds, non-tender, non-distended and no masses GI Narrative: No voluntary guarding or rigidity no pulsatile mass or fluid wave Auscultation: normoactive bowel sounds Palpation: soft Extremity normal to inspection Extremity Narrative: No asymmetric edema no pitting edema negative Homans' sign bilateral Neuro oriented x3 and CN's II-XII intact bilaterally Sensorium / Orientation: alert Psych mental status grossly normal Skin no rashes or lesions noted MDM MDM MDM Narrative Medical decision making narrative: Patient presented to the ER hypertensive but has a past medical history of this and otherwise had stable vital. Her complaint of sharp midsternal chest pain that resolved with a deep inspiration is not classic cardiac pain but because she has a known history of CAD this is possible. It is also possible she has some type of acute lung pathology such as a pneumothorax or pneumonia or even had an esophageal spasm or intercostal muscle spasm as a cause of her pain. Basic blood work was obtained which showed no clinically significant finding. Her initial troponin was normal and her 2- hour delta changed by one-point to a value of 8 which is not clinically significant. Chest x-ray also showed no acute lung pathology. Patient was pain-free upon arrival and remained pain-free for her entire ER stay. Therefore at this time as work-up reveals no signs of active cardiac damage and she has no signs of endorgan damage from hypertension and pain has been resolved since arrival she is otherwise safe for discharge History Record Review Discussion w/independent historian: Patient Lab Data Attestation: I reviewed the patient's lab results. Labs: Laboratory Results - last 24 hr 06/01/22 06/01/22 06/01/22 02:20 02:20 04:22 WBC 10.7 RBC 4.70 Hgb 15.3 H Hct 45.4 MCV 96.6 MCH 32.6 H MCHC 33.7 RDW Std Deviation 45.0 H RDW Coeff of Shalom 12.8 Plt Count 281 MPV 10.8 Immature Gran % (Auto) 0.600 Neut % (Auto) 85.4 H Lymph % (Auto) 9.3 L [place] % (Auto) 3.6 Eos % (Auto) 0.7 Baso % (Auto) 0.4 Absolute Neuts (auto) 9.2 H Absolute Lymphs (auto) 1.00 Nucleated RBC % 0 Sodium 137 Potassium 3.9 Chloride 101 Carbon Dioxide 27.0 Anion Gap 9 BUN 19 H Creatinine 1.42 H Estim Creat Clear Calc 30.22 Est GFR (MDRD) Af Amer 46 L Est GFR (MDRD) Non-Af 38 L BUN/Creatinine Ratio 13.4 Glucose 224 H Calcium 9.0 Magnesium 2.0 Troponin I High Sens 7 8 Radiography Diagnostic Testing: Clinical Impression(s) from Imaging Studies Chest X-Ray 06/01/22 02:27 IMPRESSION: No radiographic evidence of acute cardiopulmonary disease. Electronically Signed: Owen Ambriz MD at 2:47 EST , Chest x-ray as interpreted by the emergency medicine physician reveals no acute infiltrate pneumothorax or pleural effusion Discharge Plan Triage Chief Complaint: Chest Pain ED Provider: Awais Avilez Dx/Rx/DC Orders Clinical Impression: Nonspecific chest pain, History of coronary artery stent placement, Essential hypertension Instructions: ED Chest Pain, Uncertain Cause Prescriptions: No Action allopurinol 100 mg tablet 100 mg PO DAILY amlodipine [Norvasc] 2.5 mg tablet 2.5 mg PO DAILY Qty: 90 3RF pravastatin 40 mg tablet 80 mg PO QHS Label Comments: TAKE 2 TABLETS BY MOUTH EVERY DAY AT BEDTIME bethanechol chloride 10 mg tablet 20 mg PO DAILY levothyroxine [Euthyrox] 75 mcg tablet 75 mcg PO DAILY Label Comments: TAKE 1 TABLET BY MOUTH ONCE DAILY cholecalciferol (vitamin D3) 50 mcg (2,000 unit) Capsule 50 mcg PO DAILY cyanocobalamin (vitamin B-12) 2,500 mcg Tablet 2,500 mcg PO QHS Ozempic 1 mg/dose (4 mg/3 mL) pen injector 2 mg SUBCUT TU clopidogrel 75 mg tablet 75 mg PO DAILY aspirin 81 mg tablet,delayed release (DR/EC) 81 mg PO DAILY@0800 metoprolol tartrate 25 mg tablet 25 mg PO BID losartan 50 mg tablet 100 mg PO DAILY Primary Care Provider: Sandra Kebede Referrals: Sandra Kebede DO [Primary Care Provider] - Activity Restrictions/Additional Instructions: Your work-up today did not show any signs of heart damage. Continue your medications as directed by your doctor and return to the ER should you have any further concerns Disposition Disposition: Home, Self Care What to do if you have Problems For any increased pain, shortness of breath, bleeding, nausea or vomiting, chest pain, or any unexpected problems, contact your Primary Care Provider. Call [facility] ([phone]) or report to the closest Emergency Room. Call 911 if necessary. 06/01/22 5508 <Electronically signed by Awais Avilez DO> Cosigner Signature (if applicable): CC: Dr. Sandra Kebede DO Signed Sandra Kebede DO Work Phone: Start: 06-01-2022 End: 06-04-2022 12 Lead EKG Procedure Note: See Note; NOTES: [facility] Cardiovascular Services [address] [place] [id number] 12 Lead EKG 06/01/22 0210 MR#: [id number] Acct: [id number] Name: MOLLY BOURGEOIS Rep #: [id number] : 1940 81 From: Pilo Gibson MD Attending Dr: Status: DEP ER Ordering Dr: Awais Avilez DO Date: 06/01/22 Location: ED Sex: F C Admitted: Test Reason : CP Blood Pressure : / mmHG Vent. Rate : 107 BPM Atrial Rate : 107 BPM P-R Int : 184 ms QRS Dur : 116 ms QT Int : 352 ms P-R-T Axes : 050 -32 132 degrees QTc Int : 469 ms Sinus tachycardia Left axis deviation Incomplete left bundle branch block Abnormal ECG Confirmed by MITCHELL WILSON, PILO ([id number]), editor index FABIAN GOEL ([id number]) on 06/04/2022 11:21:54 AM Referred By: CHELSY Confirmed By:PILO GIBSON MD 06/04/22 1121 Date Pilo Gibson MD CC: Dr. Sandra Kebede DO; Awais Avilez DO Signed Sandra Kebede DO Work Phone: Start: 06-01-2022 End: 06-01-2022 Chest PA and Lateral Procedure Note: See Note; NOTES: [facility] Imaging Services [address] [place] [address] Chest PA and Lateral MR#: [id number] Acct: [id number] Name: MOLLY BOURGEOIS Rep #: [id number] : 1940 F 81 From: Owen Munoz PCP: Dr. Sandra Kebede DO Status: REG ER Study: Chest PA and Lateral Date of Exam: 06/01/22 Exam# [id number] Ordering Dr: Awais Avilez DO INDICATION: chest pain EXAMINATION/TECHNIQUE: X-RAY - XR Chest 2 Views COMPARISON: None. FINDINGS: LINES/DEVICES: None. LUNGS: No consolidation, edema or effusion. No pneumothorax. MEDIASTINUM AND CARDIOVASCULAR STRUCTURES: Cardiac silhouette not enlarged. Central airways and mediastinal contour are unremarkable. BONES AND SOFT TISSUES: Dextroscoliosis of the thoracic spine. RAD/Chest PA and Lateral IMPRESSION: No radiographic evidence of acute cardiopulmonary disease. Electronically Signed: Owen Ambriz MD at 2:47 EST Reading Location ID and State: [facility] / [place] Tel , Service support , CC: Dr. Sandra Kebede DO; Awais Avilez DO Maple Sugar Maker: Signed Sandra Kebede DO Work Phone: Start: 03-08-2022 Urnls dip stick/tablet rgnt auto w/o microscopy Tana Cooper APRN.SOFTWARE PRODUCT MANAGER Work Phone: Start: 03-02-2022 End: 03-02-2022 Cardiology Visit Report Procedure Note: See Note; NOTES: [facility] [address] [place], [place] [address] OFFICE VISIT Date of Service: 03/02/22 MR#: [id number] Acct: [id number] Name: MOLLY BOURGEOIS Rep #: [id number] : 1940 Provider: GERTRUDE Aleman Age/Sex: 81/F Location: [facility] [place] Status: Signed HPI HPI History of Present Illness Details: MOLLY BOURGEOIS, is a 81 F who presented to the emergency room in October of 2021 with left arm numbness and tingling sensation.??? She had also complained of some back discomfort.???In the emergency room it was thought she was having a transient ischemic attack and had a series of neurological evaluations.??? Cardiac enzymes were noted to be abnormal.??? Her EKG did demonstrate T wave inversions in the inferior leads.??? Cardiology was called to see her on the basis of the abnormal troponins.???She underwent a cardiac catheterization on 11/14/2021 which demonstrated severe single-vessel disease involving the proximal right coronary artery and moderate nonobstructive disease noted in the left anterior descending artery. She underwent a RUSTAM to her proximal RCA. Her echocardiogram from 11/13/2021 demonstrated segmental dysfunction with preserved ejection fraction, an estimated ejection fraction of 55%. pt does have chest pain at night it lasts for a few seconds and goes away at rest. She does have some discomfort during the day that goes away after a few seconds. She has been in the ER twice for this. She does go to cardiac rehab and does not have any issues with this. She does not have any palpitations. She does not have any lightheadedness. She does not have any edema. Intake Vital Signs 12/08/21 11:04 02/21/22 19:16 03/02/22 14:36 03/02/22 14:36 Height 5 ft 7 in 5 ft 7 in 5 ft 7 in 5 ft 7 in Weight: 173 lb BMI 27.1 BP 138/83 H Blood Pressure Location Lt brachial Position Sitting Respiration 18 Pulse 80 Pulse Source Monitor Pulse Oximetry (%) 10 Intake Visit Reasons: 3 M FU Leadership Program Associate Required: No Is patient in pain?: No Allergies No Known Allergies Allergy (Verified 03/02/22 14:37) Medications allopurinol 100 mg tablet 100 mg PO DAILY gout 02/06/18 [History Confirmed 03/02/22] aspirin 81 mg tablet,delayed release 81 mg PO DAILY@0800 BLOOD THINNER 12/05/21 [History Confirmed 03/02/22] bethanechol chloride 10 mg tablet 20 mg PO DAILY BLADDER 12/05/21 [History Confirmed 03/02/22] cholecalciferol (vitamin D3) 50 mcg (2,000 unit) capsule 50 mcg PO DAILY SUPPLEMENT 12/05/21 [History Confirmed 03/02/22] clopidogrel 75 mg tablet 75 mg PO DAILY BLOOD THINNER. 12/05/21 [History Confirmed 03/02/22] cyanocobalamin (vitamin B-12) 2,500 mcg tablet 2,500 mcg PO QHS SUPPLEMENT 12/05/21 [History Confirmed 03/02/22] levothyroxine 75 mcg tablet (Euthyrox) 75 mcg PO DAILY THYROID 12/05/21 [History Confirmed 03/02/22] metoprolol tartrate 25 mg tablet 25 mg PO BID HEART 12/05/21 [History Confirmed 03/02/22] pravastatin 40 mg tablet 80 mg PO QHS CHOLESTEROL 12/05/21 [History Confirmed 03/02/22] semaglutide 1 mg/dose (4 mg/3 mL) subcutaneous pen injector (Ozempic) 1 mg subcut TU DM 12/05/21 [History Confirmed 03/02/22] amlodipine 2.5 mg tablet (Norvasc) 2.5 mg PO DAILY #90 tabs 03/02/22 [Rx Confirmed 03/02/22] losartan 50 mg tablet 100 mg PO DAILY BP 03/02/22 [History Confirmed 03/02/22] PFSH Medical History Atherosclerosis of coronary artery without angina pectoris Chronic indwelling Costa catheter Essential hypertension Gout History of gout History of TIA (transient ischemic attack) (04/2020) History of type 2 diabetes mellitus Hypothyroidism Left breast lump Mastalgia in female Non-smoker Surgical History History of coronary artery stent placement (11/14/21) History of eye surgery History of thyroid surgery History of tonsillectomy History of tubal ligation Family History Mother Diabetes Father Heart disease Brother Heart disease Social History household members: other details: Vahid Sanchez Sr., Vahid Lizarraga Jr. housing: house Smoking Status: Never smoker alcohol intake: never substance use type: does not use what type of physical activity do you participate in: none do you feel safe at home: Yes ROS Const Const: Negative for fatigue, weakness, headache(s), frequent falls, excessive sweating, weight gain or weight loss Eyes Eyes: Negative for blind spots, loss of peripheral vision, transient loss of vision, blurry vision, change in vision or double vision ENT ENT: Negative for headache(s), dizziness, tinnitus, Nosebleed/epistaxis or balance problems Cardio Chest Pain: Yes Palpitations: No Edema: None Muscle aches with walking: None Resp Respiratory: Negative for SOB with activity, SOB at rest, SOB orthopnea SOB lying down or Cough GI GI: Negative nausea, vomiting, heartburn, bloating, vomiting blood/hematemesis, bright, red blood in stools or black,tarry stools : Negative for hematuria Musc Musc: Negative for muscle aches/ myalgia, muscle weakness, joint pain or balance problems Skin Skin: Negative rash or wounds Neuro Neuro: Negative for dizziness, lightheadedness, near syncope, syncope, orthostatic symptoms, frequent falls, headache(s), weakness, confusion, memory loss, restless legs, blurry vision or double vision [place] Hematologic/Lymphatic: Negative for easy bleeding or easy bruising Endo Endo: Negative for fatigue, cold intolerance, heat intolerance or excessive sweating Psych Psych: Negative for anxiety or depression Allergy Allergy/Immunology: Negative for rash Cardiology Exam Const Appearance: cooperative and no acute distress Orientation: alert and oriented x3 Head Head: normal to inspection Ears: hearing grossly normal bilaterally Nose: external nose normal Face and Sinus: face symmetric Eyes General: appearance normal, both eyes and all related structures Eyelids: eyelids normal Conjunctivae: conjunctivae normal Pupils: PERRL and pupil size EOM: EOM intact bilaterally Neck Neck: normal visual inspection Carotids: Negative bruit Chest Chest inspection: normal inspection of the chest and normal respiratory effort Auscultation: Bilateral: Clear to Auscultation Cardio Palpation: normal PMI Rate: regular rate Rhythm: regular rhythm Heart sounds: S1 normal and S2 normal; Negative rub, gallop or murmur GI GI: normal to inspection and soft; Negative no hepatosplenomegaly Neuro General: patient alert, patient oriented x3 and CN's II-XI intact bilaterally Skin Skin: no rashes or lesions noted Extremities Pulses: Normal: Right Posterior Tibial Pulse, Left Posterior Tibial Pulse, Right Radial Pulse and Left Radial Pulse Lower Extremity Edema: None: Bilateral Psych Psychological: normal affect Supplemental Info Supplemental Information Echocardiogram 11/13/2021: Interpretation Summary The study was technically difficult. Contrast injection was performed. Segmental dysfunction with preserved ejection fraction (see wall motion). The estimated ejection fraction is 55 %. Septal motion consistent with IVCD. There is moderate mitral annular calcification. Extension of the mitral annular calcification on the base of the posterior mitral valve leaflet. Mild focal mitral valve calcification of the anterior leaflet. Moderate (2+) mitral valve insufficiency. Trivial tricuspid valve insufficiency. Mild diffuse aortic valve calcification. Right ventricular systolic pressure estimated to be 22 mmHg. Diastolic function is indeterminate. Cardiac catheterization 11/14/2021: PROCEDURE(S) PERFORMED DC01-(23015)LHC/COR/LV IC12-(84499/C9600)RUSTAM W/WO PTCA, SINGLE CORONARY ARTERY CLINICAL PROFILE AND INDICATIONS Indications: ACS <= 24 hrs Heart Failure: None Stress/Imaging Stress/Image Study Performed: No CONCLUSIONS Severe single-vessel disease involving the proximal right coronary artery and moderate nonobstructive disease noted in the left anterior descending artery. RECOMMENDATIONS Referred for immediate PCI DESCRIPTION OF PROCEDURE The patient arrived to the procedure lab. The risks and benefits of the procedure as well as a full description of our services here and current unavailability of surgical backup were fully explained to the patient and/or their significant other prior to the catheterization. The Timeout was completed, verifying the correct patient and procedure. The patient's procedural site was prepped and draped in the usual fashion. Local anesthetic was given subcutaneously to right radial region with Lidocaine 2%. Using a modified Seldinger technique, Right Coronary Artery selective angiography was then performed in multiple views using a 5 Fr. 4.0 [place] catheter. Left Coronary Artery selective angiography was performed in multiple views using a 5 Fr. 4.0 [place] catheter. CORONARY ANGIOGRAPHY DOMINANCE: Right Dominant LEFT HEART ASSESSMENT Left Ventricular Ejection Fraction: by LV Gram 50 % Inferior Mid Hypokinesis - Moderate Depressed Left Ventricular systolic function LEFT MAIN: Angiographically normal LEFT ANTERIOR DESCENDING ARTERY: Smallish vessel with 50% mid LAD stenosis CIRCUMFLEX ARTERY: No significant disease noted RIGHT CORONARY ARTERY: Large dominant vessel with proximal 99% stenosis with thrombus noted therein and the rest of the vessel unremarkable. Labs: LDL Cholesterol 72 mg/dL (0-130) HDL Cholesterol 53 mg/dL (40-) Triglycerides 118 mg/dL (-199) VLDL Cholesterol 24 mg/dL (5-40) Diagnostics: Electrocardiogram Echocardiogram Stress Test NM Stress Test Cardiac Catheterization Chest X-Ray Pulmonary: No Data to Display Assessment and Plan Assessment and Plan (1) Atherosclerosis of coronary artery without angina pectoris: Status: Chronic Plan: Patient has a history of coronary artery disease. Patient does have atypical chest discomfort. However concerned that this could be related to small vessel disease. We will go ahead and start her on a low-dose of Norvasc. She will continue with her aspirin, clopidogrel, metoprolol and losartan in addition to her pravastatin. (2) History of coronary artery stent placement: Status: Chronic Comment: [id number] RCA w/ 3.5 x 22 mm [facility] Stent 11/14/2021 Plan: Patient has a history of coronary artery disease with recent stent placement to her proximal RCA on 11/14/2021. She appears stable at this time, and denies any recent symptoms or events. She will continue with her current medical therapy, along with aggressive risk factor and lifestyle modifications. She will continue with her cardiac rehab evaluation on 12/25/2021. (3) Essential hypertension: Status: Chronic Plan: Patient has a history of hypertension. Her blood pressure is well controlled at this time. She will continue losartan 50 mg twice daily, and metoprolol tartrate 25 mg twice daily. With her atypical chest discomfort I am adding a small dose of Norvasc. Do feel that patient's blood pressure can tolerate this. Medications: New amlodipine (Norvasc) 2.5 mg PO DAILY 90 tabs 3RF Patient Instructions: I am starting you on a small dose of Norvasc, this is a blood pressure medication that may help with that chest discomfort that you are having. Plan Details Additional Comments: Thank you for allowing me to participate in the care of your patient. Please don't hesitate to call if any issues arise. This note was generated using a voice recognition system and there may be incorrect words, spelling, or punctuation that were not noted when reviewing the office note prior to saving. Portions of this documentation were copied and pasted from previous office visit notes to provide a cohesive continuity of the history. The note has been reviewed, edited, and updated, as necessary. 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 COVER FITTER) Coding Level of Care Code Off vis,est,level 4 Diagnoses Atherosclerosis of coronary artery without angina pectoris I25.10 History of coronary artery stent placement Z95.5 Essential hypertension I10 Coding Level of Care Code Off vis,est,level 4 Diagnoses Atherosclerosis of coronary artery without angina pectoris I25.10 History of coronary artery stent placement Z95.5 Essential hypertension I10 03/02/22 1557 <Electronically signed by Nicole Su> Date [facility] Signature: Date (if applicable) CC: DO Sandra Harvey DO Work Phone: Start: 02-21-2022 End: 02-21-2022 Emergency Department Summary Procedure Note: See Note; NOTES: [facility] Medical Records Department [address] [place] [address] Emergency Department Summary 02/21/22 MR#: [id number] Acct: [id number] Name: MOLLY BOURGEOIS Rep #: [id number] : 1940 81 From: Polina LOREDO PCP: Dr. Sandra Kebede DO Status:DEP ER Location: ED HPI <GERTRUDE Elizabeth - Last Filed: 02/21/22 21:46> History of Present Illness Chief Complaint: Chest Pain Narrative Narrative: Patient presents today with her daughter. She states that earlier this evening she began to have a sharp pain in the back of her neck that then moved to her upper back. The pain then moved from the upper back to the left side of her chest and then shortly after, moved to the right side of her chest. The pain then went away for several minutes and reappeared again in her back. Currently, she states she is feeling the pain on the right side of her chest. Patient states her daughter wanted her to come get checked out due to having stents placed in October 2021 after an [place]. She denies shortness of breath, difficulty breathing, left arm pain, nausea, vomiting, and diarrhea. [facility] <GERTRUDE Elizabeth - Last Filed: 02/21/22 21:46> [facility] Medical History Atherosclerosis of coronary artery without angina pectoris Chronic indwelling Costa catheter Essential hypertension Gout History of gout History of TIA (transient ischemic attack) (04/2020) History of type 2 diabetes mellitus Hypothyroidism Left breast lump Mastalgia in female Non-smoker Home Medications allopurinol 100 mg tablet 100 mg PO DAILY gout 02/06/18 [History Last Taken 12/05/21] aspirin 81 mg tablet,delayed release 81 mg PO DAILY@0800 BLOOD THINNER 12/05/21 [History Last Taken 12/05/21] bethanechol chloride 10 mg tablet 20 mg PO DAILY BLADDER 12/05/21 [History Last Taken 12/05/21] cholecalciferol (vitamin D3) 50 mcg (2,000 unit) capsule 50 mcg PO DAILY SUPPLEMENT 12/05/21 [History Last Taken 12/05/21] clopidogrel 75 mg tablet 75 mg PO DAILY BLOOD THINNER. 12/05/21 [History Last Taken 12/05/21] cyanocobalamin (vitamin B-12) 2,500 mcg tablet 2,500 mcg PO QHS SUPPLEMENT 12/05/21 [History Last Taken 12/04/21] levothyroxine 75 mcg tablet (Euthyrox) 75 mcg PO DAILY THYROID 12/05/21 [History Last Taken 12/05/21] losartan 50 mg tablet 50 mg PO BID BP 12/05/21 [History Last Taken 12/05/21] metoprolol tartrate 25 mg tablet 25 mg PO BID HEART 12/05/21 [History Last Taken 12/05/21] pravastatin 40 mg tablet 80 mg PO QHS CHOLESTEROL 12/05/21 [History Last Taken 12/04/21] semaglutide 1 mg/dose (4 mg/3 mL) subcutaneous pen injector (Ozempic) 1 mg subcut TU DM 12/05/21 [History Last Taken 12/05/21] Allergy/AdvReac Type Severity Reaction Status Date / Time No Known Allergies Allergy Verified 02/21/22 19:16 Family History Mother Diabetes Father Heart disease Brother Heart disease Surgical History History of coronary artery stent placement (11/14/21) History of eye surgery History of thyroid surgery History of tonsillectomy History of tubal ligation Social History household members: other details: Petra Lizarraga, Vahid Lizarraga Sr., Vahid Lizarraga Jr. housing: house Smoking Status: Never smoker alcohol intake: never substance use type: does not use what type of physical activity do you participate in: none do you feel safe at home: Yes ROS <GERTRUDE Elizabeth - Last Filed: 02/21/22 21:46> ROS ED Constitutional Constitutional ED: Denies chills, fever(s) or sweats Eyes Eyes: Denies blurry vision or change in vision ENT ENT ED: Denies rhinorrhea or sore throat Cardiovascular Cardiovascular: Reports chest pain; Denies palpitations or racing heartbeat Respiratory/Chest Respiratory/Chest: Denies cough, dyspnea, dyspnea on exertion, shortness of breath at rest or shortness of breath with exertion Gastrointestinal Gastrointestinal: Denies abdominal pain, diarrhea, nausea or vomiting Genitourinary Genitourinary ED: Denies dysuria or hematuria Musculoskeletal Musculoskeletal: Reports back pain, myalgias and neck pain Integumentary Denies abscess, Abrasions or rash Neurologic Neurologic: Denies headache(s), paresthesias or weakness Hematologic/Lymphatic Hematologic/Lymphatic: Reports easy bruising EXAM <GERTRUDE Elizabeth - Last Filed: 02/21/22 21:46> Physical Exam Const Vital Signs: 02/21/22 19:16 02/21/22 19:38 02/21/22 19:41 Temperature 96.5 F L Temperature Source Temporal Pulse Rate 88 82 Respiratory Rate 14 16 Respiratory Effort Normal Non-Labored Blood Pressure 201/110 H Blood Pressure Mean 140 Pulse Ox 97 96 Oxygen Delivery Method Room Air Room Air 02/21/22 20:20 02/21/22 21:28 Temperature Temperature Source Pulse Rate 74 Respiratory Rate 15 Respiratory Effort Blood Pressure 149/75 H 136/74 H Blood Pressure Mean 99 Pulse Ox 94 Oxygen Delivery Method Blood pressure repeated and is 156/80 and 149/75. Positive well nourished HEENT Reports moist mucous membranes normocephalic and atraumatic; Negative for tenderness Eyes PERRL and EOMs intact bilaterally Neck supple Neck Narrative: Patient admits to some tenderness to palpation of the back of the neck. General: tenderness Chest Wall Chest Narrative: Right-sided chest tenderness to palpation Chest: tenderness Resp normal respiratory effort and clear to auscultation bilaterally Cardio regular rate, regular rhythm and no murmurs GI soft to palpation, non-tender, non-distended and no masses Back/Spine no thoracic nor lumbar tenderness Extremity normal to inspection General Extremety ED: Negative for edema General Extremity: Negative for edema Neuro oriented x3, CN's II-XII intact bilaterally, no sensory deficits noted and gait normal Sensorium / Orientation: awake and alert Motor Exam: strength 5/5 throughout Psych mental status grossly normal Skin no rashes or lesions noted and no wounds <Dr. Yunior Dorsey MD - Last Filed: 02/21/22 22:16> Physical Exam Const Vital Signs: 02/21/22 19:16 02/21/22 19:38 02/21/22 19:41 Temperature 96.5 F L Temperature Source Temporal Pulse Rate 88 82 Respiratory Rate 14 16 Respiratory Effort Normal Non-Labored Blood Pressure 201/110 H Blood Pressure Mean 140 Pulse Ox 97 96 Oxygen Delivery Method Room Air Room Air 02/21/22 20:20 02/21/22 21:28 Temperature Temperature Source Pulse Rate 74 Respiratory Rate 15 Respiratory Effort Blood Pressure 149/75 H 136/74 H Blood Pressure Mean 99 Pulse Ox 94 Oxygen Delivery Method MDM <GERTRUDE Elziabeth - Last Filed: 02/21/22 21:46> MDM MDM Narrative Medical decision making narrative: Patient is stable, comfortable, and appears in no acute distress. I do not think her pain is cardiac in nature but rather musculoskeletal. Patient has no left-sided chest discomfort here in the ED. Her vital signs are stable. She has no difficulty breathing and is not short of breath. Patient's EKG shows no ST elevation and no acute changes compared to a previous EKG. I am comfortable with patient discharging home. I have given her return instructions and discussed the plan with her. Patient is comfortable with plan. EKG Initial EKG: Attestation: I personally reviewed and interpreted this EKG as follows: Interpretation: Sinus Rhythm Comments: Rate [address] elevation. EKG is consistent with previous EKG. This EKG has also been reviewed by attending ED physician. <Dr. Yunior Dorsey MD - Last Filed: 02/21/22 22:16> [facility] MDM Narrative Medical decision making narrative: Patient is stable, comfortable, and appears in no acute distress. I do not think her pain is cardiac in nature but rather musculoskeletal. Patient has no left-sided chest discomfort here in the ED. Her vital signs are stable. She has no difficulty breathing and is not short of breath. Patient's EKG shows no ST elevation and no acute changes compared to a previous EKG. I am comfortable with patient discharging home. I have given her return instructions and discussed the plan with her. Patient is comfortable with plan. I have personally performed a face to face assessment of the patient and have reviewed the FRED Note. I performed a substantive portion of the visit including all aspects of the following. My fay findings include: History is remarkable for initially right scapular pain that radiated/migrated to the left anterior chest then to the right anterior chest. Patient had recent cardiac event 1 month ago. She denies diaphoresis, dyspnea, nausea or vomiting. This is not similar to the pain she had when she had her cardiac event. She denies exertional dyspnea or exertional chest discomfort. She denies history of VTE. She denies leg pain, swelling discoloration. She denies black or maroon-colored stool. Exam is unremarkable. HEENT exam is unremarkable. Lungs are clear to auscultation. There is no reproducible chest pain on the left side. There is reproducible chest pain on the right side. There is no pain ovation of the scapula. Breath sounds noted bilaterally and symmetric. Heart is regular. There is no murmur, gallop or rub. Patient is initial blood pressure was 201/110. With observation and no treatment repeat blood pressure is 136/74. Medical Decision Making patient with atypical chest pain daughter is concerned this represents cardiac chest pain. EKG was obtained and is unchanged from prior. Other additions or changes: Atypical backslash chest pain with muscular component Discharge Plan Triage Chief Complaint: Chest Pain ED Midlevel Provider: Polina Goodwin ED Provider: Yunior Dorsey Dx/Rx/DC Orders Clinical Impression: Atypical chest pain, Atypical back pain Instructions: ED Pain, Acute, Uncertain Cause Prescriptions: No Action allopurinol 100 mg tablet 100 mg PO DAILY losartan 50 mg tablet 50 mg PO BID pravastatin 40 mg tablet 80 mg PO QHS Label Comments: TAKE 2 TABLETS BY MOUTH EVERY DAY AT BEDTIME bethanechol chloride 10 mg tablet 20 mg PO DAILY levothyroxine [Euthyrox] 75 mcg tablet 75 mcg PO DAILY Label Comments: TAKE 1 TABLET BY MOUTH ONCE DAILY cholecalciferol (vitamin D3) 50 mcg (2,000 unit) Capsule 50 mcg PO DAILY cyanocobalamin (vitamin B-12) 2,500 mcg Tablet 2,500 mcg PO QHS Ozempic 1 mg/dose (4 mg/3 mL) pen injector 1 mg SUBCUT TU clopidogrel 75 mg tablet 75 mg PO DAILY aspirin 81 mg tablet,delayed release (DR/EC) 81 mg PO DAILY@0800 metoprolol tartrate 25 mg tablet 25 mg PO BID Primary Care Provider: Sandra Kebede Referrals: Sandra Kebede, [Primary Care Provider] - 3-5 Days if not improving Activity Restrictions/Additional Instructions: Please return if you notice worsening of symptoms or chest pain that does not resolve. Disposition Disposition: Home, Self Care Discharge Date/Time: 02/21/22 21:30 What to do if you have Problems For any increased pain, shortness of breath, bleeding, nausea or vomiting, chest pain, or any unexpected problems, contact your Primary Care Provider. Call [facility] ([phone]) or report to the closest Emergency Room. Call 911 if necessary. 02/21/222145 <Electronically signed by Polina LOREDO> Cosigner Signature (if applicable): 02/21/222215 <Electronically signed by Yunior Dorsey MD> CC: Dr. Sandra Kebede DO; Dr. Yunior Dorsey MD Signed Sandra Kebede DO Work Phone: Start: 02-21-2022 End: 02-26-2022 12 Lead EKG Procedure Note: See Note; NOTES: [facility] Cardiovascular Services [address] [place] [address] 12 Lead EKG 02/21/22 1921 MR#: [id number] Acct: [id number] Name: MOLLY BOURGEOIS Rep #: [id number] : 1940 81 From: Arben Nettles MD Attending Dr: Status: DEP ER Ordering Dr: Polina Goodwin Date: 02/21/22 Location: ED Sex: F C Admitted: Test Reason : cp Blood Pressure : / mmHG Vent. Rate : 082 BPM Atrial Rate : 082 BPM P-R Int : 218 ms QRS Dur : 120 ms QT Int : 414 ms P-R-T Axes : 048 -30 156 degrees QTc Int : 483 ms Sinus rhythm with 1st degree A-V block Left axis deviation Minimal voltage criteria for LVH, may be normal variant ( Yoshi product ) Abnormal ECG Confirmed by ARBEN NETTLES MD ([id number]), editor index FABIAN GOEL ([id number]) on 02/26/2022 11:46:20 AM Referred By: Confirmed By:ARBEN NETTLES MD 02/26/22 1146 Date Arben Nettles MD CC: GERTRUDE Goodwin; Dr. Sandra Kebede DO; Dr. Yunior Dorsey MD Signed Sandra Kebede DO Work Phone: Start: 12-25-2021 End: 12-26-2021 CR - History AND Physical Procedure Note: See Note; NOTES: [facility] Cardiac Rehab [address] [place] [address] CR - History Physical MR#: [id number] Acct: [id number] Name: MOLLY BOURGEOIS Rep #: [id number] : 1940 81 From: Rickey Sanders [employer], [employer] DEPARTMENT CHAIR, BS PCP: Dr. Sandra Kebede DO DOS: 12/25/21 CR - History Physical - General Arrival date:: 12/25/21 Arrival time:: 08:00 Date of Referral:: 11/16/21 Date of CR Evaluation:: 12/25/21 Referring Physician: Dr. Arben Nettles Primary Diagnosis: [id number] Myocardial Infarction, PCI w/stent - History of Present Cardiac Event Onset Date: Enter Onset Date of cardiac illnesses in Comment field below Current stable Angina Pectoris:: No Acute Myocardial Infarction within 12 months:: Yes - NSTEMI 11/13/2021 w/stroke like symptoms Coronary Artery Bypass Graft:: No Heart valve replacement or repair:: No PTCA or coronary stenting:: Yes - PCI w RUSTAM 11/13/2021 Vessel: Large proximal RCA Heart or Heart-Lung Transplant:: No Type of Symptoms:: Stroke like symptoms, left arm weakness unable to raise her arm, only had feeling in her elbow area. - Sleep Disorder Evaluation Hx of Sleep Apnea: No Do you snore loudly (louder than talking or can be heard through closed doors)?: No Do you often feel tired/ fatigued/ sleepy during daytime?: Yes - frequently will fall asleep watching TV Has anyone observed you stop breathing during sleep?: No History of Hypertension (for STOP score): Yes STOP Results: Positive - Medications Home Medications: Ambulatory Orders Medication Instructions Recorded allopurinol 100 mg tablet 100 mg PO DAILY gout 02/06/18 aspirin 81 mg tablet,delayed 81 mg PO DAILY@0800 BLOOD THINNER 12/05/21 release bethanechol chloride 10 mg tablet 20 mg PO DAILY BLADDER 12/05/21 cholecalciferol (vitamin D3) 50 50 mcg PO DAILY SUPPLEMENT 12/05/21 mcg (2,000 unit) capsule clopidogrel 75 mg tablet 75 mg PO DAILY BLOOD THINNER. 12/05/21 cyanocobalamin (vitamin B-12) 2,500 mcg PO QHS SUPPLEMENT 12/05/21 2,500 mcg tablet levothyroxine 75 mcg tablet 75 mcg PO DAILY THYROID 12/05/21 (Euthyrox) losartan 50 mg tablet 50 mg PO BID BP 12/05/21 metoprolol tartrate 25 mg tablet 25 mg PO BID HEART 12/05/21 pravastatin 40 mg tablet 80 mg PO QHS CHOLESTEROL 12/05/21 semaglutide 1 mg/dose (4 mg/3 mL) 1 mg subcut TU DM 12/05/21 subcutaneous pen injector (Ozempic) - Allergies Allergies/Adverse Reactions: Allergies No Known Allergies Allergy (Verified 12/08/21 11:23) Advanced Directives - Advanced Directives Power of Process Line Operator: Yes Living Will: Yes - unsure if she has a DNR she wants CPR but not life support Advance Directives Information Provided: No Advance Directives on File: Yes DNR Order?:: No - MOLST See MOLST form: No Past Medical History - Covid-19 Screening Fever: No Unexplained muscle aches: No Current respiratory symptoms: No Upper respiratory infections symptoms: No Gastro-intestinal symptoms: No Akt-[id number]-[id number] symptoms: No Has tested positive for COVID-19 in last 30 days: No Date of testin12/25/21 - Two vaccines and one Booster Had contact w/person w/symptoms or Covid-19 (+) last 14 days: No Has High Risk Exposures ID'd by Health dept/Inf Control team: No 65 years or older:: Yes Lives in Assisted Living facility:: No Has a chronic lung disease or moderate to severe asthma:: No Has a serious heart condition:: No Immunocompromised:: No Severely obese (Body Mass Index of 40 or higher):: No Diabetic:: Yes Has chronic kidney disease undergoing dialysis:: No Has liver disease:: No - Past Medical Illness Medical History: Past Medical History (Last Reviewed 12/08/21 @ 11:26 by Katrin Butler [employer]PECTOR [employer], INSPECTOR [employer]CTOR WAFER-C) Atherosclerosis of coronary artery without angina pectoris I25.10 Chronic indwelling Costa catheter Z97.8 pt had a costa for 6 months because she was unable to pee on her own- in on Mar and removed June of 2021- per patient- Patient has to pee every 1-2 hours Essential hypertension I10 Gout M10.9 History of gout Z87.39 History of TIA (transient ischemic attack) Onset Date: 04/2020 Z86.73 History of type 2 diabetes mellitus Z86.39 Hypothyroidism E03.9 Left breast lump N63.20 Mastalgia in female N64.4 Non-smoker Z78.9 - Past Surgical History Surgical History: Past Surgical History (Last Reviewed 12/08/21 @ 11:26 by Katrin Butler INSPECTOR [employer] W[employer]ER, INSPECTOR [employer]IC[employer]CTOR WAFER-C) History of coronary artery stent placement Onset Date: 11/14/21 Z95.5 [id number] RCA w/ 3.5 x 22 mm [facility] Stent 11/14/2021 History of eye surgery Z98.890 History of thyroid surgery Z98.890 History of tonsillectomy Z90.89 History of tubal ligation Z98.51 Surgical History: noncontributory, - - Thyroid surgery, tonsils surgery - Family History Summary Family History: Family History (Last Reviewed 12/08/21 @ 11:26 by Katrin Butler INSPECTOR SEMICONDUCTOR WAFER, INSPECTOR SEMICONDUCTOR WAFER-C) Mother Diabetes Father Heart disease Brother Heart disease Social History - Smoking History Smoking Status: Never smoker Hx Smoking Exposure: Yes - Alcohol Use Alcohol Usage: No - Substance Abuse Hx Substance Use: No - 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, 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 - Hobbies, Recreation, Social Activities Hobbies: Sewing - crocheting and sewing, Other - Word puzzles, [email or web address] Recreational Activities: I can hardly do any recreational activities Social Environment - Status Marital Status: - Current Living Arrangements Living Environment:: Alone - Children How many children do you have?: 2 Do any of your children live nearby?: Yes - lives with one daughter - Safety Do you feel safe in your surroundings?: Yes - Assistance Do you need any assistance at home?: visual safety while showering as precaution Review of Systems - Review of Systems Hints: Right click = Denies (Slash). Left click = Reports ([place]) Review of Present Symptoms: Reports: Shortness of Breath with Exertion - walking out to the mailbox frequently has had to stop and breath before walking back to the house, Angina - still has some pain in the top part of her chest at night when she goas to bed., Fatigue, Appetite - Normal, Sleep - Normal. Denies: Shortness of Breath at Rest, Dizziness/Lightheadedness, Heart Arrhythmia/Irregularities, Appetite - Special Diet, Sexual Changes - Pain Is Patient Pain Free?: Yes Pain Location: none, lower extremity - knees are bad, lower back degenerative disc disease Pain Level: 0/10 Risk Factor Assessment - Chief Complaint Chief Complaint: Patient is a [address] Nettles who presents to CR today following recent NSTEMI and subsequent PCI w/ballooning and stent to the large proximal RCA. - Vital Signs Temperature: 98.3 F Respiratory Rate: 16 Pulse Ox: 98 Blood Pressure: 118/72 - Pulse Pulse Rate: 87 Pulse Rhythm: Regular - Hypertension How long have you been treated?: a long time, unsure of how long. On medication(s)?: yes Blood Pressure Sitting - Left Arm: 118/72 - Stress Stress: Recent - Blood Cholesterol/Lipids Total Cholesterol (mg/dL) Goal = less than 200 mg/dL: 149 HDL Cholesterol (mg/dL) Goal = less than 40 mg/dL: 53 LDL Cholesterol (mg/dL) Goal = less than 70 mg/dL: 72 Triglycerides (mg/dL) Goal = less than 150 mg/dL: 118 - Diabetes Diabetic History: Type II Nutrition Referral for Diabetes: Yes - Obesity Height: 5 ft 7 in Weight:: 168 lb Weight in Pounds: 168.0 lbs Weight Source: Estimated by Patient Body Mass Index (BMI): 26.3 Nutritional Referral for Obesity: No - Physical Inactivity Physical Inactivity: None - Risk Stratification Risk Guidelines: Lowest Risk: Risk Factor for Smoking, Risk Factor for Dyslipidemia, Risk Factor for Diabetes - Glucose 102, HbA1c 5.8%, Risk Factor for Obesity, Risk Factor for Hypertension - 118/72, Risk Factor for Depression, Moderate Risk: Risk Factor for Sedentary Lifestyle - very little activity, Highest Risk: Risk Factor for Sedentary Lifestyle - Family History Family History: Family History (Last Reviewed 12/08/21 @ 11:26 by Katrin Butler NP, INSPECTOR SEMICONDUCTOR WAFER-C) Mother Diabetes Father Heart disease Brother Heart disease Motivation - Motivation to Participate On a scale of 1 to 10, how prepared are you to commit to attending program?: 5 What do you see as barriers to successfully being able to complete the program?: knees, lower back What do you see as the benefits of succesfully completing the program? In other words, what do you hope to get out of participating in the program?: improving strength and endurance Are there issues you are dealing with that will interfere with completing the program?: no Do you have a spouse or signficant other, family or friends who will help support you to complete the program?: yes 12/25/21 0848 <Electronically signed by Rickey Sanders CRT, LASHELL WOLF> Date DORY Michaels CRTP, LASHELL Outcome assessment reviewed. Exercise plan approved as documented. Treatment plan and goals support patient needs/abilities. Continue with current plan. I certify the patient demonstrates improvement and remains willing and capable of participation. the patient continues to benefit from cardiac rehab services/training. The patient may continue at current intensity, endurance and modality and progress per protocol. 12/26/21 1055 <Electronically signed by Arben Nettles MD> Cosigner Signature: Date Arben Nettles MD CC: Signed Sandra Kebede Work Phone: Start: 12-08-2021 End: 12-08-2021 Cardiology Visit Report Procedure Note: See Note; NOTES: [facility] [address] [place] [address]. [address] [place], [place] [id number] OFFICE VISIT Date of Service: 12/08/21 MR#: [id number] Acct: [id number] Name: MOLLY BOURGEOIS Rep #: [id number] : 1940 Provider: JOSUE satnos Age/Sex: 81/F Location: [facility] [email or web address] Status: Signed [facility] History of Present Illness Details: MOLLY BOURGEOIS, is a 81 F who presents to the office today for a cardiovascular hospital follow- up visit. She presented to the emergency room in October of this year with left arm numbness and tingling sensation.??? She had also complained of some back discomfort.???In the emergency room it was thought she was having a transient ischemic attack and had a series of neurological evaluations.??? Cardiac enzymes were noted to be abnormal.??? Her EKG did demonstrate T wave inversions in the inferior leads.??? Cardiology was called to see her on the basis of the abnormal troponins.???She underwent a cardiac catheterization on 11/14/2021 which demonstrated severe single-vessel disease involving the proximal right coronary artery and moderate nonobstructive disease noted in the left anterior descending artery. She underwent a RUSTAM to her proximal RCA. Her echocardiogram from 11/13/2021 demonstrated segmental dysfunction with preserved ejection fraction, an estimated ejection fraction of 55%. From a cardiac standpoint, the patient is doing well. She denies any palpitations, chest pain, pressure or heaviness. She denies SOB, Orthopnea, and PND. She does not have bleeding issues; no blood in urine, stool or nosebleeds. She denies any decrease in energy level, myalgias, or claudication. She does not have edema, or sudden weight gain. She denies dizziness, lightheadedness, syncopal or near syncopal episodes, and headaches. She has an upcoming appointment with cardiac rehab on 12/25/2021. Intake Vital Signs 11/13/21 21:47 12/05/21 13:50 12/08/21 11:04 12/08/21 11:04 Height 5 ft 7 in 5 ft 7 in 5 ft 7 in 5 ft 7 in Weight: 168 lb BMI 26.3 BP 132/89 H Blood Pressure Location Lt brachial Position Sitting Respiration 18 Pulse 79 Pulse Source Monitor Pulse Oximetry (%) 95 Intake Visit Reasons: s/p hosp stroke like symptoms Leadership Program Associate Required: No Is patient in pain?: No Allergies No Known Allergies Allergy (Verified 12/08/21 11:23) Medications allopurinol 100 mg tablet 100 mg PO DAILY gout 02/06/18 [History Confirmed 12/08/21] aspirin 81 mg tablet,delayed release 81 mg PO DAILY@0800 BLOOD THINNER 12/05/21 [History Confirmed 12/08/21] bethanechol chloride 10 mg tablet 20 mg PO DAILY BLADDER 12/05/21 [History Confirmed 12/08/21] cholecalciferol (vitamin D3) 50 mcg (2,000 unit) capsule 50 mcg PO DAILY SUPPLEMENT 12/05/21 [History Confirmed 12/08/21] clopidogrel 75 mg tablet 75 mg PO DAILY BLOOD THINNER. 12/05/21 [History Confirmed 12/08/21] cyanocobalamin (vitamin B-12) 2,500 mcg tablet 2,500 mcg PO QHS SUPPLEMENT 12/05/21 [History Confirmed 12/08/21] levothyroxine 75 mcg tablet (Euthyrox) 75 mcg PO DAILY THYROID 12/05/21 [History Confirmed 12/08/21] losartan 50 mg tablet 50 mg PO BID BP 12/05/21 [History Confirmed 12/08/21] metoprolol tartrate 25 mg tablet 25 mg PO BID HEART 12/05/21 [History Confirmed 12/08/21] pravastatin 40 mg tablet 80 mg PO QHS CHOLESTEROL 12/05/21 [History Confirmed 12/08/21] semaglutide 1 mg/dose (4 mg/3 mL) subcutaneous pen injector (Ozempic) 1 mg subcut TU DM 12/05/21 [History Confirmed 12/08/21] PFSH Medical History Atherosclerosis of coronary artery without angina pectoris Chronic indwelling Costa catheter Essential hypertension Gout History of gout History of TIA (transient ischemic attack) (04/2020) History of type 2 diabetes mellitus Hypothyroidism Left breast lump Mastalgia in female Non-smoker Surgical History History of coronary artery stent placement (11/14/21) History of eye surgery History of thyroid surgery History of tonsillectomy History of tubal ligation Family History Mother Diabetes Father Heart disease Brother Heart disease Social History household members: other details: Vahid Sanchez Sr., Vahid Lizarraga Jr. housing: house Smoking Status: Never smoker alcohol intake: never substance use type: does not use what type of physical activity do you participate in: none do you feel safe at home: Yes ROS Const Const: Negative for fatigue, weakness, fever(s), headache(s), chills, frequent falls, weight gain or weight loss Eyes Eyes: Negative for blind spots, loss of peripheral vision, transient loss of vision, blurry vision, change in vision, double vision, floaters or tunnel vision ENT ENT: Negative for headache(s), dizziness, Nosebleed/epistaxis, balance problems or neck pain Cardio Chest Pain: No Palpitations: No Edema: None Muscle aches with walking: None Resp Respiratory: Negative for SOB with activity, SOB at rest or SOB orthopnea SOB lying down GI GI: Negative nausea, vomiting, heartburn, bloating, vomiting blood/hematemesis, bright, red blood in stools or black,tarry stools Musc Musc: Negative for muscle aches/ myalgia, muscle weakness, joint pain or balance problems Neuro Neuro: Negative for dizziness, lightheadedness, near syncope, syncope, orthostatic symptoms, frequent falls, headache(s), weakness, blurry vision or double vision [place] Hematologic/Lymphatic: Negative for easy bleeding or easy bruising Endo Endo: Negative for fatigue Cardiology Exam Const Appearance: cooperative and no acute distress Orientation: alert and oriented x3 Head Head: normal to inspection Ears: hearing grossly normal bilaterally Nose: external nose normal Face and Sinus: face symmetric Eyes General: appearance normal, both eyes and all related structures Eyelids: eyelids normal Conjunctivae: conjunctivae normal Pupils: PERRL and pupil size EOM: EOM intact bilaterally Neck Neck: normal visual inspection Carotids: Negative bruit Chest Chest inspection: normal inspection of the chest and normal respiratory effort Auscultation: Bilateral: Clear to Auscultation Cardio Palpation: normal PMI Rate: regular rate Rhythm: regular rhythm Heart sounds: S1 normal and S2 normal; Negative rub, gallop or murmur GI GI: normal to inspection and soft; Negative no hepatosplenomegaly Neuro General: patient alert, patient oriented x3 and CN's II-XI intact bilaterally Skin Skin: no rashes or lesions noted Extremities Pulses: Normal: Right Posterior Tibial Pulse, Left Posterior Tibial Pulse, Right Radial Pulse and Left Radial Pulse Lower Extremity Edema: None: Bilateral Psych Psychological: normal affect Supplemental Info Supplemental Information Echocardiogram 11/13/2021: Interpretation Summary The study was technically difficult. Contrast injection was performed. Segmental dysfunction with preserved ejection fraction (see wall motion). The estimated ejection fraction is 55 %. Septal motion consistent with IVCD. There is moderate mitral annular calcification. Extension of the mitral annular calcification on the base of the posterior mitral valve leaflet. Mild focal mitral valve calcification of the anterior leaflet. Moderate (2+) mitral valve insufficiency. Trivial tricuspid valve insufficiency. Mild diffuse aortic valve calcification. Right ventricular systolic pressure estimated to be 22 mmHg. Diastolic function is indeterminate. Cardiac catheterization 11/14/2021: PROCEDURE(S) PERFORMED DC01-(35297)LHC/COR/LV IC12-(27433/C9600)RUSTAM W/WO PTCA, SINGLE CORONARY ARTERY CLINICAL PROFILE AND INDICATIONS Indications: ACS <= 24 hrs Heart Failure: None Stress/Imaging Stress/Image Study Performed: No CONCLUSIONS Severe single-vessel disease involving the proximal right coronary artery and moderate nonobstructive disease noted in the left anterior descending artery. RECOMMENDATIONS Referred for immediate PCI DESCRIPTION OF PROCEDURE The patient arrived to the procedure lab. The risks and benefits of the procedure as well as a full description of our services here and current unavailability of surgical backup were fully explained to the patient and/or their significant other prior to the catheterization. The Timeout was completed, verifying the correct patient and procedure. The patient's procedural site was prepped and draped in the usual fashion. Local anesthetic was given subcutaneously to right radial region with Lidocaine 2%. Using a modified Seldinger technique, Right Coronary Artery selective angiography was then performed in multiple views using a 5 Fr. 4.0 [place] catheter. Left Coronary Artery selective angiography was performed in multiple views using a 5 Fr. 4.0 [place] catheter. CORONARY ANGIOGRAPHY DOMINANCE: Right Dominant LEFT HEART ASSESSMENT Left Ventricular Ejection Fraction: by LV Gram 50 % Inferior Mid Hypokinesis - Moderate Depressed Left Ventricular systolic function LEFT MAIN: Angiographically normal LEFT ANTERIOR DESCENDING ARTERY: Smallish vessel with 50% mid LAD stenosis CIRCUMFLEX ARTERY: No significant disease noted RIGHT CORONARY ARTERY: Large dominant vessel with proximal 99% stenosis with thrombus noted therein and the rest of the vessel unremarkable. Labs: LDL Cholesterol 72 mg/dL (0-130) HDL Cholesterol 53 mg/dL (40-) Triglycerides 118 mg/dL (-199) VLDL Cholesterol 24 mg/dL (5-40) Diagnostics: Electrocardiogram Echocardiogram Cardiac Catheterization Chest X-Ray Pulmonary: No Data to Display Assessment and Plan Assessment and Plan (1) Atherosclerosis of coronary artery without angina pectoris: Status: Chronic Plan: Patient has a history of coronary artery disease. She appears stable at this time, and denies any recent symptoms or events. She will continue with aspirin, metoprolol, Plavix, and pravastatin. She will continue with aggressive risk factor and lifestyle modifications, as well as monitoring for any concerning symptoms. (2) History of coronary artery stent placement: Status: Chronic Comment: [id number] RCA w/ 3.5 x 22 mm [facility] Stent 11/14/2021 Plan: Patient has a history of coronary artery disease with recent stent placement to her proximal RCA on 11/14/2021. She appears stable at this time, and denies any recent symptoms or events. She will continue with her current medical therapy, along with aggressive risk factor and lifestyle modifications. She will continue with her cardiac rehab evaluation on 12/25/2021. (3) Essential hypertension: Status: Chronic Plan: Patient has a history of hypertension. Her blood pressure is well controlled at this time. She will continue losartan 50 mg twice daily, and metoprolol tartrate 25 mg twice daily. She will continue to monitor her blood pressures at home, and notify our office of any persistently high or low blood pressure readings. Plan Details Additional Comments: Patient will follow up in 3 months, or sooner if needed. Thank you for allowing me to participate in the care of your patient. Please don't hesitate to call if any issues arise. This note was generated using a voice recognition system and there may be incorrect words, spelling, or punctuation that were not noted when reviewing the office note prior to saving. Portions of this documentation were copied and pasted from previous office visit notes to provide a cohesive continuity of the history. The note has been reviewed, edited, and updated, as necessary. 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 Sandra Kebede, DO Sandra Kebede DO Work Phone: Start: 12-05-2021 End: 12-05-2021 Emergency Department Summary Procedure Note: See Note; NOTES: [facility] Medical Records Department [address] [place] [address] Emergency Department Summary 12/05/21 MR#: [id number] Acct: [id number] Name: MOLLY BOURGEOIS Rep #: [id number] : 1940 81 From: Max Celeste MD PCP: Dr. Sandra Kebede, DO Status:REG ER Location: ED HPI History of Present Illness Chief Complaint: Chest Pain Informant: patient and family Narrative Narrative: Patient presents with episodes of chest pain that is going on for about 2 and half hours. It is currently not there at all. She feels perfectly fine now. She states she has been getting small areas of pressure all in the front of her chest. On her way in it felt like somebody was sitting on her chest. But she denies shortness of breath, nausea, vomiting, diaphoresis at any time. Again, she is asymptomatic now. She does have history of blood pressure cholesterol some diabetes. She just had a stent of her RCA in mid October. She has filled and is taking her Plavix and aspirin. She has not been having any symptoms since the stent until today. She can think of nothing that makes it better or worse. She was sitting on the couch watching TV when it first started. PFSH PFSH Medical History Atherosclerosis of coronary artery without angina pectoris Chronic indwelling Costa catheter Essential hypertension Gout History of gout History of TIA (transient ischemic attack) (04/2020) History of type 2 diabetes mellitus Hypothyroidism Left breast lump Mastalgia in female Non-smoker Home Medications allopurinol 100 mg tablet 100 mg PO DAILY gout 02/06/18 [History Last Taken 12/05/21] aspirin 81 mg tablet,delayed release 81 mg PO DAILY@0800 BLOOD THINNER 12/05/21 [History Last Taken 12/05/21] bethanechol chloride 10 mg tablet 20 mg PO DAILY BLADDER 12/05/21 [History Last Taken 12/05/21] cholecalciferol (vitamin D3) 50 mcg (2,000 unit) capsule 50 mcg PO DAILY SUPPLEMENT 12/05/21 [History Last Taken 12/05/21] clopidogrel 75 mg tablet 75 mg PO DAILY BLOOD THINNER. 12/05/21 [History Last Taken 12/05/21] cyanocobalamin (vitamin B-12) 2,500 mcg tablet 2,500 mcg PO QHS SUPPLEMENT 12/05/21 [History Last Taken 12/04/21] levothyroxine 75 mcg tablet (Euthyrox) 75 mcg PO DAILY THYROID 12/05/21 [History Last Taken 12/05/21] losartan 50 mg tablet 50 mg PO BID BP 12/05/21 [History Last Taken 12/05/21] metoprolol tartrate 25 mg tablet 25 mg PO BID HEART 12/05/21 [History Last Taken 12/05/21] pravastatin 40 mg tablet 80 mg PO QHS CHOLESTEROL 12/05/21 [History Last Taken 12/04/21] semaglutide 1 mg/dose (4 mg/3 mL) subcutaneous pen injector (Ozempic) 1 mg subcut TU DM 12/05/21 [History Last Taken 12/05/21] Allergy/AdvReac Type Severity Reaction Status Date / Time No Known Allergies Allergy Verified 12/05/21 13:50 Family History Mother Diabetes Father Heart disease Brother Heart disease Surgical History History of coronary artery stent placement (11/14/21) History of eye surgery History of thyroid surgery History of tonsillectomy History of tubal ligation Social History household members: other details: Vahid Sanchez Sr., Vahid Lizarraga Jr. housing: house Smoking Status: Never smoker alcohol intake: never substance use type: does not use what type of physical activity do you participate in: none do you feel safe at home: Yes ROS ROS ED Constitutional Constitutional ED: Denies chills or fever(s) Eyes Eyes: Denies blurry vision ENT ENT ED: Denies rhinorrhea or sore throat Cardiovascular Cardiovascular: Reports as per HPI Respiratory/Chest Respiratory/Chest: Denies cough or dyspnea Gastrointestinal Gastrointestinal: Denies nausea or vomiting Musculoskeletal Musculoskeletal: Denies arthralgias, back pain, myalgias or neck pain Integumentary Denies rash Neurologic Neurologic: Denies headache(s) Endocrine Endocrinology: Denies polydipsia or polyuria Hematologic/Lymphatic Hematologic/Lymphatic: Denies lymphadenopathy Allergic/Immunologic Allergic/Immunologic ED: Denies urticaria EXAM Physical Exam Const Vital Signs: 12/05/21 13:50 12/05/21 13:55 12/05/21 14:18 Temperature 98.6 F Temperature Source Temporal Pulse Rate 83 Respiratory Rate 18 Respiratory Effort Normal Non-Labored Blood Pressure 174/91 H Blood Pressure Mean 118 Pulse Ox 95 Oxygen Delivery Method Room Air Room Air 12/05/21 15:00 12/05/21 16:17 12/05/21 17:00 Temperature Temperature Source Pulse Rate 76 76 75 Respiratory Rate 14 12 12 Respiratory Effort Blood Pressure 141/97 H 140/85 H 136/76 H Blood Pressure Mean 111 103 96 Pulse Ox 100 99 98 Oxygen Delivery Method Room Air Nasal Cannula Room Air Positive well nourished General Appearance ED: NAD HEENT Reports moist mucous membranes normocephalic and atraumatic Eyes General Eye ED: Negative for scleral icterus Chest Wall inspection of chest normal and palpation of chest normal Chest: Negative for tenderness Resp normal respiratory effort and clear to auscultation bilaterally Auscultation: Negative for rales, rhonchi or wheezes Cardio regular rate and regular rhythm GI normal to inspection, nondistended, normoactive bowel sounds, soft to palpation and non-tender Back/Spine no CVA tenderness Extremity normal to inspection Extremity Narrative: She does have a small amount of swelling over the distal right radial artery where the cath was done. But she states this has been there since immediately after the procedure and is lessening. No sign of issues with blood flow to the hand and there is excellent pulse. Festus's and reverse Festus seem normal. General Extremety ED: Negative for edema or pulses abnormal General Extremity: Negative for edema or pulses abnormal Neuro Sensorium / Orientation: awake and alert Psych mental status grossly normal Skin no rashes or lesions noted MDM MDM MDM Narrative Medical decision making narrative: Patient's blood work including CBC and troponin are normal. Creatinine is minimally elevated. Chest x-ray shows no acute process. I went and rechecked the patient. She is doing well. While were talking she got the pain again. She states every time it is in a different spot. She can point to one finger where it occurred this time. This time it was in the right lower chest wall. It lasted for 1 to 2 seconds and was a pressure like somebody pushing with their finger. She states that this is what the episodes are like. She thinks it is my nerves. She still gets no symptoms such as nausea vomiting shortness of breath or diaphoresis or feeling of illness or weakness. This is not a typical story for pain. Although it is anterior chest pressure she did describes it now as if somebody pushing with 1 finger. I did discuss the case with her rn cvicu, Dr. Nettles. As long as her troponins are not significantly rising we will get her home for follow-up. Repeat troponin only went up by 1. I think it safe for patient to go home and follow-up. She is comfortable with this plan. We discussed reasons to prompt return Lab Data Labs: Laboratory Results - last 24 hr 12/05/21 12/05/21 12/05/21 13:50 13:50 17:01 WBC 6.5 RBC 4.30 Hgb 14.0 Hct 41.7 MCV 97.0 MCH 32.6 H MCHC 33.6 RDW Std Deviation 45.6 H RDW Coeff of Shalom 12.9 Plt Count 224 MPV 10.8 Immature Gran % (Auto) 0.500 Neut % (Auto) 68.7 Lymph % (Auto) 22.6 [place] % (Auto) 6.8 Eos % (Auto) 0.6 Baso % (Auto) 0.8 Absolute Neuts (auto) 4.5 Absolute Lymphs (auto) 1.46 Nucleated RBC % 0 Sodium 138 Potassium 3.8 Chloride 102 Carbon Dioxide 26.0 Anion Gap 10 BUN 15 Creatinine 1.30 H Estim Creat Clear Calc 33.00 Est GFR (MDRD) Af Amer 51 L Est GFR (MDRD) Non-Af 42 L BUN/Creatinine Ratio 11.5 Glucose 105 Calcium 9.2 Troponin I High Sens 10 11 Radiography Diagnostic Testing: Clinical Impression(s) from Imaging Studies Chest X-Ray 12/05/21 14:00 IMPRESSION: Degenerative changes, as described above. No demonstrated acute cardiopulmonary process. Electronically Signed: Owen Ambriz MD at 14:46 EDT , EKG Initial EKG: Comments: EKG done for chest pain read by me shows normal sinus rhythm with overall rate of 85. No ventricular ectopy seen. There is a left bundle branch block but this is not new. There is nonspecific changes likely related to the left bundle branch block. Sgarbosa negative. MA interval is long showing a slight first-degree block. QRS duration and QTc are a bit long also. Discharge Plan Triage Chief Complaint: Chest Pain ED Provider: Max Celeste Dx/Rx/DC Orders Clinical Impression: Chest pain, History of coronary artery stent placement Instructions: ED Chest Pain, Uncertain Cause Prescriptions: No Action allopurinol 100 mg tablet 100 mg PO DAILY losartan 50 mg tablet 50 mg PO BID pravastatin 40 mg tablet 80 mg PO QHS Label Comments: TAKE 2 TABLETS BY MOUTH EVERY DAY AT BEDTIME bethanechol chloride 10 mg tablet 20 mg PO DAILY levothyroxine [Euthyrox] 75 mcg tablet 75 mcg PO DAILY Label Comments: TAKE 1 TABLET BY MOUTH ONCE DAILY cholecalciferol (vitamin D3) 50 mcg (2,000 unit) Capsule 50 mcg PO DAILY cyanocobalamin (vitamin B-12) 2,500 mcg Tablet 2,500 mcg PO QHS Ozempic 1 mg/dose (4 mg/3 mL) pen injector 1 mg SUBCUT TU clopidogrel 75 mg tablet 75 mg PO DAILY aspirin 81 mg tablet,delayed release (DR/EC) 81 mg PO DAILY@0800 metoprolol tartrate 25 mg tablet 25 mg PO BID Primary Care Provider: Sandra Kebede Referrals: Arben Nettles MD [Med Staff - Active Staff] - 3-5 Days Sandra Kebede, [Primary Care Provider] - Disposition Disposition: Home, Self Care What to do if you have Problems For any increased pain, shortness of breath, bleeding, nausea or vomiting, chest pain, or any unexpected problems, contact your Primary Care Provider. Call [facility] ([phone]) or report to the closest Emergency Room. Call 911 if necessary. 12/05/21 4220 <Electronically signed by Max Celeste MD> Cosigner Signature (if applicable): CC: Dr. Sandra Kebede DO Signed Sandra Kebede DO Work Phone: Start: 12-05-2021 End: 12-06-2021 12 Lead EKG Procedure Note: See Note; NOTES: [facility] Cardiovascular Services [address] [place] [address] 12 Lead EKG 12/05/21 1348 MR#: [id number] Acct: [id number] Name: MOLLY BOURGEOIS Rep #: [id number] : 1940 81 From: Arben Nettles MD Attending Dr: Status: DEP ER Ordering Dr: Max Celeste MD Date: 12/05/21 Location: ED Sex: F C Admitted: Test Reason : CP Blood Pressure : / mmHG Vent. Rate : 085 BPM Atrial Rate : 085 BPM P-R Int : 206 ms QRS Dur : 124 ms QT Int : 398 ms P-R-T Axes : 061 -42 191 degrees QTc Int : 473 ms Normal sinus rhythm Left axis deviation Left bundle branch block Abnormal ECG Confirmed by JUAN LUIS WILSON, ARBEN ([id number]), editor index CRUZ GARNER ([id number]) on 12/06/2021 9:32:21 AM Referred By: TYSHAWN Confirmed By:ARBEN NETTLES MD 12/06/21 0932 Date Arben Nettles MD CC: Dr. Sandra Kebede DO; Dr. Max Celeste MD Signed Sandra Kebede DO Work Phone: Start: 12-05-2021 End: 12-05-2021 Chest 1 View (Portable) Procedure Note: See Note; NOTES: [facility] Imaging Services [address] [place] [address] Chest 1 View (Portable) MR#: [id number] Acct: [id number] Name: MOLLY BOURGEOIS Rep #: [id number] : 1940 F 81 From: Owen Munoz PCP: Dr. Sandra Kebede DO Status: PRE ER Study: Chest 1 View (Portable) Date of Exam: 12/05/21 Exam# [id number] Ordering Dr: Max Celeste MD STUDY: X-RAY CHEST REASON FOR EXAM: Female, 81 years old. chest pain TECHNIQUE: Single AP portable view of the chest. COMPARISON: None. FINDINGS: The lungs are clear and expanded. There is no demonstrated pleural abnormality. Normal size heart. Normal mediastinum and joseph. Normal visualized pulmonary arteries. Normal visualized aortic arch and descending thoracic aorta. There is a dextroscoliosis of the thoracic spine. There is degenerative osteoarthritis of the bilateral shoulders. There is no demonstrated abnormality of the visualized soft tissue structures of the upper abdomen. RAD/Chest 1 View (Portable) IMPRESSION: Degenerative changes, as described above. No demonstrated acute cardiopulmonary process. Electronically Signed: Owen Ambriz MD at 14:46 EDT Reading Location ID and State: [facility] / [place] Tel , Service support , CC: Dr. Sandra Kebede DO; Dr. Max Celeste MD Maple Sugar Maker: Signed Sandra Kebede DO Work Phone: Start: 11-14-2021 End: 11-14-2021 Operation on heart Roxanna Kinsey CMA Start: 11-14-2021 End: 11-13-2021 Chest 1 View Procedure Note: See Note; NOTES: [facility] Imaging Services [address] [place] [address] Chest 1 View MR#: [id number] Acct: [id number] Name: MOLLY BOURGEOIS Rep #: [id number] : 1940 F 81 From: Lance Munoz PCP: Dr. Sandra Kebede DO Status: REG ER Study: Chest 1 View Date of Exam: 11/13/21 Exam# [id number] Ordering Dr: Pushpa Solorzano MD STUDY: XR Chest 1 View 11/13/2021 7:58 PM REASON FOR EXAM: Female, 81 years old. CHEST PAIN Neuro deficit, acute, stroke suspected COMPARISON: None TECHNIQUE: XR Chest 1 View FINDINGS: There is no demonstrated pleural abnormality. Normal heart size. Normal mediastinum. Normal joseph. Prominent appearing increased interstitial lung markings. Normal visualized pulmonary arteries. There is atherosclerotic calcification of the aortic arch with tortuosity. There are diffuse degenerative changes of the visualized thoracic spine. There is degenerative osteoarthritis of the bilateral shoulders. There is no demonstrated abnormality of the visualized soft tissue structures of the upper abdomen. RAD/Chest 1 View IMPRESSION: There are no acute findings. Electronically Signed: Lance Lacey MD at 20:15 EDT Reading Location ID and State: [facility] / [place] , Service support , CC: Dr. Pushpa Solorzano MD; Dr. Sandra Kebede DO Maple Sugar Maker: Signed Sandra Kebede DO Work Phone: Start: 11-13-2021 End: 11-13-2021 STROKE CTA Head AND Neck W/Con Procedure Note: See Note; NOTES: [facility] Imaging Services [address] [place] [address] STROKE CTA Head AND Neck W/Con MR#: [id number] Acct: [id number] Name: MOLLY BOURGEOIS Rep #: [id number] : 1940 F 81 From: Lance Munoz PCP: Dr. Sandra Kebede DO Status: PRE ER Study: STROKE CTA Head AND Neck W/Con Date of Exam: 0 11/13/21 Exam# [id number] Ordering Dr: Pushpa Solorzano MD We are attempting to reach an attending provider to discuss findings. An addendum with communication details will be sent when the communication is complete. EXAM: CT ANGIOGRAPHY HEAD AND NECK WITH INTRAVENOUS CONTRAST CLINICAL INDICATION: Neuro deficit, acute, stroke suspected TECHNIQUE: [place]/head and neck CT angiography protocol performed with intravenous contrast. This CT exam was performed using one or more of the following dose reduction techniques: automated exposure control, adjustment of the mA and/or kV according to patient size, and/or use of iterative reconstruction technique. This report was created using Hochy eto report Spinnakr technology. MIP reconstructed images were created and reviewed. CONTRAST: IV 100mL Isovue-370 RADIATION DOSE: CTDIvol = 21.86 mGy, DLP = 673.81 mGy-cm COMPARISON: 04.12.20. FINDINGS: HEAD: RIGHT ANTERIOR CEREBRAL ARTERY: Unremarkable. No significant stenosis at the visualized segments. Anterior communicating artery is present. No aneurysm. RIGHT MIDDLE CEREBRAL ARTERY: Unremarkable. No significant stenosis at the visualized segments. No aneurysm. RIGHT POSTERIOR CEREBRAL ARTERY: Unremarkable. No occlusion or significant stenosis. No aneurysm. RIGHT INTRACRANIAL INTERNAL CAROTID ARTERY: Unremarkable. No significant stenosis. No dissection or occlusion. RIGHT INTRACRANIAL VERTEBRAL ARTERY: Unremarkable. No significant stenosis. No dissection or occlusion. LEFT ANTERIOR CEREBRAL ARTERY: Unremarkable. No significant stenosis at the visualized segments. No aneurysm. LEFT MIDDLE CEREBRAL ARTERY: Unremarkable. No significant stenosis at the visualized segments. No aneurysm. LEFT POSTERIOR CEREBRAL ARTERY: Unremarkable. No occlusion or significant stenosis. No aneurysm. LEFT INTRACRANIAL INTERNAL CAROTID ARTERY: See below. LEFT INTRACRANIAL VERTEBRAL ARTERY: Unremarkable. No significant stenosis. No dissection or occlusion. BASILAR ARTERY: Unremarkable. No significant stenosis. No aneurysm. OTHER VASCULATURE: There is mild atherosclerotic plaque formation of the origin of the left internal carotid artery with less than 50% cross sectional diameter stenosis. ALL ABOVE CRITERIA BY NASCET. There is calcified plaque formation of the right cavernous carotid artery, with a mild stenosis (less than 50%). ALL ABOVE CRITERIA BY NASCET. NECK: RIGHT COMMON CAROTID ARTERY: Unremarkable. No significant stenosis. No dissection or occlusion. RIGHT EXTRACRANIAL INTERNAL CAROTID ARTERY: Unremarkable. No significant stenosis. No dissection or occlusion. RIGHT EXTERNAL CAROTID ARTERY: Unremarkable. No occlusion. RIGHT EXTRACRANIAL VERTEBRAL ARTERY: Unremarkable. No significant stenosis. No dissection or occlusion. LEFT COMMON CAROTID ARTERY: Unremarkable. No significant stenosis. No dissection or occlusion. LEFT EXTRACRANIAL INTERNAL CAROTID ARTERY: See above. LEFT EXTERNAL CAROTID ARTERY: Unremarkable. No occlusion. LEFT EXTRACRANIAL VERTEBRAL ARTERY: Unremarkable. No significant stenosis. No dissection or occlusion. GREAT VESSELS OF AORTIC ARCH: There is calcified plaque formation of the left cavernous carotid artery, with a mild stenosis (less than 50%). ALL ABOVE CRITERIA BY NASCET. LUNG APICES: Unremarkable as visualized. HEAD and NECK: BONES/JOINTS: There are degenerative findings of the cervical spine. No discrete lytic or blastic abnormalities. SOFT TISSUES: Unremarkable. CAROTID STENOSIS REFERENCE USING NASCET CRITERIA: % ICA stenosis = (1 - narrowest ICA diameter/diameter of distal cervical ICA) x 100. Mild - <50% stenosis. Moderate - 50-69% stenosis. Severe - 70-94% stenosis. Near occlusion - 95-99% stenosis. Occluded - 100% stenosis. CT/STROKE CTA Head AND Neck W/Con IMPRESSION: 1. There is mild atherosclerotic plaque formation of the origin of the left internal carotid artery with less than 50% cross sectional diameter stenosis. ALL ABOVE CRITERIA BY NASCET. 2. There is calcified plaque formation of the right cavernous carotid artery, with a mild stenosis (less than 50%). ALL ABOVE CRITERIA BY NASCET. 3. There is calcified plaque formation of the left cavernous carotid artery, with a mild stenosis (less than 50%). ALL ABOVE CRITERIA BY NASCET. Electronically Signed: Lance Lacey MD at 19:48 EDT Reading Location ID and State: [facility] / [place] , Service support , CC: Dr. Pushpa Solorzano MD; Dr. Sandra Kebede DO Maple Sugar Maker: Signed Sandra Kebede DO Work Phone: Start: 11-13-2021 End: 11-13-2021 STROKE Brain/Head without Cont Procedure Note: See Note; NOTES: [facility] Imaging Services [address] [place] [address] STROKE Brain/Head without Cont MR#: [id number] Acct: [id number] Name: BKMOLLY Rep #: [id number] : 1940 F 81 From: Lance Munoz PCP: Dr. Sandra Kebede DO Status: PRE ER Study: STROKE Brain/Head without Cont Date of Exam: 0 11/13/21 Exam# [id number] Ordering Dr: Pushpa Solorzano MD We are attempting to reach an attending provider to discuss findings. An addendum with communication details will be sent when the communication is complete. EXAM: CT HEAD WITHOUT INTRAVENOUS CONTRAST CLINICAL INDICATION: Neuro deficit, acute, stroke suspected TECHNIQUE: Multiple axial images were obtained of the head without intravenous contrast. This CT exam was performed using one or more of the following dose reduction techniques: automated exposure control, adjustment of the mA and/or kV according to patient size, and/or use of iterative reconstruction technique. This report was created using Hochy eto report generation technology. COMPARISON: MRI 04.13.20 FINDINGS: BRAIN AND EXTRA-AXIAL SPACES: Chronic involutional changes of the brain. No intra- or extra-axial hemorrhage. No evidence of acute infarct. No intracranial mass or mass effect. There is preservation of the rodrigues/white matter interface. Posterior fossa structures are unremarkable. Ventricles are appropriate for age. No hydrocephalus. Basal cisterns are patent. BONES/JOINTS: Unremarkable. No discrete lytic or blastic abnormalities. VASCULATURE: There are calcifications around the cavernous carotid arteries. This is consistent for atherosclerotic disease. SINUSES: There is sinus disease. MASTOID AIR CELLS: Unremarkable. Clear. ORBITS: Visualized globes, extraocular muscles, optic nerves and retrobulbar fat appear unremarkable. OTHER FINDINGS: Critical finding called and case discussed. Aspects 10. CT/STROKE Brain/Head without Cont IMPRESSION: Chronic involutional changes of the brain. Electronically Signed: Lance Lacey MD at 19:36 EDT , CC: Dr. Pushpa Solorzano MD; Dr. Sandra Kebede DO Maple Sugar Maker: Signed Sandra Kebede DO Work Phone: Start: 08-01-2021 End: 08-01-2021 EKG impression Peewee Courtney Start: 10-01-2020 End: 10-01-2020 EKG impression Maged Wright Start: 05-30-2020 End: 05-31-2020 Inital Evaluation (1) - PT Comments: See Note; NOTES: [facility] [address] [place] [address] / REHABILITATION SERVICES INITIAL EVALUATION MR#: [id number] Acct: [id number] Name: MOLLY BOURGEOIS Rep #: [id number] : 1940 79 From: Blayne Craig PT, Cert. T, OCS Referring Dr.: Dr. Mendel Rodas DO Status: RE G RCR Insurance: [employer] MED[employer] PPO SELF PAY INSURANCE Patient's Visit Information MOLLY BOURGEOIS is a 79 year old F referred to Physical Therapy by Dr. Mendel Rodas DO with a diagnosis of RIGHT THORACIC OUTLET SYNDROME RIDE SIDE. Date of Evaluation: 05/30/20 Physical Therapist: Blayne Craig, PT, Cert MDT, OCS - Visit Plan Frequency: 2x /Week Duration: 4 Weeks Plan: PT INTERVENTIONS POSTURAL EX'S,CERVICAL ROM,STRENGTHENING AND MODALTIES - Subjective This 79 y/o feamle presents to physical therapy with right thoracic outlet.Patient has had symptoms for about 1 year. Patient c/o parathesia right hand.Seen DR Rodas did x-rays cervical and MRI thought symtoms from thoracic outlet. Aggraveting factors lifting arms overhead. Alleviating factors rest. C/O parathesia/tingling right hand. Denies [place]/dizziness/tinnutus. Patient able to sleep at night . Patient symptoms affects ADLS and houseworks. Patient syptoms affects QOL. SOCIAL: lives with daughter - Pain Right Back Pain Intensity (Out of 10): 2 Pain Intensity Range: 10 Comment: thoracic upper back worst is 8/10 - Objective POSTURE: mild foward posture. NEURO: c/o parathesia/tingling right fingers reflexes C5-6-7 1/. PALAPTION: mild tenderness paraspinals /UT. AROM SHOULDER: WFL. CERVICAL ROM: flexion min loss,extension mod loss,lateral flexion /rotation mod loss. MMT: 4/5 except shoulders 4-/5. SPECIAL TESTS: DAVINA -,ADD-SONS - - Special Tests C/S Radiculapathy - Left Upper limb tension test: Negative C/S Radiculapathy - Right Upper limb tension test: Negative C/S Radiculapathy - Left Spurlings: Negative C/S Radiculapathy - Left Cervical distraction: Negative C/S Radiculapathy - Right Cervical distraction: Negative Sharp Esperanza: Negative Vertebral Artery Test: Negative Alar Ligament Test: Negative - Goals Goal 1:: Patient to be I with HEP Goal Time Frame: 4-6 Weeks Goal 2:: Patient to decrease symptoms in neck and right upper arm by 50% or > to improve function Goal Time Frame: 4-6 Weeks Goal 3:: Patient to cervical owestry score by 5 points or> to improve function Goal Time Frame: 4-6 Weeks Goal 4:: Patient be able to perform ADLS and light housewotk tasks with min limitations Goal Time Frame: 4-6 Weeks - Rehabilitation Potential Physical Therapy Diagnosis: This patient has right upper extremity symptoms with pain/parathesia with symptoms consist of thoracic outless and MRI and x-ray was negative along with decreas posture thus will benifit from skilled PT Rehabilitation Potential: Good - Anticipated Interventions Patient/Client Instruction: Educate patient on: Condition, Plan of Care For the Purpose of:: To decrease pain, To increase ROM, To improve muscle performance and motor function, To improve ability to perform ADL's, To increase tolerance to activity/condition/position, To improve ability of physical actions for home/community/work/leisure, To improve health of tissue, To decrease soft tissue restriction, To increase flexibility/ROM, To improve ability to perform tasks related to life management Therapeutic Exercise to Include: Strength training, Postural training, Flexibilty training, Scapular Strength/Stabilization TENS: Yes IF ES: Yes Cryotherapy (ice pack, ice massage): Yes Thermo therapy (hot pack): Yes Ultrasound (thermal/non thermal): Yes For the Purpose of:: To decrease pain, To increase ROM, To improve nutrient delivery to tissue, To increase oxygenation perfusion, To improve muscle performance and motor function, To improve health of tissue, To decrease soft tissue restriction Thank you for the opportunity to evaluate your patient. For Medicare and Medicare HMO plans, please review the plan of care and approve it. It will need to be FAXED BACK to us at [phone] for Medicare purposes. For Medicare only, by signing this I certify the plan of care. Please let me know if there are questions or concerns regarding this plan of care. Physician Signature: ___Date: <Electronically signed by Blayne Craig PT, Cert. T, OCS> 05/31/20930 CC: Dr. Sandra Kebede DO; Dr. Mendel Rodas DO JLA Signed Sandra Kebede Start: 05-25-2020 End: 05-26-2020 Emergency Department Summary Comments: See Note; NOTES: [facility] Medical Records Department [address] [place] [address] Emergency Department Summary 05/25/20 MR#: [id number] Acct: [id number] Name: MOLLY BOURGEOIS Rep #: [id number] : 1940 79 From: Guevara Rolon MD PCP: Dr. Sandra Kebede DO Status:DEP ER History of Present Illness Chief Complaint: Costa C/O Informant: Patient Onset: Yesterday Context: Gradual Onset Timing: Continuous Current Severity: Mild Maximum Severity: Mild Narrative: The patient is a 79-year-old female that presents for evaluation of her suprapubic catheter. Patient had catheter placed earlier this month. They have been monitoring her urine output and its been fine. Over the past 2 days, her daughter who helps takes care of it has noticed some skin breakdown around the edges of the catheter. She was worried that there may been purulence. The patient denies fevers or chills. She does admit to some pain when her bladder empties. She is otherwise been in her normal state of health. Prior similar symptoms: Yes Recent Illness/Hospitalization: No Past Medical History - Allergies and Home Meds Allergies/Adverse Reactions: Allergies No Known Allergies Allergy (Verified 05/02/20 09:09) Primary Care Physician: Sandra Kebede DO [Primary Care Provider] - Prior records reviewed: Yes Past Medical History: - - Hypertension, urinary incontinence Surgical History: noncontributory, - - Thyroid surgery, tonsils surgery Smoking Status: Never smoker Review of Systems General: Denies: Chills, Fever, Sweats Eyes: Denies: Visual changes - bilaterally, Diplopia ENT: Denies: Rhinorrhea, Sore throat Cardiovascular: Denies: Chest pain, Palpitations Respiratory: Denies: Dyspnea, Cough, Dyspnea on exertion Gastrointestinal: Denies: Abdominal pain, Nausea, Vomiting, Diarrhea, Melena, Hematochezia Genitourinary: Reports: Dysuria. Denies: Hematuria, Frequency Musculoskeletal: Denies: Back pain, Extremity Pain Skin: Denies: Rash, Wounds Neurological: Denies: Headache, Weakness, Numbness Physical Exam Vital Signs/Narrative: Vital Signs Temp Pulse Resp BP Pulse Ox 05/25/20 22:03 96.4 F L 71 15 123/76 H 98 05/25/20 21:35 96.4 F L 71 15 123/76 H 98 Inital Vital Signs reviewed: Yes General: Well nourished, Well developed, No Acute Distress Head: Normocephalic, Atraumatic Eyes: Perrl, EOMI ENT: Moist mucous membranes, No rhinorrhea Neck: Supple, Nontender Cardiovascular: Regular rate, Regular rhythm, No murmurs Respiratory: No distress, CTA bilaterally, Chest nontender Abdomen: Soft, Nontender, Nondistended, Normal bowel sounds, - - The suprapubic site is clean, dry, intact. There is minimal erythema the wound edge. There are some fibrous tissue around the wound edges, but no purulence. No evidence of abscess. Back: Nontender, Normal Inspection Extremities: Nontender, No edema Skin: Normal color, No rash Neurological: Alert, Oriented x3, Cranial nerves II-XII grossly intact, Normal Strength, Normal Sensation Psychological: Normal affect, Normal Mood Diagnostic/Tx/Re-eval Abnormal Lab Results 05/25/20 22:25 Urine Color Straw Urine Clarity Cloudy Urine pH 7.0 Ur Specific Entriken 1.005 Urine Protein 15 H Urine Glucose (UA) Normal Urine Ketones Negative Urine Occult Blood 25 H Urine Nitrite Negative Urine Bilirubin Negative Urine Urobilinogen Normal Ur Leukocyte Esterase 500 H - Medical Decision Making The patient suprapubic site looks well. It does seem consistent most with postoperative healing. She was complaining of some pain with urination. Urine was obtained and it does show evidence of infection. Culture was added. The patient will be treated with Cipro. She is had no flank pain, fever, chills, other systemic symptoms. At this point, I do for that she is safe outpatient therapy. Impression 1. Catheter associated urinary tract infection ED Disposition - Plan for ED Patient: Instructions: Caring for Your Suprapubic Catheter Prescriptions: Ciprofloxacin [Cipro] 500 mg PO BID #14 tab Prescription Printed Referrals: Sandra Kebede DO [Primary Care Provider] - What to do if you have Problems For any increased pain, shortness of breath, bleeding, nausea or vomiting, chest pain, or any unexpected problems, contact your Primary Care Provider. Call [facility] ([phone]) or report to the closest Emergency Room. Call 911 if necessary. 05/26/20 0056 <Electronically signed by Guevara Rolon MD> Date Guevara Rolon MD Cosigner Signature (If Indicated): Date CC: DO Sandra Harvey Start: 05-23-2020 End: 05-23-2020 Orthopedic Visit Report Comments: See Note; NOTES: [facility] Orthopaedics Sports Medicine [address] [place] [address] OFFICE VISIT Date of Service: 05/23/20 MR#: [id number] Acct: [id number] Name: MOLLY BOURGEOIS Rep #: [id number] : 1940 Provider: Dr. Mendel garcia DO Age/Sex: 79/F Location: [facility] [email or web address] Status: Signed Intake Intake Visit Reasons: Cervical Spine Chief Complaint: cerival spine Accompanied by: Friend Is patient in pain?: Yes Allergies No Known Allergies Allergy (Verified 05/02/20 09:09) Medications allopurinol 100 mg tablet 100 mg PO DAILY 02/06/18 [History Confirmed 04/12/20] amlodipine 2.5 mg tablet 2.5 mg PO DAILY 02/06/18 [History Confirmed 04/12/20] Aspirin E.C. 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 Mendel Rodas, DO) household members: other details: Vahid Sanchez Sr., Vahid Lizarraga Jr. housing: house Smoking Status: Never smoker alcohol intake: never substance use type: does not use what type of physical activity do you participate in: none do you feel safe at home: Yes HPI Cervical Spine: Details: Parts of this documentation were recorded by a scribe, this documentation accurately reflects the service provided and the decisions made by me, Dr. Mendel Rodas DO 05/23/20 6109. MOLLY BOURGEOIS is a 79 year old F here today for F/U on cervical spine after having MRI. She continues to have right sided neck pain into the right arm. She also has some numbness and tingling in the right arm. She is having some issues with urination at this time and has been started on a new medication. Nakia returns for follow-up. I reestablished the fact that what she feels in her right arm is numbness not pain. Of the note above suggest otherwise however she reiterated that it is only a numbness in her arm and not pain. She also had positive Adson's maneuver last time I examined her. I reviewed her MRI scan at length. Though she has some foraminal stenosis at 3 levels if that were the main cause of her numbness she would also have pain along with it. And she does not. Thus we will stick with a diagnosis of thoracic outlet syndrome. I will send her to physical therapy in hopes of helping her. I would recommend anti-inflammatories however patients her age sometimes have a hard time with it and it can be very hard on their digestive systems and stomach. So we will refrain from that. I would like to visit with her again in 6 weeks. Assessment Plan Problems 1. Thoracic outlet syndrome of right thoracic outlet G54.0 Coding Level of Care Code Off vis,est,level 1 Diagnoses Thoracic outlet syndrome of right thoracic outlet G54.0 Time Spent (min) 10 05/23/20 1008 <Electronically signed by Mendel Rodas DO> Date Mendel Mckinnon Signature: Date (if applicable) CC: Sandra Kebede Start: 05-13-2020 End: 05-13-2020 Spine Cervical (Routine) Comments: See Note; NOTES: [facility] Imaging Services [address] [place] [address] Spine Cervical (Routine) MR#: [id number] Acct: [id number] Name: MOLLY BOURGEOIS Rep #: [id number] : 1940 F 79 From: iJ Rashid MD PCP: Dr. Sandra Kebede, Status: REG CLI Study: Spine Cervical (Routine) Date of Exam: Exam# [id number] Ordering Dr: Mendel Rodas DO STUDY: MRI CERVICAL SPINE WITHOUT CONTRAST REASON FOR EXAM: Female, 79 years old. Radiculopathy TECHNIQUE: Standardized fat and water weighted pulse sequences were obtained in the sagittal and axial planes. COMPARISON: CTA neck 04/12/2020. No prior MRI or CT cervical spine for comparison. FINDINGS: Normal foramen magnum and brainstem-cervical cord junction. Normal craniovertebral junction. Pronounced narrowing of the predental space. Prominent soft tissue density behind the odontoid process and lesser prominent soft tissue density in front of the odontoid process. This may be secondary to seronegative inflammatory arthropathy. This is unchanged. Normal odontoid process. Straightening of the C-spine curve is unchanged. Normal vertebral bodies and posterior osseous elements. C2-3: Normal endplates. Normal disc height and morphology. Normal central canal and intervertebral neural foramina. C3-4: Old central compression fracture deformity in the C3 inferior endplate causing increased central disc space height. Degenerative narrowing in the remainder of the disc space. Small posterior marginal spurs. Normal central canal and right intervertebral neural foramen. Mild stenosis of the left intervertebral neural foramen. C4-5: Normal endplates. Pronounced disc space height narrowing. Normal central canal. Moderate stenosis of the intervertebral neural foramina due to osteophytes arising from the uncovertebral joints. C5-6: Pronounced disc space height narrowing. Normal endplates. Normal central canal. Moderate stenosis of the intervertebral neural foramina. C6-7: Normal endplates. Moderate disc space height narrowing. Normal central canal and left intervertebral neural foramen. Mild stenosis of the right intervertebral neural foramen. C7-T1: Normal endplates. Mild disc space height narrowing. Normal central canal and intervertebral neural foramina. T1-T2: Pronounced disc space height narrowing. Normal central canal and intervertebral neural foramina. T2-T3: (Sagittal only). Pronounced disc space height narrowing. Mild degenerative anterolisthesis of T2 on T3. Normal central canal and intervertebral neural foramina. T3-T4: (Sagittal only). Normal endplates. Moderate disc space height narrowing. Normal central canal and intervertebral neural foramina. T4-T5: (Sagittal only). Normal endplates. Moderate disc space height narrowing. Normal central canal and intervertebral neural foramina. T4-T5: (Sagittal only). Normal endplates. Small posterior bulging disc. Normal central canal and intervertebral neural foramina. Normal cervical cord. Normal upper thoracic spinal cord. Multiple solid nodules in the left thyroid lobe more than the right thyroid lobe. Solid nodule in the thyroid isthmus. MRI/Spine Cervical (Routine) IMPRESSION: 1. No MRI evidence of cervical extruded disc fragment. 2. Old central compression fracture of the C3 inferior endplate. 3. Pronounced C4-C5 disc space height narrowing and moderate stenosis of the bilateral intervertebral neural foramina. 4. Pronounced C5-C6 disc space height narrowing and moderate stenosis of the bilateral intervertebral neural foramina. 5. Moderate C6-C7 disc space height narrowing and mild stenosis of the right intervertebral neural foramen. 6. Pronounced T2-T3 disc space height narrowing and mild degenerative anterolisthesis of T2 on T3. 7. Small T4-T5 posterior bulging disc. 8. Normal cervical spinal cord and upper thoracic spinal cord. 9. Multiple small solid nodules in both thyroid lobes, left more than right and small solid nodule in the thyroid isthmus. Electronically Signed: Ji Rashid MD at 16:46 EST , Service support , CC: Dr. Sandra Kebede DO; Dr. Mendel Rodas DO Maple Sugar Maker: Signed Sandra Kebede Start: 05-02-2020 End: 05-02-2020 Cerv Spine 2 or 3 Views Comments: See Note; NOTES: [facility] Radiology [address] [place] [address] Cerv Spine 2 or 3 Views MR#: [id number] Acct: [id number] Name: MOLLY BOURGEOIS Rep #: [id number] : 1940 F 79 From: Jairo sadler MD PCP: Dr. Sandra Kebede DO Status: DEP AMB Study: Cerv Spine 2 or 3 Views Date of Exam: 05/02/20 Exam# [id number] Ordering Dr: Mendel Rodas DO STUDY: X-RAY - CERVICAL SPINE REASON FOR EXAM: Female, 79 years old. PAIN TECHNIQUE: 3 view(s) of the cervical spine were obtained. COMPARISON: None FINDINGS: There are degenerative changes of the anterior atlantoaxial articulation. Normal odontoid process. There is straightening of the normal cervical lordosis. There is multi-level endplate spondylosis. There is multi-level degenerative disc disease with multilevel disc space narrowing. Normal visualized intervertebral neuroforamina. The soft tissue structures are unremarkable. RAD/Cerv Spine 2 or 3 Views IMPRESSION: Loss of the normal cervical lordosis. Multilevel disc space narrowing and spondylosis. Electronically Signed: Jairo Cortes MD at 10:59 EST , Service support , CC: Dr. Sandra Kebede DO; Dr. Mendel Rodas DO Maple Sugar Maker: Signed Sandra Kebede Start: 05-02-2020 End: 05-02-2020 Orthopedic Visit Report Comments: See Note; NOTES: [facility] Orthopaedics Sports Medicine [address] [place] [address] [address] [place] [address] OFFICE VISIT Date of Service: 05/02/20 MR#: [id number] Acct: [id number] Name: MOLLY BOURGEOIS Rep #: [id number] : 1940 Provider: Dr. Mendel garcia DO Age/Sex: 79/F Location: [facility] [email or web address] Status: Signed Intake Vital Signs 05/02/20 Height 5 ft 7 in 05/02/20 Weight: 177 lb 05/02/20 BMI 27.7 Intake Visit Reasons: Neck pain Accompanied by: Daughter Is patient in pain?: No Allergies No Known Allergies Allergy (Verified 05/02/20 09:09) Nurse's Note: UNABLE TO PERFORM MEDICATION RECONCILIATION D/T PATIENT AND DAUGHTER UNAWARE OF MEDICATIONS. 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 Mendel Rodas DO) household members: other details: Vahid Sanchez Sr., Vahid Lizarraga Jr. housing: house Smoking Status: Never smoker alcohol intake: never substance use type: does not use what type of physical activity do you participate in: none do you feel safe at home: Yes HPI Neck pain: Details: Parts of this documentation were recorded by a scribe, this documentation accurately reflects the service provided and the decisions made by me, Dr. Mendel Rodas DO 05/02/20 0857. MOLLY BOURGEOIS is a 79 year old F here today to establish as a new patient. Patient is here for a [facility] ER follow up. [facility] ER: 04/12/2020, was told to follow up in 2-4 weeks. Patient had numbness of her bilateral arms, and said she needed to follow up regarding her cervical views. Patient denies any cervical pain currently. Patient was taken to the [facility] ER by her daughter d/t she began having slurred speech and was not able to fully speak. Patient had a Head/neck CTA while in the hospital amongst other imaging and tests performed. UNABLE TO PERFORM MEDICATION RECONCILIATION D/T PATIENT AND DAUGHTER UNAWARE OF MEDICATIONS. Molly is most pleasant lady 79 years old has chief complaint of numbness in her right arm. She does not have any neck pain to speak of. She does not have any pain down her arm only numbness. This started about 3 years ago. It started after having fallen backwards and hitting her head. At first it was only numbness in her hand but then slowly started spreading up to the shoulder. The left arm is not affected. She denies any bowel dysfunction. She does have bladder dysfunction that started perhaps in January of last year. She apparently had a kidney stone and some type of procedure was done she woke up with a catheter in place they have taken it out but she cannot urinate so she still has the catheter several months later. Her urologist is trying to figure out what to do about it. She denies history of unexplained weight loss night fever sweats or chills. Examination she has physiologic reflexes in both arms. She has reasonable motor strength in both arms. She has no long tract signs. Clonus is absent and Babinski's are downgoing. She does have a positive Adson's test on the right side. It is reproducible. Impression: Thoracic outlet syndrome Our plan for now is an MRI scan of the cervical spine to rule out a cord issue. We might consider vascular study for thoracic outlet syndrome afterwards however first I would like to see the results of the cervical MRI scan. ROS Const Denies system reviewed and no additional complaints, except as docu, Denies chills, Denies fatigue, Denies fever(s), Denies frequent falls, Denies headache(s), Denies weakness ENT Denies headache(s) Card Denies system reviewed and no additional complaints, except as docu, Denies chest pain, Denies shortness of breath Resp Denies system reviewed and no additional complaints, except as docu, Denies chest congestion, Denies cough, Denies shortness of breath GI Denies system reviewed and no additional complaints, except as docu, Denies abdominal pain, Denies constipation, Denies incontinent of stools, Denies loose stools, Denies nausea, Denies vomiting Denies system reviewed and no additional complaints, except as docu, Denies urinary incontinence Musc Reports system reviewed and no additional complaints, except as docu, Denies joint pain, Reports numbness Skin/Breast Denies system reviewed and no additional complaints, except as docu, Denies dry skin, Denies redness, Denies lesions, Denies new lesions, Denies non-healing lesions, Denies itching, Denies rash, Denies skin ulcer, Denies sores, Denies wounds Neuro Yes system reviewed and no additional complaints, except as docu, No frequent falls, No headache(s), Yes numbness, No weakness Endo Denies fatigue Assessment Plan 1. Neck pain M54.2 Orders Orders: Cerv Spine 2 or 3 Views Today 2. Thoracic outlet syndrome of right thoracic outlet G54.0 Coding Level of Care Code Off vis,new,level 3 Diagnoses Neck pain M54.2 Thoracic outlet syndrome of right thoracic outlet G54.0 Time Spent (min) 30 05/02/20 1024 <Electronically signed by Mendel Rodas DO> Date Mendel Rodas DO Cosigner Signature: Date (if applicable) CC: DO Sandra Harvey Start: 04-12-2020 End: 04-12-2020 CTA Head AND Neck W/ Contrast Comments: See Note; NOTES: [facility] Imaging Services [address] [place] [address] CTA Head AND Neck W/ Contrast MR#: [id number] Acct: [id number] Name: MOLLY BOURGEOIS Rep #: [id number] : 1940 F 79 From: Jorge Jensen MD PCP: Dr. Sandra Kebede DO Status: REG ER Study: CTA Head AND Neck W/ Contrast Date of Exam: Exam# [id number] Ordering Dr: Yunior Dorsey MD We are attempting to reach an attending provider to discuss findings. An addendum with communication details will be sent when the communication is complete. STUDY: CTA HEAD AND NECK WITH CONTRAST REASON FOR EXAM: Female, 79 years old. SLURRED SPEECH. STOKE RADIATION DOSAGE (If Supplied By Facility): CTDIvol = ( 18.13 ) mGy, DLP = ( 759.69 ) mGycm TECHNIQUE: CT angiography was performed with a multi-detector CT scanner. Data acquisition was obtained from the skull base through the vertex following intravenous administration of IV 100mL Isovue-370. MIP images were reconstructed from the axial data set. Post-processing of the angiographic images was performed, with multiplanar reformation and 3D reconstruction. Individualized dose optimization techniques were used for this CT. COMPARISON: No relevant priors. FINDINGS: Normal bilateral petrous carotid arteries. Mild calcific plaquing of the right cavernous carotid artery with a normal supraclinoid bifurcation. Mild calcific plaquing of the left cavernous carotid artery with a normal supraclinoid bifurcation. Normal right A1 segments of the anterior cerebral artery. Normal left A1 segments of the anterior cerebral artery. Anterior communicating artery not visualized consistent with normal variant.). Normal bilateral A2 segments of the anterior cerebral arteries. Normal right M1 and M2 segments of the middle cerebral arteries, with a normal M1 bifurcation. Normal left M1 and M2 segments of the middle cerebral arteries, with a normal M1 bifurcation. Posterior communicating arteries are not visualized consistent with normal variant Normal bilateral vertebral arteries. Normal basilar artery with a normal basilar bifurcation. The visualized bilateral superior cerebellar (SCA) arteries are normal. Normal bilateral P1, P2 and visualized P3 segments of the posterior cerebral arteries. There is no demonstrated aneurysm of the [place]. There is no demonstrated abnormality of the visualized brain. AORTIC ARCH: Normal visualized aortic arch. Normal origins of the brachiocephalic, left common carotid, and left subclavian arteries. RIGHT CAROTID ARTERIES: Normal right common carotid artery (CCA). Normal right common carotid bulb. Normal origin of the right internal carotid (ICA) artery without a hemodynamically significant stenosis. Normal visualized cervical portion of the right internal carotid artery. Normal origin of the right external carotid artery (ECA). LEFT CAROTID ARTERIES: Normal left common carotid artery (CCA). Normal left common carotid bulb. Normal origin of the left internal carotid (ICA) artery without a hemodynamically significant stenosis. Normal visualized cervical portion of the left internal carotid artery. Normal origin of the left external carotid artery (ECA). VERTEBRAL ARTERIES: Normal bilateral vertebral arteries. CT/CTA Head AND Neck W/ Contrast IMPRESSION: Mild atherosclerotic disease. No evidence for significant stenosis or occlusion within the head or the neck Electronically Signed: Jorge Jensen MD at 20:07 EST , Service support , CC: Dr. Sandra Kebede DO; Dr. Yunior Dorsey MD Maple Sugar Maker: Signed Sandra Kebede Start: 04-12-2020 End: 04-12-2020 STROKE Brain/Head without Cont Comments: See Note; NOTES: [facility] Imaging Services [address] [place] [id number] STROKE Brain/Head without Cont MR#: [id number] Acct: [id number] Name: MOLLY BOURGEOIS Rep #: [id number] : 1940 F 79 From: Cleve Guan MD PCP: Dr. Sandra Kebede DO Status: PRE ER Study: STROKE Brain/Head without Cont Date of Exam: 0 04/12/20 Exam# [id number] Ordering Dr: Yunior Dorsey MD STUDY: CT BRAIN WITHOUT CONTRAST REASON FOR EXAM: Female, 79 years old. Altered mental status. Stroke alert. RADIATION DOSAGE (If Supplied By Facility): CTDIvol = ( 45 ) mGy, DLP = ( 762 ) mGycm TECHNIQUE: Transaxial CT imaging of the brain was performed without administration of intravenous contrast material. Individualized dose optimization techniques were used for this CT. COMPARISON: None. FINDINGS: There is no acute bleed or infarct. There are chronic ischemic and atrophic changes. The ventricles are normal in configuration. There is no hydrocephalus. The visualized paranasal sinuses are clear. The mastoid air cells are well aerated. There is no skull fracture. CT/STROKE Brain/Head without Cont IMPRESSION: No acute intracranial abnormality. Chronic ischemic and atrophic changes. N.B. : The above information has been verbally conveyed by Cleve Guan MD to Yunior Dorsey on 04/12/2020 19:52:42 (ET). Electronically Signed: Cleve Guan MD at 19:53 EST Tel , Service support , CC: Dr. Sandra Kebede DO; Dr. Yunior Dorsey MD Maple Sugar Maker: Signed Sandra Kebede Start: 04-12-2020 End: 04-12-2020 Emergency Department Summary Comments: See Note; NOTES: [facility] Medical Records Department [address] [place] [id number] Emergency Department Summary 04/12/20 MR#: [id number] Acct: [id number] Name: MOLLY BOURGEOIS Rep #: [id number] : 1940 79 From: Yunior Dorsey MD PCP: Dr. Sandra Kebede DO Status:REG ER History of Present Illness Chief Complaint: Numb/Ting Informant: Patient, Family Onset: Today - At 1600 Context: Sudden Onset Quality and Location: Slurred Speech Onset: 1599 on April 12 Current Severity: Mild Maximum Severity: Mild Worsened by: Nothing Relieved by: Nothing Associated Symptoms: Negative for: Headache, Nausea, Vomiting, Chest Pain Narrative: Patient elderly woman who presents because of concern for stroke. She had a mini stroke in the past. She is on aspirin a day. She also has history of diabetes. She did not have symptoms of hypoglycemia. She denies headache. She denies double vision, blurred vision loss of vision. She states her speech is slurred. She also complains of numbness in her right long and ring finger. She denies neck pain. She denies headache. She denies nausea or vomiting. She has trouble with balance. She denies weakness in her arms or legs. She denies chest pain or back pain. She denies shortness of breath. Prior similar symptoms: Yes Recent Illness/Hospitalization: No - Past Medical History (1) History of type 2 diabetes mellitus Status: Acute (2) History of TIA (transient ischemic attack) Status: Acute (3) History of gout Status: Acute (4) History of hypertension Status: Acute Past Medical History - Allergies and Home Meds Allergies/Adverse Reactions: Allergies No Known Allergies Allergy (Unverified 04/12/20 19:23) Primary Care Physician: Sandra Kebede DO [Primary Care Provider] - Prior records reviewed: Yes Surgical History: noncontributory, - - Thyroid, tonsils Lives: With Family Smoking Status: Never smoker Alcohol: None Drugs: None Review of Systems General: Denies: Chills, Fever, Malaise, Subjective, Sweats Eyes: Denies: Visual changes - bilaterally, Blurred Vision - bilaterally ENT: Denies: Rhinorrhea, Sore throat Cardiovascular: Denies: Chest pain, Palpitations Respiratory: Denies: Dyspnea, Cough, Dyspnea on exertion Gastrointestinal: Denies: Abdominal pain, Nausea, Vomiting, Diarrhea, Melena, Hematochezia Genitourinary: Denies: Dysuria, Hematuria, Frequency Musculoskeletal: Denies: Myalgias, Arthralgias, Swelling, Extremity Pain Skin: Denies: Rash, Wounds Neurological: Reports: Parasthesia, Numbness. Denies: Headache, Weakness Psych: Denies: Depression Hematologic: Denies: Easy bruising, Easy bleeding Allergy: Denies: Uticaria STROKE Vital Signs/Narrative: Vital Signs Temp Pulse Resp BP Pulse Ox 04/12/20 19:20 96.8 F L 111 H 17 163/96 H 100 Inital Vital Signs reviewed: Yes - NIHSS Initial 1a Level of Consciousness: 1 1b LOC Questions (Score 2 if aphasic/stupor): 0 1c LOC Commands (Only score 1st attempt): 0 2 Best Gaze (If aphasic, use reflexive mvmts.): 0 3 Visual: 0 4 Facial Palsy: 0 5 Motor Arm Right (UN = amputation/fusion): 0 5 Motor Arm Left: 0 6 Motor Leg Right: 0 6 Motor Leg Left: 0 7 Limb ataxia (Only + if out of proportion): 0 8 Sensory (Aphasia/stupor=0 or 1, coma=2): 0 9 Best Language: 1 10 Dysarthria (mute, coma=2, intubated=UN): 1 11 Extinction and Inattention (only scored if +): 0 Total Score: 3 General: Well nourished, Well developed Head: Normocephalic, Atraumatic Eyes: Perrl, EOMI ENT: Moist mucous membranes, No rhinorrhea Neck: Supple, Nontender, No lymphadenopathy, No JVD Cardiovascular: Regular rate, Regular rhythm, No murmurs, Normal S1, Normal S2 Respiratory: No distress, CTA bilaterally, Chest nontender Abdomen: Soft, Nontender, Nondistended, Normal bowel sounds Rectal: Deferred Back: Nontender, Normal Inspection Extremities: Nontender, No edema Skin: Normal color, No rash Neurological: Alert, Cranial nerves II-XII grossly intact, Normal Strength, Normal Sensation, Normal DTR, Normal Gait - Not tested. Negative for: Oriented x3 Psychological: - - Affect is flat Diagnostic/Tx/Re-eval Impressions Brain CT 04/12/20 19:40 IMPRESSION: No acute intracranial abnormality. Chronic ischemic and atrophic changes. N.B. : The above information has been verbally conveyed by Cleve Guan MD to [facility] on 04/12/2020 19:52:42 (ET). Electronically Signed: Cleve Guan MD at 19:53 EST Tel , Service support , ADDENDUM: 04/12/201999 IMPRESSION: No acute intracranial abnormality. Chronic ischemic and atrophic changes. N.B. : The above information has been verbally conveyed by Cleve Guan MD to [facility] on 04/12/2020 19:52:42 (ET). Electronically Signed: Cleve Guan MD at 19:53 EST Tel , Service support , Head/Neck CTA 04/12/20 19:49 IMPRESSION: Mild atherosclerotic disease. No evidence for significant stenosis or occlusion within the head or the neck Electronically Signed: Jorge Jensen MD at 20:07 EST , Service support , ADDENDUM: 04/12/20 2017 IMPRESSION: Mild atherosclerotic disease. No evidence for significant stenosis or occlusion within the head or the neck N.B. : The above information has been verbally conveyed by Jorge Jensen MD to dr tyshawn MD, on 04/12/2020 20:10:57 (ET). Electronically Signed: Jorge Jensen MD at 20:07 EST , Service support , 04/12/20 19:35 Chest 1 View [RAD] Stat 04/12/20 19:40 STROKE Brain/Head without Cont [CT] Stat 04/12/20 19:49 CTA Head AND Neck W/ Contrast [CT] Stat Laboratory Results 04/12/20 19:34 POC Glucose 193 H Patient's case was discussed with the radiologist and the neurologist at [facility], Dr. Toure patient's speech is no longer slurred. She still has slight problem with fluency. Suspect there is also chronic memory impairment which may be reason for her not knowing her age. After lengthy discussion with patient and daughter it was decided that there was greater risk of harm versus benefit with the administration of TPA. She is to be admitted to this facility. - Medical Decision Making Stroke Team Activated: Yes Reviewed Inclusion/Exclusion criteria: Yes Was Patient considered for Endovascular Intervention?: No IV Alteplase (t-PA) Administered: No No contraindications for IV Alteplase (t-PA) administration.: Yes Alteplase (t-PA) risks, benefits, alternative discussed: Yes ED Disposition - Plan for ED Patient: Disposition: Acute Care Hospital [facility] Diagnosis: CVA (cerebral vascular accident) Referrals: Sandra Kebede, DO [Primary Care Provider] - What to do if you have Problems For any increased pain, shortness of breath, bleeding, nausea or vomiting, chest pain, or any unexpected problems, contact your Primary Care Provider. Call [facility] ([phone]) or report to the closest Emergency Room. Call 911 if necessary. 04/12/202021 <Electronically signed by Yunior Dorsey MD> Date Yunior Dorsey MD Cosigner Signature (If Indicated): Date CC: DO Sandra Harvey Start: 03-16-2020 End: 03-16-2020 Dexa Bone Density Study Comments: See Note; NOTES: [facility] Imaging Services [address] [place] [address] Dexa Bone Density Study MR#: [id number] Acct: [id number] Name: BKMOLLY Rep #: [id number] : 1940 F 79 From: Jairo sadler MD PCP: Dr. Sandra Kebede DO Status: [facility] Study: Dexa Bone Density Study Date of Exam: 03/16/20 Exam# [id number] Ordering Dr: Sandra Kebede DO STUDY: DUAL ENERGY X-RAY ABSORPTIOMETRY / DXA REASON FOR EXAM: Female, 79 years old. HORSESHOER -- DIABETIC- TAKES MEDICATION -- TAKES THYROID MEDICATION -- DOES LITTLE EXERCISE -- SO OF 1 INCH TECHNIQUE: Bone Mineral Density (BMD) measurements of lumbar spine and bilateral hips were obtained. COMPARISON: None. FINDINGS: Lumbar Spine (L1-L4): g/cm2 (1.140) / T-score (-0.3) / Z-score (1.5) Findings are suggestive of normal bone density with a low fracture risk. Left Femur Total: g/cm2 (0.943) / T-score (-0.5) / Z-score (1.5) Left Femoral Neck: g/cm2 (0.953) / T-score (-0.6) / Z-score (1.5) Right Femur Total: g/cm2 (0.952) / T-score (-0.4) / Z-score (1.5) Right Femoral Neck: g/cm2 (0.954) / T-score (-0.6) / Z-score (1.5) BD/Dexa Bone Density Study IMPRESSION: The patient is considered normal as outlined below according to World Stevenson Organization (WHO) criteria with a low fracture risk. Reference Information: The T-score is the number of standard deviations above or below the standard which is normal for young adults at their peak bone mineral density. The World Health Organization (WHO) interprets the T-scores as follows: Above -1 Normal bone density Between -1 and -2.5 Osteopenia Equal to / or below -2.5 Osteoporosis As a practical clinical guideline, osteopenia may be graded as follows: Mild -1 through -1.5 Moderate -1.6 through -2.0 Severe -2.1 through -2.4 The Z-score is the number of standard deviations above or below age-matched controls. A Z-score of less than -1.5 would be considered abnormal. References: 1. NIH Osteoporosis and Related Bone Diseases www osteo.org 2. International Society for Clinical Densitometry www iscd.org 3. National Osteoporosis Foundation www nof.org Electronically Signed: Jairo Cortes, at 15:17 EST , Service support , CC: Dr. Sandra Kebede DO Maple Sugar Maker: Signed Sandra Kebede Work Phone: Start: 03-16-2020 End: 03-16-2020 SCREEN MAMM (CAD) W/HARPER BILAT Comments: See Note; NOTES: [facility] Imaging Services [address] [place] [address] SCREEN MAMM (CAD) W/HARPER BILAT MR#: [id number] Acct: [id number] Name: MOLLY BOURGEOIS Rep #: [id number] : 1940 F 79 From: Jairo sadler MD PCP: Dr. Sandra Kebede DO Status: REG [facility] Study: SCREEN MAMM (CAD) W/HARPER BILAT Date of Exam: 05/17/19 Exam# [id number] Ordering Dr: Sandra Kebede DO MAMMOGRAPHY - BILATERAL SCREENING REASON FOR EXAM: Female, 79 years old. Routine annual screening examination. PERTINENT HISTORY: Non-contributory. TECHNIQUE: Digital bilateral breast harper (3D mammographic acquisition) in the CC and MLO projections. 2-D mediolateral oblique (MLO) and craniocaudad (CC) views of both breasts were obtained. CAD: Full Field Digital Mammography with Computer Added Detection was performed. COMPARISON: Comparison is made with prior study dated 11/27/2017. FINDINGS: Breast Composition: The breasts are almost entirely fatty. There are no dominant masses or suspicious calcifications. Stable scattered bilateral calcifications. No other significant abnormalities are identified. There has been no significant change since the prior study. BI/SCREEN MAMM (CAD) W/HARPER BILAT IMPRESSION: Stable bilateral screening mammogram. Yearly follow-up mammogram recommended. (A) ASSESSMENT CATEGORY: BIRADS Category 2: Benign. A letter regarding these results will be sent to the patient by the facility within 30 days. Approximately 10% of breast cancers are not detected by mammography. A normal mammogram should not delay biopsy of a clinically suspicious abnormality. [id number] Electronically Signed: Jairo Cortes, at 12:23 EST , Service support , CC: Dr. Sandra Kebede DO Maple Sugar Maker: Signed Sandra Kebede Work Phone: Start: 12-30-2019 End: 12-30-2019 Stress Report Comments: See Note; NOTES: [facility] Cardiovascular Services [address] [place] [address] MR#: [id number] Acct: [id number] Name: MOLLY BOURGEOIS Rep #: [id number] : 1940 79 From: Zeeshan Saxena MD Primary Care: Dr. Sandra Kebede DO Status: REG CLI Referring Dr: Sandar Kebede DO Sex: F C Stress Test Report Date: 12/25/2019 Procedure: Pharmacologic stress nuclear imaging study Indications: Abnormal EKG Consent: Per the patient Procedure: The patient underwent pharmacologic (Regadenoson) evaluation with a peak heart rate of 117 beats per minute (82%predicted maximal heart rate) and a peak blood pressure of 172/88 mmHg. The baseline ECG demonstrated normal sinus rhythm, nonspecific intraventricular conduction delay, nonspecific ST-T changes. EKG during lexiscan infusion revealed no significant ST T changes. EKG post infusion revealed no significant ischemic changes [There were no cardiac dysrhythmias pretest, during pharmacologic infusion, or recovery]. [There was no complaint of chest discomfort during pharmacologic infusion or recovery]. The examination was discontinued secondary to completion of protocol. Impression: 1. Lexiscan stress test test is negative for Lexiscan infusion induced EKG changes of ischemia. 2. Lexiscan stress test test is negative for Lexiscan infusion induced chest pain. 3. Results of the nuclear portion of the test is as below Myocardial perfusion imaging study: Technique: The patient was injected with 11 millicuries of technetium 99m Cardiolite and subsequently rest SPECT Cardiolite nuclear imaging was obtained in the horizontal long, vertical long, and short axis views. The patient underwent pharmacologic (Regadenoson) evaluation. Please see above for details. The patient was injected with 33.3 millicuries of technetium 99m Cardiolite and subsequently stress SPECT Cardiolite nuclear imaging was obtained in the horizontal long, vertical long, and short axis views. A gated Cardiolite study at peak stress was obtained. Interpretation: Rest and stress SPECT Cardiolite nuclear imaging status post realignment, normalization, and attenuation correction demonstrate overall normal myocardial radioisotope uptake. Gated images reveal no significant regional wall motion abnormalities. The reported LVEF is 66%. Impression: 1. There is no evidence of significant ischemia or infarction. 2. Estimated ejection fraction is 66%. This note was generated with Cleverbug software. It may contain incorrect words, spelling, and punctuation that were not noted in checking the note before signing. 12/30/191726 <Electronically signed by Zeeshan Saxena MD> Date Zeeshan Saxena MD CC: Dr. Sandra Kebede DO Date Dictated: 12/30/191723 Date Transcribed: 12/30/191723 Maple Sugar Maker: NN Signed Sandra Kebede Start: 12-25-2019 End: 12-25-2019 Chest 1 View (Portable) Comments: See Note; NOTES: [facility] Imaging Services [address] [place] [address] Chest 1 View (Portable) MR#: [id number] Acct: [id number] Name: MOLLY BOURGEOIS Rep #: [id number] : 1940 F 79 From: Jairo sadler MD PCP: Dr. Sandra Kebede, Status: PRE ER Study: Chest 1 View (Portable) Date of Exam: 12/25/19 Exam# [id number] Ordering Dr: Aris Alves STUDY: X-RAY CHEST REASON FOR EXAM: Female, 79 years old. CHEMICAL STRESS TODAY- BECAME DIZZY AFTERWARDS AND LOWERED HERSELF TO THE FLOOR- NO LOC -- PT IS DIABETIC TECHNIQUE: Single AP portable view of the chest. COMPARISON: None. FINDINGS: The lungs are clear and expanded. There is no demonstrated pleural abnormality. Normal size heart. Normal mediastinum and joseph. Normal visualized pulmonary arteries. There is atherosclerotic calcification of the aortic arch with tortuosity. There are diffuse degenerative changes of the visualized thoracic spine. Dextroscoliosis. There is degenerative osteoarthritis of the bilateral shoulders. There is no demonstrated abnormality of the visualized soft tissue structures of the upper abdomen. RAD/Chest 1 View (Portable) IMPRESSION: No acute abnormality is seen. Electronically Signed: Jairo Russjennifercatherine, at 11:01 EDT , Service support , CC: GERTRUDE Alves; Dr. Sandra Kebede DO Maple Sugar Maker: Signed Sandra Kebede Start: 12-25-2019 End: 12-25-2019 Emergency Department Summary Comments: See Note; NOTES: [facility] Medical Records Department [address] [place] [address] Emergency Department Summary 12/25/19 MR#: [id number] Acct: [id number] Name: MOLLY BOURGEOIS Rep #: [id number] : 1940 79 From: Aris LOREDO PCP: Dr. Sandra Kebede DO Status:DEP ER History of Present Illness Informant: Patient, Family Onset: Today Context: Sudden Onset Timing: Intermittent, Lasts - About a minute Quality: Lightheaded, near syncope Location: Head Current Severity: Mild Maximum Severity: Severe Worsened by: Standing and walking Relieved by: Rest Associated Symptoms: Nausea Narrative: 79-year-old female presents to the emergency department with lightheadedness and near syncope. The patient was in the hospital getting an outpatient stress test and echocardiogram. She had completed the test and was returning to the car with her daughter when she started to feel nauseated and felt lightheaded and near syncopal so she sat down on the ground. She did not lose consciousness. She did not have chest pain or shortness of breath. She was not diaphoretic or pale. She currently feels well at this time. She thinks it is because she has not eaten since yesterday at 1800 because she had to be n.p.o. for her testing today. She was getting these tests done because she had appointment with her new primary care physician Dr. Kebede and had an abnormal EKG Prior similar symptoms: No Recent Illness/Hospitalization: No <Aris Alves - Last Filed: 12/25/19 13:17> <Marcelino Reed - Last Filed: 12/25/19 13:26> Chief Complaint: Dizziness Past Medical History Prior records reviewed: Yes Past Medical History: None Surgical History: no surgical history Lives: With Family Smoking Status: Never smoker Alcohol: None Drugs: None <Aris Alves - Last Filed: 12/25/19 13:17> <Marcelino Reed - Last Filed: 12/25/19 13:26> - Allergies and Home Meds Allergies/Adverse Reactions: Allergies No Known Allergies Allergy (Unverified 12/25/19 10:17) Primary Care Physician: Sandra Kebede DO [Primary Care Provider] - Review of Systems All systems negative except as indicated General: Denies: Chills, Fever, Malaise, Subjective, Sweats Eyes: Denies: Visual changes - bilaterally, Diplopia ENT: Denies: Rhinorrhea, Sore throat Cardiovascular: Denies: Chest pain, Palpitations Respiratory: Denies: Dyspnea, Cough, Dyspnea on exertion Gastrointestinal: Reports: Nausea. Denies: Abdominal pain, Vomiting, Diarrhea, Constipation, Melena, Hematochezia Genitourinary: Denies: Dysuria, Hematuria, Frequency Musculoskeletal: Denies: Back pain, Swelling, Extremity Pain Skin: Denies: Rash, Abscess, Abrasions, Wounds Neurological: Denies: Headache, Weakness, Numbness <Aris Alves - Last Filed: 12/25/19 13:17> Physical Exam Vital Signs/Narrative: Vital Signs Temp Pulse Resp BP Pulse Ox 12/25/19 10:18 97.1 F L 99 17 169/94 H 99 Inital Vital Signs reviewed: Yes General: Well nourished, Well developed, No Acute Distress Head: Normocephalic, Atraumatic Eyes: Perrl, EOMI ENT: Moist mucous membranes, No rhinorrhea Neck: Supple, Nontender Cardiovascular: Regular rate, Regular rhythm, No murmurs Respiratory: No distress, CTA bilaterally, Chest nontender Abdomen: Soft, Nontender, Nondistended, Normal bowel sounds Back: Nontender, Normal Inspection Extremities: Nontender, No edema Skin: Normal color, No rash Neurological: Alert, Oriented x3, Cranial nerves II-XII grossly intact, Normal Strength, Normal Sensation Psychological: Normal affect, Normal Mood <Aris Alves - Last Filed: 12/25/19 13:17> Vital Signs/Narrative: Vital Signs Temp Pulse Resp BP Pulse Ox 12/25/19 12:17 95 18 160/101 H 97 12/25/19 10:18 97.1 F L 99 17 169/94 H 99 <Marcelino Reed - Last Filed: 12/25/19 13:26> Diagnostic/Tx/Re-eval Chest X-Ray - ED: 1 View, Read by ED Physician, Read by Radiologist, No Acute Disease - Rhythm Strip Rhythm Strip: Sinus Rhythm Rate: 92 Ectopy: None - EKG Initial EKG Interpretation: Sinus Rhythm, LBBB Prior: Unchanged - Medical Decision Making EKG on arrival was sinus rhythm with a left bundle branch block which is unchanged from her previous EKG done at her primary care physician's office, last week. CBC BMP and troponin unremarkable. Urinalysis shows 5-10 white blood cells but no nitrites. She is not having urinary symptoms. Her chest x-ray is unremarkable as well. Repeat exam patient feels well. She ambulates without difficulty. Vital signs stable. At this time feel the patient likely was lightheaded from her being n.p.o. since last evening. She will be discharged home with her daughter who is agreeable with plan and they will follow-up with her primary as scheduled. <Aris Alves - Last Filed: 12/25/19 13:17> - Medical Decision Making I supervised the PA and have performed my own pertinent history and physical. Results and treatment plan were discussed. HPI: Patient reports that she had just had a stress test as she has been having weakness for quite some time now. She was in the elevator leaving this will be she became nauseated and lightheaded. She denies any vertigo. No numbness or weakness. She denies any chest pain or palpitations. She denies abdominal pain. No vomiting or diarrhea. PE: Vitals: Stable. Afebrile. General: Well-nourished and well-developed. Head: Normocephalic atraumatic. Neck: Supple, no lymphadenopathy. No JVD. Nontender. Cardiovascular: Regular rate and rhythm. No murmurs. Respiratory: No respiratory distress. Clear to auscultation bilaterally. Abdominal: Soft, nontender, nondistended, normal bowel sounds. No guarding, rebound, or peritoneal signs. Back: Nontender. Extremities: Nontender, no edema. Skin: Normal color, no rash. Neurologic: Alert and oriented ???3. Cranial nerves II through XII are intact. Normal strength and sensation. Psych: Normal affect. Emergency Department course: EKG and labs are unremarkable. Urinalysis is sent for culture, but does not appear to be the source of her symptoms today. Treatment Plan: Patient feels well and would like to go home. She will be discharged instructed to follow-up her primary care physician in 3 to 5 days for another exam. Return to the emergency department for any worsening symptoms. This note was generated with PopJax dictation software. It may contain incorrect words, spelling, and punctuation that were not noted in review of the chart prior to signing. <Marcelino Reed - Last Filed: 12/25/19 13:26> ED Disposition <Aris Alves - Last Filed: 12/25/19 13:17> <Marcelino Reed - Last Filed: 12/25/19 13:26> - Plan for ED Patient: Disposition: Home or Assisted Living Diagnosis: Near syncope, LBBB (left bundle branch block) Instructions: ED Near Syncope Vasovagal Referrals: Sandra Kebede, DO [Primary Care Provider] - What to do if you have Problems For any increased pain, shortness of breath, bleeding, nausea or vomiting, chest pain, or any unexpected problems, contact your Primary Care Provider. Call [facility] ([phone]) or report to the closest Emergency Room. Call 911 if necessary. 12/25/19 6043 <Electronically signed by Aris LOREDO> Date Aris LOREDO 12/25/19 1718<Electronically signed by Marcelino Reed MD> Cosigner Signature (If Indicated): Date Marcelino Reed MD CC: DO Sandra Harvey Start: 12-25-2019 End: 12-30-2019 12 Lead EKG Comments: See Note; NOTES: [facility] Cardiovascular Services [address] [place] [address] 12 Lead EKG 12/25/19 1102 MR#: [id number] Acct: [id number] Name: MOLLY BOURGEOIS Rep #: [id number] : 1940 79 From: Arben Nettles MD Attending Dr: Status: DEP ER Ordering Dr: Aris Alves Date: 12/25/19 Location: ED Sex: F C Admitted: Test Reason : DIZZINESS Blood Pressure : / mmHG Vent. Rate : 092 BPM Atrial Rate : 092 BPM P-R Int : 200 ms QRS Dur : 128 ms QT Int : 392 ms P-R-T Axes : 048 -33 129 degrees QTc Int : 484 ms Normal sinus rhythm Left axis deviation Left bundle branch block Abnormal ECG Confirmed by ARBEN NETTLES MD ([id number]), editor index FABIAN GOEL ([id number]) on 12/30/2019 8:44:33 AM Referred By: MESSI Confirmed By:ARBEN NETTLES MD 12/30/19 0844 Date Arben Nettles MD CC: GERTRUDE Alves; Dr. aSndra Kebede DO Signed Sandra Kebede Start: 12-25-2019 End: 12-30-2019 Echo Complete Comments: See Note; NOTES: [facility] Cardiovascular Services [address] [place] [address] Echo Complete 12/25/19920 MR#: [id number] Acct: [id number] Name: MOLLY BOURGEOIS Rep #: [id number] : 1940 79 From: Zeeshan Saxena MD Attending Dr: Dr. Sandra Kebede, DO Status: R EG CLI Ordering Dr: Sandra Kebede DO Date: 12/25/19 Location: [facility] Sex: F C Admitted: Reason For Study: Abn EKG Procedure This was a 2D Doppler, Color Flow transthoracic echocardiogram. Exam performed in department. Left Ventricle Normal LV size. The estimated ejection fraction is 55 %. No evidence for diastolic dysfunction. No regional wall motion abnormalities noted. Right Ventricle Normal RV size. Normal systolic function. Atria Normal left atrium. Normal right atrium. No doppler evidence for ASD. Mitral Valve There is no mitral valve stenosis. Trivial mitral valve insufficiency. Tricuspid Valve There is no tricuspid stenosis. Unable to estimate RV systolic pressure due to inadequate jet, pulmonary artery pressure probably normal. Aortic Valve There is no aortic stenosis. Trivial aortic valve insufficiency. Pulmonic Valve There is no pulmonic valvular stenosis. No pulmonic valve insufficiency. Great Vessels Normal aortic root. Pericardium/Pleural Thickened pericardium. MMode/2D Measurements Calculations LVIDd: 3.1 cm IVSd: 1.3 cm Ao root diam: 3.9 cm LVIDs: 2.2 cm LVPWd: 1.1 cm RVDd: 3.0 cm FS: 29.8 % LAV(MOD-bp): 25.3 ml LVAd ap4: 22.2 cm2 SV(MOD-sp4): 26.5 ml LAV(MOD-bp) Indexed: 12.7 ml/m2 EDV(MOD-sp4): 53.2 ml LAV(MOD-sp2): 32.8 ml EDV(sp4-el): 53.2 ml LAV(MOD-sp4): 19.7 ml LVAs ap4: 14.0 cm2 ESV(MOD-sp4): 26.7 ml ESV(sp4-el): 24.6 ml EF(MOD-sp4): 49.8 % EF(sp4-el): 53.8 % SV(sp4-el): 28.6 ml LA A4 area: 9.8 cm2 LA dimension(2D): 2.7 cm RA A4 area: 8.7 cm2 Doppler Measurements Calculations Ao V2 max: 132.1 cm/sec LV V1 max: 87.1 cm/sec PA V2 max: 108.9 cm/sec Ao max P.0 mmHg LV V1 max P.0 mmHg Ao V2 mean: 94.0 cm/sec Ao mean P.9 mmHg Ao V2 VTI: 23.5 cm Interpretation Summary The estimated ejection fraction is 55 %. No evidence for diastolic dysfunction. Trivial mitral valve insufficiency. Trivial aortic valve insufficiency. _ Ordering Physician: Sandra Kebede Referring Physician: Sandra Kebede Performed By: Neha Claros, BRE, RVT 12/30/191811 Date Zeeshan Saxena MD CC: Dr. Sandra Kebede, DO Date Dictated: 12/25/19920 Date Transcribed: 12/30/191811 Maple Sugar Maker: Signed Sandra Kebede Work Phone: Start: 08-07-2019 Basic metabolic 1998 panel - Serum or Plasma [facility] Start: 08-07-2019 Creatinine other source [facility] Start: 08-07-2019 Hemoglobin glycosylated a1c [facility] Start: 08-07-2019 Lipid panel [facility] Start: 08-07-2019 Protein total xcpt refractometry urine [facility] Start: 08-07-2019 Follow-up visit Start: 02-26-2018 End: 02-26-2018 PT D/C Summary (1) Comments: See Note; NOTES: [facility] [address] [place] [address]. [address] [place] [address] Fax REHABILITATION SERVICES DISCHARGE SUMMARY MR#: [id number] Acct: [id number] Name: MOLLY BOURGEOIS Rep #: [id number] : 1940 77 From: Duy Bedoya DPT, OCS, CSCS Referring DrAmeya: Sandra Kebede DO Status: REG RCR Insurance: [employer] MEDICARE PPO SELF PAY INSURANCE HP - PT D/C Summary It has been my pleasure to treat MOLLY BOURGEOIS under orders from Sandra Kebede, for the diagnosis of L ITB itis , L hip pain for a total of 2 visit(s). Discharge Date: 12/06/17 Please see the following information for a summary of their discharge status. - Subjective Subjective: 90% better. Ex really helps. Saw doctor and will see again 12/24/17. Wants to be done with PT. 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 - Pain L lateral hip Pain Intensity (Out of 10): 0 - Overall Improvement % Improvement: 90 - Objective Objective/Function: Walking very well without pain today. No cane needed but she is using it. - Goals Goal 1:: Patient feel 75% better and pain no greater tahn 04/10 Goal Progress: Goal Met Goal 2:: Walk to mailbox and back without pain Goal Progress: Progressing Goal 3:: I approp HEP to minimize future problems. Goal Progress: Goal Met - Plan Plan: D/C patients request. - D/C Information Discharge Comments: Patient wants to continue ex at home vs continued PT and should be able to do so. Will see doctor end of month. If there are questions or concerns regarding this patient's physical therapy, please feel free to call me at [phone]. Thank you for the referral of this patient. Sincerely, Duy Bedoya DPT, OC <Electronically signed by Duy Bedoya DPT, BHAVIN, CSCS> 02/26/18 0715 CC: Sandra Kebede DO EBG Signed Sandra Kebede Start: 02-06-2018 End: 02-06-2018 Surgery Visit Report Comments: See Note; NOTES: [facility] [address] [place] [address]. [address] [place] [address] OFFICE VISIT Date of Service: 02/06/18 MR#: [id number] Acct: [id number] Name: MOLLY BOURGEOIS Rep #: [id number] : 1940 Provider: Ortiz De Santiago MD Age/Sex: 77/F Location: [facility] Status: Signed Intake Vital Signs02/06/18 Height 5 ft 6 in 02/06/18 Weight: 189 lb Intake Visit Reasons: Lt Breast Lump @ 8:00 US/Mammo [facility] 11/27 Leadership Program Associate Required: No Is patient in pain?: No Allergies No Known Allergies Allergy (Unverified 02/06/18 09:10) Medications allopurinol 100 mg tablet 100 mg PO DAILY 02/06/18 [History Confirmed 02/06/18] amlodipine 2.5 mg tablet 2.5 mg PO DAILY 02/06/18 [History Confirmed 02/06/18] aspirin 81 mg tablet,delayed release 81 mg PO DAILY 02/06/18 [History Confirmed 02/06/18] losartan 100 mg tablet 100 mg PO DAILY 02/06/18 [History Confirmed 02/06/18] metformin 500 mg tablet 500 mg PO BID 02/06/18 [History Confirmed 02/06/18] pravastatin 40 mg tablet 40 mg PO DAILY 02/06/18 [History Confirmed 02/06/18] [facility] Medical History Mastalgia in female (Acute) Diabetes (Acute) Gout (Acute) Left breast lump (Acute) Hypertension (Chronic) Surgical History History of thyroid surgery (Acute) History of tonsillectomy (Acute) History of tubal ligation (Acute) history right eye surgery (Acute) Family History Mother Diabetes Father Heart disease Brother Heart disease Social History Smoking Status: Never smoker alcohol intake: never substance use type: does not use HPI HPI HPI: MOLLY BOURGEOIS, is a 77 F who presents to the office today for surgical consultation regarding mastalgia. The patient initially started having inner left breast pain. She is now having some mild in her right breast pain. 76-year-old female. A0. Menarche was at age 13. First child was born when she was 22. No history of previous breast biopsies. She has not been on any estrogen replacement. Family history is negative for breast cancer. [facility] [facility] on November 27, 2017 she had bilateral diagnostic mammography. These were felt to be stable and they were compared back to previous images of February 25, 2017. At that point the patient had described a medial left breast pea-sized mass. On November 27, 2017 a left breast ultrasound was obtained BI-RADS Category 1. No findings identified. In the interim the patient feels that that area in the inner left breast has progressed to an oblong area and now feels that it is the size of a golf ball. She has not had any nipple discharge or bleeding. She has not had any trauma. She denies any change in her clothing apparel or support. She denies any dietary changes. She states that she has not taking any unusual herbal supplements. There is not been an increase of salt in her diet. She does however frequently drink tea and soda pops. Some chocolate. The patient is referred by Dr. Sandra Kebede for surgical consultation regarding possible left breast mass and pain. A written copy of my surgical consult recommendations will be returned to her ROS General General: No weight change, appetite, fatigue, colon cancer, breast cancer or weakness HEENT HEENT: No difficulty swallowing, eye injury, eye surgery, swollen glands or hoarseness Endo Endocrine: Yes diabetes mellitus; no thyroid disease, thyroid cancer, Hair loss, heat intolerance or cold intolerance Skin Skin: No rash or changing moles Breast Breast: Yes left breast lump; no right breast lump, nipple discharge, breast pain, abnormal mammogram, abnormal US or breast enlargement Musc Musculoskeletal: Yes gout; no back problems, arthritis, rheumatoid arthritis or joint pain Cardio Cardiovascular: Yes high blood pressure; no murmur, pacemaker, heart disease, atrial fibrillation, heart attack, heart stent, palpitations, shortness of breat with exertion or chest pain Psych Psychiatric: No depression, anxiety or hearing voices Resp Respiratory: No shortness of breath, No sleep apnea, No cough, No COPD, No asthma, No emphysema, No wheezing Gastro Gastrointestinal: No abdominal pain, No nausea or vomiting, No diarrhea, No constipation, No blood in stool, No acid reflux, No hemorrhoids, No ulcers, No gallbladder problem, No black,tarry stools Hayden Hematologic: Yes blood thinners, No blood disorders, No bleeding, No anemia, No blood clots Neuro Neurologic: No system reviewed and no additional complaints, except as docu, No as per HPI, No abnormal walking, No abnormal hearing, No abnormal movements, No abnormal speech, No behavioral changes, No burning sensations, No confusion, No seizure-like activity, No unsteadiness, No dizziness, No localized weakness, No frequent falls, No headache(s), No lack of coordination, No loss of vision, No memory loss, No numbness, No other visual disturbances, No radiating pain, No restless legs, No sensory deficit, No fainting, No tingling, No tremor(s), No weakness, No other Exam Chest Breast Palpation: No nipple discharge Other: Right breast: Pendulous, minimal tenderness medial right breast. No mass. No nipple discharge. No axillary or clavicular adenopathy Left breast: Tenderness noted with mild diffuse fibrous change inner left breast. Palpable Coopers ligament cord but no distinct focal mass. No nipple discharge. No axillary or clavicular adenopathy. No distortion Cardio Heart Sounds: no murmurs Assessment AND Plan Problems 1. Mastalgia in female N64.4 Plan I have reviewed the patient's imaging and correlate that with a physical exam. The patient notes what she senses to be a golf ball sized mass. I am simply detecting diffuse fibrous change with tenderness. This is more noted on the left than on the right. I am not detecting a focal area on imaging or clinical exam for which I could biopsy. I believe that her presenting diagnosis would correlate well with mastalgia. I have provided recommendations for improved breath support/braw. She may utilize vitamin E 400 units daily. She may utilize an hicg-lmp-bcwoaww NSAID. Her current mammogram and ultrasound imaging are not remarkable. Follow-up imaging at 1 year would be pertinent. The patient and her daughter have had an opportunity to ask and have questions answered. Certainly if she has any change in presentation be more than pleased to see her in return. I appreciate the opportunity of assisting with her surgical care. Cc: Dr. Sandra De Santiago M.D., F.A.C.S. Coding Level of Care Code Exp prob focused,strt fwd Diagnoses Mastalgia in female N64.4 02/06/18 0935 <Electronically signed by Ortiz De Santiago MD> Date Ortiz De Santiago MD Cosigner Signature: Date (if applicable) CC: Sandra Bran Start: 11-27-2017 End: 11-27-2017 Breast Limited Unilateral Comments: See Note; NOTES: [facility] Imaging Services [address] [place] [address] Breast Limited Unilateral MR#: [id number] Acct: [id number] Name: MOLLY BOURGEOIS Rep #: [id number] : 1940 F 77 From: Jairo Cortes MD PCP: Sandra Kebede DO Status: REG CLI Study: Breast Limited Unilateral Date of Exam: 11/27/17 Exam# [id number] Ordering Dr: Sandra Kebede DO STUDY: ULTRASOUND BREAST - LEFT REASON FOR EXAM: Female, 77 years old. Palpable lump left breast. TECHNIQUE: Axial and longitudinal images of the LEFT breast were performed with a high resolution ultrasound transducer. COMPARISON: Comparison is made with prior mammogram done earlier in the day. FINDINGS: LEFT Breast: The deep inferior medial portion of the left breast was examined by ultrasound. No solid or cystic mass lesion is seen. US/Breast Limited Unilateral IMPRESSION: Unremarkable sonographic examination of the inferior medial portion of the left breast. ASSESSMENT CATEGORY: BIRADS Category 1: Negative. A letter regarding these results will be sent to the patient by the facility within 30 days. Electronically Signed: Jairo Cortes MD at 10:57 EDT Tel [phone], Service support , CC: Sandra Kebede DO Maple Sugar Maker: Signed Sandra Kebede Work Phone: Start: 11-27-2017 End: 11-27-2017 DIAG MAMM W/CAD, BILAT Comments: See Note; NOTES: [facility] Imaging Services [address] [place] [address] DIAG MAMM W/CAD, BILAT MR#: [id number] Acct: [id number] Name: MOLLY BOURGEOIS Rep #: [id number] : 1940 F 77 From: Jairo Cortes MD PCP: Sandra Kebede DO Status: REG CLI Study: DIAG MAMM W/CAD, BILAT Date of Exam: 11/27/17 Exam# [id number] Ordering Dr: Sandra Kebede DO MAMMOGRAPHY - BILATERAL DIAGNOSTIC REASON FOR EXAM: Female, 77 years old. 2 pea-sized lumps in the inferior deep medial aspect of the left breast. PERTINENT HISTORY: Non-contributory. TECHNIQUE: Digital bilateral breast harper (3D mammographic acquisition) in the CC and MLO projections. 2-D mediolateral oblique (MLO) and craniocaudad (CC) views of both breasts were obtained. CAD: Full Field Digital Mammography with Computer Added Detection was performed. COMPARISON: Comparison is made with prior outside examination dated February 25, 2017. FINDINGS: Breast Composition: The breasts are almost entirely fatty. There are no dominant masses or suspicious calcifications. No other significant abnormalities are identified. There has been no significant change since the prior study. BI/DIAG MAMM W/CAD, BILAT IMPRESSION: Stable bilateral diagnostic mammogram. With the patient's history of left breast lumps, correlation with ultrasound is recommended. ASSESSMENT CATEGORY: BIRADS Category 0: Incomplete. Need additional imaging evaluation. A letter regarding these results will be sent to the patient by the facility within 30 days. Approximately 10% of breast cancers are not detected by mammography. A normal mammogram should not delay biopsy of a clinically suspicious abnormality. Electronically Signed: Jairo Cortes MD at 10:45 EDT Tel [phone], Service support , CC: Sandra Kebede DO Maple Sugar Maker: Signed Sandra Kebede Work Phone: Start: 11-25-2017 End: 11-25-2017 Inital Evaluation (1) - PT Comments: See Note; NOTES: [facility] [address] [place] [address]. [address] [place] [address] Fax REHABILITATION SERVICES INITIAL EVALUATION MR#: [id number] Acct: [id number] Name: MOLLY BOURGEOIS Rep #: [id number] : 1940 77 From: Duy Bedoya DPT, OCS, CSCS Referring Dr.: Sandra Kebede DO Status: REG RCR Insurance: [employer] MEDICARE PPO SELF PAY INSURANCE Patient's Visit Information MOLLY BOURGEOIS is a 77 year old F referred to Physical Therapy by Sandra Kebede with a diagnosis of L ITB itis , L hip pain. Date of Evaluation: 11/22/17 Physical Therapist: Duy Bedoya DPT, OC - Visit Plan Frequency: Every Other Week Duration: 4-6 Weeks Plan: Pt cannot affor d frequent therapy so decided on HEP stretching for 2 weeks while anti inflammatory kicks in then teach strength hip stabs.. Consider STM, ITB stretch and US in therapy if patient agreeable and improvements not noted. - Subjective Subjective: 3 years ago fell on the ice int he winter and landed on hip, was OK at the time but now hip is gradually getting worse. Has 1/8 mile trip to mailbox and it hurts. stopped walking to the mailbox last year. In fact she stopped doing alot according to daughter. L hip pain is OK at rest, worse with crossing legs. Walking any distance is worse adn standing to do dishes hurts.( 10 minutes is hard to stand). Pain is lateral at L hip. Denies numbness and tingling but does sometimes go down lateral leg toward knee. Below knee is numb laterally froma previous accident. LB has OA but is OK and no wrse than normal. Sleep is OK. Not employed. Not doing any housework or dishes due to hip, daughter helps her. Wants to hollis and garden but hasn't been able to. Squatting and getting up from gorund are not happening, can't get up out of tub. Uses cane for balance, needs to use R leg on steps. - Pain L lateral hip Pain Intensity (Out of 10): 0 Pain Intensity Range: 0, 8 - Objective Walks with cane mod I, trasnfers I, mild evidence of pain. Max tender over L GT bursa area and down into ITB. - hip scour. Hip AROM WFL and symmetrical, no pain at end range. Strength in hips 4-/5 ext adn abd, 4/5 flexion and 4- rotations with slight pain with IR and flexion. reflexes 2/3 patella and achilles B. Sensation WNL to gross ligth touch. ITB mod tight B. HS 90/90 test -40 B. hip flexors tight to neutral B. - Goals Goal 1:: Patient feel 75% better and pain no greater tahn 04/10 Goal Time Frame: 2-4 Weeks Goal 2:: Walk to mailbox and back without pain Goal Time Frame: 2-4 Weeks Goal 3:: I approp HEP to minimize future problems. Goal Time Frame: 4-6 Weeks - Rehabilitation Potential Physical Therapy Diagnosis: L ITB syndrome. Rehabilitation Potential: Fair - Anticipated Interventions Patient/Client Instruction: Educate patient on: Condition, Plan of Care For the Purpose of:: To decrease pain, To increase ROM, To improve nutrient delivery to tissue Therapeutic Exercise to Include: Strength training, Flexibilty training For the Purpose of:: To decrease pain Thank you for the opportunity to evaluate your patient. For Medicare and Medicare HMO plans, please review the plan of care and approve it. It will need to be FAXED BACK to us at [phone] for Medicare purposes. Please let me know if there are questions or concerns regarding this plan of care. Physician Signature: ___Date: <Electronically signed by Duy Bedoya DPT, OCS, CSCS> 11/25/17 0647 CC: Sandra Kebede DO EBG Signed For Medicare only, by signing this I certify the plan of care. Physicians Signature Date Sandra Kebede Start: 11-18-2017 End: 11-19-2017 HIP, UNI W/ Pelvis 2-3 Views Comments: See Note; NOTES: [facility] Imaging Services [address] [place] [address] HIP, UNI W/ Pelvis 2-3 Views MR#: [id number] Acct: [id number] Name: MOLLY BOURGEOIS Rep #: [id number] : 1940 F 77 From: Felix Marquez MD PCP: Sandra Kebede DO Status: REG CLI Study: HIP, UNI W/ Pelvis 2-3 Views Date of Exam: 11/18/17 Exam# [id number] Ordering Dr: Sandra Kebede DO STUDY: X-RAY - PELVIS AND LEFT HIP REASON FOR EXAM: Chronic left hip pain. TECHNIQUE: Radiological exam, hip, unilateral, with pelvis when performed; 2 or 3 views. COMPARISON: None. FINDINGS: There is vascular calcification. There are pelvic phleboliths. There is mild enthesopathy of the iliac wings bilaterally. Normal bilateral superior and inferior pubic rami. Normal pubic symphysis. Normal bilateral ischial tuberosities. Normal visualized left femoral head. Normal left acetabulum. There is mild joint space narrowing of the superior medial aspect of the left hip joint. RAD/HIP, UNI W/ Pelvis 2-3 Views IMPRESSION: Mild left hip arthrosis. Electronically Signed: Felix Marquez MD at 9:34 EDT Tel , Service support , CC: Sandra Kebede DO Maple Sugar Maker: Signed Sandra Kebede Work Phone: Adenoid excision Liz Kuo s Adenoid excision Liz Kuo s Adenoid excision Liz Kuo s Adenoid excision Liz Kuo s Adenoid excision Liz Cros s Adenoid excision Liz Cros s Adenoid excision Liz Cros s Adenoid excision Saida Grav ius Adenoid excision Liz Cros s CHILD HEALTH ASSOCIATE Adenoid excision Shannan Milligan an CHILD HEALTH ASSOCIATE Adenoid excision Saida Grav ius VETERINARY RADIOLOGIST Adenoid excision Ajit Neftali s CHILD HEALTH ASSOCIATE Adenoid excision Roxanna Radf ord VETERINARY RADIOLOGIST Adenoid excision Elsa Krishna n MA Adenoid excision Elsa Krishna n [place] Adenoid excision Daniel Pryo r CHILD HEALTH ASSOCIATE Adenoid excision Frances ramos VETERINARY RADIOLOGIST Cataract surgery Go Rab er End: 07-03-2013 Colonoscopy Go Mac cyst removal Liz Renny Plan of Treatment Date Care Activity Detail Author Start: 02-10-2023 DIABETES SCREEN DIABETES SCREEN [facility] Start: 10-25-2022 Procedure Education [facility]; [facility] Work Phone: Start: 10-25-2022 Provider Instructions for Treatment [facility]; [facility] Work Phone: Start: 10-12-2022 Procedure Education [facility]; [facility] Work Phone: Start: 10-12-2022 Provider Instructions for Treatment [facility]; [facility] Work Phone: Start: 07-18-2022 Procedure Education [facility]; [facility] Work Phone: Start: 07-18-2022 Provider Instructions for Treatment [facility]; [facility] Work Phone: Start: 07-12-2022 Procedure Education [facility]; [facility] Work Phone: Start: 07-12-2022 Provider Instructions for Treatment [facility]; [facility] Work Phone: Start: 07-12-2022 Assay of thyroid stimulating hormone tsh TSH (19786) [facility]; [facility] Work Phone: Start: 07-12-2022 Urine albumin quantitative [facility]; [facility] Work Phone: Start: 07-12-2022 Blood count manual cell count each CBC with auto diff (74432) [facility]; [facility] Work Phone: Start: 07-12-2022 Comprehensive metabolic panel METABOLIC PANEL, COMPREHENSIVE (26343) [facility]; [facility] Work Phone: Start: 07-12-2022 25 hydroxy includes fractions if performed CALCIFEDIOL (07649) [facility]; [facility] Work Phone: Start: 04-04-2022 Procedure Education [facility]; [facility] Work Phone: Start: 04-04-2022 Provider Instructions for Treatment [facility]; [facility] Work Phone: Start: 04-04-2022 25 hydroxy includes fractions if performed CALCIFEDIOL (34876) [facility]; [facility] Work Phone: Start: 04-04-2022 Lipid panel LIPID PANEL (67481) [facility]; [facility] Work Phone: Start: 01-04-2022 Procedure Education [facility]; [facility] Work Phone: Start: 01-04-2022 Provider Instructions for Treatment [facility]; [facility] Work Phone: Start: 12-25-2021 Procedure Education [facility]; [facility] Work Phone: Start: 12-25-2021 Provider Instructions for Treatment [facility]; [facility] Work Phone: Start: 12-01-2021 Procedure Education [facility]; [facility] Work Phone: Start: 12-01-2021 Provider Instructions for Treatment [facility]; [facility] Work Phone: Start: 11-30-2021 Influenza vaccination INFLUENZA (#1) [facility] Start: 06-21-2021 Procedure Education [facility]; [facility] Work Phone: Start: 06-21-2021 Provider Instructions for Treatment [facility]; [facility] Work Phone: Start: 06-21-2021 Cyanocobalamin vitamin b-12 VITAMIN B-12 (CYANOCOBALAMIN) (99949) [facility]; [facility] Work Phone: Start: 06-21-2021 25 hydroxy includes fractions if performed CALCIFIDIOL (47422) VIT D 25 [facility]; [facility] Work Phone: Start: 06-21-2021 Urnls dip stick/tablet reagent auto microscopy URINALYSIS, W/ MICRO (06544) [facility]; [facility] Work Phone: Start: 06-21-2021 Urine albumin quantitative MICROALBUMIN: CREATININE RATIO (55280) AND (52967) [facility]; [facility] Work Phone: Start: 06-21-2021 Comprehensive metabolic panel METABOLIC PANEL, COMPREHENSIVE (21312) [facility]; [facility] Work Phone: Start: 06-21-2021 Lipid panel LIPID PANEL (25069) [facility] Work Phone: Start: 06-21-2021 Blood count complete auto&auto difrntl wbc CBC W/AUTO DIFF WBC (91456) [facility]; [facility] Work Phone: Start: 06-21-2021 Assay of thyroid stimulating hormone tsh TSH (60886) [facility]; [facility] Work Phone: Start: 05-18-2021 COVID-19 VACCINE (4 - Booster for Moderna series) COVID-19 VACCINE (4 - Booster for Moderna series) [facility] Start: 04-01-2021 ADVANCE DIRECTIVE DISCUSSION ADVANCE DIRECTIVE DISCUSSION [facility] Start: 04-01-2021 DEPRESSION ASSESSMENT DEPRESSION ASSESSMENT [facility] Start: 03-22-2021 Procedure Education [facility]; [facility] Work Phone: Start: 03-22-2021 Provider Instructions for Treatment [facility]; [facility] Work Phone: Start: 01-30-2021 Procedure Education [facility]; [facility] Work Phone: Start: 01-30-2021 Provider Instructions for Treatment [facility]; [facility] Work Phone: Start: 12-16-2020 Procedure Education [facility]; [facility] Work Phone: Start: 12-16-2020 Provider Instructions for Treatment [facility]; [facility] Work Phone: Start: 09-14-2020 Procedure Education [facility]; [facility] Work Phone: Start: 09-14-2020 Provider Instructions for Treatment [facility]; [facility] Work Phone: Start: 09-14-2020 Assay of triglycerides TRIGLYCERIDES (25425) [facility] Work Phone: Immunizations Immunization Date Immunization Notes Care Provider Fa garrett 03-23-2021 COVID-Moderna (100 MCG/0.5 ML) Sandra Brice DO Work Phone: [facility]; [facility] Work Phone: 08-04-2020 COVID-Moderna (100 MCG/0.5 ML) Sandra Brice DO Work Phone: [facility]; [facility] Work Phone: 07-07-2020 COVID-Moderna (100 MCG/0.5 ML) Sandra Brice DO Work Phone: [facility]; [facility] Work Phone: 03-04-2015 pneumococcal conjuga te vaccine, 13 valent Go [facility] Work Phone: 02-06-2011 pneumococcal polysaccharide vaccine, 23 valent Go [facility] Work Phone: Payers Date Payer Category Payer Medicare HU[employer]NA MEDICARE HU[employer]NA MEDICARE PPO [id number] 2018-Present [phone] [address] [address] [place] [address] PPO [id number] 2018 Medicare [id number] 1940 Unknown [id number] 1940 Unknown [id number] Unknown Social History Date Type Detail Facility Caffeine Use Caffeine Use [facility] Work Phone: Medical Equipment Procedure Code Equipment Code Equipment Origin al Text Equipment Identifier Dates Start: 12-11-2019 Functional Status Date Assessment Result Facility 12-03-2019 LP-IR Score 62 [facility] Work Phone: Mental Status Date Assessment Result Facility NEGATED: Highlighted row Cognitive function [Interpretation] Cognitive status health issues are not documented Disease [facility] Work Phone: Clinical Notes 03-09-2021 to 03-08-2022 Tana Cooper APRN.SOFTWARE PRODUCT MANAGER - 03/08/2022 11:08 AM EST Note Date & Type Note Facility 03-08-2022 Note HNO ID: [id number] Author: Tana Cooper APRN.SOFTWARE PRODUCT MANAGER Service: ? Author Type: Nurse Practitioner Type: Progress Notes Filed: 03/08/2022 11:09 AM Note Text: ESTABLISHED PATIENT OFFICE VISIT HISTORY OF PRESENT ILLNESS Molly Bourgeois is a 81 year old female who presents today in f/u. Patient with history of urinary retention, hydronephrosis. She presents today in follow-up. Previously had a suprapubic catheter in place. SP tube removed 2 years ago. Patient is taking bethanechol 10 mg 2 times per day. She feels she is voiding well. Feels she is emptying her bladder well. No urinary tract infections. Denies gross hematuria. No dysuria. No fever or chills. Her PVR is 84 cc today. LAB RESULTS Creatinine Date Value Ref Range Status 02/11/2020 1.57 (H) 0.58 - 0.96 mg/dL Final No results found for: PSA Color (no units) Date Value 02/11/2020 Yellow Clarity (no units) Date Value 02/11/2020 Clear Glucose, Urine (no units) Date Value 02/11/2020 Negative Bilirubin, Urine (no units) Date Value 02/11/2020 Negative Ketones, Urine (no units) Date Value 02/11/2020 Negative Specific Entriken, Ur (no units) Date Value 02/11/2020 <1.005 Hemoglobin/Blood,Ur (no units) Date Value 02/11/2020 Trace pH, Urine (no units) Date Value 02/11/2020 5.5 Protein, Urine (no units) Date Value 02/11/2020 Negative Urobilinogen (no units) Date Value 02/11/2020 0.2 EU/dL Nitrites (no units) Date Value 02/11/2020 Negative Leuk Esterase (no units) Date Value 02/11/2020 Negative MEDICATIONS: bethanechol (URECHOLINE) 10 mg tablet Take 1 tablet by mouth twice daily semaglutide (OZEMPIC) 1 mg/dose (2 mg/1.5 mL) pnij Inject 1 mg subcutaneously one time a week. amLODIPine (NORVASC) 2.5 mg tablet Take 2.5 mg by mouth once daily. levothyroxine 50 mcg cap Take 50 mcg by mouth daily before breakfast. aspirin, enteric coated (ASPIRIN, ENTERIC COATED) 81 mg EC tablet Take 81 mg by mouth once daily. losartan (COZAAR) 100 mg tablet Take 100 mg by mouth once daily. allopurinol (ZYLOPRIM) 100 mg tablet Take 100 mg by mouth once daily. pravastatin (PRAVACHOL) 40 mg tablet Take 40 mg by mouth once daily. REVIEW OF SYSTEMS CONSTITUTIONAL: Patient reports no recent fever or weight loss CARDIOVASCULAR: No chest pain, palpitations or ankle edema. RESPIRATORY: No wheezing, frequent cough or shortness of breath GENITOURINARY: See HPI HISTORIES PAST MEDICAL HISTORY Diagnosis Date Diabetes (HCC) Gout Hyperlipemia Hypertension Pilonidal abscess Retention of urine Stroke (HCC) UTI (urinary tract infection) History reviewed. No pertinent family history. PAST SURGICAL HISTORY Procedure Laterality Date BLADDER SURGERY HX Cystoscopy and suprapubic tube placement CYSTO W/RETRO. PYELOG 01/2020 CYSTOSCOPY,+URETEROSCOPY 2019 ORTHOPEDICS SURGERY HX PAST SURGICAL HISTORY OF sp tube placement SOCIAL HISTORY Social History Tobacco Use Smoking status: Never Smokeless tobacco: Current Substance Use Topics Alcohol use: No Drug use: No PHYSICAL EXAMINATION General appearance: Well appearing, alert, in no acute distress, well-hydrated, well nourished.. BACK: not examined. MUSCULOSKELETAL: Negative for joint pain or swelling. RESPIRATORY: Normal respiratory effort. SKIN: Normal color, no rash, no lesions.. ASSESSMENT/PLAN: 1. Bilateral hydronephrosis - ICD9: 591, ICD10: N13.30 (primary diagnosis) 2. Retention of urine, unspecified - ICD9: 788.20, ICD10: R33.9 -Continue bethanechol. -Follow-up in 1 year for PVR check. Tana Cooper APRN.[facility] 03-08-2022 History of Present illness Narrative ESTABLISHED PATIENT OFFICE VISIT HISTORY OF PRESENT ILLNESS Molly Bourgeois is a 81 year old female who presents today in f/u. Patient with history of urinary retention, hydronephrosis. She presents today in follow-up. Previously had a suprapubic catheter in place. SP tube removed 2 years ago. Patient is taking bethanechol 10 mg 2 times per day. She feels she is voiding well. Feels she is emptying her bladder well. No urinary tract infections. Denies gross hematuria. No dysuria. No fever or chills. Her PVR is 84 cc today. LAB RESULTS Creatinine Date Value Ref Range Status 02/11/2020 1.57 (H) 0.58 - 0.96 mg/dL Final No results found for: PSA Color (no units) Date Value 02/11/2020 Yellow Clarity (no units) Date Value 02/11/2020 Clear Glucose, Urine (no units) Date Value 02/11/2020 Negative Bilirubin, Urine (no units) Date Value 02/11/2020 Negative Ketones, Urine (no units) Date Value 02/11/2020 Negative Specific Entriken, Ur (no units) Date Value 02/11/2020 <1.005 Hemoglobin/Blood,Ur (no units) Date Value 02/11/2020 Trace pH, Urine (no units) Date Value 02/11/2020 5.5 Protein, Urine (no units) Date Value 02/11/2020 Negative Urobilinogen (no units) Date Value 02/11/2020 0.2 EU/dL Nitrites (no units) Date Value 02/11/2020 Negative Leuk Esterase (no units) Date Value 02/11/2020 Negative MEDICATIONS: bethanechol (URECHOLINE) 10 mg tablet Take 1 tablet by mouth twice daily semaglutide (OZEMPIC) 1 mg/dose (2 mg/1.5 mL) pnij Inject 1 mg subcutaneously one time a week. amLODIPine (NORVASC) 2.5 mg tablet Take 2.5 mg by mouth once daily. levothyroxine 50 mcg cap Take 50 mcg by mouth daily before breakfast. aspirin, enteric coated (ASPIRIN, ENTERIC COATED) 81 mg EC tablet Take 81 mg by mouth once daily. losartan (COZAAR) 100 mg tablet Take 100 mg by mouth once daily. allopurinol (ZYLOPRIM) 100 mg tablet Take 100 mg by mouth once daily. pravastatin (PRAVACHOL) 40 mg tablet Take 40 mg by mouth once daily. REVIEW OF SYSTEMS CONSTITUTIONAL: Patient reports no recent fever or weight loss CARDIOVASCULAR: No chest pain, palpitations or ankle edema. RESPIRATORY: No wheezing, frequent cough or shortness of breath GENITOURINARY: See HPI HISTORIES PAST MEDICAL HISTORY Diagnosis Date Diabetes (HCC) Gout Hyperlipemia Hypertension Pilonidal abscess Retention of urine Stroke (HCC) UTI (urinary tract infection) History reviewed. No pertinent family history. PAST SURGICAL HISTORY Procedure Laterality Date BLADDER SURGERY HX Cystoscopy and suprapubic tube placement CYSTO W/RETRO. PYELOG 01/2020 CYSTOSCOPY,+URETEROSCOPY 2019 ORTHOPEDICS SURGERY HX PAST SURGICAL HISTORY OF sp tube placement SOCIAL HISTORY Social History Tobacco Use Smoking status: Never Smokeless tobacco: Current Substance Use Topics Alcohol use: No Drug use: No PHYSICAL EXAMINATION General appearance: Well appearing, alert, in no acute distress, well-hydrated, well nourished.. BACK: not examined. MUSCULOSKELETAL: Negative for joint pain or swelling. RESPIRATORY: Normal respiratory effort. SKIN: Normal color, no rash, no lesions.. ASSESSMENT/PLAN: 1. Bilateral hydronephrosis - ICD9: 591, ICD10: N13.30 (primary diagnosis) 2. Retention of urine, unspecified - ICD9: 788.20, ICD10: R33.9 -Continue bethanechol. -Follow-up in 1 year for PVR check. Tana Cooper APRN.[facility] documented in this encounter [facility] 03-09-2021 Note HNO ID: [id number] Author: Tana Cooper APRN.CNP Service: ? Author Type: Nurse Practitioner Type: Progress Notes Filed: 03/09/2021 12:08 PM Note Text: ESTABLISHED PATIENT OFFICE VISIT HISTORY OF PRESENT ILLNESS Molly Bourgeois is a 80 year old female who presents today in f/u. 09/01/20: Patient presents today in follow-up of urinary retention. Her suprapubic catheter was removed 2 weeks ago. Patient states that she is doing well overall. She has been voiding 100 to 200 cc. Her postvoid residual today is 35 cc. Her SP tube site is closed, no erythema, no drainage, within normal limits. Denies gross hematuria. No dysuria. No fever or chills. Today's note: Patient with a history of urinary retention. She presents today in follow-up. Suprapubic catheter removed 6 months ago. Patient doing well. She has been voiding well, she states that her stream is strong. Taking bethanechol. Denies gross hematuria. No dysuria. No fever or chills. She is unable to void in the office today. She urinated prior to coming to the office about 2 hours ago. No UTIs in the past 6 months. Feels she is emptying her bladder well. We will continue to monitor. LAB RESULTS Creatinine Date Value Ref Range Status 02/11/2020 1.57 (H) 0.58 - 0.96 mg/dL Final 06/09/2015 1.12 (H) 0.51 - 0.95 mg/dL Final No results found for: PSA Color (no units) Date Value 02/11/2020 Yellow Clarity (no units) Date Value 02/11/2020 Clear Glucose, Urine (no units) Date Value 02/11/2020 Negative Bilirubin, Urine (no units) Date Value 02/11/2020 Negative Ketones, Urine (no units) Date Value 02/11/2020 Negative Specific Entriken, Ur (no units) Date Value 02/11/2020 <1.005 Hemoglobin/Blood,Ur (no units) Date Value 02/11/2020 Trace pH, Urine (no units) Date Value 02/11/2020 5.5 Protein, Urine (no units) Date Value 02/11/2020 Negative Urobilinogen (no units) Date Value 02/11/2020 0.2 EU/dL Nitrites (no units) Date Value 02/11/2020 Negative Leuk Esterase (no units) Date Value 02/11/2020 Negative MEDICATIONS: bethanechol (URECHOLINE) 10 mg tablet Take 1 tablet by mouth twice daily. semaglutide (OZEMPIC) 1 mg/dose (2 mg/1.5 mL) pnij Inject 1 mg subcutaneously one time a week. amLODIPine (NORVASC) 2.5 mg tablet Take 2.5 mg by mouth once daily. levothyroxine 50 mcg cap Take 50 mcg by mouth daily before breakfast. aspirin, enteric coated (ASPIRIN, ENTERIC COATED) 81 mg EC tablet Take 81 mg by mouth once daily. losartan (COZAAR) 100 mg tablet Take 100 mg by mouth once daily. allopurinol (ZYLOPRIM) 100 mg tablet Take 100 mg by mouth once daily. pravastatin (PRAVACHOL) 40 mg tablet Take 40 mg by mouth once daily. REVIEW OF SYSTEMS CONSTITUTIONAL: Patient reports no recent fever or weight loss CARDIOVASCULAR: No chest pain, palpitations or ankle edema. RESPIRATORY: No wheezing, frequent cough or shortness of breath GENITOURINARY: See HPI HISTORIES PAST MEDICAL HISTORY Diagnosis Date - Diabetes (HCC) - Gout - Hyperlipemia - Hypertension - Pilonidal abscess - Retention of urine - Stroke (HCC) - UTI (urinary tract infection) History reviewed. No pertinent family history. PAST SURGICAL HISTORY Procedure Laterality Date - BLADDER SURGERY HX Cystoscopy and suprapubic tube placement - CYSTO W/RETRO. PYELOG 01/2020 - CYSTOSCOPY,+URETEROSCOPY 2019 - ORTHOPEDICS SURGERY HX - PAST SURGICAL HISTORY OF sp tube placement SOCIAL HISTORY Social History Tobacco Use - Smoking status: Never Smoker - Smokeless tobacco: Current User Substance Use Topics - Alcohol use: No - Drug use: No PHYSICAL EXAMINATION General appearance: Well appearing, alert, in no acute distress, well-hydrated, well nourished.. BACK: not examined. MUSCULOSKELETAL: Negative for joint pain or swelling. RESPIRATORY: Normal respiratory effort. SKIN: Normal color, no rash, no lesions.. : See HPI ASSESSMENT/PLAN: 1. Bilateral hydronephrosis - ICD9: 591, ICD10: N13.30 2. Retention of urine, unspecified - ICD9: 788.20, ICD10: R33.9 -Continue bethanechol. -Follow-up for PVR check and urine check in 1 year or sooner if any issues. Tana Cooper APRN.[facility] Name Dates Details Patient Instructions Indication:Non-smoker Start:13-Jun-2020 Instruction Type:Provider Instructions for Treatment How to Access Health Informa tion Online using Patient Portal and [employer]rd [employer] Apps Indication:Non-smoker Start:13-Jun-2020 Instruction Type:Patient Education How to Access Health Informa tion Online using Patient Portal and [employer]rd [employer] Apps Indication:Non-smoker Start:01-Jun-2020 Instruction Type:Patient Education Patient Instructions Indication:Non-smoker Start:01-Jun-2020 Instruction Type:Provider Instructions for Treatment How to Access Health Informa tion Online using Patient Portal and [employer]rd [employer] Apps Indication:Non-smoker Start:15-Apr-2020 Instruction Type:Patient Education Patient Instructions Indication:Non-smoker Start:15-Apr-2020 Instruction Type:Provider Instructions for Treatment How to Access Health Informa tion Online using Patient Portal and [employer]rd [employer] Apps Indication:Non-smoker Start:11-Mar-2020 Instruction Type:Patient Education Patient Instructions Indication:Non-smoker Start:11-Mar-2020 Instruction Type:Provider Instructions for Treatment How to access health informa tion online Indication:Non-smoker Start:29-Jan-2020 Instruction Type:Patient Education How to access health informa tion online - Detail Indication:Non-smoker Start:29-Jan-2020 Instruction Type:Patient Education Patient Instructions Indication:Non-smoker Start:29-Jan-2020 Instruction Type:Provider Instructions for Treatment How to access health informa tion online Indication:Non-smoker Start:01-Jan-2020 Instruction Type:Patient Education How to access health informa tion online - Detail Indication:Non-smoker Start:01-Jan-2020 Instruction Type:Patient Education Patient Instructions Indication:Non-smoker Start:01-Jan-2020 Instruction Type:Provider Instructions for Treatment How to access health informa tion online - Detail Indication:Non-smoker Start:11-Dec-2019 Instruction Type:Patient Education How to access health informa tion online Indication:Non-smoker Start:11-Dec-2019 Instruction Type:Patient Education Patient Instructions Indication:Non-smoker Start:11-Dec-2019 Instruction Type:Provider Instructions for Treatment How to access health informa tion online Indication:Non-smoker Start:03-Dec-2019 Instruction Type:Patient Education How to access health informa tion online - Detail Indication:Non-smoker Start:03-Dec-2019 Instruction Type:Patient Education Patient Instructions Indication:Non-smoker Start:03-Dec-2019 Instruction Type:Provider Instructions for Treatment obesity counseling Indication:Diabetes Start:24-Dec-2017 Instruction Type:Provider Instructions for Treatment cardiovascular counseling Indication:HTN (hypertension), benign Start:24-Dec-2017 Instruction Type:Provider Instructions for Treatment How to access health informa tion online Indication:Non-smoker Start:24-Dec-2017 Instruction Type:Patient Education How to access health informa tion online - Detail Indication:Non-smoker Start:24-Dec-2017 Instruction Type:Patient Education Patient Instructions Indication:Non-smoker Start:24-Dec-2017 Instruction Type:Provider Instructions for Treatment How to access health informa tion online - Detail Indication:Diabetes Start:03-Dec-2017 Instruction Type:Patient Education How to access health informa tion online Indication:Diabetes Start:03-Dec-2017 Instruction Type:Patient Education Patient Instructions Indication:Diabetes Start:03-Dec-2017 Instruction Type:Provider Instructions for Treatment Patient Instructions Indication:Non-smoker Start:18-Nov-2017 Instruction Type:Provider Instructions for Treatment How to access health informa tion online Indication:Non-smoker Start:18-Nov-2017 Instruction Type:Patient Education Patient Instructions Indication:Non-smoker Start:18-Nov-2017 Instruction Type:Provider Instructions for Treatment [facility]; [facility] Work Phone: Instructions* Name Dates Details How to Access Health Informa tion Online using Patient Portal and 3rd [employer] Apps Indication:Non-smoker Start:14-Sep-2020 Instruction Type:Patient Education Patient Instructions Indication:Non-smoker Start:14-Sep-2020 Instruction Type:Provider Instructions for Treatment Patient Instructions Indication:Non-smoker Start:13-Jun-2020 Instruction Type:Provider Instructions for Treatment How to Access Health Informa tion Online using Patient Portal and [employer] Apps Indication:Non-smoker Start:13-Jun-2020 Instruction Type:Patient Education How to Access Health Informa tion Online using Patient Portal and [employer] Apps Indication:Non-smoker Start:01-Jun-2020 Instruction Type:Patient Education Patient Instructions Indication:Non-smoker Start:01-Jun-2020 Instruction Type:Provider Instructions for Treatment How to Access Health Informa tion Online using Patient Portal and [employer] Apps Indication:Non-smoker Start:15-Apr-2020 Instruction Type:Patient Education Patient Instructions Indication:Non-smoker Start:15-Apr-2020 Instruction Type:Provider Instructions for Treatment How to Access Health Informa tion Online using Patient Portal and [employer]rd [employer] Apps Indication:Non-smoker Start:11-Mar-2020 Instruction Type:Patient Education Patient Instructions Indication:Non-smoker Start:11-Mar-2020 Instruction Type:Provider Instructions for Treatment How to access health informa tion online Indication:Non-smoker Start:29-Jan-2020 Instruction Type:Patient Education How to access health informa tion online - Detail Indication:Non-smoker Start:29-Jan-2020 Instruction Type:Patient Education Patient Instructions Indication:Non-smoker Start:29-Jan-2020 Instruction Type:Provider Instructions for Treatment How to access health informa tion online Indication:Non-smoker Start:01-Jan-2020 Instruction Type:Patient Education How to access health informa tion online - Detail Indication:Non-smoker Start:01-Jan-2020 Instruction Type:Patient Education Patient Instructions Indication:Non-smoker Start:01-Jan-2020 Instruction Type:Provider Instructions for Treatment How to access health informa tion online - Detail Indication:Non-smoker Start:11-Dec-2019 Instruction Type:Patient Education How to access health informa tion online Indication:Non-smoker Start:11-Dec-2019 Instruction Type:Patient Education Patient Instructions Indication:Non-smoker Start:11-Dec-2019 Instruction Type:Provider Instructions for Treatment How to access health informa tion online Indication:Non-smoker Start:03-Dec-2019 Instruction Type:Patient Education How to access health informa tion online - Detail Indication:Non-smoker Start:03-Dec-2019 Instruction Type:Patient Education Patient Instructions Indication:Non-smoker Start:03-Dec-2019 Instruction Type:Provider Instructions for Treatment obesity counseling Indication:Diabetes Start:24-Dec-2017 Instruction Type:Provider Instructions for Treatment cardiovascular counseling Indication:HTN (hypertension), benign Start:24-Dec-2017 Instruction Type:Provider Instructions for Treatment How to access health informa tion online Indication:Non-smoker Start:24-Dec-2017 Instruction Type:Patient Education How to access health informa tion online - Detail Indication:Non-smoker Start:24-Dec-2017 Instruction Type:Patient Education Patient Instructions Indication:Non-smoker Start:24-Dec-2017 Instruction Type:Provider Instructions for Treatment How to access health informa tion online - Detail Indication:Diabetes Start:03-Dec-2017 Instruction Type:Patient Education How to access health informa tion online Indication:Diabetes Start:03-Dec-2017 Instruction Type:Patient Education Patient Instructions Indication:Diabetes Start:03-Dec-2017 Instruction Type:Provider Instructions for Treatment Patient Instructions Indication:Non-smoker Start:18-Nov-2017 Instruction Type:Provider Instructions for Treatment How to access health informa tion online Indication:Non-smoker Start:18-Nov-2017 Instruction Type:Patient Education Patient Instructions Indication:Non-smoker Start:18-Nov-2017 Instruction Type:Provider Instructions for Treatment [facility]; [facility] Work Phone: Instructions* Name Dates Details How to Access Health Informa tion Online using Patient Portal and [employer]rd [employer] Apps Indication:Non-smoker Start:14-Sep-2020 Instruction Type:Patient Education Patient Instructions Indication:Non-smoker Start:14-Sep-2020 Instruction Type:Provider Instructions for Treatment Patient Instructions Indication:Non-smoker Start:13-Jun-2020 Instruction Type:Provider Instructions for Treatment How to Access Health Informa tion Online using Patient Portal and [employer] Apps Indication:Non-smoker Start:13-Jun-2020 Instruction Type:Patient Education How to Access Health Informa tion Online using Patient Portal and [employer] Apps Indication:Non-smoker Start:01-Jun-2020 Instruction Type:Patient Education Patient Instructions Indication:Non-smoker Start:01-Jun-2020 Instruction Type:Provider Instructions for Treatment How to Access Health Informa tion Online using Patient Portal and [employer] Apps Indication:Non-smoker Start:15-Apr-2020 Instruction Type:Patient Education Patient Instructions Indication:Non-smoker Start:15-Apr-2020 Instruction Type:Provider Instructions for Treatment How to Access Health Informa tion Online using Patient Portal and [employer] Apps Indication:Non-smoker Start:11-Mar-2020 Instruction Type:Patient Education Patient Instructions Indication:Non-smoker Start:11-Mar-2020 Instruction Type:Provider Instructions for Treatment How to access health informa tion online Indication:Non-smoker Start:29-Jan-2020 Instruction Type:Patient Education How to access health informa tion online - Detail Indication:Non-smoker Start:29-Jan-2020 Instruction Type:Patient Education Patient Instructions Indication:Non-smoker Start:29-Jan-2020 Instruction Type:Provider Instructions for Treatment How to access health informa tion online Indication:Non-smoker Start:01-Jan-2020 Instruction Type:Patient Education How to access health informa tion online - Detail Indication:Non-smoker Start:01-Jan-2020 Instruction Type:Patient Education Patient Instructions Indication:Non-smoker Start:01-Jan-2020 Instruction Type:Provider Instructions for Treatment How to access health informa tion online - Detail Indication:Non-smoker Start:11-Dec-2019 Instruction Type:Patient Education How to access health informa tion online Indication:Non-smoker Start:11-Dec-2019 Instruction Type:Patient Education Patient Instructions Indication:Non-smoker Start:11-Dec-2019 Instruction Type:Provider Instructions for Treatment How to access health informa tion online Indication:Non-smoker Start:03-Dec-2019 Instruction Type:Patient Education How to access health informa tion online - Detail Indication:Non-smoker Start:03-Dec-2019 Instruction Type:Patient Education Patient Instructions Indication:Non-smoker Start:03-Dec-2019 Instruction Type:Provider Instructions for Treatment obesity counseling Indication:Diabetes Start:24-Dec-2017 Instruction Type:Provider Instructions for Treatment cardiovascular counseling Indication:HTN (hypertension), benign Start:24-Dec-2017 Instruction Type:Provider Instructions for Treatment How to access health informa tion online Indication:Non-smoker Start:24-Dec-2017 Instruction Type:Patient Education How to access health informa tion online - Detail Indication:Non-smoker Start:24-Dec-2017 Instruction Type:Patient Education Patient Instructions Indication:Non-smoker Start:24-Dec-2017 Instruction Type:Provider Instructions for Treatment How to access health informa tion online - Detail Indication:Diabetes Start:03-Dec-2017 Instruction Type:Patient Education How to access health informa tion online Indication:Diabetes Start:03-Dec-2017 Instruction Type:Patient Education Patient Instructions Indication:Diabetes Start:03-Dec-2017 Instruction Type:Provider Instructions for Treatment Patient Instructions Indication:Non-smoker Start:18-Nov-2017 Instruction Type:Provider Instructions for Treatment How to access health informa tion online Indication:Non-smoker Start:18-Nov-2017 Instruction Type:Patient Education Patient Instructions Indication:Non-smoker Start:18-Nov-2017 Instruction Type:Provider Instructions for Treatment [facility]; [facility] Work Phone: Instructions* Name Dates Details How to Access Health Informa tion Online using Patient Portal and [employer] Apps Indication:Non-smoker Start:14-Sep-2020 Instruction Type:Patient Education Patient Instructions Indication:Non-smoker Start:14-Sep-2020 Instruction Type:Provider Instructions for Treatment Patient Instructions Indication:Non-smoker Start:13-Jun-2020 Instruction Type:Provider Instructions for Treatment How to Access Health Informa tion Online using Patient Portal and [employer] Apps Indication:Non-smoker Start:13-Jun-2020 Instruction Type:Patient Education How to Access Health Informa tion Online using Patient Portal and [employer] Apps Indication:Non-smoker Start:01-Jun-2020 Instruction Type:Patient Education Patient Instructions Indication:Non-smoker Start:01-Jun-2020 Instruction Type:Provider Instructions for Treatment How to Access Health Informa tion Online using Patient Portal and [employer] Apps Indication:Non-smoker Start:15-Apr-2020 Instruction Type:Patient Education Patient Instructions Indication:Non-smoker Start:15-Apr-2020 Instruction Type:Provider Instructions for Treatment How to Access Health Informa tion Online using Patient Portal and [employer] Apps Indication:Non-smoker Start:11-Mar-2020 Instruction Type:Patient Education Patient Instructions Indication:Non-smoker Start:11-Mar-2020 Instruction Type:Provider Instructions for Treatment How to access health informa tion online Indication:Non-smoker Start:29-Jan-2020 Instruction Type:Patient Education How to access health informa tion online - Detail Indication:Non-smoker Start:29-Jan-2020 Instruction Type:Patient Education Patient Instructions Indication:Non-smoker Start:29-Jan-2020 Instruction Type:Provider Instructions for Treatment How to access health informa tion online Indication:Non-smoker Start:01-Jan-2020 Instruction Type:Patient Education How to access health informa tion online - Detail Indication:Non-smoker Start:01-Jan-2020 Instruction Type:Patient Education Patient Instructions Indication:Non-smoker Start:01-Jan-2020 Instruction Type:Provider Instructions for Treatment How to access health informa tion online - Detail Indication:Non-smoker Start:11-Dec-2019 Instruction Type:Patient Education How to access health informa tion online Indication:Non-smoker Start:11-Dec-2019 Instruction Type:Patient Education Patient Instructions Indication:Non-smoker Start:11-Dec-2019 Instruction Type:Provider Instructions for Treatment How to access health informa tion online Indication:Non-smoker Start:03-Dec-2019 Instruction Type:Patient Education How to access health informa tion online - Detail Indication:Non-smoker Start:03-Dec-2019 Instruction Type:Patient Education Patient Instructions Indication:Non-smoker Start:03-Dec-2019 Instruction Type:Provider Instructions for Treatment obesity counseling Indication:Diabetes Start:24-Dec-2017 Instruction Type:Provider Instructions for Treatment cardiovascular counseling Indication:HTN (hypertension), benign Start:24-Dec-2017 Instruction Type:Provider Instructions for Treatment How to access health informa tion online Indication:Non-smoker Start:24-Dec-2017 Instruction Type:Patient Education How to access health informa tion online - Detail Indication:Non-smoker Start:24-Dec-2017 Instruction Type:Patient Education Patient Instructions Indication:Non-smoker Start:24-Dec-2017 Instruction Type:Provider Instructions for Treatment How to access health informa tion online - Detail Indication:Diabetes Start:03-Dec-2017 Instruction Type:Patient Education How to access health informa tion online Indication:Diabetes Start:03-Dec-2017 Instruction Type:Patient Education Patient Instructions Indication:Diabetes Start:03-Dec-2017 Instruction Type:Provider Instructions for Treatment Patient Instructions Indication:Non-smoker Start:18-Nov-2017 Instruction Type:Provider Instructions for Treatment How to access health informa tion online Indication:Non-smoker Start:18-Nov-2017 Instruction Type:Patient Education Patient Instructions Indication:Non-smoker Start:18-Nov-2017 Instruction Type:Provider Instructions for Treatment [facility]; [facility] Work Phone: Instructions* Name Dates Details How to Access Health Informa tion Online using Patient Portal and [employer]rd [employer] Apps Indication:Non-smoker Start:14-Sep-2020 Instruction Type:Patient Education Patient Instructions Indication:Non-smoker Start:14-Sep-2020 Instruction Type:Provider Instructions for Treatment Patient Instructions Indication:Non-smoker Start:13-Jun-2020 Instruction Type:Provider Instructions for Treatment How to Access Health Informa tion Online using Patient Portal and [employer]rd [employer] Apps Indication:Non-smoker Start:13-Jun-2020 Instruction Type:Patient Education How to Access Health Informa tion Online using Patient Portal and [employer]rd [employer] Apps Indication:Non-smoker Start:01-Jun-2020 Instruction Type:Patient Education Patient Instructions Indication:Non-smoker Start:01-Jun-2020 Instruction Type:Provider Instructions for Treatment How to Access Health Informa tion Online using Patient Portal and [employer]rd [employer] Apps Indication:Non-smoker Start:15-Apr-2020 Instruction Type:Patient Education Patient Instructions Indication:Non-smoker Start:15-Apr-2020 Instruction Type:Provider Instructions for Treatment How to Access Health Informa tion Online using Patient Portal and [employer]rd [employer] Apps Indication:Non-smoker Start:11-Mar-2020 Instruction Type:Patient Education Patient Instructions Indication:Non-smoker Start:11-Mar-2020 Instruction Type:Provider Instructions for Treatment How to access health informa tion online Indication:Non-smoker Start:29-Jan-2020 Instruction Type:Patient Education How to access health informa tion online - Detail Indication:Non-smoker Start:29-Jan-2020 Instruction Type:Patient Education Patient Instructions Indication:Non-smoker Start:29-Jan-2020 Instruction Type:Provider Instructions for Treatment How to access health informa tion online Indication:Non-smoker Start:01-Jan-2020 Instruction Type:Patient Education How to access health informa tion online - Detail Indication:Non-smoker Start:01-Jan-2020 Instruction Type:Patient Education Patient Instructions Indication:Non-smoker Start:01-Jan-2020 Instruction Type:Provider Instructions for Treatment How to access health informa tion online - Detail Indication:Non-smoker Start:11-Dec-2019 Instruction Type:Patient Education How to access health informa tion online Indication:Non-smoker Start:11-Dec-2019 Instruction Type:Patient Education Patient Instructions Indication:Non-smoker Start:11-Dec-2019 Instruction Type:Provider Instructions for Treatment How to access health informa tion online Indication:Non-smoker Start:03-Dec-2019 Instruction Type:Patient Education How to access health informa tion online - Detail Indication:Non-smoker Start:03-Dec-2019 Instruction Type:Patient Education Patient Instructions Indication:Non-smoker Start:03-Dec-2019 Instruction Type:Provider Instructions for Treatment obesity counseling Indication:Diabetes Start:24-Dec-2017 Instruction Type:Provider Instructions for Treatment cardiovascular counseling Indication:HTN (hypertension), benign Start:24-Dec-2017 Instruction Type:Provider Instructions for Treatment How to access health informa tion online Indication:Non-smoker Start:24-Dec-2017 Instruction Type:Patient Education How to access health informa tion online - Detail Indication:Non-smoker Start:24-Dec-2017 Instruction Type:Patient Education Patient Instructions Indication:Non-smoker Start:24-Dec-2017 Instruction Type:Provider Instructions for Treatment How to access health informa tion online - Detail Indication:Diabetes Start:03-Dec-2017 Instruction Type:Patient Education How to access health informa tion online Indication:Diabetes Start:03-Dec-2017 Instruction Type:Patient Education Patient Instructions Indication:Diabetes Start:03-Dec-2017 Instruction Type:Provider Instructions for Treatment Patient Instructions Indication:Non-smoker Start:18-Nov-2017 Instruction Type:Provider Instructions for Treatment How to access health informa tion online Indication:Non-smoker Start:18-Nov-2017 Instruction Type:Patient Education Patient Instructions Indication:Non-smoker Start:18-Nov-2017 Instruction Type:Provider Instructions for Treatment [facility]; [facility] Work Phone: Instructions* Name Dates Details How to Access Health Informa tion Online using Patient Portal and [employer]rd [employer] Apps Indication:Non-smoker Start:14-Sep-2020 Instruction Type:Patient Education Patient Instructions Indication:Non-smoker Start:14-Sep-2020 Instruction Type:Provider Instructions for Treatment Patient Instructions Indication:Non-smoker Start:13-Jun-2020 Instruction Type:Provider Instructions for Treatment How to Access Health Informa tion Online using Patient Portal and [employer]rd [employer] Apps Indication:Non-smoker Start:13-Jun-2020 Instruction Type:Patient Education How to Access Health Informa tion Online using Patient Portal and [employer]rd [employer] Apps Indication:Non-smoker Start:01-Jun-2020 Instruction Type:Patient Education Patient Instructions Indication:Non-smoker Start:01-Jun-2020 Instruction Type:Provider Instructions for Treatment How to Access Health Informa tion Online using Patient Portal and [employer]rd [employer] Apps Indication:Non-smoker Start:15-Apr-2020 Instruction Type:Patient Education Patient Instructions Indication:Non-smoker Start:15-Apr-2020 Instruction Type:Provider Instructions for Treatment How to Access Health Informa tion Online using Patient Portal and [employer]rd [employer] Apps Indication:Non-smoker Start:11-Mar-2020 Instruction Type:Patient Education Patient Instructions Indication:Non-smoker Start:11-Mar-2020 Instruction Type:Provider Instructions for Treatment How to access health informa tion online Indication:Non-smoker Start:29-Jan-2020 Instruction Type:Patient Education How to access health informa tion online - Detail Indication:Non-smoker Start:29-Jan-2020 Instruction Type:Patient Education Patient Instructions Indication:Non-smoker Start:29-Jan-2020 Instruction Type:Provider Instructions for Treatment How to access health informa tion online Indication:Non-smoker Start:01-Jan-2020 Instruction Type:Patient Education How to access health informa tion online - Detail Indication:Non-smoker Start:01-Jan-2020 Instruction Type:Patient Education Patient Instructions Indication:Non-smoker Start:01-Jan-2020 Instruction Type:Provider Instructions for Treatment How to access health informa tion online - Detail Indication:Non-smoker Start:11-Dec-2019 Instruction Type:Patient Education How to access health informa tion online Indication:Non-smoker Start:11-Dec-2019 Instruction Type:Patient Education Patient Instructions Indication:Non-smoker Start:11-Dec-2019 Instruction Type:Provider Instructions for Treatment How to access health informa tion online Indication:Non-smoker Start:03-Dec-2019 Instruction Type:Patient Education How to access health informa tion online - Detail Indication:Non-smoker Start:03-Dec-2019 Instruction Type:Patient Education Patient Instructions Indication:Non-smoker Start:03-Dec-2019 Instruction Type:Provider Instructions for Treatment obesity counseling Indication:Diabetes Start:24-Dec-2017 Instruction Type:Provider Instructions for Treatment cardiovascular counseling Indication:HTN (hypertension), benign Start:24-Dec-2017 Instruction Type:Provider Instructions for Treatment How to access health informa tion online Indication:Non-smoker Start:24-Dec-2017 Instruction Type:Patient Education How to access health informa tion online - Detail Indication:Non-smoker Start:24-Dec-2017 Instruction Type:Patient Education Patient Instructions Indication:Non-smoker Start:24-Dec-2017 Instruction Type:Provider Instructions for Treatment How to access health informa tion online - Detail Indication:Diabetes Start:03-Dec-2017 Instruction Type:Patient Education How to access health informa tion online Indication:Diabetes Start:03-Dec-2017 Instruction Type:Patient Education Patient Instructions Indication:Diabetes Start:03-Dec-2017 Instruction Type:Provider Instructions for Treatment Patient Instructions Indication:Non-smoker Start:18-Nov-2017 Instruction Type:Provider Instructions for Treatment How to access health informa tion online Indication:Non-smoker Start:18-Nov-2017 Instruction Type:Patient Education Patient Instructions Indication:Non-smoker Start:18-Nov-2017 Instruction Type:Provider Instructions for Treatment [facility]; [facility] Work Phone: Instructions* Name Dates Details Patient Instructions Indication:Type II diabetes mellitus, well controlled Start:22-Mar-2021 Instruction Type:Provider Instructions for Treatment How to Access Health Informa tion Online using Patient Portal and [employer]rd [employer] Apps Indication:Type II diabetes mellitus, well controlled Start:22-Mar-2021 Instruction Type:Patient Education cardiovascular counseling Indication:HTN (hypertension), benign Start:30-Jan-2021 Instruction Type:Provider Instructions for Treatment Patient Instructions Indication:Non-smoker Start:30-Jan-2021 Instruction Type:Provider Instructions for Treatment How to Access Health Informa tion Online using Patient Portal and [employer] Apps Indication:Non-smoker Start:30-Jan-2021 Instruction Type:Patient Education Patient Instructions Indication:Type II diabetes mellitus, well controlled Start:16-Dec-2020 Instruction Type:Provider Instructions for Treatment How to Access Health Informa tion Online using Patient Portal and [employer]rd [employer] Apps Indication:Type II diabetes mellitus, well controlled Start:16-Dec-2020 Instruction Type:Patient Education How to Access Health Informa tion Online using Patient Portal and [employer] Apps Indication:Non-smoker Start:14-Sep-2020 Instruction Type:Patient Education Patient Instructions Indication:Non-smoker Start:14-Sep-2020 Instruction Type:Provider Instructions for Treatment Patient Instructions Indication:Non-smoker Start:13-Jun-2020 Instruction Type:Provider Instructions for Treatment How to Access Health Informa tion Online using Patient Portal and [employer] Apps Indication:Non-smoker Start:13-Jun-2020 Instruction Type:Patient Education How to Access Health Informa tion Online using Patient Portal and [employer] Apps Indication:Non-smoker Start:01-Jun-2020 Instruction Type:Patient Education Patient Instructions Indication:Non-smoker Start:01-Jun-2020 Instruction Type:Provider Instructions for Treatment How to Access Health Informa tion Online using Patient Portal and [employer]rd [employer] Apps Indication:Non-smoker Start:15-Apr-2020 Instruction Type:Patient Education Patient Instructions Indication:Non-smoker Start:15-Apr-2020 Instruction Type:Provider Instructions for Treatment How to Access Health Informa tion Online using Patient Portal and [employer] Apps Indication:Non-smoker Start:11-Mar-2020 Instruction Type:Patient Education Patient Instructions Indication:Non-smoker Start:11-Mar-2020 Instruction Type:Provider Instructions for Treatment How to access health informa tion online Indication:Non-smoker Start:29-Jan-2020 Instruction Type:Patient Education How to access health informa tion online - Detail Indication:Non-smoker Start:29-Jan-2020 Instruction Type:Patient Education Patient Instructions Indication:Non-smoker Start:29-Jan-2020 Instruction Type:Provider Instructions for Treatment How to access health informa tion online Indication:Non-smoker Start:01-Jan-2020 Instruction Type:Patient Education How to access health informa tion online - Detail Indication:Non-smoker Start:01-Jan-2020 Instruction Type:Patient Education Patient Instructions Indication:Non-smoker Start:01-Jan-2020 Instruction Type:Provider Instructions for Treatment How to access health informa tion online - Detail Indication:Non-smoker Start:11-Dec-2019 Instruction Type:Patient Education How to access health informa tion online Indication:Non-smoker Start:11-Dec-2019 Instruction Type:Patient Education Patient Instructions Indication:Non-smoker Start:11-Dec-2019 Instruction Type:Provider Instructions for Treatment How to access health informa tion online Indication:Non-smoker Start:03-Dec-2019 Instruction Type:Patient Education How to access health informa tion online - Detail Indication:Non-smoker Start:03-Dec-2019 Instruction Type:Patient Education Patient Instructions Indication:Non-smoker Start:03-Dec-2019 Instruction Type:Provider Instructions for Treatment obesity counseling Indication:Diabetes Start:24-Dec-2017 Instruction Type:Provider Instructions for Treatment cardiovascular counseling Indication:HTN (hypertension), benign Start:24-Dec-2017 Instruction Type:Provider Instructions for Treatment How to access health informa tion online Indication:Non-smoker Start:24-Dec-2017 Instruction Type:Patient Education How to access health informa tion online - Detail Indication:Non-smoker Start:24-Dec-2017 Instruction Type:Patient Education Patient Instructions Indication:Non-smoker Start:24-Dec-2017 Instruction Type:Provider Instructions for Treatment How to access health informa tion online - Detail Indication:Diabetes Start:03-Dec-2017 Instruction Type:Patient Education How to access health informa tion online Indication:Diabetes Start:03-Dec-2017 Instruction Type:Patient Education Patient Instructions Indication:Diabetes Start:03-Dec-2017 Instruction Type:Provider Instructions for Treatment Patient Instructions Indication:Non-smoker Start:18-Nov-2017 Instruction Type:Provider Instructions for Treatment How to access health informa tion online Indication:Non-smoker Start:18-Nov-2017 Instruction Type:Patient Education Patient Instructions Indication:Non-smoker Start:18-Nov-2017 Instruction Type:Provider Instructions for Treatment [facility]; [facility] Work Phone: Instructions* Name Dates Details Patient Instructions Indication:Type II diabetes mellitus, well controlled Start:21-Jun-2021 Instruction Type:Provider Instructions for Treatment How to Access Health Informa tion Online using Patient Portal and [employer]rd [employer] Apps Indication:Type II diabetes mellitus, well controlled Start:21-Jun-2021 Instruction Type:Patient Education Patient Instructions Indication:Type II diabetes mellitus, well controlled Start:22-Mar-2021 Instruction Type:Provider Instructions for Treatment How to Access Health Informa tion Online using Patient Portal and [employer]rd [employer] Apps Indication:Type II diabetes mellitus, well controlled Start:22-Mar-2021 Instruction Type:Patient Education cardiovascular counseling Indication:HTN (hypertension), benign Start:30-Jan-2021 Instruction Type:Provider Instructions for Treatment Patient Instructions Indication:Non-smoker Start:30-Jan-2021 Instruction Type:Provider Instructions for Treatment How to Access Health Informa tion Online using Patient Portal and [employer] Apps Indication:Non-smoker Start:30-Jan-2021 Instruction Type:Patient Education Patient Instructions Indication:Type II diabetes mellitus, well controlled Start:16-Dec-2020 Instruction Type:Provider Instructions for Treatment How to Access Health Informa tion Online using Patient Portal and [employer] Apps Indication:Type II diabetes mellitus, well controlled Start:16-Dec-2020 Instruction Type:Patient Education How to Access Health Informa tion Online using Patient Portal and [employer] Apps Indication:Non-smoker Start:14-Sep-2020 Instruction Type:Patient Education Patient Instructions Indication:Non-smoker Start:14-Sep-2020 Instruction Type:Provider Instructions for Treatment Patient Instructions Indication:Non-smoker Start:13-Jun-2020 Instruction Type:Provider Instructions for Treatment How to Access Health Informa tion Online using Patient Portal and [employer] Apps Indication:Non-smoker Start:13-Jun-2020 Instruction Type:Patient Education How to Access Health Informa tion Online using Patient Portal and [employer]rd [employer] Apps Indication:Non-smoker Start:01-Jun-2020 Instruction Type:Patient Education Patient Instructions Indication:Non-smoker Start:01-Jun-2020 Instruction Type:Provider Instructions for Treatment How to Access Health Informa tion Online using Patient Portal and [employer]rd [employer] Apps Indication:Non-smoker Start:15-Apr-2020 Instruction Type:Patient Education Patient Instructions Indication:Non-smoker Start:15-Apr-2020 Instruction Type:Provider Instructions for Treatment How to Access Health Informa tion Online using Patient Portal and [employer]rd [employer] Apps Indication:Non-smoker Start:11-Mar-2020 Instruction Type:Patient Education Patient Instructions Indication:Non-smoker Start:11-Mar-2020 Instruction Type:Provider Instructions for Treatment How to access health informa tion online Indication:Non-smoker Start:29-Jan-2020 Instruction Type:Patient Education How to access health informa tion online - Detail Indication:Non-smoker Start:29-Jan-2020 Instruction Type:Patient Education Patient Instructions Indication:Non-smoker Start:29-Jan-2020 Instruction Type:Provider Instructions for Treatment How to access health informa tion online Indication:Non-smoker Start:01-Jan-2020 Instruction Type:Patient Education How to access health informa tion online - Detail Indication:Non-smoker Start:01-Jan-2020 Instruction Type:Patient Education Patient Instructions Indication:Non-smoker Start:01-Jan-2020 Instruction Type:Provider Instructions for Treatment How to access health informa tion online - Detail Indication:Non-smoker Start:11-Dec-2019 Instruction Type:Patient Education How to access health informa tion online Indication:Non-smoker Start:11-Dec-2019 Instruction Type:Patient Education Patient Instructions Indication:Non-smoker Start:11-Dec-2019 Instruction Type:Provider Instructions for Treatment How to access health informa tion online Indication:Non-smoker Start:03-Dec-2019 Instruction Type:Patient Education How to access health informa tion online - Detail Indication:Non-smoker Start:03-Dec-2019 Instruction Type:Patient Education Patient Instructions Indication:Non-smoker Start:03-Dec-2019 Instruction Type:Provider Instructions for Treatment obesity counseling Indication:Diabetes Start:24-Dec-2017 Instruction Type:Provider Instructions for Treatment cardiovascular counseling Indication:HTN (hypertension), benign Start:24-Dec-2017 Instruction Type:Provider Instructions for Treatment How to access health informa tion online Indication:Non-smoker Start:24-Dec-2017 Instruction Type:Patient Education How to access health informa tion online - Detail Indication:Non-smoker Start:24-Dec-2017 Instruction Type:Patient Education Patient Instructions Indication:Non-smoker Start:24-Dec-2017 Instruction Type:Provider Instructions for Treatment How to access health informa tion online - Detail Indication:Diabetes Start:03-Dec-2017 Instruction Type:Patient Education How to access health informa tion online Indication:Diabetes Start:03-Dec-2017 Instruction Type:Patient Education Patient Instructions Indication:Diabetes Start:03-Dec-2017 Instruction Type:Provider Instructions for Treatment Patient Instructions Indication:Non-smoker Start:18-Nov-2017 Instruction Type:Provider Instructions for Treatment How to access health informa tion online Indication:Non-smoker Start:18-Nov-2017 Instruction Type:Patient Education Patient Instructions Indication:Non-smoker Start:18-Nov-2017 Instruction Type:Provider Instructions for Treatment [facility]; [facility] Work Phone: Instructions* Name Dates Details Patient Instructions Indication:BMI 26.0-26.9,adult Start:04-Jan-2022 Instruction Type:Provider Instructions for Treatment How to Access Health Informa tion Online using Patient Portal and [employer]rd [employer] Apps Indication:BMI 26.0-26.9,adult Start:04-Jan-2022 Instruction Type:Patient Education Patient Instructions Indication:Type II diabetes mellitus, well controlled Start:25-Dec-2021 Instruction Type:Provider Instructions for Treatment How to Access Health Informa tion Online using Patient Portal and [employer]rd [employer] Apps Indication:Type II diabetes mellitus, well controlled Start:25-Dec-2021 Instruction Type:Patient Education Patient Instructions Indication:Non-smoker Start:01-Dec-2021 Instruction Type:Provider Instructions for Treatment How to Access Health Informa tion Online using Patient Portal and [employer]rd [employer] Apps Indication:Non-smoker Start:01-Dec-2021 Instruction Type:Patient Education Patient Instructions Indication:Type II diabetes mellitus, well controlled Start:21-Jun-2021 Instruction Type:Provider Instructions for Treatment How to Access Health Informa tion Online using Patient Portal and [employer]rd [employer] Apps Indication:Type II diabetes mellitus, well controlled Start:21-Jun-2021 Instruction Type:Patient Education Patient Instructions Indication:Type II diabetes mellitus, well controlled Start:22-Mar-2021 Instruction Type:Provider Instructions for Treatment How to Access Health Informa tion Online using Patient Portal and [employer]rd [employer] Apps Indication:Type II diabetes mellitus, well controlled Start:22-Mar-2021 Instruction Type:Patient Education cardiovascular counseling Indication:HTN (hypertension), benign Start:30-Jan-2021 Instruction Type:Provider Instructions for Treatment Patient Instructions Indication:Non-smoker Start:30-Jan-2021 Instruction Type:Provider Instructions for Treatment How to Access Health Informa tion Online using Patient Portal and [employer]rd [employer] Apps Indication:Non-smoker Start:30-Jan-2021 Instruction Type:Patient Education Patient Instructions Indication:Type II diabetes mellitus, well controlled Start:16-Dec-2020 Instruction Type:Provider Instructions for Treatment How to Access Health Informa tion Online using Patient Portal and [employer]rd [employer] Apps Indication:Type II diabetes mellitus, well controlled Start:16-Dec-2020 Instruction Type:Patient Education How to Access Health Informa tion Online using Patient Portal and [employer] Apps Indication:Non-smoker Start:14-Sep-2020 Instruction Type:Patient Education Patient Instructions Indication:Non-smoker Start:14-Sep-2020 Instruction Type:Provider Instructions for Treatment Patient Instructions Indication:Non-smoker Start:13-Jun-2020 Instruction Type:Provider Instructions for Treatment How to Access Health Informa tion Online using Patient Portal and [employer] Apps Indication:Non-smoker Start:13-Jun-2020 Instruction Type:Patient Education How to Access Health Informa tion Online using Patient Portal and [employer] Apps Indication:Non-smoker Start:01-Jun-2020 Instruction Type:Patient Education Patient Instructions Indication:Non-smoker Start:01-Jun-2020 Instruction Type:Provider Instructions for Treatment How to Access Health Informa tion Online using Patient Portal and [employer] Apps Indication:Non-smoker Start:15-Apr-2020 Instruction Type:Patient Education Patient Instructions Indication:Non-smoker Start:15-Apr-2020 Instruction Type:Provider Instructions for Treatment How to Access Health Informa tion Online using Patient Portal and [employer]rd [employer] Apps Indication:Non-smoker Start:11-Mar-2020 Instruction Type:Patient Education Patient Instructions Indication:Non-smoker Start:11-Mar-2020 Instruction Type:Provider Instructions for Treatment How to access health informa tion online Indication:Non-smoker Start:29-Jan-2020 Instruction Type:Patient Education How to access health informa tion online - Detail Indication:Non-smoker Start:29-Jan-2020 Instruction Type:Patient Education Patient Instructions Indication:Non-smoker Start:29-Jan-2020 Instruction Type:Provider Instructions for Treatment How to access health informa tion online Indication:Non-smoker Start:01-Jan-2020 Instruction Type:Patient Education How to access health informa tion online - Detail Indication:Non-smoker Start:01-Jan-2020 Instruction Type:Patient Education Patient Instructions Indication:Non-smoker Start:01-Jan-2020 Instruction Type:Provider Instructions for Treatment How to access health informa tion online - Detail Indication:Non-smoker Start:11-Dec-2019 Instruction Type:Patient Education How to access health informa tion online Indication:Non-smoker Start:11-Dec-2019 Instruction Type:Patient Education Patient Instructions Indication:Non-smoker Start:11-Dec-2019 Instruction Type:Provider Instructions for Treatment How to access health informa tion online Indication:Non-smoker Start:03-Dec-2019 Instruction Type:Patient Education How to access health informa tion online - Detail Indication:Non-smoker Start:03-Dec-2019 Instruction Type:Patient Education Patient Instructions Indication:Non-smoker Start:03-Dec-2019 Instruction Type:Provider Instructions for Treatment obesity counseling Indication:Diabetes Start:24-Dec-2017 Instruction Type:Provider Instructions for Treatment cardiovascular counseling Indication:HTN (hypertension), benign Start:24-Dec-2017 Instruction Type:Provider Instructions for Treatment How to access health informa tion online Indication:Non-smoker Start:24-Dec-2017 Instruction Type:Patient Education How to access health informa tion online - Detail Indication:Non-smoker Start:24-Dec-2017 Instruction Type:Patient Education Patient Instructions Indication:Non-smoker Start:24-Dec-2017 Instruction Type:Provider Instructions for Treatment How to access health informa tion online - Detail Indication:Diabetes Start:03-Dec-2017 Instruction Type:Patient Education How to access health informa tion online Indication:Diabetes Start:03-Dec-2017 Instruction Type:Patient Education Patient Instructions Indication:Diabetes Start:03-Dec-2017 Instruction Type:Provider Instructions for Treatment Patient Instructions Indication:Non-smoker Start:18-Nov-2017 Instruction Type:Provider Instructions for Treatment How to access health informa tion online Indication:Non-smoker Start:18-Nov-2017 Instruction Type:Patient Education Patient Instructions Indication:Non-smoker Start:18-Nov-2017 Instruction Type:Provider Instructions for Treatment [facility]; [facility] Work Phone: Instructions* Name Dates Details Patient Instructions Indication:BMI 26.0-26.9,adult Start:04-Jan-2022 Instruction Type:Provider Instructions for Treatment How to Access Health Informa tion Online using Patient Portal and [employer] Apps Indication:BMI 26.0-26.9,adult Start:04-Jan-2022 Instruction Type:Patient Education Patient Instructions Indication:Type II diabetes mellitus, well controlled Start:25-Dec-2021 Instruction Type:Provider Instructions for Treatment How to Access Health Informa tion Online using Patient Portal and [employer] Apps Indication:Type II diabetes mellitus, well controlled Start:25-Dec-2021 Instruction Type:Patient Education Patient Instructions Indication:Non-smoker Start:01-Dec-2021 Instruction Type:Provider Instructions for Treatment How to Access Health Informa tion Online using Patient Portal and [employer] Apps Indication:Non-smoker Start:01-Dec-2021 Instruction Type:Patient Education Patient Instructions Indication:Type II diabetes mellitus, well controlled Start:21-Jun-2021 Instruction Type:Provider Instructions for Treatment How to Access Health Informa tion Online using Patient Portal and [employer] Apps Indication:Type II diabetes mellitus, well controlled Start:21-Jun-2021 Instruction Type:Patient Education Patient Instructions Indication:Type II diabetes mellitus, well controlled Start:22-Mar-2021 Instruction Type:Provider Instructions for Treatment How to Access Health Informa tion Online using Patient Portal and [employer] Apps Indication:Type II diabetes mellitus, well controlled Start:22-Mar-2021 Instruction Type:Patient Education cardiovascular counseling Indication:HTN (hypertension), benign Start:30-Jan-2021 Instruction Type:Provider Instructions for Treatment Patient Instructions Indication:Non-smoker Start:30-Jan-2021 Instruction Type:Provider Instructions for Treatment How to Access Health Informa tion Online using Patient Portal and [employer] Apps Indication:Non-smoker Start:30-Jan-2021 Instruction Type:Patient Education Patient Instructions Indication:Type II diabetes mellitus, well controlled Start:16-Dec-2020 Instruction Type:Provider Instructions for Treatment How to Access Health Informa tion Online using Patient Portal and [employer] Apps Indication:Type II diabetes mellitus, well controlled Start:16-Dec-2020 Instruction Type:Patient Education How to Access Health Informa tion Online using Patient Portal and [employer] Apps Indication:Non-smoker Start:14-Sep-2020 Instruction Type:Patient Education Patient Instructions Indication:Non-smoker Start:14-Sep-2020 Instruction Type:Provider Instructions for Treatment Patient Instructions Indication:Non-smoker Start:13-Jun-2020 Instruction Type:Provider Instructions for Treatment How to Access Health Informa tion Online using Patient Portal and [employer] Apps Indication:Non-smoker Start:13-Jun-2020 Instruction Type:Patient Education How to Access Health Informa tion Online using Patient Portal and [employer] Apps Indication:Non-smoker Start:01-Jun-2020 Instruction Type:Patient Education Patient Instructions Indication:Non-smoker Start:01-Jun-2020 Instruction Type:Provider Instructions for Treatment How to Access Health Informa tion Online using Patient Portal and [employer] Apps Indication:Non-smoker Start:15-Apr-2020 Instruction Type:Patient Education Patient Instructions Indication:Non-smoker Start:15-Apr-2020 Instruction Type:Provider Instructions for Treatment How to Access Health Informa tion Online using Patient Portal and [employer] Apps Indication:Non-smoker Start:11-Mar-2020 Instruction Type:Patient Education Patient Instructions Indication:Non-smoker Start:11-Mar-2020 Instruction Type:Provider Instructions for Treatment How to access health informa tion online Indication:Non-smoker Start:29-Jan-2020 Instruction Type:Patient Education How to access health informa tion online - Detail Indication:Non-smoker Start:29-Jan-2020 Instruction Type:Patient Education Patient Instructions Indication:Non-smoker Start:29-Jan-2020 Instruction Type:Provider Instructions for Treatment How to access health informa tion online Indication:Non-smoker Start:01-Jan-2020 Instruction Type:Patient Education How to access health informa tion online - Detail Indication:Non-smoker Start:01-Jan-2020 Instruction Type:Patient Education Patient Instructions Indication:Non-smoker Start:01-Jan-2020 Instruction Type:Provider Instructions for Treatment How to access health informa tion online - Detail Indication:Non-smoker Start:11-Dec-2019 Instruction Type:Patient Education How to access health informa tion online Indication:Non-smoker Start:11-Dec-2019 Instruction Type:Patient Education Patient Instructions Indication:Non-smoker Start:11-Dec-2019 Instruction Type:Provider Instructions for Treatment How to access health informa tion online Indication:Non-smoker Start:03-Dec-2019 Instruction Type:Patient Education How to access health informa tion online - Detail Indication:Non-smoker Start:03-Dec-2019 Instruction Type:Patient Education Patient Instructions Indication:Non-smoker Start:03-Dec-2019 Instruction Type:Provider Instructions for Treatment obesity counseling Indication:Diabetes Start:24-Dec-2017 Instruction Type:Provider Instructions for Treatment cardiovascular counseling Indication:HTN (hypertension), benign Start:24-Dec-2017 Instruction Type:Provider Instructions for Treatment How to access health informa tion online Indication:Non-smoker Start:24-Dec-2017 Instruction Type:Patient Education How to access health informa tion online - Detail Indication:Non-smoker Start:24-Dec-2017 Instruction Type:Patient Education Patient Instructions Indication:Non-smoker Start:24-Dec-2017 Instruction Type:Provider Instructions for Treatment How to access health informa tion online - Detail Indication:Diabetes Start:03-Dec-2017 Instruction Type:Patient Education How to access health informa tion online Indication:Diabetes Start:03-Dec-2017 Instruction Type:Patient Education Patient Instructions Indication:Diabetes Start:03-Dec-2017 Instruction Type:Provider Instructions for Treatment Patient Instructions Indication:Non-smoker Start:18-Nov-2017 Instruction Type:Provider Instructions for Treatment How to access health informa tion online Indication:Non-smoker Start:18-Nov-2017 Instruction Type:Patient Education Patient Instructions Indication:Non-smoker Start:18-Nov-2017 Instruction Type:Provider Instructions for Treatment [facility]; [facility] Work Phone: Instructions* Name Dates Details Patient Instructions Indication:BMI 26.0-26.9,adult Start:04-Jan-2022 Instruction Type:Provider Instructions for Treatment How to Access Health Informa tion Online using Patient Portal and [employer] Apps Indication:BMI 26.0-26.9,adult Start:04-Jan-2022 Instruction Type:Patient Education Patient Instructions Indication:Type II diabetes mellitus, well controlled Start:25-Dec-2021 Instruction Type:Provider Instructions for Treatment How to Access Health Informa tion Online using Patient Portal and [employer] Apps Indication:Type II diabetes mellitus, well controlled Start:25-Dec-2021 Instruction Type:Patient Education Patient Instructions Indication:Non-smoker Start:01-Dec-2021 Instruction Type:Provider Instructions for Treatment How to Access Health Informa tion Online using Patient Portal and [employer] Apps Indication:Non-smoker Start:01-Dec-2021 Instruction Type:Patient Education Patient Instructions Indication:Type II diabetes mellitus, well controlled Start:21-Jun-2021 Instruction Type:Provider Instructions for Treatment How to Access Health Informa tion Online using Patient Portal and [employer] Apps Indication:Type II diabetes mellitus, well controlled Start:21-Jun-2021 Instruction Type:Patient Education Patient Instructions Indication:Type II diabetes mellitus, well controlled Start:22-Mar-2021 Instruction Type:Provider Instructions for Treatment How to Access Health Informa tion Online using Patient Portal and [employer] Apps Indication:Type II diabetes mellitus, well controlled Start:22-Mar-2021 Instruction Type:Patient Education cardiovascular counseling Indication:HTN (hypertension), benign Start:30-Jan-2021 Instruction Type:Provider Instructions for Treatment Patient Instructions Indication:Non-smoker Start:30-Jan-2021 Instruction Type:Provider Instructions for Treatment How to Access Health Informa tion Online using Patient Portal and [employer] Apps Indication:Non-smoker Start:30-Jan-2021 Instruction Type:Patient Education Patient Instructions Indication:Type II diabetes mellitus, well controlled Start:16-Dec-2020 Instruction Type:Provider Instructions for Treatment How to Access Health Informa tion Online using Patient Portal and [employer] Apps Indication:Type II diabetes mellitus, well controlled Start:16-Dec-2020 Instruction Type:Patient Education How to Access Health Informa tion Online using Patient Portal and [employer] Apps Indication:Non-smoker Start:14-Sep-2020 Instruction Type:Patient Education Patient Instructions Indication:Non-smoker Start:14-Sep-2020 Instruction Type:Provider Instructions for Treatment Patient Instructions Indication:Non-smoker Start:13-Jun-2020 Instruction Type:Provider Instructions for Treatment How to Access Health Informa tion Online using Patient Portal and [employer] Apps Indication:Non-smoker Start:13-Jun-2020 Instruction Type:Patient Education How to Access Health Informa tion Online using Patient Portal and [employer] Apps Indication:Non-smoker Start:01-Jun-2020 Instruction Type:Patient Education Patient Instructions Indication:Non-smoker Start:01-Jun-2020 Instruction Type:Provider Instructions for Treatment How to Access Health Informa tion Online using Patient Portal and [employer] Apps Indication:Non-smoker Start:15-Apr-2020 Instruction Type:Patient Education Patient Instructions Indication:Non-smoker Start:15-Apr-2020 Instruction Type:Provider Instructions for Treatment How to Access Health Informa tion Online using Patient Portal and [employer] Apps Indication:Non-smoker Start:11-Mar-2020 Instruction Type:Patient Education Patient Instructions Indication:Non-smoker Start:11-Mar-2020 Instruction Type:Provider Instructions for Treatment How to access health informa tion online Indication:Non-smoker Start:29-Jan-2020 Instruction Type:Patient Education How to access health informa tion online - Detail Indication:Non-smoker Start:29-Jan-2020 Instruction Type:Patient Education Patient Instructions Indication:Non-smoker Start:29-Jan-2020 Instruction Type:Provider Instructions for Treatment How to access health informa tion online Indication:Non-smoker Start:01-Jan-2020 Instruction Type:Patient Education How to access health informa tion online - Detail Indication:Non-smoker Start:01-Jan-2020 Instruction Type:Patient Education Patient Instructions Indication:Non-smoker Start:01-Jan-2020 Instruction Type:Provider Instructions for Treatment How to access health informa tion online - Detail Indication:Non-smoker Start:11-Dec-2019 Instruction Type:Patient Education How to access health informa tion online Indication:Non-smoker Start:11-Dec-2019 Instruction Type:Patient Education Patient Instructions Indication:Non-smoker Start:11-Dec-2019 Instruction Type:Provider Instructions for Treatment How to access health informa tion online Indication:Non-smoker Start:03-Dec-2019 Instruction Type:Patient Education How to access health informa tion online - Detail Indication:Non-smoker Start:03-Dec-2019 Instruction Type:Patient Education Patient Instructions Indication:Non-smoker Start:03-Dec-2019 Instruction Type:Provider Instructions for Treatment obesity counseling Indication:Diabetes Start:24-Dec-2017 Instruction Type:Provider Instructions for Treatment cardiovascular counseling Indication:HTN (hypertension), benign Start:24-Dec-2017 Instruction Type:Provider Instructions for Treatment How to access health informa tion online Indication:Non-smoker Start:24-Dec-2017 Instruction Type:Patient Education How to access health informa tion online - Detail Indication:Non-smoker Start:24-Dec-2017 Instruction Type:Patient Education Patient Instructions Indication:Non-smoker Start:24-Dec-2017 Instruction Type:Provider Instructions for Treatment How to access health informa tion online - Detail Indication:Diabetes Start:03-Dec-2017 Instruction Type:Patient Education How to access health informa tion online Indication:Diabetes Start:03-Dec-2017 Instruction Type:Patient Education Patient Instructions Indication:Diabetes Start:03-Dec-2017 Instruction Type:Provider Instructions for Treatment Patient Instructions Indication:Non-smoker Start:18-Nov-2017 Instruction Type:Provider Instructions for Treatment How to access health informa tion online Indication:Non-smoker Start:18-Nov-2017 Instruction Type:Patient Education Patient Instructions Indication:Non-smoker Start:18-Nov-2017 Instruction Type:Provider Instructions for Treatment [facility]; [facility] Work Phone: Instructions* Name Dates Details Patient Instructions Indication:BMI 27.0-27.9,adult Start:04-Apr-2022 Instruction Type:Provider Instructions for Treatment How to Access Health Informa tion Online using Patient Portal and [employer] Apps Indication:BMI 27.0-27.9,adult Start:04-Apr-2022 Instruction Type:Patient Education Patient Instructions Indication:BMI 26.0-26.9,adult Start:04-Jan-2022 Instruction Type:Provider Instructions for Treatment How to Access Health Informa tion Online using Patient Portal and [employer] Apps Indication:BMI 26.0-26.9,adult Start:04-Jan-2022 Instruction Type:Patient Education Patient Instructions Indication:Type II diabetes mellitus, well controlled Start:25-Dec-2021 Instruction Type:Provider Instructions for Treatment How to Access Health Informa tion Online using Patient Portal and [employer] Apps Indication:Type II diabetes mellitus, well controlled Start:25-Dec-2021 Instruction Type:Patient Education Patient Instructions Indication:Non-smoker Start:01-Dec-2021 Instruction Type:Provider Instructions for Treatment How to Access Health Informa tion Online using Patient Portal and [employer] Apps Indication:Non-smoker Start:01-Dec-2021 Instruction Type:Patient Education Patient Instructions Indication:Type II diabetes mellitus, well controlled Start:21-Jun-2021 Instruction Type:Provider Instructions for Treatment How to Access Health Informa tion Online using Patient Portal and [employer] Apps Indication:Type II diabetes mellitus, well controlled Start:21-Jun-2021 Instruction Type:Patient Education Patient Instructions Indication:Type II diabetes mellitus, well controlled Start:22-Mar-2021 Instruction Type:Provider Instructions for Treatment How to Access Health Informa tion Online using Patient Portal and [employer] Apps Indication:Type II diabetes mellitus, well controlled Start:22-Mar-2021 Instruction Type:Patient Education cardiovascular counseling Indication:HTN (hypertension), benign Start:30-Jan-2021 Instruction Type:Provider Instructions for Treatment Patient Instructions Indication:Non-smoker Start:30-Jan-2021 Instruction Type:Provider Instructions for Treatment How to Access Health Informa tion Online using Patient Portal and [employer] Apps Indication:Non-smoker Start:30-Jan-2021 Instruction Type:Patient Education Patient Instructions Indication:Type II diabetes mellitus, well controlled Start:16-Dec-2020 Instruction Type:Provider Instructions for Treatment How to Access Health Informa tion Online using Patient Portal and [employer] Apps Indication:Type II diabetes mellitus, well controlled Start:16-Dec-2020 Instruction Type:Patient Education How to Access Health Informa tion Online using Patient Portal and [employer] Apps Indication:Non-smoker Start:14-Sep-2020 Instruction Type:Patient Education Patient Instructions Indication:Non-smoker Start:14-Sep-2020 Instruction Type:Provider Instructions for Treatment Patient Instructions Indication:Non-smoker Start:13-Jun-2020 Instruction Type:Provider Instructions for Treatment How to Access Health Informa tion Online using Patient Portal and [employer] Apps Indication:Non-smoker Start:13-Jun-2020 Instruction Type:Patient Education How to Access Health Informa tion Online using Patient Portal and [employer] Apps Indication:Non-smoker Start:01-Jun-2020 Instruction Type:Patient Education Patient Instructions Indication:Non-smoker Start:01-Jun-2020 Instruction Type:Provider Instructions for Treatment How to Access Health Informa tion Online using Patient Portal and [employer] Apps Indication:Non-smoker Start:15-Apr-2020 Instruction Type:Patient Education Patient Instructions Indication:Non-smoker Start:15-Apr-2020 Instruction Type:Provider Instructions for Treatment How to Access Health Informa tion Online using Patient Portal and [employer] Apps Indication:Non-smoker Start:11-Mar-2020 Instruction Type:Patient Education Patient Instructions Indication:Non-smoker Start:11-Mar-2020 Instruction Type:Provider Instructions for Treatment How to access health informa tion online Indication:Non-smoker Start:29-Jan-2020 Instruction Type:Patient Education How to access health informa tion online - Detail Indication:Non-smoker Start:29-Jan-2020 Instruction Type:Patient Education Patient Instructions Indication:Non-smoker Start:29-Jan-2020 Instruction Type:Provider Instructions for Treatment How to access health informa tion online Indication:Non-smoker Start:01-Jan-2020 Instruction Type:Patient Education How to access health informa tion online - Detail Indication:Non-smoker Start:01-Jan-2020 Instruction Type:Patient Education Patient Instructions Indication:Non-smoker Start:01-Jan-2020 Instruction Type:Provider Instructions for Treatment How to access health informa tion online - Detail Indication:Non-smoker Start:11-Dec-2019 Instruction Type:Patient Education How to access health informa tion online Indication:Non-smoker Start:11-Dec-2019 Instruction Type:Patient Education Patient Instructions Indication:Non-smoker Start:11-Dec-2019 Instruction Type:Provider Instructions for Treatment How to access health informa tion online Indication:Non-smoker Start:03-Dec-2019 Instruction Type:Patient Education How to access health informa tion online - Detail Indication:Non-smoker Start:03-Dec-2019 Instruction Type:Patient Education Patient Instructions Indication:Non-smoker Start:03-Dec-2019 Instruction Type:Provider Instructions for Treatment obesity counseling Indication:Diabetes Start:24-Dec-2017 Instruction Type:Provider Instructions for Treatment cardiovascular counseling Indication:HTN (hypertension), benign Start:24-Dec-2017 Instruction Type:Provider Instructions for Treatment How to access health informa tion online Indication:Non-smoker Start:24-Dec-2017 Instruction Type:Patient Education How to access health informa tion online - Detail Indication:Non-smoker Start:24-Dec-2017 Instruction Type:Patient Education Patient Instructions Indication:Non-smoker Start:24-Dec-2017 Instruction Type:Provider Instructions for Treatment How to access health informa tion online - Detail Indication:Diabetes Start:03-Dec-2017 Instruction Type:Patient Education How to access health informa tion online Indication:Diabetes Start:03-Dec-2017 Instruction Type:Patient Education Patient Instructions Indication:Diabetes Start:03-Dec-2017 Instruction Type:Provider Instructions for Treatment Patient Instructions Indication:Non-smoker Start:18-Nov-2017 Instruction Type:Provider Instructions for Treatment How to access health informa tion online Indication:Non-smoker Start:18-Nov-2017 Instruction Type:Patient Education Patient Instructions Indication:Non-smoker Start:18-Nov-2017 Instruction Type:Provider Instructions for Treatment [facility]; [facility] Work Phone: Instructions* Name Dates Details Patient Instructions Indication:BMI 27.0-27.9,adult Start:04-Apr-2022 Instruction Type:Provider Instructions for Treatment How to Access Health Informa tion Online using Patient Portal and [employer] Apps Indication:BMI 27.0-27.9,adult Start:04-Apr-2022 Instruction Type:Patient Education Patient Instructions Indication:BMI 26.0-26.9,adult Start:04-Jan-2022 Instruction Type:Provider Instructions for Treatment How to Access Health Informa tion Online using Patient Portal and [employer] Apps Indication:BMI 26.0-26.9,adult Start:04-Jan-2022 Instruction Type:Patient Education Patient Instructions Indication:Type II diabetes mellitus, well controlled Start:25-Dec-2021 Instruction Type:Provider Instructions for Treatment How to Access Health Informa tion Online using Patient Portal and [employer] Apps Indication:Type II diabetes mellitus, well controlled Start:25-Dec-2021 Instruction Type:Patient Education Patient Instructions Indication:Non-smoker Start:01-Dec-2021 Instruction Type:Provider Instructions for Treatment How to Access Health Informa tion Online using Patient Portal and [employer] Apps Indication:Non-smoker Start:01-Dec-2021 Instruction Type:Patient Education Patient Instructions Indication:Type II diabetes mellitus, well controlled Start:21-Jun-2021 Instruction Type:Provider Instructions for Treatment How to Access Health Informa tion Online using Patient Portal and [employer] Apps Indication:Type II diabetes mellitus, well controlled Start:21-Jun-2021 Instruction Type:Patient Education Patient Instructions Indication:Type II diabetes mellitus, well controlled Start:22-Mar-2021 Instruction Type:Provider Instructions for Treatment How to Access Health Informa tion Online using Patient Portal and [employer] Apps Indication:Type II diabetes mellitus, well controlled Start:22-Mar-2021 Instruction Type:Patient Education cardiovascular counseling Indication:HTN (hypertension), benign Start:30-Jan-2021 Instruction Type:Provider Instructions for Treatment Patient Instructions Indication:Non-smoker Start:30-Jan-2021 Instruction Type:Provider Instructions for Treatment How to Access Health Informa tion Online using Patient Portal and [employer] Apps Indication:Non-smoker Start:30-Jan-2021 Instruction Type:Patient Education Patient Instructions Indication:Type II diabetes mellitus, well controlled Start:16-Dec-2020 Instruction Type:Provider Instructions for Treatment How to Access Health Informa tion Online using Patient Portal and [employer] Apps Indication:Type II diabetes mellitus, well controlled Start:16-Dec-2020 Instruction Type:Patient Education How to Access Health Informa tion Online using Patient Portal and [employer] Apps Indication:Non-smoker Start:14-Sep-2020 Instruction Type:Patient Education Patient Instructions Indication:Non-smoker Start:14-Sep-2020 Instruction Type:Provider Instructions for Treatment Patient Instructions Indication:Non-smoker Start:13-Jun-2020 Instruction Type:Provider Instructions for Treatment How to Access Health Informa tion Online using Patient Portal and [employer] Apps Indication:Non-smoker Start:13-Jun-2020 Instruction Type:Patient Education How to Access Health Informa tion Online using Patient Portal and [employer] Apps Indication:Non-smoker Start:01-Jun-2020 Instruction Type:Patient Education Patient Instructions Indication:Non-smoker Start:01-Jun-2020 Instruction Type:Provider Instructions for Treatment How to Access Health Informa tion Online using Patient Portal and [employer] Apps Indication:Non-smoker Start:15-Apr-2020 Instruction Type:Patient Education Patient Instructions Indication:Non-smoker Start:15-Apr-2020 Instruction Type:Provider Instructions for Treatment How to Access Health Informa tion Online using Patient Portal and [employer] Apps Indication:Non-smoker Start:11-Mar-2020 Instruction Type:Patient Education Patient Instructions Indication:Non-smoker Start:11-Mar-2020 Instruction Type:Provider Instructions for Treatment How to access health informa tion online Indication:Non-smoker Start:29-Jan-2020 Instruction Type:Patient Education How to access health informa tion online - Detail Indication:Non-smoker Start:29-Jan-2020 Instruction Type:Patient Education Patient Instructions Indication:Non-smoker Start:29-Jan-2020 Instruction Type:Provider Instructions for Treatment How to access health informa tion online Indication:Non-smoker Start:01-Jan-2020 Instruction Type:Patient Education How to access health informa tion online - Detail Indication:Non-smoker Start:01-Jan-2020 Instruction Type:Patient Education Patient Instructions Indication:Non-smoker Start:01-Jan-2020 Instruction Type:Provider Instructions for Treatment How to access health informa tion online - Detail Indication:Non-smoker Start:11-Dec-2019 Instruction Type:Patient Education How to access health informa tion online Indication:Non-smoker Start:11-Dec-2019 Instruction Type:Patient Education Patient Instructions Indication:Non-smoker Start:11-Dec-2019 Instruction Type:Provider Instructions for Treatment How to access health informa tion online Indication:Non-smoker Start:03-Dec-2019 Instruction Type:Patient Education How to access health informa tion online - Detail Indication:Non-smoker Start:03-Dec-2019 Instruction Type:Patient Education Patient Instructions Indication:Non-smoker Start:03-Dec-2019 Instruction Type:Provider Instructions for Treatment obesity counseling Indication:Diabetes Start:24-Dec-2017 Instruction Type:Provider Instructions for Treatment cardiovascular counseling Indication:HTN (hypertension), benign Start:24-Dec-2017 Instruction Type:Provider Instructions for Treatment How to access health informa tion online Indication:Non-smoker Start:24-Dec-2017 Instruction Type:Patient Education How to access health informa tion online - Detail Indication:Non-smoker Start:24-Dec-2017 Instruction Type:Patient Education Patient Instructions Indication:Non-smoker Start:24-Dec-2017 Instruction Type:Provider Instructions for Treatment How to access health informa tion online - Detail Indication:Diabetes Start:03-Dec-2017 Instruction Type:Patient Education How to access health informa tion online Indication:Diabetes Start:03-Dec-2017 Instruction Type:Patient Education Patient Instructions Indication:Diabetes Start:03-Dec-2017 Instruction Type:Provider Instructions for Treatment Patient Instructions Indication:Non-smoker Start:18-Nov-2017 Instruction Type:Provider Instructions for Treatment How to access health informa tion online Indication:Non-smoker Start:18-Nov-2017 Instruction Type:Patient Education Patient Instructions Indication:Non-smoker Start:18-Nov-2017 Instruction Type:Provider Instructions for Treatment [facility]; [facility] Work Phone: Instructions* Name Dates Details Patient Instructions Indication:BMI 27.0-27.9,adult Start:04-Apr-2022 Instruction Type:Provider Instructions for Treatment How to Access Health Informa tion Online using Patient Portal and [employer] Apps Indication:BMI 27.0-27.9,adult Start:04-Apr-2022 Instruction Type:Patient Education Patient Instructions Indication:BMI 26.0-26.9,adult Start:04-Jan-2022 Instruction Type:Provider Instructions for Treatment How to Access Health Informa tion Online using Patient Portal and [employer] Apps Indication:BMI 26.0-26.9,adult Start:04-Jan-2022 Instruction Type:Patient Education Patient Instructions Indication:Type II diabetes mellitus, well controlled Start:25-Dec-2021 Instruction Type:Provider Instructions for Treatment How to Access Health Informa tion Online using Patient Portal and [employer]rd [employer] Apps Indication:Type II diabetes mellitus, well controlled Start:25-Dec-2021 Instruction Type:Patient Education Patient Instructions Indication:Non-smoker Start:01-Dec-2021 Instruction Type:Provider Instructions for Treatment How to Access Health Informa tion Online using Patient Portal and [employer] Apps Indication:Non-smoker Start:01-Dec-2021 Instruction Type:Patient Education Patient Instructions Indication:Type II diabetes mellitus, well controlled Start:21-Jun-2021 Instruction Type:Provider Instructions for Treatment How to Access Health Informa tion Online using Patient Portal and [employer] Apps Indication:Type II diabetes mellitus, well controlled Start:21-Jun-2021 Instruction Type:Patient Education Patient Instructions Indication:Type II diabetes mellitus, well controlled Start:22-Mar-2021 Instruction Type:Provider Instructions for Treatment How to Access Health Informa tion Online using Patient Portal and [employer] Apps Indication:Type II diabetes mellitus, well controlled Start:22-Mar-2021 Instruction Type:Patient Education cardiovascular counseling Indication:HTN (hypertension), benign Start:30-Jan-2021 Instruction Type:Provider Instructions for Treatment Patient Instructions Indication:Non-smoker Start:30-Jan-2021 Instruction Type:Provider Instructions for Treatment How to Access Health Informa tion Online using Patient Portal and [employer] Apps Indication:Non-smoker Start:30-Jan-2021 Instruction Type:Patient Education Patient Instructions Indication:Type II diabetes mellitus, well controlled Start:16-Dec-2020 Instruction Type:Provider Instructions for Treatment How to Access Health Informa tion Online using Patient Portal and [employer] Apps Indication:Type II diabetes mellitus, well controlled Start:16-Dec-2020 Instruction Type:Patient Education How to Access Health Informa tion Online using Patient Portal and [employer] Apps Indication:Non-smoker Start:14-Sep-2020 Instruction Type:Patient Education Patient Instructions Indication:Non-smoker Start:14-Sep-2020 Instruction Type:Provider Instructions for Treatment Patient Instructions Indication:Non-smoker Start:13-Jun-2020 Instruction Type:Provider Instructions for Treatment How to Access Health Informa tion Online using Patient Portal and [employer] Apps Indication:Non-smoker Start:13-Jun-2020 Instruction Type:Patient Education How to Access Health Informa tion Online using Patient Portal and [employer] Apps Indication:Non-smoker Start:01-Jun-2020 Instruction Type:Patient Education Patient Instructions Indication:Non-smoker Start:01-Jun-2020 Instruction Type:Provider Instructions for Treatment How to Access Health Informa tion Online using Patient Portal and [employer] Apps Indication:Non-smoker Start:15-Apr-2020 Instruction Type:Patient Education Patient Instructions Indication:Non-smoker Start:15-Apr-2020 Instruction Type:Provider Instructions for Treatment How to Access Health Informa tion Online using Patient Portal and [employer] Apps Indication:Non-smoker Start:11-Mar-2020 Instruction Type:Patient Education Patient Instructions Indication:Non-smoker Start:11-Mar-2020 Instruction Type:Provider Instructions for Treatment How to access health informa tion online Indication:Non-smoker Start:29-Jan-2020 Instruction Type:Patient Education How to access health informa tion online - Detail Indication:Non-smoker Start:29-Jan-2020 Instruction Type:Patient Education Patient Instructions Indication:Non-smoker Start:29-Jan-2020 Instruction Type:Provider Instructions for Treatment How to access health informa tion online Indication:Non-smoker Start:01-Jan-2020 Instruction Type:Patient Education How to access health informa tion online - Detail Indication:Non-smoker Start:01-Jan-2020 Instruction Type:Patient Education Patient Instructions Indication:Non-smoker Start:01-Jan-2020 Instruction Type:Provider Instructions for Treatment How to access health informa tion online - Detail Indication:Non-smoker Start:11-Dec-2019 Instruction Type:Patient Education How to access health informa tion online Indication:Non-smoker Start:11-Dec-2019 Instruction Type:Patient Education Patient Instructions Indication:Non-smoker Start:11-Dec-2019 Instruction Type:Provider Instructions for Treatment How to access health informa tion online Indication:Non-smoker Start:03-Dec-2019 Instruction Type:Patient Education How to access health informa tion online - Detail Indication:Non-smoker Start:03-Dec-2019 Instruction Type:Patient Education Patient Instructions Indication:Non-smoker Start:03-Dec-2019 Instruction Type:Provider Instructions for Treatment obesity counseling Indication:Diabetes Start:24-Dec-2017 Instruction Type:Provider Instructions for Treatment cardiovascular counseling Indication:HTN (hypertension), benign Start:24-Dec-2017 Instruction Type:Provider Instructions for Treatment How to access health informa tion online Indication:Non-smoker Start:24-Dec-2017 Instruction Type:Patient Education How to access health informa tion online - Detail Indication:Non-smoker Start:24-Dec-2017 Instruction Type:Patient Education Patient Instructions Indication:Non-smoker Start:24-Dec-2017 Instruction Type:Provider Instructions for Treatment How to access health informa tion online - Detail Indication:Diabetes Start:03-Dec-2017 Instruction Type:Patient Education How to access health informa tion online Indication:Diabetes Start:03-Dec-2017 Instruction Type:Patient Education Patient Instructions Indication:Diabetes Start:03-Dec-2017 Instruction Type:Provider Instructions for Treatment Patient Instructions Indication:Non-smoker Start:18-Nov-2017 Instruction Type:Provider Instructions for Treatment How to access health informa tion online Indication:Non-smoker Start:18-Nov-2017 Instruction Type:Patient Education Patient Instructions Indication:Non-smoker Start:18-Nov-2017 Instruction Type:Provider Instructions for Treatment [facility]; [facility] Work Phone: Instructions* Name Dates Details Patient Instructions Indication:BMI 27.0-27.9,adult Start:04-Apr-2022 Instruction Type:Provider Instructions for Treatment How to Access Health Informa tion Online using Patient Portal and [employer] Apps Indication:BMI 27.0-27.9,adult Start:04-Apr-2022 Instruction Type:Patient Education Patient Instructions Indication:BMI 26.0-26.9,adult Start:04-Jan-2022 Instruction Type:Provider Instructions for Treatment How to Access Health Informa tion Online using Patient Portal and [employer]rd [employer] Apps Indication:BMI 26.0-26.9,adult Start:04-Jan-2022 Instruction Type:Patient Education Patient Instructions Indication:Type II diabetes mellitus, well controlled Start:25-Dec-2021 Instruction Type:Provider Instructions for Treatment How to Access Health Informa tion Online using Patient Portal and [employer] Apps Indication:Type II diabetes mellitus, well controlled Start:25-Dec-2021 Instruction Type:Patient Education Patient Instructions Indication:Non-smoker Start:01-Dec-2021 Instruction Type:Provider Instructions for Treatment How to Access Health Informa tion Online using Patient Portal and [employer] Apps Indication:Non-smoker Start:01-Dec-2021 Instruction Type:Patient Education Patient Instructions Indication:Type II diabetes mellitus, well controlled Start:21-Jun-2021 Instruction Type:Provider Instructions for Treatment How to Access Health Informa tion Online using Patient Portal and [employer] Apps Indication:Type II diabetes mellitus, well controlled Start:21-Jun-2021 Instruction Type:Patient Education Patient Instructions Indication:Type II diabetes mellitus, well controlled Start:22-Mar-2021 Instruction Type:Provider Instructions for Treatment How to Access Health Informa tion Online using Patient Portal and [employer] Apps Indication:Type II diabetes mellitus, well controlled Start:22-Mar-2021 Instruction Type:Patient Education cardiovascular counseling Indication:HTN (hypertension), benign Start:30-Jan-2021 Instruction Type:Provider Instructions for Treatment Patient Instructions Indication:Non-smoker Start:30-Jan-2021 Instruction Type:Provider Instructions for Treatment How to Access Health Informa tion Online using Patient Portal and [employer] Apps Indication:Non-smoker Start:30-Jan-2021 Instruction Type:Patient Education Patient Instructions Indication:Type II diabetes mellitus, well controlled Start:16-Dec-2020 Instruction Type:Provider Instructions for Treatment How to Access Health Informa tion Online using Patient Portal and [employer] Apps Indication:Type II diabetes mellitus, well controlled Start:16-Dec-2020 Instruction Type:Patient Education How to Access Health Informa tion Online using Patient Portal and [employer] Apps Indication:Non-smoker Start:14-Sep-2020 Instruction Type:Patient Education Patient Instructions Indication:Non-smoker Start:14-Sep-2020 Instruction Type:Provider Instructions for Treatment Patient Instructions Indication:Non-smoker Start:13-Jun-2020 Instruction Type:Provider Instructions for Treatment How to Access Health Informa tion Online using Patient Portal and [employer] Apps Indication:Non-smoker Start:13-Jun-2020 Instruction Type:Patient Education How to Access Health Informa tion Online using Patient Portal and [employer] Apps Indication:Non-smoker Start:01-Jun-2020 Instruction Type:Patient Education Patient Instructions Indication:Non-smoker Start:01-Jun-2020 Instruction Type:Provider Instructions for Treatment How to Access Health Informa tion Online using Patient Portal and [employer] Apps Indication:Non-smoker Start:15-Apr-2020 Instruction Type:Patient Education Patient Instructions Indication:Non-smoker Start:15-Apr-2020 Instruction Type:Provider Instructions for Treatment How to Access Health Informa tion Online using Patient Portal and [employer] Apps Indication:Non-smoker Start:11-Mar-2020 Instruction Type:Patient Education Patient Instructions Indication:Non-smoker Start:11-Mar-2020 Instruction Type:Provider Instructions for Treatment How to access health informa tion online Indication:Non-smoker Start:29-Jan-2020 Instruction Type:Patient Education How to access health informa tion online - Detail Indication:Non-smoker Start:29-Jan-2020 Instruction Type:Patient Education Patient Instructions Indication:Non-smoker Start:29-Jan-2020 Instruction Type:Provider Instructions for Treatment How to access health informa tion online Indication:Non-smoker Start:01-Jan-2020 Instruction Type:Patient Education How to access health informa tion online - Detail Indication:Non-smoker Start:01-Jan-2020 Instruction Type:Patient Education Patient Instructions Indication:Non-smoker Start:01-Jan-2020 Instruction Type:Provider Instructions for Treatment How to access health informa tion online - Detail Indication:Non-smoker Start:11-Dec-2019 Instruction Type:Patient Education How to access health informa tion online Indication:Non-smoker Start:11-Dec-2019 Instruction Type:Patient Education Patient Instructions Indication:Non-smoker Start:11-Dec-2019 Instruction Type:Provider Instructions for Treatment How to access health informa tion online Indication:Non-smoker Start:03-Dec-2019 Instruction Type:Patient Education How to access health informa tion online - Detail Indication:Non-smoker Start:03-Dec-2019 Instruction Type:Patient Education Patient Instructions Indication:Non-smoker Start:03-Dec-2019 Instruction Type:Provider Instructions for Treatment obesity counseling Indication:Diabetes Start:24-Dec-2017 Instruction Type:Provider Instructions for Treatment cardiovascular counseling Indication:HTN (hypertension), benign Start:24-Dec-2017 Instruction Type:Provider Instructions for Treatment How to access health informa tion online Indication:Non-smoker Start:24-Dec-2017 Instruction Type:Patient Education How to access health informa tion online - Detail Indication:Non-smoker Start:24-Dec-2017 Instruction Type:Patient Education Patient Instructions Indication:Non-smoker Start:24-Dec-2017 Instruction Type:Provider Instructions for Treatment How to access health informa tion online - Detail Indication:Diabetes Start:03-Dec-2017 Instruction Type:Patient Education How to access health informa tion online Indication:Diabetes Start:03-Dec-2017 Instruction Type:Patient Education Patient Instructions Indication:Diabetes Start:03-Dec-2017 Instruction Type:Provider Instructions for Treatment Patient Instructions Indication:Non-smoker Start:18-Nov-2017 Instruction Type:Provider Instructions for Treatment How to access health informa tion online Indication:Non-smoker Start:18-Nov-2017 Instruction Type:Patient Education Patient Instructions Indication:Non-smoker Start:18-Nov-2017 Instruction Type:Provider Instructions for Treatment [facility]; [facility] Work Phone: Instructions* Name Dates Details Patient Instructions Indication:BMI 27.0-27.9,adult Start:04-Apr-2022 Instruction Type:Provider Instructions for Treatment How to Access Health Informa tion Online using Patient Portal and [employer] Apps Indication:BMI 27.0-27.9,adult Start:04-Apr-2022 Instruction Type:Patient Education Patient Instructions Indication:BMI 26.0-26.9,adult Start:04-Jan-2022 Instruction Type:Provider Instructions for Treatment How to Access Health Informa tion Online using Patient Portal and [employer] Apps Indication:BMI 26.0-26.9,adult Start:04-Jan-2022 Instruction Type:Patient Education Patient Instructions Indication:Type II diabetes mellitus, well controlled Start:25-Dec-2021 Instruction Type:Provider Instructions for Treatment How to Access Health Informa tion Online using Patient Portal and [employer] Apps Indication:Type II diabetes mellitus, well controlled Start:25-Dec-2021 Instruction Type:Patient Education Patient Instructions Indication:Non-smoker Start:01-Dec-2021 Instruction Type:Provider Instructions for Treatment How to Access Health Informa tion Online using Patient Portal and [employer] Apps Indication:Non-smoker Start:01-Dec-2021 Instruction Type:Patient Education Patient Instructions Indication:Type II diabetes mellitus, well controlled Start:21-Jun-2021 Instruction Type:Provider Instructions for Treatment How to Access Health Informa tion Online using Patient Portal and [employer] Apps Indication:Type II diabetes mellitus, well controlled Start:21-Jun-2021 Instruction Type:Patient Education Patient Instructions Indication:Type II diabetes mellitus, well controlled Start:22-Mar-2021 Instruction Type:Provider Instructions for Treatment How to Access Health Informa tion Online using Patient Portal and [employer] Apps Indication:Type II diabetes mellitus, well controlled Start:22-Mar-2021 Instruction Type:Patient Education cardiovascular counseling Indication:HTN (hypertension), benign Start:30-Jan-2021 Instruction Type:Provider Instructions for Treatment Patient Instructions Indication:Non-smoker Start:30-Jan-2021 Instruction Type:Provider Instructions for Treatment How to Access Health Informa tion Online using Patient Portal and [employer] Apps Indication:Non-smoker Start:30-Jan-2021 Instruction Type:Patient Education Patient Instructions Indication:Type II diabetes mellitus, well controlled Start:16-Dec-2020 Instruction Type:Provider Instructions for Treatment How to Access Health Informa tion Online using Patient Portal and [employer] Apps Indication:Type II diabetes mellitus, well controlled Start:16-Dec-2020 Instruction Type:Patient Education How to Access Health Informa tion Online using Patient Portal and [employer] Apps Indication:Non-smoker Start:14-Sep-2020 Instruction Type:Patient Education Patient Instructions Indication:Non-smoker Start:14-Sep-2020 Instruction Type:Provider Instructions for Treatment Patient Instructions Indication:Non-smoker Start:13-Jun-2020 Instruction Type:Provider Instructions for Treatment How to Access Health Informa tion Online using Patient Portal and [employer] Apps Indication:Non-smoker Start:13-Jun-2020 Instruction Type:Patient Education How to Access Health Informa tion Online using Patient Portal and [employer] Apps Indication:Non-smoker Start:01-Jun-2020 Instruction Type:Patient Education Patient Instructions Indication:Non-smoker Start:01-Jun-2020 Instruction Type:Provider Instructions for Treatment How to Access Health Informa tion Online using Patient Portal and [employer] Apps Indication:Non-smoker Start:15-Apr-2020 Instruction Type:Patient Education Patient Instructions Indication:Non-smoker Start:15-Apr-2020 Instruction Type:Provider Instructions for Treatment How to Access Health Informa tion Online using Patient Portal and [employer] Apps Indication:Non-smoker Start:11-Mar-2020 Instruction Type:Patient Education Patient Instructions Indication:Non-smoker Start:11-Mar-2020 Instruction Type:Provider Instructions for Treatment How to access health informa tion online Indication:Non-smoker Start:29-Jan-2020 Instruction Type:Patient Education How to access health informa tion online - Detail Indication:Non-smoker Start:29-Jan-2020 Instruction Type:Patient Education Patient Instructions Indication:Non-smoker Start:29-Jan-2020 Instruction Type:Provider Instructions for Treatment How to access health informa tion online Indication:Non-smoker Start:01-Jan-2020 Instruction Type:Patient Education How to access health informa tion online - Detail Indication:Non-smoker Start:01-Jan-2020 Instruction Type:Patient Education Patient Instructions Indication:Non-smoker Start:01-Jan-2020 Instruction Type:Provider Instructions for Treatment How to access health informa tion online - Detail Indication:Non-smoker Start:11-Dec-2019 Instruction Type:Patient Education How to access health informa tion online Indication:Non-smoker Start:11-Dec-2019 Instruction Type:Patient Education Patient Instructions Indication:Non-smoker Start:11-Dec-2019 Instruction Type:Provider Instructions for Treatment How to access health informa tion online Indication:Non-smoker Start:03-Dec-2019 Instruction Type:Patient Education How to access health informa tion online - Detail Indication:Non-smoker Start:03-Dec-2019 Instruction Type:Patient Education Patient Instructions Indication:Non-smoker Start:03-Dec-2019 Instruction Type:Provider Instructions for Treatment obesity counseling Indication:Diabetes Start:24-Dec-2017 Instruction Type:Provider Instructions for Treatment cardiovascular counseling Indication:HTN (hypertension), benign Start:24-Dec-2017 Instruction Type:Provider Instructions for Treatment How to access health informa tion online Indication:Non-smoker Start:24-Dec-2017 Instruction Type:Patient Education How to access health informa tion online - Detail Indication:Non-smoker Start:24-Dec-2017 Instruction Type:Patient Education Patient Instructions Indication:Non-smoker Start:24-Dec-2017 Instruction Type:Provider Instructions for Treatment How to access health informa tion online - Detail Indication:Diabetes Start:03-Dec-2017 Instruction Type:Patient Education How to access health informa tion online Indication:Diabetes Start:03-Dec-2017 Instruction Type:Patient Education Patient Instructions Indication:Diabetes Start:03-Dec-2017 Instruction Type:Provider Instructions for Treatment Patient Instructions Indication:Non-smoker Start:18-Nov-2017 Instruction Type:Provider Instructions for Treatment How to access health informa tion online Indication:Non-smoker Start:18-Nov-2017 Instruction Type:Patient Education Patient Instructions Indication:Non-smoker Start:18-Nov-2017 Instruction Type:Provider Instructions for Treatment [facility]; [facility] Work Phone: Instructions* Name Dates Details How to Access Health Informa tion Online using Patient Portal and [employer] Apps Indication:Non-smoker Start:12-Jul-2022 Instruction Type:Patient Education Patient Instructions Indication:Non-smoker Start:12-Jul-2022 Instruction Type:Provider Instructions for Treatment Patient Instructions Indication:BMI 27.0-27.9,adult Start:04-Apr-2022 Instruction Type:Provider Instructions for Treatment How to Access Health Informa tion Online using Patient Portal and [employer] Apps Indication:BMI 27.0-27.9,adult Start:04-Apr-2022 Instruction Type:Patient Education Patient Instructions Indication:BMI 26.0-26.9,adult Start:04-Jan-2022 Instruction Type:Provider Instructions for Treatment How to Access Health Informa tion Online using Patient Portal and [employer] Apps Indication:BMI 26.0-26.9,adult Start:04-Jan-2022 Instruction Type:Patient Education Patient Instructions Indication:Type II diabetes mellitus, well controlled Start:25-Dec-2021 Instruction Type:Provider Instructions for Treatment How to Access Health Informa tion Online using Patient Portal and [employer] Apps Indication:Type II diabetes mellitus, well controlled Start:25-Dec-2021 Instruction Type:Patient Education Patient Instructions Indication:Non-smoker Start:01-Dec-2021 Instruction Type:Provider Instructions for Treatment How to Access Health Informa tion Online using Patient Portal and [employer] Apps Indication:Non-smoker Start:01-Dec-2021 Instruction Type:Patient Education Patient Instructions Indication:Type II diabetes mellitus, well controlled Start:21-Jun-2021 Instruction Type:Provider Instructions for Treatment How to Access Health Informa tion Online using Patient Portal and [employer] Apps Indication:Type II diabetes mellitus, well controlled Start:21-Jun-2021 Instruction Type:Patient Education Patient Instructions Indication:Type II diabetes mellitus, well controlled Start:22-Mar-2021 Instruction Type:Provider Instructions for Treatment How to Access Health Informa tion Online using Patient Portal and [employer] Apps Indication:Type II diabetes mellitus, well controlled Start:22-Mar-2021 Instruction Type:Patient Education cardiovascular counseling Indication:HTN (hypertension), benign Start:30-Jan-2021 Instruction Type:Provider Instructions for Treatment Patient Instructions Indication:Non-smoker Start:30-Jan-2021 Instruction Type:Provider Instructions for Treatment How to Access Health Informa tion Online using Patient Portal and [employer] Apps Indication:Non-smoker Start:30-Jan-2021 Instruction Type:Patient Education Patient Instructions Indication:Type II diabetes mellitus, well controlled Start:16-Dec-2020 Instruction Type:Provider Instructions for Treatment How to Access Health Informa tion Online using Patient Portal and [employer] Apps Indication:Type II diabetes mellitus, well controlled Start:16-Dec-2020 Instruction Type:Patient Education How to Access Health Informa tion Online using Patient Portal and [employer] Apps Indication:Non-smoker Start:14-Sep-2020 Instruction Type:Patient Education Patient Instructions Indication:Non-smoker Start:14-Sep-2020 Instruction Type:Provider Instructions for Treatment Patient Instructions Indication:Non-smoker Start:13-Jun-2020 Instruction Type:Provider Instructions for Treatment How to Access Health Informa tion Online using Patient Portal and [employer] Apps Indication:Non-smoker Start:13-Jun-2020 Instruction Type:Patient Education How to Access Health Informa tion Online using Patient Portal and [employer] Apps Indication:Non-smoker Start:01-Jun-2020 Instruction Type:Patient Education Patient Instructions Indication:Non-smoker Start:01-Jun-2020 Instruction Type:Provider Instructions for Treatment How to Access Health Informa tion Online using Patient Portal and [employer] Apps Indication:Non-smoker Start:15-Apr-2020 Instruction Type:Patient Education Patient Instructions Indication:Non-smoker Start:15-Apr-2020 Instruction Type:Provider Instructions for Treatment How to Access Health Informa tion Online using Patient Portal and [employer] Apps Indication:Non-smoker Start:11-Mar-2020 Instruction Type:Patient Education Patient Instructions Indication:Non-smoker Start:11-Mar-2020 Instruction Type:Provider Instructions for Treatment How to access health informa tion online Indication:Non-smoker Start:29-Jan-2020 Instruction Type:Patient Education How to access health informa tion online - Detail Indication:Non-smoker Start:29-Jan-2020 Instruction Type:Patient Education Patient Instructions Indication:Non-smoker Start:29-Jan-2020 Instruction Type:Provider Instructions for Treatment How to access health informa tion online Indication:Non-smoker Start:01-Jan-2020 Instruction Type:Patient Education How to access health informa tion online - Detail Indication:Non-smoker Start:01-Jan-2020 Instruction Type:Patient Education Patient Instructions Indication:Non-smoker Start:01-Jan-2020 Instruction Type:Provider Instructions for Treatment How to access health informa tion online - Detail Indication:Non-smoker Start:11-Dec-2019 Instruction Type:Patient Education How to access health informa tion online Indication:Non-smoker Start:11-Dec-2019 Instruction Type:Patient Education Patient Instructions Indication:Non-smoker Start:11-Dec-2019 Instruction Type:Provider Instructions for Treatment How to access health informa tion online Indication:Non-smoker Start:03-Dec-2019 Instruction Type:Patient Education How to access health informa tion online - Detail Indication:Non-smoker Start:03-Dec-2019 Instruction Type:Patient Education Patient Instructions Indication:Non-smoker Start:03-Dec-2019 Instruction Type:Provider Instructions for Treatment obesity counseling Indication:Diabetes Start:24-Dec-2017 Instruction Type:Provider Instructions for Treatment cardiovascular counseling Indication:HTN (hypertension), benign Start:24-Dec-2017 Instruction Type:Provider Instructions for Treatment How to access health informa tion online Indication:Non-smoker Start:24-Dec-2017 Instruction Type:Patient Education How to access health informa tion online - Detail Indication:Non-smoker Start:24-Dec-2017 Instruction Type:Patient Education Patient Instructions Indication:Non-smoker Start:24-Dec-2017 Instruction Type:Provider Instructions for Treatment How to access health informa tion online - Detail Indication:Diabetes Start:03-Dec-2017 Instruction Type:Patient Education How to access health informa tion online Indication:Diabetes Start:03-Dec-2017 Instruction Type:Patient Education Patient Instructions Indication:Diabetes Start:03-Dec-2017 Instruction Type:Provider Instructions for Treatment Patient Instructions Indication:Non-smoker Start:18-Nov-2017 Instruction Type:Provider Instructions for Treatment How to access health informa tion online Indication:Non-smoker Start:18-Nov-2017 Instruction Type:Patient Education Patient Instructions Indication:Non-smoker Start:18-Nov-2017 Instruction Type:Provider Instructions for Treatment [facility]; [facility] Work Phone: Instructions* Name Dates Details How to Access Health Informa tion Online using Patient Portal and [employer] Apps Indication:Non-smoker Start:12-Jul-2022 Instruction Type:Patient Education Patient Instructions Indication:Non-smoker Start:12-Jul-2022 Instruction Type:Provider Instructions for Treatment Patient Instructions Indication:BMI 27.0-27.9,adult Start:04-Apr-2022 Instruction Type:Provider Instructions for Treatment How to Access Health Informa tion Online using Patient Portal and [employer] Apps Indication:BMI 27.0-27.9,adult Start:04-Apr-2022 Instruction Type:Patient Education Patient Instructions Indication:BMI 26.0-26.9,adult Start:04-Jan-2022 Instruction Type:Provider Instructions for Treatment How to Access Health Informa tion Online using Patient Portal and [employer] Apps Indication:BMI 26.0-26.9,adult Start:04-Jan-2022 Instruction Type:Patient Education Patient Instructions Indication:Type II diabetes mellitus, well controlled Start:25-Dec-2021 Instruction Type:Provider Instructions for Treatment How to Access Health Informa tion Online using Patient Portal and [employer] Apps Indication:Type II diabetes mellitus, well controlled Start:25-Dec-2021 Instruction Type:Patient Education Patient Instructions Indication:Non-smoker Start:01-Dec-2021 Instruction Type:Provider Instructions for Treatment How to Access Health Informa tion Online using Patient Portal and [employer] Apps Indication:Non-smoker Start:01-Dec-2021 Instruction Type:Patient Education Patient Instructions Indication:Type II diabetes mellitus, well controlled Start:21-Jun-2021 Instruction Type:Provider Instructions for Treatment How to Access Health Informa tion Online using Patient Portal and [employer] Apps Indication:Type II diabetes mellitus, well controlled Start:21-Jun-2021 Instruction Type:Patient Education Patient Instructions Indication:Type II diabetes mellitus, well controlled Start:22-Mar-2021 Instruction Type:Provider Instructions for Treatment How to Access Health Informa tion Online using Patient Portal and [employer] Apps Indication:Type II diabetes mellitus, well controlled Start:22-Mar-2021 Instruction Type:Patient Education cardiovascular counseling Indication:HTN (hypertension), benign Start:30-Jan-2021 Instruction Type:Provider Instructions for Treatment Patient Instructions Indication:Non-smoker Start:30-Jan-2021 Instruction Type:Provider Instructions for Treatment How to Access Health Informa tion Online using Patient Portal and [employer] Apps Indication:Non-smoker Start:30-Jan-2021 Instruction Type:Patient Education Patient Instructions Indication:Type II diabetes mellitus, well controlled Start:16-Dec-2020 Instruction Type:Provider Instructions for Treatment How to Access Health Informa tion Online using Patient Portal and [employer] Apps Indication:Type II diabetes mellitus, well controlled Start:16-Dec-2020 Instruction Type:Patient Education How to Access Health Informa tion Online using Patient Portal and [employer] Apps Indication:Non-smoker Start:14-Sep-2020 Instruction Type:Patient Education Patient Instructions Indication:Non-smoker Start:14-Sep-2020 Instruction Type:Provider Instructions for Treatment Patient Instructions Indication:Non-smoker Start:13-Jun-2020 Instruction Type:Provider Instructions for Treatment How to Access Health Informa tion Online using Patient Portal and [employer] Apps Indication:Non-smoker Start:13-Jun-2020 Instruction Type:Patient Education How to Access Health Informa tion Online using Patient Portal and [employer] Apps Indication:Non-smoker Start:01-Jun-2020 Instruction Type:Patient Education Patient Instructions Indication:Non-smoker Start:01-Jun-2020 Instruction Type:Provider Instructions for Treatment How to Access Health Informa tion Online using Patient Portal and [employer] Apps Indication:Non-smoker Start:15-Apr-2020 Instruction Type:Patient Education Patient Instructions Indication:Non-smoker Start:15-Apr-2020 Instruction Type:Provider Instructions for Treatment How to Access Health Informa tion Online using Patient Portal and [employer] Apps Indication:Non-smoker Start:11-Mar-2020 Instruction Type:Patient Education Patient Instructions Indication:Non-smoker Start:11-Mar-2020 Instruction Type:Provider Instructions for Treatment How to access health informa tion online Indication:Non-smoker Start:29-Jan-2020 Instruction Type:Patient Education How to access health informa tion online - Detail Indication:Non-smoker Start:29-Jan-2020 Instruction Type:Patient Education Patient Instructions Indication:Non-smoker Start:29-Jan-2020 Instruction Type:Provider Instructions for Treatment How to access health informa tion online Indication:Non-smoker Start:01-Jan-2020 Instruction Type:Patient Education How to access health informa tion online - Detail Indication:Non-smoker Start:01-Jan-2020 Instruction Type:Patient Education Patient Instructions Indication:Non-smoker Start:01-Jan-2020 Instruction Type:Provider Instructions for Treatment How to access health informa tion online - Detail Indication:Non-smoker Start:11-Dec-2019 Instruction Type:Patient Education How to access health informa tion online Indication:Non-smoker Start:11-Dec-2019 Instruction Type:Patient Education Patient Instructions Indication:Non-smoker Start:11-Dec-2019 Instruction Type:Provider Instructions for Treatment How to access health informa tion online Indication:Non-smoker Start:03-Dec-2019 Instruction Type:Patient Education How to access health informa tion online - Detail Indication:Non-smoker Start:03-Dec-2019 Instruction Type:Patient Education Patient Instructions Indication:Non-smoker Start:03-Dec-2019 Instruction Type:Provider Instructions for Treatment obesity counseling Indication:Diabetes Start:24-Dec-2017 Instruction Type:Provider Instructions for Treatment cardiovascular counseling Indication:HTN (hypertension), benign Start:24-Dec-2017 Instruction Type:Provider Instructions for Treatment How to access health informa tion online Indication:Non-smoker Start:24-Dec-2017 Instruction Type:Patient Education How to access health informa tion online - Detail Indication:Non-smoker Start:24-Dec-2017 Instruction Type:Patient Education Patient Instructions Indication:Non-smoker Start:24-Dec-2017 Instruction Type:Provider Instructions for Treatment How to access health informa tion online - Detail Indication:Diabetes Start:03-Dec-2017 Instruction Type:Patient Education How to access health informa tion online Indication:Diabetes Start:03-Dec-2017 Instruction Type:Patient Education Patient Instructions Indication:Diabetes Start:03-Dec-2017 Instruction Type:Provider Instructions for Treatment Patient Instructions Indication:Non-smoker Start:18-Nov-2017 Instruction Type:Provider Instructions for Treatment How to access health informa tion online Indication:Non-smoker Start:18-Nov-2017 Instruction Type:Patient Education Patient Instructions Indication:Non-smoker Start:18-Nov-2017 Instruction Type:Provider Instructions for Treatment [facility]; [facility] Work Phone: Instructions* Name Dates Details Patient Instructions Indication:BMI 27.0-27.9,adult Start:18-Jul-2022 Instruction Type:Provider Instructions for Treatment How to Access Health Informa tion Online using Patient Portal and [employer] Apps Indication:BMI 27.0-27.9,adult Start:18-Jul-2022 Instruction Type:Patient Education How to Access Health Informa tion Online using Patient Portal and [employer] Apps Indication:Non-smoker Start:12-Jul-2022 Instruction Type:Patient Education Patient Instructions Indication:Non-smoker Start:12-Jul-2022 Instruction Type:Provider Instructions for Treatment Patient Instructions Indication:BMI 27.0-27.9,adult Start:04-Apr-2022 Instruction Type:Provider Instructions for Treatment How to Access Health Informa tion Online using Patient Portal and [employer] Apps Indication:BMI 27.0-27.9,adult Start:04-Apr-2022 Instruction Type:Patient Education Patient Instructions Indication:BMI 26.0-26.9,adult Start:04-Jan-2022 Instruction Type:Provider Instructions for Treatment How to Access Health Informa tion Online using Patient Portal and [employer] Apps Indication:BMI 26.0-26.9,adult Start:04-Jan-2022 Instruction Type:Patient Education Patient Instructions Indication:Type II diabetes mellitus, well controlled Start:25-Dec-2021 Instruction Type:Provider Instructions for Treatment How to Access Health Informa tion Online using Patient Portal and [employer] Apps Indication:Type II diabetes mellitus, well controlled Start:25-Dec-2021 Instruction Type:Patient Education Patient Instructions Indication:Non-smoker Start:01-Dec-2021 Instruction Type:Provider Instructions for Treatment How to Access Health Informa tion Online using Patient Portal and [employer] Apps Indication:Non-smoker Start:01-Dec-2021 Instruction Type:Patient Education Patient Instructions Indication:Type II diabetes mellitus, well controlled Start:21-Jun-2021 Instruction Type:Provider Instructions for Treatment How to Access Health Informa tion Online using Patient Portal and [employer] Apps Indication:Type II diabetes mellitus, well controlled Start:21-Jun-2021 Instruction Type:Patient Education Patient Instructions Indication:Type II diabetes mellitus, well controlled Start:22-Mar-2021 Instruction Type:Provider Instructions for Treatment How to Access Health Informa tion Online using Patient Portal and [employer] Apps Indication:Type II diabetes mellitus, well controlled Start:22-Mar-2021 Instruction Type:Patient Education cardiovascular counseling Indication:HTN (hypertension), benign Start:30-Jan-2021 Instruction Type:Provider Instructions for Treatment Patient Instructions Indication:Non-smoker Start:30-Jan-2021 Instruction Type:Provider Instructions for Treatment How to Access Health Informa tion Online using Patient Portal and [employer] Apps Indication:Non-smoker Start:30-Jan-2021 Instruction Type:Patient Education Patient Instructions Indication:Type II diabetes mellitus, well controlled Start:16-Dec-2020 Instruction Type:Provider Instructions for Treatment How to Access Health Informa tion Online using Patient Portal and [employer] Apps Indication:Type II diabetes mellitus, well controlled Start:16-Dec-2020 Instruction Type:Patient Education How to Access Health Informa tion Online using Patient Portal and [employer] Apps Indication:Non-smoker Start:14-Sep-2020 Instruction Type:Patient Education Patient Instructions Indication:Non-smoker Start:14-Sep-2020 Instruction Type:Provider Instructions for Treatment Patient Instructions Indication:Non-smoker Start:13-Jun-2020 Instruction Type:Provider Instructions for Treatment How to Access Health Informa tion Online using Patient Portal and [employer] Apps Indication:Non-smoker Start:13-Jun-2020 Instruction Type:Patient Education How to Access Health Informa tion Online using Patient Portal and [employer] Apps Indication:Non-smoker Start:01-Jun-2020 Instruction Type:Patient Education Patient Instructions Indication:Non-smoker Start:01-Jun-2020 Instruction Type:Provider Instructions for Treatment How to Access Health Informa tion Online using Patient Portal and [employer] Apps Indication:Non-smoker Start:15-Apr-2020 Instruction Type:Patient Education Patient Instructions Indication:Non-smoker Start:15-Apr-2020 Instruction Type:Provider Instructions for Treatment How to Access Health Informa tion Online using Patient Portal and [employer] Apps Indication:Non-smoker Start:11-Mar-2020 Instruction Type:Patient Education Patient Instructions Indication:Non-smoker Start:11-Mar-2020 Instruction Type:Provider Instructions for Treatment How to access health informa tion online Indication:Non-smoker Start:29-Jan-2020 Instruction Type:Patient Education How to access health informa tion online - Detail Indication:Non-smoker Start:29-Jan-2020 Instruction Type:Patient Education Patient Instructions Indication:Non-smoker Start:29-Jan-2020 Instruction Type:Provider Instructions for Treatment How to access health informa tion online Indication:Non-smoker Start:01-Jan-2020 Instruction Type:Patient Education How to access health informa tion online - Detail Indication:Non-smoker Start:01-Jan-2020 Instruction Type:Patient Education Patient Instructions Indication:Non-smoker Start:01-Jan-2020 Instruction Type:Provider Instructions for Treatment How to access health informa tion online - Detail Indication:Non-smoker Start:11-Dec-2019 Instruction Type:Patient Education How to access health informa tion online Indication:Non-smoker Start:11-Dec-2019 Instruction Type:Patient Education Patient Instructions Indication:Non-smoker Start:11-Dec-2019 Instruction Type:Provider Instructions for Treatment How to access health informa tion online Indication:Non-smoker Start:03-Dec-2019 Instruction Type:Patient Education How to access health informa tion online - Detail Indication:Non-smoker Start:03-Dec-2019 Instruction Type:Patient Education Patient Instructions Indication:Non-smoker Start:03-Dec-2019 Instruction Type:Provider Instructions for Treatment obesity counseling Indication:Diabetes Start:24-Dec-2017 Instruction Type:Provider Instructions for Treatment cardiovascular counseling Indication:HTN (hypertension), benign Start:24-Dec-2017 Instruction Type:Provider Instructions for Treatment How to access health informa tion online Indication:Non-smoker Start:24-Dec-2017 Instruction Type:Patient Education How to access health informa tion online - Detail Indication:Non-smoker Start:24-Dec-2017 Instruction Type:Patient Education Patient Instructions Indication:Non-smoker Start:24-Dec-2017 Instruction Type:Provider Instructions for Treatment How to access health informa tion online - Detail Indication:Diabetes Start:03-Dec-2017 Instruction Type:Patient Education How to access health informa tion online Indication:Diabetes Start:03-Dec-2017 Instruction Type:Patient Education Patient Instructions Indication:Diabetes Start:03-Dec-2017 Instruction Type:Provider Instructions for Treatment Patient Instructions Indication:Non-smoker Start:18-Nov-2017 Instruction Type:Provider Instructions for Treatment How to access health informa tion online Indication:Non-smoker Start:18-Nov-2017 Instruction Type:Patient Education Patient Instructions Indication:Non-smoker Start:18-Nov-2017 Instruction Type:Provider Instructions for Treatment [facility]; [facility] Work Phone: Instructions* Name Dates Details Patient Instructions Indication:BMI 27.0-27.9,adult Start:18-Jul-2022 Instruction Type:Provider Instructions for Treatment How to Access Health Informa tion Online using Patient Portal and [employer] Indication:BMI 27.0-27.9,adult Start:18-Jul-2022 Instruction Type:Patient Education How to Access Health Informa tion Online using Patient Portal and [employer] Apps Indication:Non-smoker Start:12-Jul-2022 Instruction Type:Patient Education Patient Instructions Indication:Non-smoker Start:12-Jul-2022 Instruction Type:Provider Instructions for Treatment Patient Instructions Indication:BMI 27.0-27.9,adult Start:04-Apr-2022 Instruction Type:Provider Instructions for Treatment How to Access Health Informa tion Online using Patient Portal and [employer] Apps Indication:BMI 27.0-27.9,adult Start:04-Apr-2022 Instruction Type:Patient Education Patient Instructions Indication:BMI 26.0-26.9,adult Start:04-Jan-2022 Instruction Type:Provider Instructions for Treatment How to Access Health Informa tion Online using Patient Portal and [employer] Apps Indication:BMI 26.0-26.9,adult Start:04-Jan-2022 Instruction Type:Patient Education Patient Instructions Indication:Type II diabetes mellitus, well controlled Start:25-Dec-2021 Instruction Type:Provider Instructions for Treatment How to Access Health Informa tion Online using Patient Portal and [employer] Apps Indication:Type II diabetes mellitus, well controlled Start:25-Dec-2021 Instruction Type:Patient Education Patient Instructions Indication:Non-smoker Start:01-Dec-2021 Instruction Type:Provider Instructions for Treatment How to Access Health Informa tion Online using Patient Portal and [employer] Apps Indication:Non-smoker Start:01-Dec-2021 Instruction Type:Patient Education Patient Instructions Indication:Type II diabetes mellitus, well controlled Start:21-Jun-2021 Instruction Type:Provider Instructions for Treatment How to Access Health Informa tion Online using Patient Portal and [employer] Apps Indication:Type II diabetes mellitus, well controlled Start:21-Jun-2021 Instruction Type:Patient Education Patient Instructions Indication:Type II diabetes mellitus, well controlled Start:22-Mar-2021 Instruction Type:Provider Instructions for Treatment How to Access Health Informa tion Online using Patient Portal and [employer] Apps Indication:Type II diabetes mellitus, well controlled Start:22-Mar-2021 Instruction Type:Patient Education cardiovascular counseling Indication:HTN (hypertension), benign Start:30-Jan-2021 Instruction Type:Provider Instructions for Treatment Patient Instructions Indication:Non-smoker Start:30-Jan-2021 Instruction Type:Provider Instructions for Treatment How to Access Health Informa tion Online using Patient Portal and [employer] Apps Indication:Non-smoker Start:30-Jan-2021 Instruction Type:Patient Education Patient Instructions Indication:Type II diabetes mellitus, well controlled Start:16-Dec-2020 Instruction Type:Provider Instructions for Treatment How to Access Health Informa tion Online using Patient Portal and [employer] Apps Indication:Type II diabetes mellitus, well controlled Start:16-Dec-2020 Instruction Type:Patient Education How to Access Health Informa tion Online using Patient Portal and [employer] Apps Indication:Non-smoker Start:14-Sep-2020 Instruction Type:Patient Education Patient Instructions Indication:Non-smoker Start:14-Sep-2020 Instruction Type:Provider Instructions for Treatment Patient Instructions Indication:Non-smoker Start:13-Jun-2020 Instruction Type:Provider Instructions for Treatment How to Access Health Informa tion Online using Patient Portal and [employer] Apps Indication:Non-smoker Start:13-Jun-2020 Instruction Type:Patient Education How to Access Health Informa tion Online using Patient Portal and [employer] Apps Indication:Non-smoker Start:01-Jun-2020 Instruction Type:Patient Education Patient Instructions Indication:Non-smoker Start:01-Jun-2020 Instruction Type:Provider Instructions for Treatment How to Access Health Informa tion Online using Patient Portal and [employer] Apps Indication:Non-smoker Start:15-Apr-2020 Instruction Type:Patient Education Patient Instructions Indication:Non-smoker Start:15-Apr-2020 Instruction Type:Provider Instructions for Treatment How to Access Health Informa tion Online using Patient Portal and [employer] Apps Indication:Non-smoker Start:11-Mar-2020 Instruction Type:Patient Education Patient Instructions Indication:Non-smoker Start:11-Mar-2020 Instruction Type:Provider Instructions for Treatment How to access health informa tion online Indication:Non-smoker Start:29-Jan-2020 Instruction Type:Patient Education How to access health informa tion online - Detail Indication:Non-smoker Start:29-Jan-2020 Instruction Type:Patient Education Patient Instructions Indication:Non-smoker Start:29-Jan-2020 Instruction Type:Provider Instructions for Treatment How to access health informa tion online Indication:Non-smoker Start:01-Jan-2020 Instruction Type:Patient Education How to access health informa tion online - Detail Indication:Non-smoker Start:01-Jan-2020 Instruction Type:Patient Education Patient Instructions Indication:Non-smoker Start:01-Jan-2020 Instruction Type:Provider Instructions for Treatment How to access health informa tion online - Detail Indication:Non-smoker Start:11-Dec-2019 Instruction Type:Patient Education How to access health informa tion online Indication:Non-smoker Start:11-Dec-2019 Instruction Type:Patient Education Patient Instructions Indication:Non-smoker Start:11-Dec-2019 Instruction Type:Provider Instructions for Treatment How to access health informa tion online Indication:Non-smoker Start:03-Dec-2019 Instruction Type:Patient Education How to access health informa tion online - Detail Indication:Non-smoker Start:03-Dec-2019 Instruction Type:Patient Education Patient Instructions Indication:Non-smoker Start:03-Dec-2019 Instruction Type:Provider Instructions for Treatment obesity counseling Indication:Diabetes Start:24-Dec-2017 Instruction Type:Provider Instructions for Treatment cardiovascular counseling Indication:HTN (hypertension), benign Start:24-Dec-2017 Instruction Type:Provider Instructions for Treatment How to access health informa tion online Indication:Non-smoker Start:24-Dec-2017 Instruction Type:Patient Education How to access health informa tion online - Detail Indication:Non-smoker Start:24-Dec-2017 Instruction Type:Patient Education Patient Instructions Indication:Non-smoker Start:24-Dec-2017 Instruction Type:Provider Instructions for Treatment How to access health informa tion online - Detail Indication:Diabetes Start:03-Dec-2017 Instruction Type:Patient Education How to access health informa tion online Indication:Diabetes Start:03-Dec-2017 Instruction Type:Patient Education Patient Instructions Indication:Diabetes Start:03-Dec-2017 Instruction Type:Provider Instructions for Treatment Patient Instructions Indication:Non-smoker Start:18-Nov-2017 Instruction Type:Provider Instructions for Treatment How to access health informa tion online Indication:Non-smoker Start:18-Nov-2017 Instruction Type:Patient Education Patient Instructions Indication:Non-smoker Start:18-Nov-2017 Instruction Type:Provider Instructions for Treatment [facility]; [facility] Work Phone: Instructions* Name Dates Details Patient Instructions Indication:BMI 27.0-27.9,adult Start:18-Jul-2022 Instruction Type:Provider Instructions for Treatment How to Access Health Informa tion Online using Patient Portal and [employer] Apps Indication:BMI 27.0-27.9,adult Start:18-Jul-2022 Instruction Type:Patient Education How to Access Health Informa tion Online using Patient Portal and [employer] Apps Indication:Non-smoker Start:12-Jul-2022 Instruction Type:Patient Education Patient Instructions Indication:Non-smoker Start:12-Jul-2022 Instruction Type:Provider Instructions for Treatment Patient Instructions Indication:BMI 27.0-27.9,adult Start:04-Apr-2022 Instruction Type:Provider Instructions for Treatment How to Access Health Informa tion Online using Patient Portal and [employer] Apps Indication:BMI 27.0-27.9,adult Start:04-Apr-2022 Instruction Type:Patient Education Patient Instructions Indication:BMI 26.0-26.9,adult Start:04-Jan-2022 Instruction Type:Provider Instructions for Treatment How to Access Health Informa tion Online using Patient Portal and [employer] Apps Indication:BMI 26.0-26.9,adult Start:04-Jan-2022 Instruction Type:Patient Education Patient Instructions Indication:Type II diabetes mellitus, well controlled Start:25-Dec-2021 Instruction Type:Provider Instructions for Treatment How to Access Health Informa tion Online using Patient Portal and [employer] Apps Indication:Type II diabetes mellitus, well controlled Start:25-Dec-2021 Instruction Type:Patient Education Patient Instructions Indication:Non-smoker Start:01-Dec-2021 Instruction Type:Provider Instructions for Treatment How to Access Health Informa tion Online using Patient Portal and [employer] Apps Indication:Non-smoker Start:01-Dec-2021 Instruction Type:Patient Education Patient Instructions Indication:Type II diabetes mellitus, well controlled Start:21-Jun-2021 Instruction Type:Provider Instructions for Treatment How to Access Health Informa tion Online using Patient Portal and [employer] Apps Indication:Type II diabetes mellitus, well controlled Start:21-Jun-2021 Instruction Type:Patient Education Patient Instructions Indication:Type II diabetes mellitus, well controlled Start:22-Mar-2021 Instruction Type:Provider Instructions for Treatment How to Access Health Informa tion Online using Patient Portal and [employer] Apps Indication:Type II diabetes mellitus, well controlled Start:22-Mar-2021 Instruction Type:Patient Education cardiovascular counseling Indication:HTN (hypertension), benign Start:30-Jan-2021 Instruction Type:Provider Instructions for Treatment Patient Instructions Indication:Non-smoker Start:30-Jan-2021 Instruction Type:Provider Instructions for Treatment How to Access Health Informa tion Online using Patient Portal and [employer] Apps Indication:Non-smoker Start:30-Jan-2021 Instruction Type:Patient Education Patient Instructions Indication:Type II diabetes mellitus, well controlled Start:16-Dec-2020 Instruction Type:Provider Instructions for Treatment How to Access Health Informa tion Online using Patient Portal and [employer] Apps Indication:Type II diabetes mellitus, well controlled Start:16-Dec-2020 Instruction Type:Patient Education How to Access Health Informa tion Online using Patient Portal and [employer] Apps Indication:Non-smoker Start:14-Sep-2020 Instruction Type:Patient Education Patient Instructions Indication:Non-smoker Start:14-Sep-2020 Instruction Type:Provider Instructions for Treatment Patient Instructions Indication:Non-smoker Start:13-Jun-2020 Instruction Type:Provider Instructions for Treatment How to Access Health Informa tion Online using Patient Portal and [employer] Apps Indication:Non-smoker Start:13-Jun-2020 Instruction Type:Patient Education How to Access Health Informa tion Online using Patient Portal and [employer] Apps Indication:Non-smoker Start:01-Jun-2020 Instruction Type:Patient Education Patient Instructions Indication:Non-smoker Start:01-Jun-2020 Instruction Type:Provider Instructions for Treatment How to Access Health Informa tion Online using Patient Portal and [employer] Apps Indication:Non-smoker Start:15-Apr-2020 Instruction Type:Patient Education Patient Instructions Indication:Non-smoker Start:15-Apr-2020 Instruction Type:Provider Instructions for Treatment How to Access Health Informa tion Online using Patient Portal and [employer] Apps Indication:Non-smoker Start:11-Mar-2020 Instruction Type:Patient Education Patient Instructions Indication:Non-smoker Start:11-Mar-2020 Instruction Type:Provider Instructions for Treatment How to access health informa tion online Indication:Non-smoker Start:29-Jan-2020 Instruction Type:Patient Education How to access health informa tion online - Detail Indication:Non-smoker Start:29-Jan-2020 Instruction Type:Patient Education Patient Instructions Indication:Non-smoker Start:29-Jan-2020 Instruction Type:Provider Instructions for Treatment How to access health informa tion online Indication:Non-smoker Start:01-Jan-2020 Instruction Type:Patient Education How to access health informa tion online - Detail Indication:Non-smoker Start:01-Jan-2020 Instruction Type:Patient Education Patient Instructions Indication:Non-smoker Start:01-Jan-2020 Instruction Type:Provider Instructions for Treatment How to access health informa tion online - Detail Indication:Non-smoker Start:11-Dec-2019 Instruction Type:Patient Education How to access health informa tion online Indication:Non-smoker Start:11-Dec-2019 Instruction Type:Patient Education Patient Instructions Indication:Non-smoker Start:11-Dec-2019 Instruction Type:Provider Instructions for Treatment How to access health informa tion online Indication:Non-smoker Start:03-Dec-2019 Instruction Type:Patient Education How to access health informa tion online - Detail Indication:Non-smoker Start:03-Dec-2019 Instruction Type:Patient Education Patient Instructions Indication:Non-smoker Start:03-Dec-2019 Instruction Type:Provider Instructions for Treatment obesity counseling Indication:Diabetes Start:24-Dec-2017 Instruction Type:Provider Instructions for Treatment cardiovascular counseling Indication:HTN (hypertension), benign Start:24-Dec-2017 Instruction Type:Provider Instructions for Treatment How to access health informa tion online Indication:Non-smoker Start:24-Dec-2017 Instruction Type:Patient Education How to access health informa tion online - Detail Indication:Non-smoker Start:24-Dec-2017 Instruction Type:Patient Education Patient Instructions Indication:Non-smoker Start:24-Dec-2017 Instruction Type:Provider Instructions for Treatment How to access health informa tion online - Detail Indication:Diabetes Start:03-Dec-2017 Instruction Type:Patient Education How to access health informa tion online Indication:Diabetes Start:03-Dec-2017 Instruction Type:Patient Education Patient Instructions Indication:Diabetes Start:03-Dec-2017 Instruction Type:Provider Instructions for Treatment Patient Instructions Indication:Non-smoker Start:18-Nov-2017 Instruction Type:Provider Instructions for Treatment How to access health informa tion online Indication:Non-smoker Start:18-Nov-2017 Instruction Type:Patient Education Patient Instructions Indication:Non-smoker Start:18-Nov-2017 Instruction Type:Provider Instructions for Treatment [facility]; [facility] Work Phone: Instructions* Name Dates Details Patient Instructions Indication:Non-smoker Start:12-Oct-2022 Instruction Type:Provider Instructions for Treatment How to Access Health Informa tion Online using Patient Portal and [employer] Apps Indication:Non-smoker Start:12-Oct-2022 Instruction Type:Patient Education Patient Instructions Indication:BMI 27.0-27.9,adult Start:18-Jul-2022 Instruction Type:Provider Instructions for Treatment How to Access Health Informa tion Online using Patient Portal and [employer] Apps Indication:BMI 27.0-27.9,adult Start:18-Jul-2022 Instruction Type:Patient Education How to Access Health Informa tion Online using Patient Portal and [employer] Apps Indication:Non-smoker Start:12-Jul-2022 Instruction Type:Patient Education Patient Instructions Indication:Non-smoker Start:12-Jul-2022 Instruction Type:Provider Instructions for Treatment Patient Instructions Indication:BMI 27.0-27.9,adult Start:04-Apr-2022 Instruction Type:Provider Instructions for Treatment How to Access Health Informa tion Online using Patient Portal and [employer] Apps Indication:BMI 27.0-27.9,adult Start:04-Apr-2022 Instruction Type:Patient Education Patient Instructions Indication:BMI 26.0-26.9,adult Start:04-Jan-2022 Instruction Type:Provider Instructions for Treatment How to Access Health Informa tion Online using Patient Portal and [employer] Apps Indication:BMI 26.0-26.9,adult Start:04-Jan-2022 Instruction Type:Patient Education Patient Instructions Indication:Type II diabetes mellitus, well controlled Start:25-Dec-2021 Instruction Type:Provider Instructions for Treatment How to Access Health Informa tion Online using Patient Portal and [employer] Apps Indication:Type II diabetes mellitus, well controlled Start:25-Dec-2021 Instruction Type:Patient Education Patient Instructions Indication:Non-smoker Start:01-Dec-2021 Instruction Type:Provider Instructions for Treatment How to Access Health Informa tion Online using Patient Portal and [employer] Apps Indication:Non-smoker Start:01-Dec-2021 Instruction Type:Patient Education Patient Instructions Indication:Type II diabetes mellitus, well controlled Start:21-Jun-2021 Instruction Type:Provider Instructions for Treatment How to Access Health Informa tion Online using Patient Portal and [employer] Apps Indication:Type II diabetes mellitus, well controlled Start:21-Jun-2021 Instruction Type:Patient Education Patient Instructions Indication:Type II diabetes mellitus, well controlled Start:22-Mar-2021 Instruction Type:Provider Instructions for Treatment How to Access Health Informa tion Online using Patient Portal and [employer] Apps Indication:Type II diabetes mellitus, well controlled Start:22-Mar-2021 Instruction Type:Patient Education cardiovascular counseling Indication:HTN (hypertension), benign Start:30-Jan-2021 Instruction Type:Provider Instructions for Treatment Patient Instructions Indication:Non-smoker Start:30-Jan-2021 Instruction Type:Provider Instructions for Treatment How to Access Health Informa tion Online using Patient Portal and [employer] Apps Indication:Non-smoker Start:30-Jan-2021 Instruction Type:Patient Education Patient Instructions Indication:Type II diabetes mellitus, well controlled Start:16-Dec-2020 Instruction Type:Provider Instructions for Treatment How to Access Health Informa tion Online using Patient Portal and [employer] Apps Indication:Type II diabetes mellitus, well controlled Start:16-Dec-2020 Instruction Type:Patient Education How to Access Health Informa tion Online using Patient Portal and [employer] Apps Indication:Non-smoker Start:14-Sep-2020 Instruction Type:Patient Education Patient Instructions Indication:Non-smoker Start:14-Sep-2020 Instruction Type:Provider Instructions for Treatment Patient Instructions Indication:Non-smoker Start:13-Jun-2020 Instruction Type:Provider Instructions for Treatment How to Access Health Informa tion Online using Patient Portal and [employer] Apps Indication:Non-smoker Start:13-Jun-2020 Instruction Type:Patient Education How to Access Health Informa tion Online using Patient Portal and [employer] Apps Indication:Non-smoker Start:01-Jun-2020 Instruction Type:Patient Education Patient Instructions Indication:Non-smoker Start:01-Jun-2020 Instruction Type:Provider Instructions for Treatment How to Access Health Informa tion Online using Patient Portal and [employer] Apps Indication:Non-smoker Start:15-Apr-2020 Instruction Type:Patient Education Patient Instructions Indication:Non-smoker Start:15-Apr-2020 Instruction Type:Provider Instructions for Treatment How to Access Health Informa tion Online using Patient Portal and [employer] Apps Indication:Non-smoker Start:11-Mar-2020 Instruction Type:Patient Education Patient Instructions Indication:Non-smoker Start:11-Mar-2020 Instruction Type:Provider Instructions for Treatment How to access health informa tion online Indication:Non-smoker Start:29-Jan-2020 Instruction Type:Patient Education How to access health informa tion online - Detail Indication:Non-smoker Start:29-Jan-2020 Instruction Type:Patient Education Patient Instructions Indication:Non-smoker Start:29-Jan-2020 Instruction Type:Provider Instructions for Treatment How to access health informa tion online Indication:Non-smoker Start:01-Jan-2020 Instruction Type:Patient Education How to access health informa tion online - Detail Indication:Non-smoker Start:01-Jan-2020 Instruction Type:Patient Education Patient Instructions Indication:Non-smoker Start:01-Jan-2020 Instruction Type:Provider Instructions for Treatment How to access health informa tion online - Detail Indication:Non-smoker Start:11-Dec-2019 Instruction Type:Patient Education How to access health informa tion online Indication:Non-smoker Start:11-Dec-2019 Instruction Type:Patient Education Patient Instructions Indication:Non-smoker Start:11-Dec-2019 Instruction Type:Provider Instructions for Treatment How to access health informa tion online Indication:Non-smoker Start:03-Dec-2019 Instruction Type:Patient Education How to access health informa tion online - Detail Indication:Non-smoker Start:03-Dec-2019 Instruction Type:Patient Education Patient Instructions Indication:Non-smoker Start:03-Dec-2019 Instruction Type:Provider Instructions for Treatment obesity counseling Indication:Diabetes Start:24-Dec-2017 Instruction Type:Provider Instructions for Treatment cardiovascular counseling Indication:HTN (hypertension), benign Start:24-Dec-2017 Instruction Type:Provider Instructions for Treatment How to access health informa tion online Indication:Non-smoker Start:24-Dec-2017 Instruction Type:Patient Education How to access health informa tion online - Detail Indication:Non-smoker Start:24-Dec-2017 Instruction Type:Patient Education Patient Instructions Indication:Non-smoker Start:24-Dec-2017 Instruction Type:Provider Instructions for Treatment How to access health informa tion online - Detail Indication:Diabetes Start:03-Dec-2017 Instruction Type:Patient Education How to access health informa tion online Indication:Diabetes Start:03-Dec-2017 Instruction Type:Patient Education Patient Instructions Indication:Diabetes Start:03-Dec-2017 Instruction Type:Provider Instructions for Treatment Patient Instructions Indication:Non-smoker Start:18-Nov-2017 Instruction Type:Provider Instructions for Treatment How to access health informa tion online Indication:Non-smoker Start:18-Nov-2017 Instruction Type:Patient Education Patient Instructions Indication:Non-smoker Start:18-Nov-2017 Instruction Type:Provider Instructions for Treatment [facility]; [facility] Work Phone: Instructions* Name Dates Details cardiovascular counseling Indication:NSTEMI (non-ST elevated myocardial infarction) Start:25-Oct-2022 Instruction Type:Provider Instructions for Treatment Patient Instructions Indication:Non-smoker Start:25-Oct-2022 Instruction Type:Provider Instructions for Treatment How to Access Health Informa tion Online using Patient Portal and [employer] Apps Indication:Non-smoker Start:25-Oct-2022 Instruction Type:Patient Education Patient Instructions Indication:Non-smoker Start:12-Oct-2022 Instruction Type:Provider Instructions for Treatment How to Access Health Informa tion Online using Patient Portal and [employer] Apps Indication:Non-smoker Start:12-Oct-2022 Instruction Type:Patient Education Patient Instructions Indication:BMI 27.0-27.9,adult Start:18-Jul-2022 Instruction Type:Provider Instructions for Treatment How to Access Health Informa tion Online using Patient Portal and [employer] Apps Indication:BMI 27.0-27.9,adult Start:18-Jul-2022 Instruction Type:Patient Education How to Access Health Informa tion Online using Patient Portal and [employer] Apps Indication:Non-smoker Start:12-Jul-2022 Instruction Type:Patient Education Patient Instructions Indication:Non-smoker Start:12-Jul-2022 Instruction Type:Provider Instructions for Treatment Patient Instructions Indication:BMI 27.0-27.9,adult Start:04-Apr-2022 Instruction Type:Provider Instructions for Treatment How to Access Health Informa tion Online using Patient Portal and [employer] Apps Indication:BMI 27.0-27.9,adult Start:04-Apr-2022 Instruction Type:Patient Education Patient Instructions Indication:BMI 26.0-26.9,adult Start:04-Jan-2022 Instruction Type:Provider Instructions for Treatment How to Access Health Informa tion Online using Patient Portal and [employer] Apps Indication:BMI 26.0-26.9,adult Start:04-Jan-2022 Instruction Type:Patient Education Patient Instructions Indication:Type II diabetes mellitus, well controlled Start:25-Dec-2021 Instruction Type:Provider Instructions for Treatment How to Access Health Informa tion Online using Patient Portal and [employer] Apps Indication:Type II diabetes mellitus, well controlled Start:25-Dec-2021 Instruction Type:Patient Education Patient Instructions Indication:Non-smoker Start:01-Dec-2021 Instruction Type:Provider Instructions for Treatment How to Access Health Informa tion Online using Patient Portal and [employer] Apps Indication:Non-smoker Start:01-Dec-2021 Instruction Type:Patient Education Patient Instructions Indication:Type II diabetes mellitus, well controlled Start:21-Jun-2021 Instruction Type:Provider Instructions for Treatment How to Access Health Informa tion Online using Patient Portal and [employer] Apps Indication:Type II diabetes mellitus, well controlled Start:21-Jun-2021 Instruction Type:Patient Education Patient Instructions Indication:Type II diabetes mellitus, well controlled Start:22-Mar-2021 Instruction Type:Provider Instructions for Treatment How to Access Health Informa tion Online using Patient Portal and [employer] Apps Indication:Type II diabetes mellitus, well controlled Start:22-Mar-2021 Instruction Type:Patient Education cardiovascular counseling Indication:HTN (hypertension), benign Start:30-Jan-2021 Instruction Type:Provider Instructions for Treatment Patient Instructions Indication:Non-smoker Start:30-Jan-2021 Instruction Type:Provider Instructions for Treatment How to Access Health Informa tion Online using Patient Portal and [employer] Apps Indication:Non-smoker Start:30-Jan-2021 Instruction Type:Patient Education Patient Instructions Indication:Type II diabetes mellitus, well controlled Start:16-Dec-2020 Instruction Type:Provider Instructions for Treatment How to Access Health Informa tion Online using Patient Portal and [employer] Apps Indication:Type II diabetes mellitus, well controlled Start:16-Dec-2020 Instruction Type:Patient Education How to Access Health Informa tion Online using Patient Portal and [employer] Apps Indication:Non-smoker Start:14-Sep-2020 Instruction Type:Patient Education Patient Instructions Indication:Non-smoker Start:14-Sep-2020 Instruction Type:Provider Instructions for Treatment Patient Instructions Indication:Non-smoker Start:13-Jun-2020 Instruction Type:Provider Instructions for Treatment How to Access Health Informa tion Online using Patient Portal and [employer] Apps Indication:Non-smoker Start:13-Jun-2020 Instruction Type:Patient Education How to Access Health Informa tion Online using Patient Portal and [employer] Apps Indication:Non-smoker Start:01-Jun-2020 Instruction Type:Patient Education Patient Instructions Indication:Non-smoker Start:01-Jun-2020 Instruction Type:Provider Instructions for Treatment How to Access Health Informa tion Online using Patient Portal and [employer] Apps Indication:Non-smoker Start:15-Apr-2020 Instruction Type:Patient Education Patient Instructions Indication:Non-smoker Start:15-Apr-2020 Instruction Type:Provider Instructions for Treatment How to Access Health Informa tion Online using Patient Portal and [employer] Apps Indication:Non-smoker Start:11-Mar-2020 Instruction Type:Patient Education Patient Instructions Indication:Non-smoker Start:11-Mar-2020 Instruction Type:Provider Instructions for Treatment How to access health informa tion online Indication:Non-smoker Start:29-Jan-2020 Instruction Type:Patient Education How to access health informa tion online - Detail Indication:Non-smoker Start:29-Jan-2020 Instruction Type:Patient Education Patient Instructions Indication:Non-smoker Start:29-Jan-2020 Instruction Type:Provider Instructions for Treatment How to access health informa tion online Indication:Non-smoker Start:01-Jan-2020 Instruction Type:Patient Education How to access health informa tion online - Detail Indication:Non-smoker Start:01-Jan-2020 Instruction Type:Patient Education Patient Instructions Indication:Non-smoker Start:01-Jan-2020 Instruction Type:Provider Instructions for Treatment How to access health informa tion online - Detail Indication:Non-smoker Start:11-Dec-2019 Instruction Type:Patient Education How to access health informa tion online Indication:Non-smoker Start:11-Dec-2019 Instruction Type:Patient Education Patient Instructions Indication:Non-smoker Start:11-Dec-2019 Instruction Type:Provider Instructions for Treatment How to access health informa tion online Indication:Non-smoker Start:03-Dec-2019 Instruction Type:Patient Education How to access health informa tion online - Detail Indication:Non-smoker Start:03-Dec-2019 Instruction Type:Patient Education Patient Instructions Indication:Non-smoker Start:03-Dec-2019 Instruction Type:Provider Instructions for Treatment obesity counseling Indication:Diabetes Start:24-Dec-2017 Instruction Type:Provider Instructions for Treatment cardiovascular counseling Indication:HTN (hypertension), benign Start:24-Dec-2017 Instruction Type:Provider Instructions for Treatment How to access health informa tion online Indication:Non-smoker Start:24-Dec-2017 Instruction Type:Patient Education How to access health informa tion online - Detail Indication:Non-smoker Start:24-Dec-2017 Instruction Type:Patient Education Patient Instructions Indication:Non-smoker Start:24-Dec-2017 Instruction Type:Provider Instructions for Treatment How to access health informa tion online - Detail Indication:Diabetes Start:03-Dec-2017 Instruction Type:Patient Education How to access health informa tion online Indication:Diabetes Start:03-Dec-2017 Instruction Type:Patient Education Patient Instructions Indication:Diabetes Start:03-Dec-2017 Instruction Type:Provider Instructions for Treatment Patient Instructions Indication:Non-smoker Start:18-Nov-2017 Instruction Type:Provider Instructions for Treatment How to access health informa tion online Indication:Non-smoker Start:18-Nov-2017 Instruction Type:Patient Education Patient Instructions Indication:Non-smoker Start:18-Nov-2017 Instruction Type:Provider Instructions for Treatment [facility] Work Phone: Instructions* Name Dates Details cardiovascular counseling Indication:NSTEMI (non-ST elevated myocardial infarction) Start:25-Oct-2022 Instruction Type:Provider Instructions for Treatment Patient Instructions Indication:Non-smoker Start:25-Oct-2022 Instruction Type:Provider Instructions for Treatment How to Access Health Informa tion Online using Patient Portal and [employer] Apps Indication:Non-smoker Start:25-Oct-2022 Instruction Type:Patient Education Patient Instructions Indication:Non-smoker Start:12-Oct-2022 Instruction Type:Provider Instructions for Treatment How to Access Health Informa tion Online using Patient Portal and [employer] Apps Indication:Non-smoker Start:12-Oct-2022 Instruction Type:Patient Education Patient Instructions Indication:BMI 27.0-27.9,adult Start:18-Jul-2022 Instruction Type:Provider Instructions for Treatment How to Access Health Informa tion Online using Patient Portal and [employer] Apps Indication:BMI 27.0-27.9,adult Start:18-Jul-2022 Instruction Type:Patient Education How to Access Health Informa tion Online using Patient Portal and [employer] Apps Indication:Non-smoker Start:12-Jul-2022 Instruction Type:Patient Education Patient Instructions Indication:Non-smoker Start:12-Jul-2022 Instruction Type:Provider Instructions for Treatment Patient Instructions Indication:BMI 27.0-27.9,adult Start:04-Apr-2022 Instruction Type:Provider Instructions for Treatment How to Access Health Informa tion Online using Patient Portal and [employer] Apps Indication:BMI 27.0-27.9,adult Start:04-Apr-2022 Instruction Type:Patient Education Patient Instructions Indication:BMI 26.0-26.9,adult Start:04-Jan-2022 Instruction Type:Provider Instructions for Treatment How to Access Health Informa tion Online using Patient Portal and [employer] Apps Indication:BMI 26.0-26.9,adult Start:04-Jan-2022 Instruction Type:Patient Education Patient Instructions Indication:Type II diabetes mellitus, well controlled Start:25-Dec-2021 Instruction Type:Provider Instructions for Treatment How to Access Health Informa tion Online using Patient Portal and [employer] Apps Indication:Type II diabetes mellitus, well controlled Start:25-Dec-2021 Instruction Type:Patient Education Patient Instructions Indication:Non-smoker Start:01-Dec-2021 Instruction Type:Provider Instructions for Treatment How to Access Health Informa tion Online using Patient Portal and [employer] Apps Indication:Non-smoker Start:01-Dec-2021 Instruction Type:Patient Education Patient Instructions Indication:Type II diabetes mellitus, well controlled Start:21-Jun-2021 Instruction Type:Provider Instructions for Treatment How to Access Health Informa tion Online using Patient Portal and [employer] Apps Indication:Type II diabetes mellitus, well controlled Start:21-Jun-2021 Instruction Type:Patient Education Patient Instructions Indication:Type II diabetes mellitus, well controlled Start:22-Mar-2021 Instruction Type:Provider Instructions for Treatment How to Access Health Informa tion Online using Patient Portal and [employer] Apps Indication:Type II diabetes mellitus, well controlled Start:22-Mar-2021 Instruction Type:Patient Education cardiovascular counseling Indication:HTN (hypertension), benign Start:30-Jan-2021 Instruction Type:Provider Instructions for Treatment Patient Instructions Indication:Non-smoker Start:30-Jan-2021 Instruction Type:Provider Instructions for Treatment How to Access Health Informa tion Online using Patient Portal and [employer] Apps Indication:Non-smoker Start:30-Jan-2021 Instruction Type:Patient Education Patient Instructions Indication:Type II diabetes mellitus, well controlled Start:16-Dec-2020 Instruction Type:Provider Instructions for Treatment How to Access Health Informa tion Online using Patient Portal and [employer] Apps Indication:Type II diabetes mellitus, well controlled Start:16-Dec-2020 Instruction Type:Patient Education How to Access Health Informa tion Online using Patient Portal and [employer] Apps Indication:Non-smoker Start:14-Sep-2020 Instruction Type:Patient Education Patient Instructions Indication:Non-smoker Start:14-Sep-2020 Instruction Type:Provider Instructions for Treatment Patient Instructions Indication:Non-smoker Start:13-Jun-2020 Instruction Type:Provider Instructions for Treatment How to Access Health Informa tion Online using Patient Portal and [employer] Apps Indication:Non-smoker Start:13-Jun-2020 Instruction Type:Patient Education How to Access Health Informa tion Online using Patient Portal and [employer] Apps Indication:Non-smoker Start:01-Jun-2020 Instruction Type:Patient Education Patient Instructions Indication:Non-smoker Start:01-Jun-2020 Instruction Type:Provider Instructions for Treatment How to Access Health Informa tion Online using Patient Portal and [employer] Apps Indication:Non-smoker Start:15-Apr-2020 Instruction Type:Patient Education Patient Instructions Indication:Non-smoker Start:15-Apr-2020 Instruction Type:Provider Instructions for Treatment How to Access Health Informa tion Online using Patient Portal and [employer] Apps Indication:Non-smoker Start:11-Mar-2020 Instruction Type:Patient Education Patient Instructions Indication:Non-smoker Start:11-Mar-2020 Instruction Type:Provider Instructions for Treatment How to access health informa tion online Indication:Non-smoker Start:29-Jan-2020 Instruction Type:Patient Education How to access health informa tion online - Detail Indication:Non-smoker Start:29-Jan-2020 Instruction Type:Patient Education Patient Instructions Indication:Non-smoker Start:29-Jan-2020 Instruction Type:Provider Instructions for Treatment How to access health informa tion online Indication:Non-smoker Start:01-Jan-2020 Instruction Type:Patient Education How to access health informa tion online - Detail Indication:Non-smoker Start:01-Jan-2020 Instruction Type:Patient Education Patient Instructions Indication:Non-smoker Start:01-Jan-2020 Instruction Type:Provider Instructions for Treatment How to access health informa tion online - Detail Indication:Non-smoker Start:11-Dec-2019 Instruction Type:Patient Education How to access health informa tion online Indication:Non-smoker Start:11-Dec-2019 Instruction Type:Patient Education Patient Instructions Indication:Non-smoker Start:11-Dec-2019 Instruction Type:Provider Instructions for Treatment How to access health informa tion online Indication:Non-smoker Start:03-Dec-2019 Instruction Type:Patient Education How to access health informa tion online - Detail Indication:Non-smoker Start:03-Dec-2019 Instruction Type:Patient Education Patient Instructions Indication:Non-smoker Start:03-Dec-2019 Instruction Type:Provider Instructions for Treatment obesity counseling Indication:Diabetes Start:24-Dec-2017 Instruction Type:Provider Instructions for Treatment cardiovascular counseling Indication:HTN (hypertension), benign Start:24-Dec-2017 Instruction Type:Provider Instructions for Treatment How to access health informa tion online Indication:Non-smoker Start:24-Dec-2017 Instruction Type:Patient Education How to access health informa tion online - Detail Indication:Non-smoker Start:24-Dec-2017 Instruction Type:Patient Education Patient Instructions Indication:Non-smoker Start:24-Dec-2017 Instruction Type:Provider Instructions for Treatment How to access health informa tion online - Detail Indication:Diabetes Start:03-Dec-2017 Instruction Type:Patient Education How to access health informa tion online Indication:Diabetes Start:03-Dec-2017 Instruction Type:Patient Education Patient Instructions Indication:Diabetes Start:03-Dec-2017 Instruction Type:Provider Instructions for Treatment Patient Instructions Indication:Non-smoker Start:18-Nov-2017 Instruction Type:Provider Instructions for Treatment How to access health informa tion online Indication:Non-smoker Start:18-Nov-2017 Instruction Type:Patient Education Patient Instructions Indication:Non-smoker Start:18-Nov-2017 Instruction Type:Provider Instructions for Treatment [facility]; [facility] Work Phone: Instructions* Name Dates Details cardiovascular counseling Indication:NSTEMI (non-ST elevated myocardial infarction) Start:25-Oct-2022 Instruction Type:Provider Instructions for Treatment Patient Instructions Indication:Non-smoker Start:25-Oct-2022 Instruction Type:Provider Instructions for Treatment How to Access Health Informa tion Online using Patient Portal and [employer] Apps Indication:Non-smoker Start:25-Oct-2022 Instruction Type:Patient Education Patient Instructions Indication:Non-smoker Start:12-Oct-2022 Instruction Type:Provider Instructions for Treatment How to Access Health Informa tion Online using Patient Portal and [employer] Apps Indication:Non-smoker Start:12-Oct-2022 Instruction Type:Patient Education Patient Instructions Indication:BMI 27.0-27.9,adult Start:18-Jul-2022 Instruction Type:Provider Instructions for Treatment How to Access Health Informa tion Online using Patient Portal and [employer] Apps Indication:BMI 27.0-27.9,adult Start:18-Jul-2022 Instruction Type:Patient Education How to Access Health Informa tion Online using Patient Portal and [employer] Apps Indication:Non-smoker Start:12-Jul-2022 Instruction Type:Patient Education Patient Instructions Indication:Non-smoker Start:12-Jul-2022 Instruction Type:Provider Instructions for Treatment Patient Instructions Indication:BMI 27.0-27.9,adult Start:04-Apr-2022 Instruction Type:Provider Instructions for Treatment How to Access Health Informa tion Online using Patient Portal and [employer] Apps Indication:BMI 27.0-27.9,adult Start:04-Apr-2022 Instruction Type:Patient Education Patient Instructions Indication:BMI 26.0-26.9,adult Start:04-Jan-2022 Instruction Type:Provider Instructions for Treatment How to Access Health Informa tion Online using Patient Portal and [employer] Apps Indication:BMI 26.0-26.9,adult Start:04-Jan-2022 Instruction Type:Patient Education Patient Instructions Indication:Type II diabetes mellitus, well controlled Start:25-Dec-2021 Instruction Type:Provider Instructions for Treatment How to Access Health Informa tion Online using Patient Portal and [employer] Apps Indication:Type II diabetes mellitus, well controlled Start:25-Dec-2021 Instruction Type:Patient Education Patient Instructions Indication:Non-smoker Start:01-Dec-2021 Instruction Type:Provider Instructions for Treatment How to Access Health Informa tion Online using Patient Portal and [employer] Apps Indication:Non-smoker Start:01-Dec-2021 Instruction Type:Patient Education Patient Instructions Indication:Type II diabetes mellitus, well controlled Start:21-Jun-2021 Instruction Type:Provider Instructions for Treatment How to Access Health Informa tion Online using Patient Portal and [employer] Apps Indication:Type II diabetes mellitus, well controlled Start:21-Jun-2021 Instruction Type:Patient Education Patient Instructions Indication:Type II diabetes mellitus, well controlled Start:22-Mar-2021 Instruction Type:Provider Instructions for Treatment How to Access Health Informa tion Online using Patient Portal and [employer] Apps Indication:Type II diabetes mellitus, well controlled Start:22-Mar-2021 Instruction Type:Patient Education cardiovascular counseling Indication:HTN (hypertension), benign Start:30-Jan-2021 Instruction Type:Provider Instructions for Treatment Patient Instructions Indication:Non-smoker Start:30-Jan-2021 Instruction Type:Provider Instructions for Treatment How to Access Health Informa tion Online using Patient Portal and [employer] Apps Indication:Non-smoker Start:30-Jan-2021 Instruction Type:Patient Education Patient Instructions Indication:Type II diabetes mellitus, well controlled Start:16-Dec-2020 Instruction Type:Provider Instructions for Treatment How to Access Health Informa tion Online using Patient Portal and [employer] Apps Indication:Type II diabetes mellitus, well controlled Start:16-Dec-2020 Instruction Type:Patient Education How to Access Health Informa tion Online using Patient Portal and [employer] Apps Indication:Non-smoker Start:14-Sep-2020 Instruction Type:Patient Education Patient Instructions Indication:Non-smoker Start:14-Sep-2020 Instruction Type:Provider Instructions for Treatment Patient Instructions Indication:Non-smoker Start:13-Jun-2020 Instruction Type:Provider Instructions for Treatment How to Access Health Informa tion Online using Patient Portal and [employer] Indication:Non-smoker Start:13-Jun-2020 Instruction Type:Patient Education How to Access Health Informa tion Online using Patient Portal and [employer] Apps Indication:Non-smoker Start:01-Jun-2020 Instruction Type:Patient Education Patient Instructions Indication:Non-smoker Start:01-Jun-2020 Instruction Type:Provider Instructions for Treatment How to Access Health Informa tion Online using Patient Portal and [employer] Apps Indication:Non-smoker Start:15-Apr-2020 Instruction Type:Patient Education Patient Instructions Indication:Non-smoker Start:15-Apr-2020 Instruction Type:Provider Instructions for Treatment How to Access Health Informa tion Online using Patient Portal and [employer] Apps Indication:Non-smoker Start:11-Mar-2020 Instruction Type:Patient Education Patient Instructions Indication:Non-smoker Start:11-Mar-2020 Instruction Type:Provider Instructions for Treatment How to access health informa tion online Indication:Non-smoker Start:29-Jan-2020 Instruction Type:Patient Education How to access health informa tion online - Detail Indication:Non-smoker Start:29-Jan-2020 Instruction Type:Patient Education Patient Instructions Indication:Non-smoker Start:29-Jan-2020 Instruction Type:Provider Instructions for Treatment How to access health informa tion online Indication:Non-smoker Start:01-Jan-2020 Instruction Type:Patient Education How to access health informa tion online - Detail Indication:Non-smoker Start:01-Jan-2020 Instruction Type:Patient Education Patient Instructions Indication:Non-smoker Start:01-Jan-2020 Instruction Type:Provider Instructions for Treatment How to access health informa tion online - Detail Indication:Non-smoker Start:11-Dec-2019 Instruction Type:Patient Education How to access health informa tion online Indication:Non-smoker Start:11-Dec-2019 Instruction Type:Patient Education Patient Instructions Indication:Non-smoker Start:11-Dec-2019 Instruction Type:Provider Instructions for Treatment How to access health informa tion online Indication:Non-smoker Start:03-Dec-2019 Instruction Type:Patient Education How to access health informa tion online - Detail Indication:Non-smoker Start:03-Dec-2019 Instruction Type:Patient Education Patient Instructions Indication:Non-smoker Start:03-Dec-2019 Instruction Type:Provider Instructions for Treatment obesity counseling Indication:Diabetes Start:24-Dec-2017 Instruction Type:Provider Instructions for Treatment cardiovascular counseling Indication:HTN (hypertension), benign Start:24-Dec-2017 Instruction Type:Provider Instructions for Treatment How to access health informa tion online Indication:Non-smoker Start:24-Dec-2017 Instruction Type:Patient Education How to access health informa tion online - Detail Indication:Non-smoker Start:24-Dec-2017 Instruction Type:Patient Education Patient Instructions Indication:Non-smoker Start:24-Dec-2017 Instruction Type:Provider Instructions for Treatment How to access health informa tion online - Detail Indication:Diabetes Start:03-Dec-2017 Instruction Type:Patient Education How to access health informa tion online Indication:Diabetes Start:03-Dec-2017 Instruction Type:Patient Education Patient Instructions Indication:Diabetes Start:03-Dec-2017 Instruction Type:Provider Instructions for Treatment Patient Instructions Indication:Non-smoker Start:18-Nov-2017 Instruction Type:Provider Instructions for Treatment How to access health informa tion online Indication:Non-smoker Start:18-Nov-2017 Instruction Type:Patient Education Patient Instructions Indication:Non-smoker Start:18-Nov-2017 Instruction Type:Provider Instructions for Treatment [facility]; [facility] Work Phone: Summary Purpose Family History Mother Name Dates Details Family history of diabetes m ellitus(V18.0, Z83.3) Status:Active Father Name Dates Details Family history of myocardial infarction(V17.3, Z82.49) Status:Active Sister Name Dates Details Family history of diabetes m ellitus(V18.0, Z83.3) Status:Active Brother Name Dates Details Family history of myocardial infarction(V17.3, Z82.49) Status:Active Mother Name Dates Details Family history of diabetes m ellitus(V18.0, Z83.3) Status:Active Father Name Dates Details Family history of myocardial infarction(V17.3, Z82.49) Status:Active Sister Name Dates Details Family history of diabetes m ellitus(V18.0, Z83.3) Status:Active Brother Name Dates Details Family history of myocardial infarction(V17.3, Z82.49) Status:Active Mother Name Dates Details Family history of diabetes m ellitus(V18.0, Z83.3) Status:Active Father Name Dates Details Family history of myocardial infarction(V17.3, Z82.49) Status:Active Sister Name Dates Details Family history of diabetes m ellitus(V18.0, Z83.3) Status:Active Brother Name Dates Details Family history of myocardial infarction(V17.3, Z82.49) Status:Active Advance Directives No Advanced Directives Records FoundNo Advanced Directives Records FoundNo Advanced Directives Records FoundNo Advanced Directives Records FoundNo Advanced Directives Records FoundNo Advanced Directives Records FoundNo Advanced Directives Records FoundNo Advanced Directives Records Found Instructions Name Dates Details Patient Instructions Indication:Non-smoker Start:13-Jun-2020 Instruction Type:Provider Instructions for Treatment How to Access Health Informa tion Online using Patient Portal and [employer] Apps Indication:Non-smoker Start:13-Jun-2020 Instruction Type:Patient Education How to Access Health Informa tion Online using Patient Portal and [employer] Apps Indication:Non-smoker Start:01-Jun-2020 Instruction Type:Patient Education Patient Instructions Indication:Non-smoker Start:01-Jun-2020 Instruction Type:Provider Instructions for Treatment How to Access Health Informa tion Online using Patient Portal and [employer] Apps Indication:Non-smoker Start:15-Apr-2020 Instruction Type:Patient Education Patient Instructions Indication:Non-smoker Start:15-Apr-2020 Instruction Type:Provider Instructions for Treatment How to Access Health Informa tion Online using Patient Portal and [employer] Apps Indication:Non-smoker Start:11-Mar-2020 Instruction Type:Patient Education Patient Instructions Indication:Non-smoker Start:11-Mar-2020 Instruction Type:Provider Instructions for Treatment How to access health informa tion online Indication:Non-smoker Start:29-Jan-2020 Instruction Type:Patient Education How to access health informa tion online - Detail Indication:Non-smoker Start:29-Jan-2020 Instruction Type:Patient Education Patient Instructions Indication:Non-smoker Start:29-Jan-2020 Instruction Type:Provider Instructions for Treatment How to access health informa tion online Indication:Non-smoker Start:01-Jan-2020 Instruction Type:Patient Education How to access health informa tion online - Detail Indication:Non-smoker Start:01-Jan-2020 Instruction Type:Patient Education Patient Instructions Indication:Non-smoker Start:01-Jan-2020 Instruction Type:Provider Instructions for Treatment How to access health informa tion online - Detail Indication:Non-smoker Start:11-Dec-2019 Instruction Type:Patient Education How to access health informa tion online Indication:Non-smoker Start:11-Dec-2019 Instruction Type:Patient Education Patient Instructions Indication:Non-smoker Start:11-Dec-2019 Instruction Type:Provider Instructions for Treatment How to access health informa tion online Indication:Non-smoker Start:03-Dec-2019 Instruction Type:Patient Education How to access health informa tion online - Detail Indication:Non-smoker Start:03-Dec-2019 Instruction Type:Patient Education Patient Instructions Indication:Non-smoker Start:03-Dec-2019 Instruction Type:Provider Instructions for Treatment obesity counseling Indication:Diabetes Start:24-Dec-2017 Instruction Type:Provider Instructions for Treatment cardiovascular counseling Indication:HTN (hypertension), benign Start:24-Dec-2017 Instruction Type:Provider Instructions for Treatment How to access health informa tion online Indication:Non-smoker Start:24-Dec-2017 Instruction Type:Patient Education How to access health informa tion online - Detail Indication:Non-smoker Start:24-Dec-2017 Instruction Type:Patient Education Patient Instructions Indication:Non-smoker Start:24-Dec-2017 Instruction Type:Provider Instructions for Treatment How to access health informa tion online - Detail Indication:Diabetes Start:03-Dec-2017 Instruction Type:Patient Education How to access health informa tion online Indication:Diabetes Start:03-Dec-2017 Instruction Type:Patient Education Patient Instructions Indication:Diabetes Start:03-Dec-2017 Instruction Type:Provider Instructions for Treatment Patient Instructions Indication:Non-smoker Start:18-Nov-2017 Instruction Type:Provider Instructions for Treatment How to access health informa tion online Indication:Non-smoker Start:18-Nov-2017 Instruction Type:Patient Education Name Dates Details How to Access Health Informa tion Online using Patient Portal and [employer] Apps Indication:Non-smoker Start:11-Mar-2020 Instruction Type:Patient Education Patient Instructions Indication:Non-smoker Start:11-Mar-2020 Instruction Type:Provider Instructions for Treatment How to access health informa tion online Indication:Non-smoker Start:29-Jan-2020 Instruction Type:Patient Education How to access health informa tion online - Detail Indication:Non-smoker Start:29-Jan-2020 Instruction Type:Patient Education Patient Instructions Indication:Non-smoker Start:29-Jan-2020 Instruction Type:Provider Instructions for Treatment How to access health informa tion online Indication:Non-smoker Start:01-Jan-2020 Instruction Type:Patient Education How to access health informa tion online - Detail Indication:Non-smoker Start:01-Jan-2020 Instruction Type:Patient Education Patient Instructions Indication:Non-smoker Start:01-Jan-2020 Instruction Type:Provider Instructions for Treatment How to access health informa tion online - Detail Indication:Non-smoker Start:11-Dec-2019 Instruction Type:Patient Education How to access health informa tion online Indication:Non-smoker Start:11-Dec-2019 Instruction Type:Patient Education Patient Instructions Indication:Non-smoker Start:11-Dec-2019 Instruction Type:Provider Instructions for Treatment How to access health informa tion online Indication:Non-smoker Start:03-Dec-2019 Instruction Type:Patient Education How to access health informa tion online - Detail Indication:Non-smoker Start:03-Dec-2019 Instruction Type:Patient Education Patient Instructions Indication:Non-smoker Start:03-Dec-2019 Instruction Type:Provider Instructions for Treatment obesity counseling Indication:Diabetes Start:24-Dec-2017 Instruction Type:Provider Instructions for Treatment cardiovascular counseling Indication:HTN (hypertension), benign Start:24-Dec-2017 Instruction Type:Provider Instructions for Treatment How to access health informa tion online Indication:Non-smoker Start:24-Dec-2017 Instruction Type:Patient Education How to access health informa tion online - Detail Indication:Non-smoker Start:24-Dec-2017 Instruction Type:Patient Education Patient Instructions Indication:Non-smoker Start:24-Dec-2017 Instruction Type:Provider Instructions for Treatment How to access health informa tion online - Detail Indication:Diabetes Start:03-Dec-2017 Instruction Type:Patient Education How to access health informa tion online Indication:Diabetes Start:03-Dec-2017 Instruction Type:Patient Education Patient Instructions Indication:Diabetes Start:03-Dec-2017 Instruction Type:Provider Instructions for Treatment Patient Instructions Indication:Non-smoker Start:18-Nov-2017 Instruction Type:Provider Instructions for Treatment How to access health informa tion online Indication:Non-smoker Start:18-Nov-2017 Instruction Type:Patient Education Name Dates Details How to access health informa tion online Indication:Non-smoker Start:29-Jan-2020 Instruction Type:Patient Education How to access health informa tion online - Detail Indication:Non-smoker Start:29-Jan-2020 Instruction Type:Patient Education Patient Instructions Indication:Non-smoker Start:29-Jan-2020 Instruction Type:Provider Instructions for Treatment How to access health informa tion online Indication:Non-smoker Start:01-Jan-2020 Instruction Type:Patient Education How to access health informa tion online - Detail Indication:Non-smoker Start:01-Jan-2020 Instruction Type:Patient Education Patient Instructions Indication:Non-smoker Start:01-Jan-2020 Instruction Type:Provider Instructions for Treatment How to access health informa tion online - Detail Indication:Non-smoker Start:11-Dec-2019 Instruction Type:Patient Education How to access health informa tion online Indication:Non-smoker Start:11-Dec-2019 Instruction Type:Patient Education Patient Instructions Indication:Non-smoker Start:11-Dec-2019 Instruction Type:Provider Instructions for Treatment How to access health informa tion online Indication:Non-smoker Start:03-Dec-2019 Instruction Type:Patient Education How to access health informa tion online - Detail Indication:Non-smoker Start:03-Dec-2019 Instruction Type:Patient Education Patient Instructions Indication:Non-smoker Start:03-Dec-2019 Instruction Type:Provider Instructions for Treatment obesity counseling Indication:Diabetes Start:24-Dec-2017 Instruction Type:Provider Instructions for Treatment cardiovascular counseling Indication:HTN (hypertension), benign Start:24-Dec-2017 Instruction Type:Provider Instructions for Treatment How to access health informa tion online Indication:Non-smoker Start:24-Dec-2017 Instruction Type:Patient Education How to access health informa tion online - Detail Indication:Non-smoker Start:24-Dec-2017 Instruction Type:Patient Education Patient Instructions Indication:Non-smoker Start:24-Dec-2017 Instruction Type:Provider Instructions for Treatment How to access health informa tion online - Detail Indication:Diabetes Start:03-Dec-2017 Instruction Type:Patient Education How to access health informa tion online Indication:Diabetes Start:03-Dec-2017 Instruction Type:Patient Education Patient Instructions Indication:Diabetes Start:03-Dec-2017 Instruction Type:Provider Instructions for Treatment Patient Instructions Indication:Non-smoker Start:18-Nov-2017 Instruction Type:Provider Instructions for Treatment How to access health informa tion online Indication:Non-smoker Start:18-Nov-2017 Instruction Type:Patient Education Name Dates Details How to access health informa tion online Indication:Non-smoker Start:01-Jan-2020 Instruction Type:Patient Education How to access health informa tion online - Detail Indication:Non-smoker Start:01-Jan-2020 Instruction Type:Patient Education Patient Instructions Indication:Non-smoker Start:01-Jan-2020 Instruction Type:Provider Instructions for Treatment How to access health informa tion online - Detail Indication:Non-smoker Start:11-Dec-2019 Instruction Type:Patient Education How to access health informa tion online Indication:Non-smoker Start:11-Dec-2019 Instruction Type:Patient Education Patient Instructions Indication:Non-smoker Start:11-Dec-2019 Instruction Type:Provider Instructions for Treatment How to access health informa tion online Indication:Non-smoker Start:03-Dec-2019 Instruction Type:Patient Education How to access health informa tion online - Detail Indication:Non-smoker Start:03-Dec-2019 Instruction Type:Patient Education Patient Instructions Indication:Non-smoker Start:03-Dec-2019 Instruction Type:Provider Instructions for Treatment obesity counseling Indication:Diabetes Start:24-Dec-2017 Instruction Type:Provider Instructions for Treatment cardiovascular counseling Indication:HTN (hypertension), benign Start:24-Dec-2017 Instruction Type:Provider Instructions for Treatment How to access health informa tion online Indication:Non-smoker Start:24-Dec-2017 Instruction Type:Patient Education How to access health informa tion online - Detail Indication:Non-smoker Start:24-Dec-2017 Instruction Type:Patient Education Patient Instructions Indication:Non-smoker Start:24-Dec-2017 Instruction Type:Provider Instructions for Treatment How to access health informa tion online - Detail Indication:Diabetes Start:03-Dec-2017 Instruction Type:Patient Education How to access health informa tion online Indication:Diabetes Start:03-Dec-2017 Instruction Type:Patient Education Patient Instructions Indication:Diabetes Start:03-Dec-2017 Instruction Type:Provider Instructions for Treatment Patient Instructions Indication:Non-smoker Start:18-Nov-2017 Instruction Type:Provider Instructions for Treatment How to access health informa tion online Indication:Non-smoker Start:18-Nov-2017 Instruction Type:Patient Education Name Dates Details How to access health informa tion online - Detail Indication:Non-smoker Start:11-Dec-2019 Instruction Type:Patient Education How to access health informa tion online Indication:Non-smoker Start:11-Dec-2019 Instruction Type:Patient Education Patient Instructions Indication:Non-smoker Start:11-Dec-2019 Instruction Type:Provider Instructions for Treatment How to access health informa tion online Indication:Non-smoker Start:03-Dec-2019 Instruction Type:Patient Education How to access health informa tion online - Detail Indication:Non-smoker Start:03-Dec-2019 Instruction Type:Patient Education Patient Instructions Indication:Non-smoker Start:03-Dec-2019 Instruction Type:Provider Instructions for Treatment obesity counseling Indication:Diabetes Start:24-Dec-2017 Instruction Type:Provider Instructions for Treatment cardiovascular counseling Indication:HTN (hypertension), benign Start:24-Dec-2017 Instruction Type:Provider Instructions for Treatment How to access health informa tion online Indication:Non-smoker Start:24-Dec-2017 Instruction Type:Patient Education How to access health informa tion online - Detail Indication:Non-smoker Start:24-Dec-2017 Instruction Type:Patient Education Patient Instructions Indication:Non-smoker Start:24-Dec-2017 Instruction Type:Provider Instructions for Treatment How to access health informa tion online - Detail Indication:Diabetes Start:03-Dec-2017 Instruction Type:Patient Education How to access health informa tion online Indication:Diabetes Start:03-Dec-2017 Instruction Type:Patient Education Patient Instructions Indication:Diabetes Start:03-Dec-2017 Instruction Type:Provider Instructions for Treatment Patient Instructions Indication:Non-smoker Start:18-Nov-2017 Instruction Type:Provider Instructions for Treatment How to access health informa tion online Indication:Non-smoker Start:18-Nov-2017 Instruction Type:Patient Education Name Dates Details How to access health informa tion online Indication:Non-smoker Start:03-Dec-2019 Instruction Type:Patient Education How to access health informa tion online - Detail Indication:Non-smoker Start:03-Dec-2019 Instruction Type:Patient Education Patient Instructions Indication:Non-smoker Start:03-Dec-2019 Instruction Type:Provider Instructions for Treatment obesity counseling Indication:Diabetes Start:24-Dec-2017 Instruction Type:Provider Instructions for Treatment cardiovascular counseling Indication:HTN (hypertension), benign Start:24-Dec-2017 Instruction Type:Provider Instructions for Treatment How to access health informa tion online Indication:Non-smoker Start:24-Dec-2017 Instruction Type:Patient Education How to access health informa tion online - Detail Indication:Non-smoker Start:24-Dec-2017 Instruction Type:Patient Education Patient Instructions Indication:Non-smoker Start:24-Dec-2017 Instruction Type:Provider Instructions for Treatment How to access health informa tion online - Detail Indication:Diabetes Start:03-Dec-2017 Instruction Type:Patient Education How to access health informa tion online Indication:Diabetes Start:03-Dec-2017 Instruction Type:Patient Education Patient Instructions Indication:Diabetes Start:03-Dec-2017 Instruction Type:Provider Instructions for Treatment Patient Instructions Indication:Non-smoker Start:18-Nov-2017 Instruction Type:Provider Instructions for Treatment How to access health informa tion online Indication:Non-smoker Start:18-Nov-2017 Instruction Type:Patient Education Additional Source Comments INFORMATION SOURCE (unrecogn ized section and content) DATE CREATED AUTHOR AUTHOR'S ORGANIZ ATION 04/04/2020 [employer] DATE CREATED AUTHOR AUTHOR'S ORGANIZ ATION 05/26/2020 [facility] DATE CREATED AUTHOR AUTHOR'S ORGANIZ ATION 09/02/2020 [facility] DATE CREATED AUTHOR AUTHOR'S ORGANIZ ATION 08/03/2021 [facility] DATE CREATED AUTHOR AUTHOR'S ORGANIZ ATION 08/04/2021 [facility] DATE CREATED AUTHOR AUTHOR'S ORGANIZ ATION 03/08/2022 [facility] DATE CREATED AUTHOR AUTHOR'S ORGANIZ ATION 07/18/2022 [facility] <item><item> Privacy Markings (unrecogniz ed section and content) Section Author: Michelle Clifford PROHIBITION ON REDISCLOSURE OF CONFIDENTIAL INFORMATION This notice accompanies a disclosure of information concerning a client made to you with the consent of such client. Section Author: Michelle Clifford PROHIBITION ON REDISCLOSURE OF CONFIDENTIAL INFORMATION This notice accompanies a disclosure of information concerning a client made to you with the consent of such client. Source Comments (unrecognize d section and content) In the event this informatio n is protected by the Federal Confidentiality of Alcohol and Drug Abuse Patient Records regulations: The Federal rules restrict any use of the information to criminally investigate or prosecute any alcohol or drug abuse patient.[facility] Reason for Visit (unrecogniz ed section and content) Care Teams (unrecognized sec tion and content) FOR RECORDS PERTAINING TO PATIENTS WHO ARE OR HAVE BEEN ENROLLED IN A CHEMICAL DEPENDENCY/SUBSTANCEABUSE PROGRAM, SOME INFORMATION MAY BE OMITTED. This clinical summary was aggregated from multiple sources. Caution should be exercised in using it in the provision of clinical care. This summary normalizes information from multiple sources, and as a consequence, information in this document may materially change the coding, format and clinical context of patient data. In addition, data may be omitted in some cases. CLINICAL DECISIONS SHOULD BE BASED ON THE PRIMARY CLINICAL RECORDS. [employer] [facility] provides no warranty or guarantee of the accuracy or completeness of information in this document.
== END | disposition home or self-care (01) ==
LOC: CT 17:35
PROVIDERS: PCP Internal Medicine; Referring Provider Orthopaedic Surgery Sports Medicine; Visit Provider Orthopaedic Surgery Sports Medicine
DX: M24.811 Other specific joint derangements of right shoulder, not elsewhere classified (principal)
CPT/HCPCS: 73200

== ENCOUNTER → 2023-06-24 | Outpatient (CLI) | payer MEDICARE, SELFPAY ==
[2022-03-05 08:35] VITALS: BMI 27.1
--- NOTE | 2023-06-24 09:58 | CDU_ITS ---
Reason For Study: Elevated D-dimer Rt. Velocities/BP Lt. Velocities/BP Prox CCA 92.5/10.2 cm/sec. Prox CCA 56.4/11.6 cm/sec. Mid CCA 67.9/12.6 cm/sec. Mid CCA 60/13.7 cm/sec. Dist CCA 30.5/6.9 cm/sec. Dist CCA 43.6/10.9 cm/sec. Prox ICA 35.1/9.5 cm/sec. Prox ICA 30.9/8.2 cm/sec. Mid ICA 48.6/12.3 cm/sec. Mid ICA 57/16.8 cm/sec. Dist ICA 42.2/12.3 cm/sec. Dist ICA 60.4/16 cm/sec. Rt. ICA/CCA = 0.72. Lt. ICA/CCA = 1.07. Prox ECA 54.1/4.1 cm/sec. Prox ECA 60/3.1 cm/sec. Rt. Vert. 45/6.6 cm/sec. Lt. Vert. 25.6/8.1 cm/sec. Right Extracranial There is heterogeneous, irregular atherosclerotic plaque noted in the right common carotid artery. There is intimal thickening but no significant atherosclerotic plaque noted in the right internal carotid artery. There is intimal thickening but no significant atherosclerotic plaque noted in the right external carotid artery. Antegrade flow is noted in the right vertebral artery. Left Extracranial There is intimal thickening but no significant atherosclerotic plaque noted in the left common carotid artery. There is intimal thickening but no significant atherosclerotic plaque noted in the left internal carotid artery. There is intimal thickening but no significant atherosclerotic plaque noted in the left external carotid artery. Antegrade flow is noted in the left vertebral artery. Procedure Carotid Duplex 11659. This is a Carotid Duplex examination using B-mode, color flow and specral Doppler. Exam performed in department. VL/Carotid Duplex Ultrasound Interpretation Summary No significant atherosclerotic plaque or stenosis noted in the internal carotid arteries bilaterally. Flow within the vertebral arteries is antegrade bilaterally. Ordering Physician: Sandra Narvaez Referring Physician: Melinda Ramirez Performed By: Alyce Anton RVT
== END | disposition home or self-care (01) ==
PROVIDERS: PCP Internal Medicine; Referring Provider Internal Medicine; Visit Provider Internal Medicine
DX: I65.23 Occlusion and stenosis of bilateral carotid arteries (principal)
CPT/HCPCS: 93880

== ENCOUNTER 2023-06-26 07:43 | Day surgery (SDC) | payer MEDICARE, SELFPAY ==
[2022-03-05 08:35] VITALS: BMI 27.1
--- NOTE | 2023-06-13 09:13 | EKG12_ITS ---
Test Reason : PRE-OP Blood Pressure : / mmHG Vent. Rate : 101 BPM Atrial Rate : 101 BPM P-R Int : 154 ms QRS Dur : 108 ms QT Int : 382 ms P-R-T Axes : 000 -35 129 degrees QTc Int : 495 ms Sinus tachycardia with occasional Premature ventricular complexes Left axis deviation ,INCOMPLETE LBBB Inferior infarct , age undetermined ST & T wave abnormality, consider lateral ischemia Abnormal ECG Confirmed by Guevara Saunders ([id number]), editor house organ CRUZ GARNER ([id number]) on 06/14/2023 2:00:32 PM Referred By: Fuentes Mckeon Confirmed By:Guevara Saunders
[2023-06-13 10:22] LABS: Absolute Lymphocyte Count 1.22 X10^3/uL (0.83-4.51); Absolute Neutrophil Count 4.7 X10^3/uL (2.0-7.7); Basophil# 0.05 X10^3/uL; Basophil% 0.8 % (0-1); Eosinophil# 0.02 X10^3/uL; Eosinophils% 0.3 % (0-5); Hemoglobin 14.1 g/dL (12.0-15.0); Lymphocyte # 1.22 X10^3/ul (0.83-4.51); Mean Corp Hgb Conc 32.8 g/dL (32-36); Mean Corpuscular Hgb 31.7 pg (27.0-32.0); Mean Corpuscular Volume 96.6 fL (81-99); Mean Platelet Vol. 11.1 fl (6.2-12.0); Monocyte# 0.41 X10^3/uL; Monocyte% 6.4 % (0-10); NRBC Flagged by Analyzer 0 % (0-5); Neutrophil # 4.68 X10^3/uL (2.7-7.7); Neutrophil % 72.9 % (47-70); Platelet Count 226 K/mm3 (150-450); RBC Distribution Width CV 12.9 % (11.6-14.6); RBC Distribution Width SD 45.5 fl (35.1-43.9); Red Blood Count 4.45 M/mm3 (4.2-5.4); White Blood Count 6.4 K/mm3 (4.4-11.0)
[2023-06-13 10:45] LABS: Prothrombin Time (Protime)PT. 12.7 SECONDS (11.7-14.9)
[2023-06-13 11:41] LABS: Anion Gap 14 (5-15); BUN 33 mg/dL (7-18); Calcium,Total 10.1 mg/dL (8.5-10.1); Chloride 104 mmol/L (98-107); EST Glomerular Filtration Rate 35 mL/min (>60); Est Glom Filt Rate - Afr Amer 43 mL/min (>60); Glucose 136 mg/dL (74-106); Potassium 3.9 mmol/L (3.5-5.1); Sodium Level 140 mmol/L (136-145)
[2023-06-13 12:02] LABS: Magnesium 2.1 mg/dL (1.6-2.6); Thyroid Stim Hormone (TSH) 2.28 uIU/mL (0.358-3.74)
[2023-06-13 14:21] LABS: Hemoglobin A1c 6.6 % (3.8-5.6)
[2023-06-14 04:07] LABS: Fructosamine 261 umol/L (0-285)
[2023-06-26] VITALS (9 sets, daily range): BP systolic 99–131; BP diastolic 60–82; PULSE 66–101; RESP 16–20; TEMP 36.1–36.2; O2SAT 94–98; BMI 28.7
--- NOTE | 2023-06-26 | SHO_PTH ---
PATIENT: MOLLY BOURGEOIS LOC: [facility] [place] U#:[id number] AGE/SX: 82/F ROOM: RE06/26/[address]: Dr. Fuentes Mckeon MD : [id number] BED: DIS: 06/26/2023 SPEC #: [id number] RECD: 06/26/23 13:13 STATUS: SETH ALLYSSA #: [id number] MAGNOLIA: 06/26/23 00:[address]: Fuentes Mckeon DEPT: SURGICAL PATHOLOGY RECD BY: Cooper Min ENTERED: 06/26/23 13:14 SP TYPE: HUMERUS OTHR DR: Dr. Sandra Narvaez DO Tissues: Humerus, NOS Procedures: Decalcification bone/plaque Surgery Specimen Level IV HEADER OPERATION: Right reverse total shoulder replacement PRE-OP DIAGNOSIS: Primary osteoarthritis, right shoulder TISSUE SUBMITTED: Bone and soft tissue right shoulder MICROSCOPIC DIAGNOSIS Bone and tissue right shoulder, total shoulder replacement/resection: Humeral head with degenerative osteoarthritic changes. SJ/mr 4/1/24 MICROSCOPIC DESCRIPTION Slides are reviewed. GROSS DESCRIPTION Received is one container labeled with the patient's name and designated bone and soft tissue right shoulder. The specimen consists of a humeral head measuring 5.5 x 5.5 x 2.0 cm. The articular surface shows areas of erosion, eburnation and osteophyte formation. No soft tissue is identified. Orthotic/Prosthetic Practitioner sections are submitted in one cassette after decalcification YAMILE: 06/26/23 TC:5 CPT: 14633, 99972
[2023-06-26] MEDS: Lactated Ringers 1,000 ML 15 ML IV (08:27)
[2023-06-26] MEDS: Acetaminophen 500 MG Tablet 1000 MG PO (08:27)
[2023-06-26] MEDS: Magnesium 1 GM over 15 mins IV (08:27)
[2023-06-26] MEDS: Gabapentin 600 MG Tablet PO (08:28)
[2023-06-26] MEDS: Insulin Lispro 100 UNIT/ML INSULN.PEN SC (08:52)
--- NOTE | 2023-06-26 08:54 | HP.PCM_ITS ---
HPI - General HPI Narrative MOLLY BOURGEOIS, is a 82 F who presents for right reverse total shoulder arthroplasty. no changes to H and P. OK to proceed. shoulder marked. RAB and post op instructions, narcotic counselling. MR#: [id number] Acct: [id number] Name: MOLLY BOURGEOIS Rep #: [id number] : 1940 Provider: Dr. Fuentes Mckeon MD Age/Sex: 82/F [place] [facility] [place] Status: Signed Intake Vital Signs 04/08/2408:49 Height 5 ft 6 in Weight: 180 lb 6 oz BMI 29.1 Intake Visit Reasons: RIGHT SHOULDER Chief Complaint: right shoulder pain s/p fall Accompanied by: Daughter Is patient in pain?: Yes Allergies No Known Allergies Allergy (Verified 05/21/23 08:47) Medications allopurinol 100 mg tablet 100 mg PO DAILY gout 02/06/18 [History Confirmed 05/21/23] aspirin 81 mg tablet,delayed release 81 mg PO DAILY@0800 BLOOD THINNER 12/05/21 [History Confirmed 05/21/23] bethanechol chloride 10 mg tablet 20 mg PO DAILY BLADDER 12/05/21 [History Confirmed 05/21/23] clopidogrel 75 mg tablet 75 mg PO DAILY BLOOD THINNER. 12/05/21 [History Confirmed 05/21/23] cyanocobalamin (vitamin B-12) 2,500 mcg tablet 2,500 mcg PO QHS SUPPLEMENT 12/05/21 [History Confirmed 05/21/23] levothyroxine 75 mcg tablet (Euthyrox) 75 mcg PO DAILY THYROID 12/05/21 [History Confirmed 05/21/23] metoprolol tartrate 25 mg tablet 25 mg PO BID HEART 12/05/21 [History Confirmed 05/21/23] pravastatin 40 mg tablet 80 mg PO QHS CHOLESTEROL 12/05/21 [History Confirmed 05/21/23] semaglutide 1 mg/dose (4 mg/3 mL) subcutaneous pen injector (Ozempic) 2 mg subcut TU DM 12/05/21 [History Confirmed 05/21/23] cholecalciferol (vitamin D3) 50 mcg (2,000 unit) capsule 50 mcg PO BID SUPPLEMENT 01/08/23 [History Confirmed 05/21/23] dapagliflozin propanediol 5 mg tablet (Farxiga) 5 mg PO DAILY 01/08/23 [History Confirmed 05/21/23] losartan 100 mg tablet 100 mg PO DAILY 01/08/23 [History Confirmed 05/21/23] amlodipine 2.5 mg tablet (Norvasc) 2.5 mg PO DAILY #90 tabs 02/15/23 [Rx Confirmed 05/21/23] FORMERLY [facility], [facility] Medical History Atherosclerosis of coronary artery without angina pectoris Chronic indwelling Costa catheter Essential hypertension Gout History of gout History of TIA (transient ischemic attack) (04/2020) History of type 2 diabetes mellitus Hypothyroidism Left breast lump Mastalgia in female Non-smoker Primary osteoarthritis, right shoulder Surgical History History of coronary artery stent placement (11/14/21) History of eye surgery History of thyroid surgery History of tonsillectomy History of tubal ligation Family History Mother DiabetesFather Heart diseaseBrother Heart disease Social History household members: other details: Petra Lizarraga, Vahid Lizarraga Sr., Vahid Lizarraga Jr. housing: house Smoking Status: Never smoker alcohol intake: never substance use type: does not use what type of physical activity do you participate in: none do you feel safe at home: Yes HPI RIGHT SHOULDER Details: This documentation accurately reflects the service provided and the decisions made by me, Dr. Fuentes Mckeon MD 05/21/23 0845. Part of today?s visit was documented by [ ], acting as scribe. MOLYL BOURGEOIS is a 82 year old F here today for FU R shoulder CT for surgical planning for rtsa. Ortho Exam General General: Yes no acute distress Neurologic: Yes alert and Yes oriented x3 Psychologic: Yes reasonable and appropriate Right Shoulder Skin/Wound: Yes CDI, No ecchymosis, No erythema and No swelling Testing: Positive Hawkin's, Neer's, empty can and belly press normal; Negative Speed's, TTP Biceps, TTP AC Joint, Drop Arm, cross arm or scapular winging SHOULDER: normal motor and sens to ax nerve, and MRU and AIN/PIN fe 100, er 45. strength fe 4+, er 5/5. + crepitus, pain with full FE. Supplemental Info [facility] Imaging Services [address] [place] [address] Extremity Upper without Contra MR#: [id number] Acct: [id number] Name: MOLLY BOURGEOIS Rep #: [id number] : 1940 F 82 From: Ej Ortiz MD PCP: Dr. Sandra Narvaez, DO Status: REG CLI Study: Extremity Upper without Contra Date of Exam: 04/22/23 Exam# [id number] Ordering Dr: Fuentes Mckeon MD STUDY: CT RIGHT SHOULDER REASON FOR EXAM: Female, [address] scan right shoulder for surgical planning. RADIATION DOSAGE (If Supplied By Facility): CTDIvol = ( 22.13 ) mGy, DLP = ( 550.21 ) mGycm TECHNIQUE: The patient was scanned in a multi detector CT scanner. High resolution transaxial imaging was performed without the administration of intravenous contrast material. Sagittal and coronal images were reconstructed. Individualized dose optimization techniques were used for this CT. COMPARISON: Right shoulder radiographs dated 04/03/2023. FINDINGS: There is severe glenohumeral arthrosis with joint space narrowing, marginal osteophyte formation, and subchondral sclerosis/cyst formation. There is a 9 mm calcified loose body in the subscapularis recess (axial series 2 image 59; sagittal reformat series 602 images 42-44). There is a 3 mm calcified loose body at the anterior margin of the glenohumeral joint (axial series 2 image 56; coronal reformat series 601 image 18). Intact glenoid rim, neck and visualized scapula. Intact humeral head, neck and tuberosities. There is no demonstrated acute fracture. Normal coracoid process. Normal visualized lateral clavicle. There is mild acromioclavicular arthrosis. There is a Type II morphology (curved), with a neutral orientation. Normal visualized muscles and soft tissue structures. CT/Extremity Upper without Contra IMPRESSION: Severe glenohumeral arthrosis, as detailed above. Small subcentimeter calcified loose bodies in the subscapularis recess and anterior margin of the glenohumeral joint. Mild acromioclavicular arthrosis. Electronically Signed: Ej Ortiz MD at 11:39 EST , Coding Level of Care Code Off vis,est,level 5 Diagnoses Primary osteoarthritis, right shoulder M19.011 Assessment and Plan Assessment and Plan (1) Primary osteoarthritis, right shoulder: Status: Acute Plan: MOLLY BOURGEOIS is a 82 year old F here today for FU R shoulder CT for surgical planning for rtsa. We discussed the pros and cons risk and benefits of continued nonoperative management compared to surgical treatment in the form of a reverse total shoulder arthroplasty. Patient at increased risk d/t hx of nstemi, stent, htn and other medical hx. patient does use a cane but they are able to rise independently out of the chair. That can be a relative contraindication to doing the operation. I explained some additional risks like an infection would be a bad complication instability fracture or other risks patient wants to go ahead. They are on Plavix for stent likely will have to come off that for a few days before I will try to get a clearance from the ruby on rails software developer and/or the family doctor as well. Pros and cons risks and benefits were discussed with the patient including but not limited to infection, pain, stiffness, bleeding, damage to surrounding structures, neurovascular injury, recurrence or retear, failure or wear of hardware or fixation, instability, fracture, deep vein thrombosis and pulmonary embolism, anesthetic risks, , patient dissatisfaction, need for further surgery and other risks. Patient understood and wished to proceed with surgery, and signed the informed consent documentation. FORMERLY [facility], [facility] Medical History (Updated 06/12/23 @ 09:24 by Blanca Frances) Ambulates with cane Atherosclerosis of coronary artery without angina pectoris Cardiology follow-up encounter Chronic indwelling Costa catheter Diabetes Essential hypertension Gout High cholesterol History of echocardiogram History of gout History of stress test History of TIA (transient ischemic attack) (04/2020) History of type 2 diabetes mellitus Hypothyroidism Left breast lump Mastalgia in female Non-smoker Primary osteoarthritis, right shoulder Stroke/cerebrovascular accident Thyroid disease Wears dentures Wears glasses Home Medications allopurinol 100 mg tablet 100 mg PO DAILY gout 02/06/18 [History Last Taken 12/05/21] aspirin 81 mg tablet,delayed release 81 mg PO DAILY@0800 BLOOD THINNER 12/05/21 [History Last Taken 12/05/21] bethanechol chloride 10 mg tablet 20 mg PO DAILY BLADDER 12/05/21 [History Last Taken 12/05/21] levothyroxine 75 mcg tablet (Euthyrox) 75 mcg PO DAILY THYROID 12/05/21 [History Last Taken 12/05/21] metoprolol tartrate 25 mg tablet 25 mg PO BID HEART 12/05/21 [History Last Taken 06/25/23 21:00] pravastatin 40 mg tablet 80 mg PO QHS CHOLESTEROL 12/05/21 [History Last Taken 12/04/21] semaglutide 1 mg/dose (4 mg/3 mL) subcutaneous pen injector (Ozempic) 2 mg subcut TU DM 12/05/21 [History Last Taken 12/05/21] cholecalciferol (vitamin D3) 50 mcg (2,000 unit) capsule 50 mcg PO BID SUPPLEMENT 01/08/23 [History Last Taken Unknown] dapagliflozin propanediol 5 mg tablet (Farxiga) 5 mg PO DAILY 01/08/23 [History Last Taken Unknown] losartan 100 mg tablet 100 mg PO DAILY 01/08/23 [History Last Taken Unknown] amlodipine 2.5 mg tablet (Norvasc) 2.5 mg PO DAILY #90 tabs 02/15/23 [Rx Last Taken Unknown] glimepiride 1 mg tablet 0.5 mg PO DAILY 06/12/23 [History Last Taken Unknown] Allergy/AdvReac Type Severity Reaction Status Date / Time No Known Allergies Allergy Verified 06/26/23 08:09 Family History Mother Diabetes Father Heart disease Brother Heart disease Surgical History (Updated 06/12/23 @ 09:24 by Blanca Frances) History of cardiac catheterization History of colonoscopy History of coronary artery stent placement (11/14/21) History of eye surgery History of thyroid surgery History of tonsillectomy History of tubal ligation Social History household members: other details: Petra Lizarraga, Vahid Lizarraga Sr., Vahid Lizarraga Jr. housing: house Smoking Status: Never smoker alcohol intake: never substance use type: does not use what type of physical activity do you participate in: none do you feel safe at home: Yes Vital Signs Vital Signs Vital Signs: 06/26/23 08:12 06/26/23 08:12 Temperature 97 F L Temperature Source Temporal Pulse Rate 101 H Respiratory Rate 16 Respiratory Pattern Normal Blood Pressure 128/77 H Blood Pressure Mean 94 Blood Pressure Source Monitor Blood Pressure Position Semi-Fowlers Blood Pressure Location Left Arm Pulse Ox 98 Oxygen Delivery Method Room Air Weight Weight: 178 lb Body Mass Index (BMI) 28.7 Results Lab / Micro Data 06/13/23 09:36 06/13/23 09:36
[2023-06-26 09:37] LABS: Bedside Glucose 327 mg/dL (74-106)
[2023-06-26] MEDS: Cefazolin 2 GM in 0.9% Normal Saline (100mL Bag) 100 ML IV (09:50)
[2023-06-26] MEDS: TXA 1000mg in NS100 100ml (IVPB at Incision) 660 MG IV (10:05)
[2023-06-26] MEDS: dexAMETHasone 10 MG/ML Vial IV (10:05)
--- NOTE | 2023-06-26 11:42 | RAD_ITS ---
STUDY: X-RAY - RIGHT SHOULDER REASON FOR EXAM: Female, 82 years old. RIGHT REVERSE TOTAL SHOULDER REPLACEMENT TECHNIQUE: 4 view(s) of the shoulder. COMPARISON: Comparison is made with prior study dated April 03, 2023. FINDINGS: The patient is status post reverse shoulder replacement. There is good alignment. RAD/Shoulder min 2 Views IMPRESSION: Status post reverse shoulder replacement. There is good alignment. Electronically Signed: Jairo Cortes MD at 12:36 EDT ,
--- NOTE | 2023-06-26 12:21 | OP.PCM_ITS ---
Problems Associated Problem List Diagnoses (1) Primary osteoarthritis, right shoulder: Report of Operation Date of Procedure: 06/26/23 Pre-Operative Diagnosis: R shoulder osteoarthritis Post-Operative Diagnosis: same Surgery/Procedure Performed:: Right reverse total shoulder arthroplasty Surgeon: Fuentes Mckeon Type of Anesthesia: Block,Regional and General Anesthesiologist: Uriel Stuart Estimated Blood Loss (mL): 100 Description of Procedure: Patient brought to the operating room theater. Placed supine on the beachchair. General anesthesia induced. 2 g IV Ancef administered. 1 g IV tranexamic acid given to the patient for the case as well. All bony prominences padded. SCDs on the leg. Arm naylor used to the patient's right side. Patient sat up at 45 degree angle. Upper extremity prepped and draped using chlorhexidine-based prep solution allowing over 3 minutes drying time prior to draping. Preoperative timeout performed to confirm the site the patient and the surgery. Began by making a standard deltopectoral incision just lateral to the coracoid process. Carried the dissection down through skin and subcutaneous tissue achieved meticulous hemostasis. Cephalic vein and the deltoid was retracted laterally and the pectoralis major muscle retracted medially. I used a Warren shoulder retractor. I incised on the lateral aspect of the conjoined tendon retracted this medially. Identified the biceps. I followed the biceps through the rotator interval. I slightly released the upper border the pectoralis major tendon. I did a biceps tenodesis using #2 FiberWire for the upper border pectoralis major tendon. I then did a lesser tuberosity osteotomy, thin flake of bone. I protected the axillary nerve with direct palpation. I freed up any adhesions between the subscapularis and the capsule. I placed #2 FiberWire stay sutures in the Ssc. I then made my neck cut using the extramedullary guide, 30 degrees retro. I then remove the rest of the long head of the biceps as well as the labrum and release a small amount of tissue at the inferior aspect of the glenoid slightly released the triceps tendon. I dissected all around and released sharply using the Garcia and electrocautery around the metaphysis of the humerus the capsule. I then visualized the glenoid. I used my templating that I did preoperatively using CT planning and the 3d printed guide, to place the guidepin using the guide, intra op measurements using the 3d planning software. I then used the backside reamer with 15 degrees posterior angle, for a Tornier perform small size baseplate. 2mm reaming per template. Good backside seating, over 95%. I then used the center drill bit followed by the small drill in the center of this to size a 36mm central screw. The baseplate and central screw was assembled on the back table and then screwed into place with the 15 degree augment tax expert iorly near 10 oclock position per templating. I drilled and placed the superior and inferior locking screws, and posterior non locking compression screw as well placed that first. These achieved very good purchase and fixation therefore I did not place the anterior screw. Baseplate was cleaned with pulse lavage followed by impacting the 36 mm glenosphere. Next I turned attention the humeral side. I broached up to a size 3 trial with standard size poly. The reduction was good stable slight impingement in full FE, otherwise no impingement with full range of motion therefore I selected those as the final component. I did take intraoperative radiographs of both the trials and the final component placement. I selected was finally a Tornier perform humeral stem size 3 with +0 mm polyethylene impacted into place. I also put small drill holes just lateral to the biceps groove passed the sutures for the subscapularis lesser tuberosity osteotomy through this and secured this into place in slight internal rotation. Final checks were done with full range of motion no impingement no instability normal shuck test and good tension at the conjoined tendon. SS tendon was completely torn and retracted. Wound thoroughly irrigated followed by closure and subcutaneous tissue with 2-0 Vicryl and skin with 3-0 Monocryl. Skin cleaned with wet dry dressing followed application of Steri-Strips and silver Mepilex dressing with an abduction pillow sling for the upper extremity. Patient woken up from a general anesthetic transferred off the operating table taken postanesthetic care unit in stable condition. All sponge needle instrument counts were correct and complications. Plan for the patient is to be discharged home today hopefully as long as they are comfortable. cpt 13040, 41698? Complications none Admit VTE Documentation VTE Present on Admission: No VTE Mechan Device Prophylaxis: SCD's VTE Pharm Prophylaxis ordered?: No Reason prophylaxis not ordered:: Treatment Not Indicated Procedures Musculoskeletal 20xxx-29xxx: Other Procedure See Report
--- NOTE | 2023-06-26 12:32 | DCINST_ITS ---
Discharge Instructions Diet Discharge Diet: No restrictions Activity Ice area for (Minutes): 10 Lifting Restrictions: no lifting Additional Activity Instructions:: pendulums only 4x/day, sleep in sling Dressing / Incision Call your doctor if your incision/area has: Continuous Slow Oozing, Sudden Increased Bleeding, Increased Pain/ Swelling, Increased Redness, Foul Smelling Discharge and Swelling at the incision site Change Dressing in: leave in place till F/U Follow Up Care Please Follow Up With: Fuentes Mckeon MD When: 2 days Test Results: Test results from this visit will be discussed in further detail at your follow- up appointment, if applicable. Discharge Plan Admission Attending Provider: Fuentes Mckeon Primary Care Provider: Sandra Narvaez Discharge Orders/Prescriptions Prescriptions: New oxycodone-acetaminophen [Endocet] 5-325 mg tablet 1 tab PO Q4H MDD 6 PRN (Reason: pain) 5 Days Qty: 20 0RF No Action allopurinol 100 mg tablet 100 mg PO DAILY losartan 100 mg tablet 100 mg PO DAILY Farxiga 5 mg tablet 5 mg PO DAILY pravastatin 40 mg tablet 80 mg PO QHS Patient Comments: TAKE 2 TABLETS BY MOUTH EVERY DAY AT BEDTIME bethanechol chloride 10 mg tablet 20 mg PO DAILY levothyroxine [Euthyrox] 75 mcg tablet 75 mcg PO DAILY Patient Comments: TAKE 1 TABLET BY MOUTH ONCE DAILY Ozempic 1 mg/dose (4 mg/3 mL) pen injector 2 mg SUBCUT TU aspirin 81 mg tablet,delayed release (DR/EC) 81 mg PO DAILY@0800 metoprolol tartrate 25 mg tablet 25 mg PO BID cholecalciferol (vitamin D3) 50 mcg (2,000 unit) capsule 50 mcg PO BID glimepiride 1 mg tablet 0.5 mg PO DAILY amlodipine [Norvasc] 2.5 mg tablet 2.5 mg PO DAILY Qty: 90 3RF Other Ambulatory Orders: 12 Lead EKG (Routine) Timeframe: [id number] Location: None Selected Ordered By: Fuentes Mckeon Referrals / Follow Up: Sandra Narvaez DO [Primary Care Provider] - Fuentes Mckeon MD [Med Staff - Active Staff] - Disposition Disposition (needs filled in before D/C Order can be placed): Home, Self Care
--- NOTE | 2023-06-26 13:00 | SUR.PHASEI ---
BGL 82
[2023-06-26 13:26] LABS: Bedside Glucose 82 mg/dL (74-106)
== END 2023-06-26 15:50 | disposition home or self-care (01) ==
LOC: SDC 07:44 → AC 07:45
PROVIDERS: Anesthesiology; PCP Internal Medicine; Referring Provider Orthopaedic Surgery Sports Medicine; Visit Provider Orthopaedic Surgery Sports Medicine
PROC: (CPT 23472; principal; 2023-06-26 09:35)
DX: M19.011 Primary osteoarthritis, right shoulder (principal); E11.9 Type 2 diabetes mellitus without complications; I25.10 Atherosclerotic heart disease of native coronary artery without angina pectoris; I10 Essential (primary) hypertension; M10.9 Gout, unspecified; E78.00 Pure hypercholesterolemia, unspecified; E03.9 Hypothyroidism, unspecified; Z79.84 Long term (current) use of oral hypoglycemic drugs; Z79.82 Long term (current) use of aspirin; Z79.85 Long-term (current) use of injectable non-insulin antidiabetic drugs; Z79.02 Long term (current) use of antithrombotics/antiplatelets; Z79.890 Hormone replacement therapy; Z79.899 Other long term (current) drug therapy; Z86.73 Personal history of transient ischemic attack (TIA), and cerebral infarction without residual deficits
CPT/HCPCS: 23472; 01638; 64415; 36415; 73030; 76000; 80048; 82962; 82985; 83036; 83735; 84443; 85025; 85610; 85730; 86850; 86900; 86901; 87081; 88305; 88311; 93005; C1776; J7120; J2405; J3475

== ENCOUNTER 2023-08-28 09:30 | Outpatient (RCR) | payer MEDICARE, SELFPAY ==
[2022-03-05 08:35] VITALS: BMI 27.1
--- NOTE | 2023-07-12 10:21 | HP.PTEVAL_ITS ---
Patient's Visit Information Visit Information Visit Information: MOLLY BOURGEOIS is a 82 year old F referred to Physical Therapy by Dr. Fuentes Mckeon MD with a diagnosis of R shoulder OA, s/p reverse TSA 06/25. Date of Evaluation: 07/12/23 Physical Therapist: Duy Bedoya, DPT, OCS, CSCS Visit Plan Frequency: 1-2x /Week Duration: 2 Months Plan: 1-2x/week x 4-8 weeks in sling at night until 07/25, can be out of sling now. ROM until 08/06 then strength start with AA, PROM, scar massage adn progression of home ROM program.scapular ROM Subjective Subjective: R shoulder pain. Hurt for long time due to OA.It got worse 2-3 weeks ago and operated adn put in a new shoulder R reverse TSA 2 weeks ago on 06/25. Not sleeping well. Tries recliner adn propped up and now can take the sling off but not lifting arm. HEP: gentle lifting in sitting and pendulum. Pain up to 9 and down to 1/10 at times for no obvious reason. In sling for two more weeks. Needs to sleep in it. Arm stays in sling and at side for the most part. Not employed , retired. Spends day sitting around, no regular exercise. Hobbies: crocheting avoids now. Basic ADLS: dresses with help of dtr pulling pants up and shirt. Bathroom I. R handed. Pain R shoulder: Pain Intensity (Out of 10): 0 Pain Intensity Range: 0 and 9 Objective Objective: Dons and doffs sling I. Posture is forward head and elevated R scap with protracted scap B, coat donned and doffed I. Incisions; look good, dry and no excessive redness heat or swelling.R. Elbow, wrist aROM WFL B without pain. Scapular ROM limited in retraction and depression R vs L due to comfort. AAROM shoulder R 100 flexion, 30 er, PROM 102 flexion and 37 er all limited by discomfort today. reflexes 2/3 bi and tri sensation UE WNL to gross light touch B. strength not tested today due to proximity to surgery i R UE. L shoulder strength 4- throughout and AROM WFL at 150 flexion 45 er, L4 IR. Balance/Special Test Scores Quick DASH Score: 70.4525 Goals Goal 1:: sleep without waking Goal Time Frame: 2-4 Weeks Goal 2:: AAROM to 145 flexion and 45 er without pain or hesitation Goal Time Frame: 2-4 Weeks Goal 3:: LT: funcitonal AROM of 150 flexion, 45 er and L5 IR on R without pain Goal Time Frame: 4-6 Weeks Goal 4:: qucikdash score 17 or less Goal Time Frame: 6-8 Weeks Goal 5:: Patient able to gt dressed adn do basic ADLS without help of sister Goal Time Frame: 6-8 Weeks Goal 6:: I appropriate HEP to manage situation Goal Time Frame: 6-8 Weeks Rehabilitation Potential Physical Therapy Diagnosis: stiffness and weakness R shoulder limiting function Rehabilitation Potential: Good Anticipated Interventions Patient/Client Instruction: Educate patient on: Condition and Plan of Care For the Purpose of:: To decrease pain, To increase ROM, To improve nutrient delivery to tissue, To improve muscle performance and motor function and To i ncrease tolerance to activity/condition/position Therapeutic Exercise to Include: Strength training, Flexibilty training, Passive ROM and Active ROM For the Purpose of:: To decrease pain, To increase ROM, To improve nutrient delivery to tissue, To improve muscle performance and motor function, To increase tolerance to activity/condition/position, To improve ability of physical actions for home/community/work/leisure and To improve gait and locomotor functions Manual Therapy Techniques to Include: Scar massage, Passive ROM and Soft tissue mobilization For the Purpose of:: To decrease pain, To increase ROM, To improve nutrient delivery to tissue, To improve muscle performance and motor function and To improve ability to perform ADL's Cryotherapy (ice pack, ice massage): Yes For the Purpose of:: To decrease swelling/inflammation Text: Thank you for the opportunity to evaluate your patient. For Medicare and Medicare HMO plans, please review the plan of care and approve it. It will need to be FAXED BACK to us at [phone] for Medicare purposes. For Medicare only, by signing this I certify the plan of care. Please let me know if there are questions or concerns regarding this plan of care. Physician Signature: Date:
--- NOTE | 2023-08-28 10:00 | HP.PTDCSUM ---
Discharge Summary D/C summary: It has been my pleasure to treat MOLLY BOURGEOIS referred by Dr. Fuentes Mckeon MD, with the diagnosis of R shoulder OA, s/p reverse TSA 06/25 for a total of 11 visit(s). Discharge Date: 08/28/23 Please see the following information for a summary of their discharge status. Subjective Subjective: Neck hurts but shoulder not bad . Doing exercises at home well. Activities at home going well. Doing 1x10 1x/day Pain R shoulder: Pain Intensity (Out of 10): 0 Overall Improvement % Improvement: 75 Objective Objective/Function: 120 flexion, hand behind head without an issue, hand behind back to PSIS with some slight discomfort . 135 PROM flexion and 45 AROM er. Strength shoulders 4- flexion R and 4 L. abduction similar, er 4- R and 4 L, IR 4 B. Movement is funcitonal and pt ready to be done with PT. Goals Goal 1:: sleep without waking Goal Progress: Goal Met Goal 2:: AAROM to 145 flexion and 45 er without pain or hesitation Goal Progress: 135 PROM and 45 er Goal 3:: LT: funcitonal AROM of 150 flexion, 45 er and L5 IR on R without pain Goal Progress: Progressing Goal 4:: qucikdash score 17 or less Goal Progress: Progressing Goal 5:: Patient able to gt dressed adn do basic ADLS without help of sister Goal Progress: Goal Met Goal 6:: I appropriate HEP to manage situation Goal Progress: Goal Met Plan Plan: d/c D/C Information d/c sentence: If there are questions or concerns regarding this patient's physical therapy, please feel free to call me at [phone]. Thank you for the referral of this patient. Sincerely, Duy Bedoya, DPT, OCS, CSCS Balance/Gait/Functional tests Balance/Special Test Scores Quick DASH Score: 25.0000 Improvement % Improvement: 75
== END 2023-08-28 19:00 | disposition home or self-care (01) ==
LOC: PT 09:30
PROVIDERS: PCP Internal Medicine; Referring Provider Orthopaedic Surgery Sports Medicine; Visit Provider Orthopaedic Surgery Sports Medicine
DX: M19.011 Primary osteoarthritis, right shoulder (principal)
CPT/HCPCS: 97110; 97140; 97161; 97164; 97530

== ENCOUNTER 2023-10-08 18:32 | Emergency (ER) | payer MEDICARE, SELFPAY ==
[2022-03-05 08:35] VITALS: BMI 27.1
[2023-10-08 18:32] VITALS: BP 141/83; PULSE 90; RESP 16; TEMP 36.3; O2SAT 97; BMI 28.2
--- NOTE | 2023-10-08 19:04 | EKG12_ITS ---
Test Reason : DYSRHYTHMIA Blood Pressure : / mmHG Vent. Rate : 078 BPM Atrial Rate : 078 BPM P-R Int : 200 ms QRS Dur : 120 ms QT Int : 416 ms P-R-T Axes : 016 -42 147 degrees QTc Int : 474 ms Normal sinus rhythm Left axis deviation Septal infarct , age undetermined ST & T wave abnormality, consider lateral ischemia Abnormal ECG Confirmed by Guevara Saunders ([id number]), desk editor FABIAN GOEL ([id number]) on 10/09/2023 9:51:20 AM Referred By: GIRISH Confirmed By:Guevara Saunders
--- NOTE | 2023-10-08 19:05 | ED.VIS.BACK ---
HPI History of Present Illness Chief Complaint: Back Detail of Chief Complaint: Upper back and shoulder pain with tingling in both hands since around 3:00 Informant: patient and family Onset/Context/Timing Onset: Today and Hours Context: Gradual Onset Timing: Continuous Current Severity: Mild Maximum Severity: Mild Worsened by: improves with Nothing Relieved by: Nothing Associated Symptoms Associated Symptoms: Tingling Narrative Narrative: 83-year-old female history of CAD, WA, diabetes and TIA. Also history of cervical degenerative disc disease. States around 3:00 she developed upper back and shoulder pain with tingling in both hands. No weakness. No chest pain or shortness of breath. No recent exertional dyspnea. The reason why they are here is she is concerned because she had a non-ST elevation WA in 2021 with somewhat similar symptoms. She also has known degenerative disc disease in her neck. Prior similar symptoms: Yes Recent Illness/Hospitalization: No [facility] Medical History Wears glasses Wears dentures Thyroid disease Diabetes Ambulates with cane High cholesterol Stroke/cerebrovascular accident History of stress test History of echocardiogram Cardiology follow-up encounter Primary osteoarthritis, right shoulder Hypothyroidism Essential hypertension Atherosclerosis of coronary artery without angina pectoris Chronic indwelling Costa catheter Non-smoker History of gout History of TIA (transient ischemic attack) (04/2020) History of type 2 diabetes mellitus Mastalgia in female Gout Left breast lump Home Medications ?Medication ?Instructions ?Recorded ?Last Taken ?Type allopurinol 100 mg tablet 100 mg PO DAILY gout 02/06/18 12/05/21 History aspirin 81 mg tablet,delayed 81 mg PO DAILY@0800 BLOOD THINNER 12/05/21 12/05/21 History release bethanechol chloride 10 mg tablet 10 mg PO BID BLADDER 12/05/21 12/05/21 History levothyroxine 75 mcg tablet 75 mcg PO DAILY THYROID 12/05/21 12/05/21 History (Euthyrox) metoprolol tartrate 25 mg tablet 25 mg PO BID HEART 12/05/21 06/25/23 21:00 History pravastatin 40 mg tablet 80 mg PO QHS CHOLESTEROL 12/05/21 12/04/21 History semaglutide 1 mg/dose (4 mg/3 mL) 2 mg subcut TU DM 12/05/21 12/05/21 History subcutaneous pen injector (Ozempic) dapagliflozin propanediol 5 mg 5 mg PO DAILY 01/08/23 Unknown History tablet (Farxiga) losartan 100 mg tablet 100 mg PO DAILY 01/08/23 Unknown History amlodipine 2.5 mg tablet (Norvasc) 2.5 mg PO DAILY #90 tabs 02/15/23 Unknown Rx glimepiride 1 mg tablet 0.5 mg PO DAILY 06/12/23 Unknown History Allergy/AdvReac Type Severity Reaction Status Date / Time No Known Allergies Allergy Verified 10/08/23 18:51 Family History Mother Diabetes Father Heart disease Brother Heart disease Surgical History History of cardiac catheterization History of colonoscopy History of eye surgery History of coronary artery stent placement (11/14/21) History of tubal ligation History of thyroid surgery History of tonsillectomy Social History household members: other details: Petra Lizarraga, Vahid Lizarraga Sr., Vahid Lizarraga Jr. housing: house Smoking Status: Never smoker alcohol intake: never substance use type: does not use what type of physical activity do you participate in: none do you feel safe at home: Yes ROS ROS ED ROS Narrative Denies any recent chest pain or shortness of breath. Review of Systems ROS Unobtainable: Denies due to encephalopathy Constitutional Constitutional ED: Denies chills or fever(s) Eyes Eyes: Denies blurry vision ENT ENT ED: Denies ear pain Cardiovascular Cardiovascular: Denies chest pain Respiratory/Chest Respiratory/Chest: Denies dyspnea Gastrointestinal Gastrointestinal: Denies abdominal pain Genitourinary Genitourinary ED: Denies dysuria or hematuria Musculoskeletal Musculoskeletal: Reports back pain and neck pain; Denies arthralgias Integumentary Denies abscess or Abrasions Neurologic Neurologic: Denies headache(s) or paresthesias Psychiatric Psychiatric: Denies anxiety or depression Endocrine Endocrinology: Denies cold intolerance Hematologic/Lymphatic Hematologic/Lymphatic: Denies easy bleeding or easy bruising Allergic/Immunologic Allergic/Immunologic ED: Denies mouth swelling, tongue swelling or urticaria EXAM Physical Exam Narrative Exam Narrative: Well-appearing 83-year-old female. Vital signs stable afebrile. H EENT exam unremarkable. Neck nontender. Lungs clear. Heart regular rhythm no murmur. Chest wall nontender. Abdomen soft nontender. She is moving all 4 extremities. 5 of 5 tumbler operator strength. Dorsi plantarflexion intact. Normal sensation. Normal radial pulses. Back and neck are nontender. Neurologically she is awake and alert. Answering questions following commands. Const Vital Signs: 10/08/23 18:32 10/08/23 18:48 10/08/23 19:04 Temperature 97.4 F L Temperature Source Temporal Pulse Rate 90 Respiratory Rate 16 Respiratory Effort Normal Blood Pressure 141/83 H Blood Pressure Mean 102 Pulse Ox 97 Oxygen Delivery Method Room Air Room Air 10/08/23 20:32 Temperature Temperature Source Pulse Rate 72 Respiratory Rate 16 Respiratory Effort Blood Pressure 145/69 H Blood Pressure Mean 94 Pulse Ox 98 Oxygen Delivery Method Room Air Positive well nourished and well developed; Negative for cachectic, contractures or unkempt General Appearance ED: well developed and NAD; Negative for unkempt, cachectic, contractures or pallor Nutritional Appearance: Negative for cachectic HEENT Reports moist mucous membranes Negative for trauma or tenderness Eyes PERRL and EOMs intact bilaterally General Eye ED: Negative for pale conjunctiva or scleral icterus Neck no lymphadenopathy, supple and no JVD General: Negative for tenderness Thyroid: Negative for other Chest Wall Chest: Negative for other Resp normal respiratory effort and clear to auscultation bilaterally Effort and Inspection: Negative for pain with movement Auscultation: Negative for rales, rhonchi, wheezes or diminished lung sounds Cardio regular rate, regular rhythm, S1 normal heart sound, S2 normal heart sound and no murmurs Palpation: Negative for palpable S3 Rate: Negative for bradycardia or tachycardic Rhythm: Negative for abnormal rhythm Bruits: Negative for other GI normal to inspection, nondistended, normoactive bowel sounds, soft to palpation, non-tender, non-distended and no masses Inspection: Negative for abdominal distention Auscultation: Negative for hyperactive bowel sounds Palpation: Negative for tender, guarding or rebound tenderness present Back/Spine normal to inspection and no thoracic nor lumbar tenderness General Back: Negative for CVA tenderness Cervical Spine: Negative for cervical spine tenderness and Negative for paracervical muscle tenderness Thoracic Spine / Upper Back: Negative for paraspinal muscle tenderness Lumbar Spine / Lower Back: Negative for ROM limited Extremity normal to inspection and no clubbing, cyanosis or edema General Extremety ED: Negative for edema or tenderness General Extremity: Negative for edema Neuro oriented x3 and no sensory deficits noted Sensorium / Orientation: alert; Negative for confused or lethargic Motor Exam: strength 5/5 throughout Psych Appearance: Negative for unkempt Attitude: No agitated and No other Mood & Affect: Negative for depressed or sad Skin no rashes or lesions noted and no wounds General Skin Exam: Negative for jaundice or pallor Lesions: No lesion noted Rashes: No rashes noted Trauma: Negative for abrasion, puncture or other Wounds: Negative for wounds noted MDM MDM MDM Narrative Medical decision making narrative: 83-year-old female atypical upper back and neck pain with tingling in her hands I think this is musculoskeletal family wants worked up to make sure is not cardiac. She undergo cardiac workup. She had a similar cardiac presentation years ago. Repeat exam patient doing well at 8:45 PM. We went over over test results. Believe this to be musculoskeletal back pain with a history of cervical degenerative disc disease. I do not think this is cardiac. She will be discharged home with outpatient follow-up. Patient and family are comfortable with her discharge. History & Record Review Discussion w/independent historian: Patient and Family Additional record(s) reviewed:: Prior inpatient record, Prior outpatient record, Prior ED visit and Prior labs Lab Data Attestation: I reviewed the patient's lab results. Lab results narrative: CBC normal. White count 6. H&H 13 and 42. Platelets 262. Electrolytes show gap 5. BUN and creatinine 23 and 1.49. Glucose 142. Troponin normal at 22. Chest x-ray chronic changes. Labs: Laboratory Results - last 24 hr 10/08/23 18:52 WBC 6.8 RBC 4.41 Hgb 13.8 Hct 42.4 MCV 96.1 MCH 31.3 MCHC 32.5 RDW Std Deviation 47.5 H RDW Coeff of Shalom 13.2 Plt Count 262 MPV 11.5 Immature Gran % (Auto) 0.300 Neut % (Auto) 63.7 Lymph % (Auto) 26.6 Preston % (Auto) 7.8 Eos % (Auto) 0.7 Baso % (Auto) 0.9 Absolute Neuts (auto) 4.3 Absolute Lymphs (auto) 1.80 Nucleated RBC % 0 Sodium 137 Potassium 3.9 Chloride 105 Carbon Dioxide 27.0 Anion Gap 5 BUN 23 H Creatinine 1.49 H Estim Creat Clear Calc 30.41 Est GFR (MDRD) Af Amer 43 L Est GFR (MDRD) Non-Af 36 L BUN/Creatinine Ratio 15.4 Glucose 142 H Calcium 9.2 Troponin I High Sens 22 Radiography Chest X-Ray - ED: 1 View, Read by ED Physician, Read by Radiologist, Normal, Heart, Lungs, Mediastinum, Bony Structures, No Acute Disease and Chronic Changes Diagnostic Testing: Clinical Impression(s) from Imaging Studies Chest X-Ray 10/08/23 19:30 IMPRESSION: No radiographic evidence of acute cardiopulmonary disease. Electronically Signed: Roberto Snyder MD at 20:03 EDT , Chest x-ray, portable, 2 views interpreted by myself and radiologist shows no acute abnormality. Chronic changes. Rhythm Strip Rhythm Strip: Sinus Rhythm Rate: 78 Ectopy: None EKG Initial EKG: Attestation: I personally reviewed and interpreted this EKG as follows: Interpretation: Sinus Rhythm and No Acute Injury Pattern Comments: Normal sinus rhythm rate of 78. Old septal infarct. ST depression in V5 V6. Prior EKG tracings: available for review Prior: Unchanged Discharge Plan Triage Chief Complaint: Back ED Provider: Eris Del Valle Dx/Rx/DC Orders Clinical Impression: Acute neck pain, History of degenerative joint disease, History of WA (myocardial infarction), History of diabetes mellitus Instructions: ED Back and Neck Pain, General Prescriptions: No Action allopurinol 100 mg tablet 100 mg PO DAILY losartan 100 mg tablet 100 mg PO DAILY Farxiga 5 mg tablet 5 mg PO DAILY pravastatin 40 mg tablet 80 mg PO QHS Patient Comments: TAKE 2 TABLETS BY MOUTH EVERY DAY AT BEDTIME bethanechol chloride 10 mg tablet 10 mg PO BID levothyroxine [Euthyrox] 75 mcg tablet 75 mcg PO DAILY Patient Comments: TAKE 1 TABLET BY MOUTH ONCE DAILY Ozempic 1 mg/dose (4 mg/3 mL) pen injector 2 mg SUBCUT TU aspirin 81 mg tablet,delayed release (DR/EC) 81 mg PO DAILY@0800 metoprolol tartrate 25 mg tablet 25 mg PO BID glimepiride 1 mg tablet 0.5 mg PO DAILY amlodipine [Norvasc] 2.5 mg tablet 2.5 mg PO DAILY Qty: 90 3RF Primary Care Provider: Sandra Narvaez Referrals: Sandra Narvaez, [Primary Care Provider] - 3-5 Days if not improving Activity Restrictions/Additional Instructions: I would use Tylenol and/or Motrin for pain. Follow-up with your doctor as needed if not improving. You had a prior MRI that showed degenerative disc disease of your neck which is most likely the cause of this discomfort. If not improving they can start you on steroids. Print Language: Ukrainian Disposition Disposition: Home, Self Care
[2023-10-08 19:15] LABS: Absolute Neutrophil Count 4.3 X10^3/uL (2.0-7.7); Basophil# 0.06 X10^3/uL; Basophil% 0.9 % (0-1); Eosinophil# 0.05 X10^3/uL; Eosinophils% 0.7 % (0-5); Hematocrit 42.4 % (37-47); Hemoglobin 13.8 g/dL (12.0-15.0); Lymphocyte % 26.6 % (19-41); Mean Corp Hgb Conc 32.5 g/dL (32-36); Mean Corpuscular Hgb 31.3 pg (27.0-32.0); Mean Corpuscular Volume 96.1 fL (81-99); Mean Platelet Vol. 11.5 fl (6.2-12.0); Monocyte# 0.53 X10^3/uL; Monocyte% 7.8 % (0-10); NRBC Flagged by Analyzer 0 % (0-5); Neutrophil % 63.7 % (47-70); Platelet Count 262 K/mm3 (150-450); RBC Distribution Width CV 13.2 % (11.6-14.6); RBC Distribution Width SD 47.5 fl (35.1-43.9); Red Blood Count 4.41 M/mm3 (4.2-5.4); White Blood Count 6.8 K/mm3 (4.4-11.0)
[2023-10-08] MEDS: Aspirin 81 MG TAB.CHEW 324 MG PO (19:21)
--- NOTE | 2023-10-08 19:30 | RAD_ITS ---
EXAM: XR CHEST, 1 VIEW CLINICAL INDICATION: chest pain TECHNIQUE: Frontal view of the chest. COMPARISON: 06/01/2022 FINDINGS: LUNGS AND PLEURAL SPACES: Unremarkable. No consolidation or edema. No pneumothorax. No effusion. HEART: Unremarkable. Cardiac silhouette not enlarged. MEDIASTINUM: Central airways and mediastinal contour are unremarkable. BONES/JOINTS: Unremarkable. No acute fracture. SOFT TISSUES: Unremarkable. RAD/Chest 1 View (Portable) IMPRESSION: No radiographic evidence of acute cardiopulmonary disease. Electronically Signed: Roberto Snyder MD at 20:03 EDT ,
[2023-10-08 19:37] LABS: Anion Gap 5 (5-15); BUN 23 mg/dL (7-18); BUN/Creat Ratio 15.4 RATIO (10-20); Calcium,Total 9.2 mg/dL (8.5-10.1); Chloride 105 mmol/L (98-107); Creatinine, Serum 1.49 mg/dL (0.55-1.02); EST Glomerular Filtration Rate 36 mL/min (>60); Est Glom Filt Rate - Afr Amer 43 mL/min (>60); Estimated Creatinine Clearance 30.41 ml/min; Glucose 142 mg/dL (74-106); Potassium 3.9 mmol/L (3.5-5.1); Sodium Level 137 mmol/L (136-145); Troponin-I HS 22 pg/mL (3.0-54.0)
[2023-10-08 20:32] VITALS: BP 145/69; PULSE 72; RESP 16; O2SAT 98
[2023-10-08 20:55] VITALS: BP 139/74; PULSE 74; RESP 20; TEMP 36.7; O2SAT 99
== END 2023-10-08 21:03 | disposition home or self-care (01) ==
PROVIDERS: Emergency Provider Emergency Medicine; PCP Internal Medicine; Visit Provider Emergency Medicine
DX: M50.30 Other cervical disc degeneration, unspecified cervical region (principal); E11.9 Type 2 diabetes mellitus without complications; I25.10 Atherosclerotic heart disease of native coronary artery without angina pectoris; M19.011 Primary osteoarthritis, right shoulder; E78.00 Pure hypercholesterolemia, unspecified; I10 Essential (primary) hypertension; E03.9 Hypothyroidism, unspecified; I25.2 Old myocardial infarction; Z79.84 Long term (current) use of oral hypoglycemic drugs; Z79.85 Long-term (current) use of injectable non-insulin antidiabetic drugs; Z79.82 Long term (current) use of aspirin; Z79.890 Hormone replacement therapy; Z79.899 Other long term (current) drug therapy; Z86.73 Personal history of transient ischemic attack (TIA), and cerebral infarction without residual deficits; Z95.5 Presence of coronary angioplasty implant and graft
CPT/HCPCS: 71045; 80048; 84484; 85025; 93005; 99285

== ENCOUNTER → 2024-07-06 | Outpatient (CLI) | payer MEDICARE, SELFPAY ==
[2024-02-21 12:20] VITALS: BMI 27.1
[2024-07-06 11:45] LABS: Troponin T High Sensitivity 25 ng/L (<=14)
== END | disposition home or self-care (01) ==
LOC: LABSPEC 10:56
PROVIDERS: PCP Internal Medicine; Referring Provider Internal Medicine; Visit Provider Internal Medicine
DX: R79.89 Other specified abnormal findings of blood chemistry (principal)
CPT/HCPCS: 84484

== ENCOUNTER → 2024-07-27 | Outpatient (CLI) | payer MEDICARE, SELFPAY ==
[2024-02-21 12:20] VITALS: BMI 27.1
--- NOTE | 2024-07-27 06:55 | ECHOD_ITS ---
Reason For Study Reason For Study: CAD SCREENING Procedure This was a 2D Doppler, Color Flow transthoracic echocardiogram. Exam performed in department. Left Ventricle Normal LV size. The estimated ejection fraction is 65 %. No evidence for diastolic dysfunction. No regional wall motion abnormalities noted. Right Ventricle Normal RV size. Normal systolic function. Atria The left and right atria are normal. No doppler evidence for ASD. Mitral Valve There is mild to moderate mitral annular calcification. There is no mitral valve stenosis. Trivial mitral valve insufficiency. Tricuspid Valve There is no tricuspid stenosis. Trivial tricuspid valve insufficiency. Unable to estimate RV systolic pressure due to insufficient tricuspid regurgitant envelope. Aortic Valve Aortic sclerosis, no stenosis. There is no aortic stenosis. No aortic valve insufficiency. Pulmonic Valve There is no pulmonic valvular stenosis. No pulmonic valve insufficiency. Great Vessels Normal sized aortic root. Pericardium/Pleural No pericardial effusion. MMode/2D Measurements & Calculations LAV(MOD-bp): 28.6 ml LVAd ap4: 22.0 cm2 SV(MOD-sp4): 28.4 ml LAV(MOD-bp) Indexed: 15.1 ml/m2 LVLd ap4: 8.1 cm SI(MOD-sp4): 15.0 ml/m2 LAV(MOD-sp2): 32.1 ml EDV(MOD-sp4): 51.0 ml LAV(MOD-sp4): 25.0 ml EDV(sp4-el): 50.3 ml LVAs ap4: 13.2 cm2 LVLs ap4: 6.7 cm ESV(MOD-sp4): 22.6 ml ESV(sp4-el): 22.0 ml EF(MOD-sp4): 55.7 % EF(sp4-el): 56.1 % SV(sp4-el): 28.2 ml LA A4 area: 11.9 cm2 RA A4 area: 7.1 cm2 Doppler Measurements & Calculations Ao V2 max: 128.1 cm/sec LV V1 max: 123.5 cm/sec PA V2 max: 89.4 cm/sec Ao max P.6 mmHg LV V1 max P.1 mmHg PA V2 mean: 64.7 cm/sec Ao V2 mean: 85.4 cm/sec LV V1 mean P.4 mmHg Ao mean P.4 mmHg LV V1 mean: 86.1 cm/sec Ao V2 VTI: 26.6 cm LV V1 VTI: 21.2 cm AV (velocity ratio): 0.80 ECHO/Echo Complete Interpretation Summary The estimated ejection fraction is 65 %. No evidence for diastolic dysfunction. Trivial mitral valve insufficiency. Ordering Physician: Sandra Narvaez Referring Physician: Sandra Narvaez Performed By: Norma Krueger RCS
--- NOTE | 2024-07-29 13:29 | STRESSREP ---
Stress Test Report Date: 07/29/2024 Procedure: Pharmacologic stress nuclear imaging study Indications: CAD Consent: Per the patient Procedure: The patient underwent pharmacologic (Regadenoson) evaluation with a peak heart rate of 102 beats per minute (74%predicted maximal heart rate) and a peak blood pressure of 124/78 mmHg. The baseline ECG demonstrated normal sinus rhythm, nonspecific ST-T changes. EKG during lexiscan infusion revealed no significant ischemic changes. EKG post infusion revealed no significant ischemic changes [There were no cardiac dysrhythmias pretest, during pharmacologic infusion, or recovery]. [There was no complaint of chest discomfort during pharmacologic infusion or recovery]. The examination was discontinued secondary to completion of protocol. Impression: 1. Lexiscan stress test test is negative for Lexiscan infusion induced EKG changes of ischemia. 2. Lexiscan stress test test is negative for Lexiscan infusion induced chest pain. 3. Results of the nuclear portion of the test is as below Myocardial perfusion imaging study: Technique: The patient was injected with 11.9 millicuries of technetium 99m Cardiolite and subsequently rest SPECT Cardiolite nuclear imaging was obtained in the horizontal long, vertical long, and short axis views. The patient underwent pharmacologic [Regadenoson 0.4mg] evaluation. Please see above for details. The patient was injected with 34.2 millicuries of technetium 99m Cardiolite and subsequently stress SPECT Cardiolite nuclear imaging was obtained in the horizontal long, vertical long, and short axis views. A gated Cardiolite study at peak stress was obtained. Interpretation: Rest and stress SPECT Cardiolite nuclear imaging status post realignment, normalization, and attenuation correction demonstrate no evidence of significant ischemia or infarction. Gated images reveal no significant regional wall motion abnormalities. The reported LVEF is 68%. Impression: 1. There is no evidence of significant ischemia or infarction. 2. Estimated ejection fraction is 68%. This note was generated with [employer] software. It may contain incorrect words, spelling, and punctuation that were not noted in checking the note before signing.
== END | disposition home or self-care (01) ==
PROVIDERS: PCP Internal Medicine; Referring Provider Internal Medicine; Visit Provider Internal Medicine
DX: I25.10 Atherosclerotic heart disease of native coronary artery without angina pectoris (principal); R07.9 Chest pain, unspecified
CPT/HCPCS: 78452; 93017; 93306; A9500; A4216; J2785